=== PATIENT | female | born 1955 | race African-American/Black ===

== ENCOUNTER 2016-10-26 18:59 | Emergency (ER) | payer BC ==
[2016-10-26 19:09] VITALS: BP 121/88; PULSE 116; TEMP 98.6; BMI 42.5
[2016-10-26] MEDS ORDERED: ACETAMINOPHEN 325 MG TABLET (FP) PO ONE (19:54)
[2016-10-26] MEDS ORDERED: ACETAMINOPHEN 325 MG TABLET (FP) ONE (20:00)
--- NOTE | 2016-10-26 20:02 | PDOC ---
History of Present Illness - General Chief Complaint: Ear Problem Stated Complaint: LT EAR PAIN/NECK PAIN Time Seen by Provider: 10/26/16 19:31 History Source: Patient Exam Limitations: No Limitations - History of Present Illness Initial Comments: 10/26/16 20:02 61 yr female history of breast cancer on chemotherapy has left ear pain for one day and sore throat. no fever or chills. Past History - Past Medical History Allergies/Adverse Reactions: Allergies Allergy/AdvReac Type Severity Reaction Status Date / Time No Known Allergies Allergy Verified 10/26/16 19:04 Home Medications: Ambulatory Orders Aspirin [ASA -] 81 mg PO DAILY 05/25/12 Multivitamins [Tab-A-Vit -] 1 tab PO DAILY 07/16/16 Valsartan/Hydrochlorothiazide [Valsartan-Hctz 80-12.5 mg Tab] 1 each PO DAILY Tramadol HCl 50 mg PO QID PRN #30 tablet MDD 4 07/17/16 Amoxicillin - [Amoxicillin 500mg Capsule -] 500 mg PO BID #14 capsule 10/26/16 Anemia: No Asthma: No Cancer: Yes (stage 3 lt breast ca-on chemo) Cardiac Disorders: No CVA: No COPD: No CHF: No Dementia: No Diabetes: No GI Disorders: No Disorders: No HTN: Yes Hypercholesterolemia: No Liver Disease: No Seizures: No Thyroid Disease: No - Surgical History Cholecystectomy: Yes - Psycho/Social/Smoking Cessation Hx Anxiety: No Suicidal Ideation: No Smoking Status: No Smoking History: Never smoked Number of Cigarettes Smoked Daily: 0 Hx Alcohol Use: Yes (rarely) Drug/Substance Use Hx: No Substance Use Type: Alcohol Review of Systems - Review of Systems Able to Perform ROS?: Yes Is the patient limited Danish proficient: No Constitutional: No: Symptoms Reported HEENTM: Yes: Symptoms Reported Respiratory: No: Symptoms reported *Physical Exam - Vital Signs Last Vital Signs Temp Pulse Resp BP Pulse Ox 98.6 F 116 H 17 121/88 96 10/26/16 19:05 10/26/16 19:05 10/26/16 19:05 10/26/16 19:05 10/26/16 19:05 - Physical Exam General Appearance: Yes: Nourished, Appropriately Dressed HEENT: positive: EOMI, BONIFACIO, Pharyngeal Erythema, TM Dull, TM Erythema. negative: Tonsillar Exudate, Tonsillar Erythema Neck: positive: Supple. negative: Lymphadenopathy (R), Lymphadenopathy (L) Respiratory/Chest: positive: Lungs Clear, Normal Breath Sounds Cardiovascular: positive: Regular Rhythm, Regular Rate Gastrointestinal/Abdominal: positive: Normal Bowel Sounds, Soft Extremity: positive: Normal Capillary Refill, Normal Inspection, Normal Range of Motion Integumentary: positive: Normal Color, Dry, Warm Neurologic: positive: Fully Oriented, Alert, Normal Mood/Affect, Normal Response , Motor Strength 11/30 Medical Decision Making - Medical Decision Making 10/26/16 20:03 cc: sore throat left ear pain no fever or chills will place on amox for AOM pt agrees with plan will follow up saturday with pmd *DC/Admit/Observation/Transfer Diagnosis at time of Disposition: Otitis media Qualifiers: Otitis media type: suppurative Laterality: left Chronicity: acute Recurrence: not specified as recurrent Spontaneous tympanic membrane rupture: without spontaneous rupture Qualified Code(s): H66.002 - Acute suppurative otitis media without spontaneous rupture of ear drum, left ear - Discharge Dispostion Disposition: HOME Condition at time of disposition: Good - Prescriptions Prescriptions: Amoxicillin - [Amoxicillin 500mg Capsule -] 500 mg PO BID #14 capsule - Referrals Referrals: Jacky Rubi MD [Primary Care Provider] - - Patient Instructions Additional Instructions: take Amoxicillin as prescribed take tylenol for pain follow up with your doctor on Saturday for follow up if pain persists or worsens Return to ER for any fever, chills increase in pain or any other concerns
== END 2016-10-26 20:41 | disposition home or self-care (01) ==
LOC: JERFT 18:59
DX: H66.002 Acute suppurative otitis media without spontaneous rupture of ear drum, left ear (principal); I10 Essential (primary) hypertension; C50.912 Malignant neoplasm of unspecified site of left female breast
CPT/HCPCS: 99281-25

== ENCOUNTER 2017-03-06 06:24 | Day surgery (SDC) | payer BC ==
[2017-03-05 14:18] VITALS: BMI 42.5
[~2017-03-06 06:24] MED LIST: ceFAZolin SODIUM 1 GM VIAL IVPB ONE
[2017-03-06] MEDS ORDERED: ISOSULFAN BLUE 10 MG/ML VIAL SQ ONE (11:12)
[2017-03-06] MEDS ORDERED: LIDOCAINE HCL 1%, 10 MG/ML (20ML VIAL) ONE (11:12)
--- NOTE | 2017-03-06 11:41 | HP ---
Admitting History and Physical - Primary Care Physician PCP: Jacky Rubi - Admission Chief Complaint: LEFT BREAST CANCER History of Present Illness: 61 y.o. 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 Patient underwent neoadjuvant chemotherapy with good clinical response. History Source: Patient Limitations to Obtaining History: No Limitations - Past Medical History Cardiovascular: Yes: HTN Additional Past Medical History: left breast ca - Past Surgical History Past Surgical History: Yes: Breast Biopsy (image guided core needle biopsy) - Smoking History Smoking history: Never smoked Aproximately how many cigarettes per day: 0 - Alcohol/Substance Use Hx Alcohol Use: Yes (rarely) Home Medications - Allergies Allergies/Adverse Reactions: Allergies Allergy/AdvReac Type Severity Reaction Status Date / Time No Known Allergies Allergy Verified 03/05/17 14:12 - Home Medications Home Medications: Ambulatory Orders Aspirin [ASA -] 81 mg PO DAILY 05/25/12 Multivitamins [Tab-A-Vit -] 1 tab PO DAILY 07/16/16 Valsartan/Hydrochlorothiazide [Valsartan-Hctz 80-12.5 mg Tab] 1 each PO DAILY Review of Systems - Review of Systems Eyes: reports: No Symptoms HENT: reports: No Symptoms Neck: reports: No Symptoms Cardiovascular: reports: No Symptoms Respiratory: reports: No Symptoms Gastrointestinal: reports: No Symptoms Breasts: reports: Lumps (clinically non-palpable) Physical Examination Vital Signs: Vital Signs Temperature 97.9 F 03/06/17 06:43 Pulse Rate 110 H 03/06/17 06:43 Respiratory Rate 20 03/06/17 06:43 Blood Pressure 144/78 03/06/17 06:43 O2 Sat by Pulse Oximetry (%) 98 03/06/17 06:43 Constitutional: Yes: Well Nourished, No Distress Eyes: Yes: Conjunctiva Clear HENT: Yes: Normocephalic Neck: Yes: Supple Cardiovascular: Yes: Regular Rate and Rhythm Respiratory: Yes: CTA Bilaterally Gastrointestinal: Yes: Soft ...Rectal Exam: Yes: Deferred Breast(s): Yes: Left (breast mass and axillary mass no longer palpable), Right ( no palpable mass) Extremities: Yes: WNL Peripheral Pulses WNL: Yes Integumentary: Yes: WNL Problem List - Problems (1) Invasive ductal carcinoma of breast, female Assessment/Plan: left breast lumpectomy, sentinel lymph node biopsy with frozen section, possible axillary node dissection Code(s): C50.919 - MALIGNANT NEOPLASM OF UNSP SITE OF UNSPECIFIED FEMALE BREAST
[2017-03-06] MEDS ORDERED: PROPOFOL 20 ML ONE ×5 (12:08→13:35)
[2017-03-06] MEDS ORDERED: MIDAZOLAM HCL 2 MG/2 ML SINGLE DOSE VIAL ONE (12:08)
[2017-03-06] MEDS ORDERED: ceFAZolin SODIUM 1 GM VIAL ONE (12:42)
[2017-03-06] MEDS ORDERED: DEXAMETHASONE SOD PHOSPHATE 4 MG/1 ML VIAL ONE (12:42)
[2017-03-06] MEDS ORDERED: ceFAZolin SODIUM 1 GM VIAL IVPB ONE (12:45)
[2017-03-06] MEDS ORDERED: LIDOCAINE HCL 1%, 10 MG/ML (20ML VIAL) IJ ONE (13:04)
[2017-03-06] MEDS ORDERED: BUPIVACAINE HCL/PF 0.5% (5MG/ML) 10 ML VIAL ONE (13:07)
[2017-03-06] MEDS ORDERED: VASOPRESSIN 20 UNITS/ML VIAL IV ONE (13:18)
[2017-03-06] MEDS ORDERED: DESFLURANE GAS 240 ML BOTTLE IH ONE (13:36)
[2017-03-06] MEDS ORDERED: BUPIVACAINE HCL/PF 0.5% (5MG/ML) 10 ML VIAL IJ ONE (13:45)
[2017-03-06] MEDS ORDERED: BENZOIN/ALOE VERA/STORAX/TOLU 58 ML BOTTLE ONE (14:56)
[2017-03-06] MEDS ORDERED: KETOROLAC TROMETHAMINE 30 MG/1 ML VIAL ONE (14:57)
[2017-03-06] MEDS ORDERED: ONDANSETRON 4 MG/2 ML VIAL IVPUSH PRN (15:16)
[2017-03-06] MEDS ORDERED: oxyCODONE HCL 5 MG TABLET PO PRN (15:16)
--- NOTE | 2017-03-06 15:26 | OP ---
Operative Note - Note: Operative Date: 03/06/17 Pre-Operative Diagnosis: Node positive left breast invasive ductal carcinoma Operation: left breast lumpectomy, sentinel lymph node biopsy with needle localization Findings: negative SLN on touch prep, vaguely palpable breast mass with clips imaged on specimen X-ray Post-Operative Diagnosis: Same as Pre-op Surgeon: Reginaldo Mcgarry Mast Maker: Tori Pope Anesthesia: General Specimens Removed: left breast mass and axillary lymph node Estimated Blood Loss (mls): 20 Operative Report Dictated: Yes
[2017-03-06] MEDS ORDERED: LACTATED RINGERS SOLUTION 1,000 ML IV SCH (15:30)
[2017-03-06 16:46] VITALS: TEMP 97
[2017-03-06 18:00] VITALS: BP 141/75; PULSE 72
--- NOTE | 2017-03-07 08:29 | OP ---
DATE OF OPERATION: 03/06/2017 PROCEDURE: Left breast lumpectomy and sentinel lymph node biopsy with needle localization. PREOPERATIVE DIAGNOSIS: Node-positive left breast invasive ductal carcinoma, status post neoadjuvant chemotherapy. POSTOPERATIVE DIAGNOSIS: Node-positive left breast invasive ductal carcinoma, status post neoadjuvant chemotherapy. SURGEON: Reginaldo Mcgarry MD ELECTRONIC DATA INTERCHANGE SPECIALIST: TALIA Sandoval ANESTHESIA: General endotracheal. FINDINGS AND PROCEDURE: This is a 61-year-old female who was diagnosed in April 2016 with hormone receptor-positive and node-positive left breast invasive ductal carcinoma. Patient underwent neoadjuvant chemotherapy with good clinical response. On repeat examination, the left breast mass and axillary lymph node are barely palpable. Patient is now scheduled for breast conservation surgery. Preoperative wire localization by the breast radiologist was done with 2 wires in the left breast in the lower inner quadrant, 1 being for the LCIS lesion and 1 for the invasive lesion, and another wire was placed in the left axillary metastatic lymph node. Consent was then signed by the patient after discussing the risks, benefits, and alternatives to the procedure. Patient also underwent pre- op peritumoral and periareolar injection of technetium 99 for the radionuclide sentinel lymph node detection. Patient was brought to the operating room and placed in the supine position. General endotracheal anesthesia was administered. A roll was placed behind the patient' s left shoulder and the left arm was abducted 90 degrees. In the operating room, patient was also given 4 mL of isosulfan blue dye which was injected peritumorally and also in the periareolar region. After that, the left breast was prepped and draped in the usual sterile fashion. Using 0.5% Marcaine, local anesthesia was administered to the proposed incision sites. The sentinel lymph node biopsy was done first by making a 5-cm skin crease incision over the lowest hair-bearing part of the left axilla. This was done using scalpel blade No. 15. Further dissection using Bovie cautery was done until the clavipectoral fascia was encountered. This was also incised using the Bovie cautery to enter the axillary fat pad. The blue lymphatic channel was traced toward a lymph node which was also hypermetabolic or with high counts on the [place] counter or probe. This lymph node turned out also to have the wire that was previously inserted. This was sent for frozen section with the preliminary report on touch prep to be negative for metastatic cancer. Further removal of lymph node containing axillary fat pad was done. Afterwards, the hemostasis was achieved using Bovie cautery. Attention was then focused on the breast where a 6-cm curvilinear incision at the left lower inner quadrant was made with dissection carried down through subcutaneous tissue. Further dissection using Bovie cautery and 7-mm inferior and superior flaps were made. Most of the entire left lower inner quadrant was excised down to the pectoralis muscle. This was then sent for specimen x-ray and reported to contain the 2 microclips. These were placed at the time of the stereotactic biopsy. The superior part of the breast was then tacked to the pectoralis fascia to obliterate the space and minimize the deformity. This was done using Vicryl 2-0 sutures. The wound was then closed with interrupted Vicryl 3-0 suture for the dermis and continuous Biosyn 4-0 suture for the subcuticular layer. The axillary wound was also closed in the same manner with interrupted Vicryl 2- 0 suture for the clavipectoral fascia, interrupted Vicryl 3-0 suture for the dermis, and continuous Biosyn 4-0 suture for the subcuticular layer. The wound closure was reinforced with Steri-Strips and then covered with pressure dressing. A mastectomy bra was also applied for compression, comfort, and prevention of a seroma. Patient was successfully extubated and transferred to the postanesthesia care unit in satisfactory condition. Estimated blood loss was about 20 mL. Wound class 3 and the patient received 2 g of cefazolin prior to the start of the procedure. Yosef [id number] MTDD
--- NOTE | 2017-03-12 17:04 | PATH ---
Surgical Pathology Report Patient Name: LEE GUERRA [facility]. Rec. #: [id number] /Age/Gender: 1955 (Age: 61) / F Account: [id number] Location: [facility] SURGICAL Taken: 03/06/2017 Received: 03/06/2017 Reported: 03/12/2017 Physicians: Reginaldo Mcgarry M.D. Specimen(s) Received A: LEFT BREAST B: LEFT BREAST MASS C: LEFT AXILLARY TISSUE Clinical History Left breast cancer Intraoperative Consult Diagnosis Left sentinel node, touch prep: No carcinoma identified. Flakito Mckeon M.D., 03/06/17 Final Diagnosis A. SENTINEL LYMPH NODE, LEFT AXILLARY, BIOPSY: ONE LYMPH NODE, NEGATIVE FOR METASTATIC CARCINOMA BY H&E STAIN WITH EXTENSIVE POST THERAPEUTIC FIBROSIS (0/1). Comment: Immunohistochemical stain for Ae1/Ae3 keratin performed and interpreted at [facility] on blocks A1 and A2 shows nonspecific staining. B. BREAST, LEFT, LUMPECTOMY: INVASIVE DUCTAL CARCINOMA, POORLY DIFFERENTIATED (NONA HISTOLOGIC SCORE OF 8: TUBULE FORMATION 3 OF 3, NUCLEAR PLEOMORPHISM 3 OF 3, MITOTIC RATE 2 OF 3). INVASIVE CARCINOMA FOCALITY AND SIZE: SINGLE FOCUS, 2.3 CM. LOBULAR CARCINOMA IN SITU (LCIS), CLASSICAL TYPE WITH FOCAL MICROCALCIFICATIONS. THERAPEUTIC RESPONSE: MILD (FOCI OF POSTTHERAPEUTIC FIBROSIS PRESENT, ~15%). SURGICAL RESECTION MARGINS: INVASIVE CARCINOMA ABUTS CAUTERIZED ANTERIOR RESECTION MARGIN, INVASIVE CARCINOMA IS 1.5 MM FROM THE MEDIAL RESECTION MARGIN AND >2.0 MM AWAY FROM OTHER RESECTION MARGINS. LYMPHOVASCULAR INVASION: FOCALLY IDENTIFIED. PERINEURAL INVASION: NOT DEFINITIVELY IDENTIFIED. SURROUNDING BREAST TISSUE: SCLEROSED FIBROADENOMA AND COMPLEX SCLEROSING LESION WITH COARSE CALCIFICATIONS AND USUAL DUCTAL HYPERPLASIA, FIBROCYSTIC CHANGE WITH USUAL DUCTAL HYPERPLASIA, ADENOSIS, COLUMNAR CELL CHANGE, STROMAL FIBROSIS WITH ASSOCIATED MICROCALCIFICATIONS. PATHOLOGIC STAGING: ypT2 ypN0(sn) (ALSO REFER TO CHECKLIST BELOW). RECEPTOR STATUS: REFER TO THE CHECKLIST BELOW. Comment: Immunohistochemical stain for E-cadherin performed and interpreted at [facility] on block B5 shows attenuated staining in the foci of LCIS supporting and lobular differentiation. C. LEFT AXILLARY TISSUE: BENIGN FATTY TISSUE. Comments Breast Invasive Carcinoma: Surgical Pathology Cancer Case Summary Based on AJCC/UICC TNM, 7th edition Procedure _x_ Excision with image-guided localization Lymph Node Sampling (select all that apply) (required only if lymph nodes are present in the specimen) _x_ [place] lymph nodes Specimen Laterality _x_ Left Tumor Size: Size of Largest Invasive Carcinoma Greatest dimension of largest focus of invasion over 1 mm: 23 mm (2.3 cm) Tumor Focality _x_ Single focus of invasive carcinoma Macroscopic and Microscopic Extent of Tumor Skin _x_ No skin present Nipple _x_ Not applicable (excisions less than total mastectomy) Skeletal Muscle _x_ No skeletal muscle present Ductal Carcinoma In Situ (DCIS) _x_ No DCIS is present Lobular carcinoma in situ (LCIS): _x_ Present, classical type Histologic Type of Invasive Carcinoma: _x_ Invasive carcinoma of no special type (ductal, not otherwise specified) Histologic Grade: ([place] Histologic Score) Tubular Differentiation _x_ Score 3 Nuclear Pleomorphism _x_ Score 3 Mitotic Rate _x_ Score 2 Overall Grade _x_ Grade 3: score of 8 (poorly differentiated) Margins _x_ Margin(s) positive for invasive carcinoma: invasive carcinoma abuts anterior margin; medial margin s 1.5 mm from invasive carcinoma, other margins are >2mm away from invasive carcinoma Lymph-Vascular Invasion _x_ Focally present Lymph Nodes Total number of lymph nodes examined (sentinel and nonsentinel):1 Number of sentinel lymph nodes examined: 1 Number of lymph nodes with macrometastases (> 2 mm): 0 Number of lymph nodes with micrometastases (>0.2 mm to 2 mm and/or >200cells): 0 Number of lymph nodes with isolated tumor cells (=0.2 mm and =200 cells):0 Size of largest metastatic deposit (if present): n/a Extranodal Extension _x_ Not applicable Pathologic Staging (pTNM) Primary Tumor (Invasive Carcinoma): ypT2 Regional Lymph Nodes (pN): ypN0(sn) Distant Metastasis (pM): not applicable Biomarker Studies Results of ER and CT studies performed on this specimen (block B2) at [facility] are as follows: ER (clone [id number] mouse monoclonal antibody by [employer]): ~90% nuclear staining with strong to moderate intensity (Positive). CT (clone16 mouse monoclonal antibody by [employer]):~20-25% nuclear staining with moderate to strong intensity (Positive). Results of Her2 studies will be reported separately in an addendum. Positive and negative controls (internal if applicable) show appropriate results. Formalin fixation and cold ischemic times are within current ASCO/CAP recommendations for ER, CT and Her2 testing. Electronically Signed Paco Willis M.D. Addendum Reported: 03/13/2017 Addendum Diagnosis Result of Her2 IHC performed on block B2 at [place], [place] ([id number]) is as follows: Her2 IHC (EP3 from [employer], formerly known as [id number], using [employer] Polymer Refine detection kit): 0 (Negative) Positive and negative controls (internal if applicable) show appropriate results. Paco Willis M.D. Gross Description A. Received fresh labeled "sentinel lymph node" is a 2.2 x 2.0 x 0.6 cm lymph node with attached fat. The specimen is bisected and a touch prep is performed on the specimen. The specimen is entirely submitted in 2 cassettes. B. Received fresh on an [employer] labeled "left breast mass" is a 6.5 x 5.6 x 3.5 cm irregular portion of fibroadipose tissue with a needle localization wire present. There is a long suture marking the anterior margin, a medium suture marking the superior margin and a short suture marking the medial margin of the specimen, per the surgeon. There is no skin or nipple present. The specimen is inked as follows: Superior and lateral blue; inferior green; medial yellow; anterior red; deep black. The specimen is serially sectioned from superior to inferior. Sectioning reveals a 2.2 x 1.8 x 1.2 cm galvin, indurated mass focally abutting the anterior margin. The mass is at 0.2 cm from the medial margin and 0.9 cm from the deep margin. The remaining margins appear clear of the mass. [facility] Of Maternity Services sections are submitted in 9 cassettes as follows: 1-2-one full face section of mass each (each with anterior and medial margins); 3-additional mass with anterior and medial margins; 4-5-lateral margin; 6-deep margin; 2-7-idtzprnw margin; 9-superior margin. Time to fixation: <1h Total formalin fixation time: ~26h C. Received in formalin labeled "left axillary tissue" is a 5.4 x 3.5 x 1.0 cm portion of yellow, lobulated adipose tissue. No discrete lymph nodes are identified. The specimen is entirely submitted in 5 cassettes. 03/06/2017 [facility]03/06/2017
== END 2017-03-06 17:30 | disposition home or self-care (01) ==
LOC: JASU-SURG 06:24
PROVIDERS: ATTEND Surgery
PROC: 0HBU0ZZ Excision of Left Breast, Open Approach (ICD-10-PCS; principal; 2017-03-06 11:30)
PROC: 07B60ZX Excision of Left Axillary Lymphatic, Open Approach, Diagnostic (ICD-10-PCS; 2017-03-06 11:30)
PROC: C71LYZZ Planar Nuclear Medicine Imaging of Upper Chest Lymphatics using Other Radionuclide (ICD-10-PCS; 2017-03-06 11:30)
DX: C50.312 Malignant neoplasm of lower-inner quadrant of left female breast (principal); Z92.21 Personal history of antineoplastic chemotherapy
CPT/HCPCS: 19281; 78195-TC; 88307-TC; 88333; 88342-TC; 94760; A9541

== ENCOUNTER 2017-03-19 06:23 | Day surgery (SDC) | payer BC ==
[2017-03-15 11:46] VITALS: BMI 42.5
[2017-03-19] MEDS ORDERED: ePHEDrine SULFATE 50 MG/1 ML AMPULE ONE ×2 (07:30→09:43)
[2017-03-19] MEDS ORDERED: PROPOFOL 20 ML ONE ×3 (07:30→08:46)
[2017-03-19] MEDS ORDERED: SUCCINYLCHOLINE CHLORIDE 200 MG/10 ML VIAL ONE (07:30)
[2017-03-19] MEDS ORDERED: MIDAZOLAM HCL 2 MG/2 ML SINGLE DOSE VIAL ONE (07:31)
[2017-03-19] MEDS ORDERED: DESFLURANE GAS 240 ML BOTTLE IH ONE (07:35)
[2017-03-19] MEDS ORDERED: SEVOFLURANE 250 ML BTL ONE (07:35)
[2017-03-19] MEDS ORDERED: BUPIVACAINE HCL/PF 0.5% (5MG/ML) 10 ML VIAL ONE (07:40)
[2017-03-19] MEDS ORDERED: LIDOCAINE HCL 1%, 10 MG/ML (20ML VIAL) ONE (07:40)
--- NOTE | 2017-03-19 08:23 | HP ---
History & Physical Update - History History: Change (see notes) (s/p lumpectomy and SNLB with postive anterior margins of lumpectomy specimen) - Physical Physical: No Change (intact lumpectomy wound) - Assessment Assessment: No Change (s/p LSNLB LEFT BREAST with positive anterior margin) - Plan Plan: No Change (wide re-excisionof lumpectomy site, left breast)
[2017-03-19] MEDS ORDERED: LIDOCAINE HCL 1%, 10 MG/ML (20ML VIAL) IJ ONE (08:37)
[2017-03-19] MEDS ORDERED: BUPIVACAINE HCL/PF 0.5% (5MG/ML) 10 ML VIAL IJ ONE (08:40)
[2017-03-19] MEDS ORDERED: NEOSTIGMINE METHYLSULFATE 0.5 MG/ML - 10 ML MDV ONE (08:48)
[2017-03-19] MEDS ORDERED: ROCURONIUM BROMIDE 50 MG/5 ML VIAL ONE (08:48)
[2017-03-19] MEDS ORDERED: BENZOIN/ALOE VERA/STORAX/TOLU 58 ML BOTTLE ONE (09:20)
[2017-03-19] MEDS ORDERED: ONDANSETRON 4 MG/2 ML VIAL IVPUSH PRN (10:12)
--- NOTE | 2017-03-19 10:14 | OP ---
Operative Note - Note: Operative Date: 03/19/17 Pre-Operative Diagnosis: s/p LSLNB with positive anterior margin Operation: Wide re-excision of left breast lumpectomy site/breast mass Findings: unremarkable lumpectomy site Post-Operative Diagnosis: Same as Pre-op Surgeon: Reginaldo Mcgarry Anesthesia: General Specimens Removed: skin and breast tissue Estimated Blood Loss (mls): 5 Operative Report Dictated: Yes
[2017-03-19] MEDS ORDERED: LACTATED RINGERS SOLUTION 1,000 ML IV SCH (10:15)
[2017-03-19 11:07] VITALS: TEMP 98
[2017-03-19] MEDS ORDERED: oxyCODONE HCL 5 MG TABLET PO PRN ×2 (11:35)
[2017-03-19 13:22] VITALS: BP 124/61; PULSE 83
--- NOTE | 2017-03-19 17:14 | OP ---
DATE OF OPERATION: 03/19/2017 PROCEDURE: Wide re-excision of left breast mass/lumpectomy site. PREOPERATIVE DIAGNOSIS: Invasive ductal carcinoma of the left breast status post lumpectomy and sentinel lymph node biopsy with positive anterior margin. POSTOPERATIVE DIAGNOSIS: Invasive ductal carcinoma of the left breast status post lumpectomy and sentinel lymph node biopsy with positive anterior margin. SURGEON: Reginaldo Mcgarry MD ANESTHESIA: General by laryngeal mask airway. FINDINGS AND PROCEDURE: This is a 61-year-old female with history of a large left breast invasive ductal carcinoma and positive metastasis to the axillary lymph node. Patient underwent lumpectomy and sentinel lymph node biopsy 2 weeks prior after neoadjuvant chemotherapy. The pathology returned as negative axillary metastatic lymph node with a positive anterior margin of the lumpectomy site. So, patient was thus advised wide re-excision of the lumpectomy site, and consent was obtained after discussing the risks, benefits, and alternatives to the procedure. Patient was brought to the operating room and placed in supine position with the left arm abducted 90 degrees. The general anesthesia by laryngeal mask airway was administered. The operative site was prepped and draped in the usual sterile fashion. Using 0.5% Marcaine, local anesthesia was administered to the proposed incision site. Using scalpel blade number 15, an elliptical incision with about 1-cm margin from the original incision was made. Dissection was carried down to the subcutaneous tissue, and subcutaneous tissue was also removed widely about 2 cm from the original incision site. Dissection was carried down all the way to the deep structures, removing a sliver of breast tissue until the pectoralis fascia was encountered. The wide excision incorporated the excisional cavity. After this, the specimen was labeled for proper orientation. Further resection of 0.5 cm x 3 cm x 2 cm margins of the anterior-superior and the lateral and the inferior anterior margins were also taken and sent to the lab for proper histopathologic examination. The wound was irrigated with sterile normal saline until the return was clear and oncoplastic reconstruction was done by undermining the breast tissue at the pectoralis fascial level, and using Vicryl 2-0 sutures, the breast tissue was tacked close to the inframammary fold, taking bites of the pectoralis fascia to obliterate space and minimize deformity. The skin was then closed with interrupted Vicryl 3-0 suture for the dermis and continuous Biosyn 4 -0 suture for the subcuticular layer. The wound closure was reinforced with Steri-Strips, then covered with sterile dressing and post-mastectomy bra was applied. Patient was successfully extubated, transferred to the postanesthesia care unit in satisfactory condition. ESTIMATED BLOOD LOSS: About 5 mL. WOUND CLASS: Clean. The patient received 2 g of Ancef prior to the start of the procedure. Yosef [id number] MTDD
--- NOTE | 2017-03-21 15:59 | PATH ---
Surgical Pathology Report Patient Name: LEE GUERRA [facility]. Rec. #: [id number] /Age/Gender: 1955 (Age: 61) / F Account: [id number] Location: [facility] SURGICAL Taken: 03/19/2017 Received: 03/19/2017 Reported: 03/21/2017 Physicians: Reginaldo Mcgarry M.D. Specimen(s) Received A: LEFT BREAST RE-EXCISION LUMPECTOMY SITE B: LEFT BREAST TISSUE C: LEFT BREAST TISSUE D: LEFT BREAST TISSUE Clinical History Left breast cancer Final Diagnosis A. BREAST, LEFT, RE-EXCISION LUMPECTOMY SITE: NO RESIDUAL INVASIVE OR IN SITU CARCINOMA IDENTIFIED. FIBROCYSTIC CHANGE WITH USUAL DUCTAL HYPERPLASIA. BENIGN SKIN. EXTENSIVE PRIOR SURGICAL SITE CHANGES. SURGICAL RESECTION MARGINS: NEGATIVE FOR INVASIVE OR IN-SITU CARCINOMA. B. BREAST, LEFT, ANTERIOR SUPERIOR MARGIN, EXCISION: BENIGN BREAST TISSUE WITH EXTENSIVE PRIOR SURGICAL SITE CHANGES. SURGICAL RESECTION MARGIN: NEGATIVE FOR INVASIVE OR IN-SITU CARCINOMA. C. BREAST, LEFT, LATERAL MARGIN, EXCISION: BENIGN BREAST TISSUE WITH FIBROCYSTIC CHANGE WITH FOCAL USUAL DUCT HYPERPLASIA. NO INVASIVE OR IN SITU CARCINOMA IDENTIFIED. EXTENSIVE PRIOR SURGICAL SITE CHANGES. SURGICAL RESECTION MARGIN: NEGATIVE FOR INVASIVE OR IN-SITU CARCINOMA. D. BREAST, LEFT, INFERIOR MEDIAL MARGIN, EXCISION: BENIGN BREAST TISSUE WITH FIBROCYSTIC CHANGE WITH FOCAL USUAL DUCTAL HYPERPLASIA. NO RESIDUAL INVASIVE OR IN SITU CARCINOMA IDENTIFIED. EXTENSIVE PRIOR SURGICAL SITE CHANGES. SURGICAL RESECTION MARGIN: NEGATIVE FOR INVASIVE OR IN-SITU CARCINOMA. Comment: Immunohistochemical stains performed and interpreted as [facility] shoe preserved myoepithelial cells in block A9, e-cadherin stain is positive in blocks A9, C3 and D2 supporting usual ductal hyperplasia. Electronically Signed Paco Willis M.D. Gross Description A. Received in formalin labelled "left breast tissue-reexcision left breast" is an 8 x 5 x 2.5 cm portion of yellow fatty tissue with an attached 7.1 x 1.8 cm ellipse of skin. The specimen is oriented vertically, and a short suture dominique the superior margin and a long suture dominique the lateral margin. The surface of the specimen is focally disrupted, and shows a cystic interior. Instructions are noted along the lateral, deep, and inferior aspects of the specimen. The superior and lateral margins are inked blue. The inferior margin is inked green. The medial margin is inked yellow. The deep margin is inked black. The specimen is sectioned from superior to inferior. Cut surface reveals yellow adipose tissue and galvin-keith fibrous tissue. Areas consistent with prior excision site with associated fat necrosis are present. No distinct mass is identified. [employer] sections are submitted from superior to inferior in 10 cassettes, with the superior margin in cassette 1 and the inferior margin in cassette 10. Time to formalin fixation: not indicated Total formalin fixation time: ~7 hours. B. Received in formalin labelled "inferior/medial left breast tissue" but indicated on the requisition to be "anterior superior margin" is a 3.2 x 2.8 x 0.8 cm portion of yellow fatty tissue with sutures marking the new margin. Cut surface reveals yellow adipose tissue with no distinct lesion identified. Sectioned and totally submitted in 4 cassettes. C. Received in formalin labelled "left breast tissue lateral margin" is a 6 x 1.4 x 0.5 cm portion of yellow and keith tissue with one surface showing changes consistent with prior excision site. The opposite margin is inked. Sectioned and totally submitted in 4 cassettes. D. Received in formalin labelled "left breast tissue inferior/medial margin" is a 3.0 x 2.1 x 1.6 cm portion of yellow fatty tissue with a stitch and anterior superior border. One aspect shows apparent prior excision site changes. The opposite margin is inked. Sectioned and totally submitted in 4 cassettes. [facility]03/19/2017
== END 2017-03-19 13:24 | disposition home or self-care (01) ==
LOC: JASU-SURG 06:23
PROVIDERS: ATTEND Surgery
PROC: 0HBU0ZZ Excision of Left Breast, Open Approach (ICD-10-PCS; principal; 2017-03-19 08:00)
DX: C50.312 Malignant neoplasm of lower-inner quadrant of left female breast (principal)
CPT/HCPCS: 88307-TC; 88341-TC; 88342-TC; 94760

== ENCOUNTER 2017-08-15 12:59 | Emergency (ER) | payer BC ==
[2017-08-15 13:24] VITALS: BP 146/79; PULSE 80; TEMP 98.9; BMI 45.6
--- NOTE | 2017-08-15 14:50 | PDOC ---
History of Present Illness - General Chief Complaint: Injury Stated Complaint: FALL INJURY Time Seen by Provider: 08/15/17 14:26 History Source: Patient Exam Limitations: No Limitations - History of Present Illness Initial Comments: 08/15/17 14:45 62-year-old female with history of breast CA currently in RT treatment presents to the ED status post mechanical fall. Patient states was working up the steps at work when she missed the last step causing her to land on her left side striking her left arm now complaining of upper left arm pain and neck pain. Patient states did not hit her head and has no complaints of headache presently. Patient states was able toward the scene but due to the pain and her decreased sensation to the left arm secondary to radiation therapy to her left breast she decided to come to the ER. Patient denies previous injury to the affected area. Occurred: reports: just prior to arrival Severity: reports: mild Pain Location: reports: neck, upper extremity Method of Injury: Yes: fall Loss of Consciousness: no loss of consciousness Associated Symptoms (Fall): neck pain Past History - Travel Traveled outside of the country in the last 30 days: No - Past Medical History Allergies/Adverse Reactions: Allergies Allergy/AdvReac Type Severity Reaction Status Date / Time No Known Allergies Allergy Verified 08/15/17 13:24 Home Medications: Ambulatory Orders Aspirin [ASA -] 81 mg PO DAILY 05/25/12 Multivitamins [Tab-A-Vit -] 1 tab PO DAILY 07/16/16 Valsartan/Hydrochlorothiazide [Valsartan-Hctz 80-12.5 mg Tab] 1 each PO DAILY Oxycodone HCl/Acetaminophen [Percocet 5-325 mg Tablet] 1 - 2 tab PO Q6H PRN #30 tab MDD 8 03/19/17 Anemia: No Asthma: No Cancer: Yes (left breast) Cardiac Disorders: No CVA: No COPD: No CHF: No Dementia: No Diabetes: No GI Disorders: No Disorders: No HTN: Yes Hypercholesterolemia: No Liver Disease: No Seizures: No Thyroid Disease: No - Surgical History Cholecystectomy: Yes - Suicide/Smoking/Psychosocial Hx Smoking Status: No Smoking History: Former smoker Have you smoked in the past 12 months: No Number of Cigarettes Smoked Daily: 0 Information on smoking cessation initiated: No Hx Alcohol Use: No Drug/Substance Use Hx: No Substance Use Type: None Hx Substance Use Treatment: No Patient Lives Alone: No Lives with/in: spouse/SO Review of Systems - Review of Systems Able to Perform ROS?: Yes Constitutional: No: Symptoms Reported HEENTM: No: Symptoms Reported Respiratory: No: Symptoms reported Cardiac (ROS): No: Symptoms Reported ABD/GI: No: Symptoms Reported : No: Symptoms Reported Musculoskeletal: Yes: Muscle Pain (left bicep), Neck Pain. No: Joint Pain (no left shoulder or left elbow) Integumentary: No: Other Neurological: No: Symptoms reported Hematologic/Lymphatic: No: Symptoms Reported *Physical Exam - Vital Signs Last Vital Signs Temp Pulse Resp BP Pulse Ox 98.9 F 80 17 146/79 98 08/15/17 13:19 08/15/17 13:19 08/15/17 13:19 08/15/17 13:19 08/15/17 13:19 - Physical Exam General Appearance: Yes: Nourished, Appropriately Dressed. No: Apparent Distress HEENT: negative: Pale Conjunctivae Neck: positive: Supple, Tender midline (c5-6) Respiratory/Chest: positive: Lungs Clear, Normal Breath Sounds. negative: Respiratory Distress, Accessory Muscle Use Cardiovascular: positive: Regular Rhythm, Regular Rate. negative: Murmur Gastrointestinal/Abdominal: positive: Soft. negative: Tenderness Extremity: positive: Normal Capillary Refill, Normal Inspection. negative: Normal Range of Motion, Tender Integumentary: positive: Normal Color, Warm, Moist Neurologic: positive: Motor Strength 5/5 (ambulatory. FROM of LUE) ED Treatment Course - RADIOLOGY Radiology Studies Ordered: Category Date Time Status HUMERUS-LEFT [RAD] Stat Radiology 08/15/17 14:33 Ordered SPINE-CERVICAL [RAD] Stat Radiology 08/15/17 14:33 Ordered Medical Decision Making - Medical Decision Making 08/15/17 15:05 Patient status post mechanical fall landing on her left arm now with pain to her left bicep and mid shaft of left humerus. Patient also on exam had tenderness at C5 and C6. Patient ordered for cervical spine and humeral x-ray 08/15/17 15:18 Humeral x-ray and cervical x-ray negative for acute findings including subluxation and fracture. Patient to be discharged home with recommendations to apply ice, take NSAIDs and rest. *DC/Admit/Observation/Transfer Diagnosis at time of Disposition: Contusion Qualifiers: Encounter type: initial encounter Contusion area: upper arm - Discharge Dispostion Disposition: HOME Condition at time of disposition: Good - Referrals Referrals: Jacky Rubi MD [Primary Care Provider] - - Patient Instructions Printed Discharge Instructions: DI for Contusion Additional Instructions: Apply ice to the affected area and may take Motrin or Tylenol for discomfort. - Post Discharge Activity
== END 2017-08-15 15:30 | disposition home or self-care (01) ==
LOC: JERFT 12:59
DX: S40.022A Contusion of left upper arm, initial encounter (principal); W10.8XXA Fall (on) (from) other stairs and steps, initial encounter; Y93.89 Activity, other specified; Y92.218 Other school as the place of occurrence of the external cause; Y99.0 Civilian activity done for income or pay; Z85.3 Personal history of malignant neoplasm of breast
CPT/HCPCS: 72050-TC; 73060-TC-LT; 99281-25

== ENCOUNTER 2017-10-14 07:35 | Inpatient (IN) | payer BC ==
--- NOTE | 2017-10-14 07:52 | PDOC ---
History of Present Illness - General Chief Complaint: Nausea/Vomiting Stated Complaint: DIZZINESS,VOMITING Time Seen by Provider: 10/14/17 07:47 Past History - Past Medical History Allergies/Adverse Reactions: Allergies Allergy/AdvReac Type Severity Reaction Status Date / Time No Known Allergies Allergy Verified 10/14/17 07:48 Home Medications: Ambulatory Orders Aspirin [ASA -] 81 mg PO DAILY 05/25/12 Multivitamins [Tab-A-Vit -] 1 tab PO DAILY 07/16/16 Valsartan/Hydrochlorothiazide [Valsartan-Hctz 80-12.5 mg Tab] 1 each PO DAILY Oxycodone HCl/Acetaminophen [Percocet 5-325 mg Tablet] 1 - 2 tab PO Q6H PRN #30 tab MDD 8 03/19/17 Anemia: No Asthma: No Cancer: Yes (left breast) Cardiac Disorders: No CVA: No COPD: No CHF: No Dementia: No Diabetes: No GI Disorders: No Disorders: No HTN: Yes Hypercholesterolemia: No Liver Disease: No Seizures: No Thyroid Disease: No - Surgical History Cholecystectomy: Yes - Suicide/Smoking/Psychosocial Hx Smoking Status: No Smoking History: Former smoker Have you smoked in the past 12 months: No Number of Cigarettes Smoked Daily: 0 Hx Alcohol Use: No Drug/Substance Use Hx: No Substance Use Type: None Hx Substance Use Treatment: No *DC/Admit/Observation/Transfer - Referrals Referrals: Jacky Rubi MD [Primary Care Provider] - - Patient Instructions - Post Discharge Activity
[2017-10-14] MEDS ORDERED: SODIUM CHLORIDE 1,000 ML IV STA (07:54)
[2017-10-14] MEDS ORDERED: PROCHLORPERAZINE INJECTION 10 MG/2 ML VIAL IVPB ONE (07:54)
[2017-10-14] MEDS ORDERED: METOCLOPRAMIDE HCL INJECTION 10 MG/2 ML VIAL IVPUSH ONE (07:54)
--- NOTE | 2017-10-14 07:56 | PDOC ---
History of Present Illness - General Stated Complaint: DIZZINESS,VOMITING Time Seen by Provider: 10/14/17 07:47 - History of Present Illness Initial Comments: 10/14/17 07:50 62 yo F with h/o stage III L breast invasive ductal carcinoma s/p chemoradiation , and HTN who arrives EMS with MCDONOUGH. Patient acute onset of 5/10 frontal headache yesterday evening with improvement following Tylenol adminsitration prior to falling asleep. Reports waking up this AM with maximal intensity frontal headache, with asx. photphobia, phonophobia, and 4 episodes of non biliary, non bloody emesis. Reports worse MCDONOUGH she has experienced in life.Tylenol this AM with no improvement. MCDONOUGH worse with supine positioning. Also endorses fatigue and lightheadedness, but denies vertiginous symptoms. Denies vision changes, stiff neck, F/C, weakness, new sensory changes, or LOC. Denies CP, SOB, cough, abdominal pain, diarrhea, constipation, urinary complaints. Denies caffeine, tobacco, or alcohol intake. Denies h/o CVA/TIA. Oncologist Dr. Fernandez. Last round of radiation (08/15), and chemotherapy (06/14). PMD Dr. Buck Rubi. Past History - Past Medical History Allergies/Adverse Reactions: Allergies Allergy/AdvReac Type Severity Reaction Status Date / Time No Known Allergies Allergy Verified 10/14/17 07:57 Home Medications: Ambulatory Orders Aspirin [ASA -] 81 mg PO DAILY 05/25/12 Multivitamins [Tab-A-Vit -] 1 tab PO DAILY 07/16/16 Valsartan/Hydrochlorothiazide [Valsartan-Hctz 80-12.5 mg Tab] 1 each PO DAILY Oxycodone HCl/Acetaminophen [Percocet 5-325 mg Tablet] 1 - 2 tab PO Q6H PRN #30 tab MDD 8 03/19/17 Anemia: No Asthma: No Cancer: Yes (left breast) Cardiac Disorders: No CVA: No COPD: No CHF: No Dementia: No Diabetes: No GI Disorders: No Disorders: No HTN: Yes Hypercholesterolemia: No Liver Disease: No Seizures: No Thyroid Disease: No - Surgical History Cholecystectomy: Yes - Suicide/Smoking/Psychosocial Hx Smoking Status: No Smoking History: Former smoker Have you smoked in the past 12 months: No Number of Cigarettes Smoked Daily: 0 Hx Alcohol Use: No Drug/Substance Use Hx: No Substance Use Type: None Hx Substance Use Treatment: No Review of Systems - Review of Systems Comments:: 10/14/17 07:53 GENERAL/CONSTITUTIONAL: No fever or chills. No weakness. HEAD, EYES, EARS, NOSE AND THROAT: No change in vision. No ear pain or discharge. No sore throat. CARDIOVASCULAR: No chest pain or shortness of breath RESPIRATORY: No cough, wheezing, or hemoptysis. GASTROINTESTINAL: + nausea, vomiting. No diarrhea or constipation. GENITOURINARY: No dysuria, frequency, or change in urination. MUSCULOSKELETAL: No joint or muscle swelling or pain. No neck or back pain. SKIN: No rash NEUROLOGIC: + headache, lightheadedness. No vertigo, loss of consciousness, or change in strength/sensation. ENDOCRINE: No increased thirst. No abnormal weight change HEMATOLOGIC/LYMPHATIC: No anemia, easy bleeding, or history of blood clots. ALLERGIC/IMMUNOLOGIC: No hives or skin allergy. *Physical Exam - Physical Exam Comments: 10/14/17 07:53 GENERAL: Awake, alert, and fully oriented, in no acute distress HEAD: No signs of trauma, normocephalic, atraumatic EYES: PERRLA, EOMI, sclera anicteric, conjunctiva clear ENT: + Left sided mastoid ttp. with absent overlying skin change. Hearing grossly normal, nares patent, oropharynx clear without exudates. Moist mucosa NECK: Normal ROM, supple, no lymphadenopathy, JVD, or masses LUNGS: No distress, speaks full sentences, clear to auscultation bilaterally HEART: Regular rate and rhythm, normal S1 and S2, no murmurs, rubs or gallops, peripheral pulses normal and equal bilaterally. ABDOMEN: Soft, nontender, normoactive bowel sounds. No guarding, no rebound. No masses EXTREMITIES : Normal inspection, Normal range of motion, no edema. No clubbing or cyanosis. NEUROLOGICAL: Cranial nerves II through XII grossly intact. Normal speech, normal gait, no focal sensorimotor deficits. Normal YAEL. Absent dysmetria on FTN. SKIN: Warm, Dry, normal turgor, no rashes or lesions noted Procedures - Lumbar Puncture Indication: Meningitis CT Scan: Yes Betadine Prep: Yes Position: Right lateral decubitus Site: L3-L4 Local Anesthesia: 1% Lidocaine with epi Lumbar Puncture Kit: Adult Traumatic Tap: No Clear Fluid: No Complications: No Progress: 10/14/17 16:58 Cloudy CSF visualized in all 4 vials. ED Treatment Course - LABORATORY CBC & Chemistry Diagram: 10/14/17 08:20 10/14/17 10:49 Medical Decision Making - Medical Decision Making 10/14/17 08:15 62 yo F with h/o stage III L breast invasive ductal carcinoma s/p chemoradiation , and HTN who arrives EMS with maximal intensity, sharp pulsating, positional, frontal headache, with asx. photphobia, phonophobia, and 4 episodes of non biliary, non bloody emesis, upon waking up from sleep. Worse MCDONOUGH of life. Yesterday evening acute onset of 5/10 frontal headache. Tylenol this AM with no improvement. Endorses fatigue and lightheadedness, but denies vertiginous symptoms. Denies vision changes, stiff neck, F/C, weakness, new sensory changes , or LOC. Denies CP, SOB, cough, abdominal pain, diarrhea, constipation, urinary complaints. Denies caffeine, tobacco, or alcohol intake. Denies h/o CVA/ TIA. PMD Dr. Buck Rubi. Physical exam with no neruo deficits. BP mildly elevated 149/81. R/o SAH based on MCDONOUGH that is sudden onset, maximal intensity, and atypical from prior MCDONOUGH's. R/o CVA. Although pt. w/ absent nuchal rigidity, will consider meningitis with MCDONOUGH, photophobia, N/V, Fever. MCDONOUGH also consistent with migraine w/out aura. PMD Dr. Rubi ED Course: CBC, CMP, Cardiac EKG, CT HEAD UA Metoclopramide, Prochlorperazine, Diphendhydramine, NS 10/14/17 08:22 EKG: Evidence of RBBB with absent LUKASZ, STD, or TWI. Normal interval duration and axis. 10/14/17 08:56 WBC: 13.3 Patient with cont'd emesis and complaint of severe frontal MCDONOUGH. Ativan, Zofran 10/14/17 10:20 CT HEAD: Left mastoid effusion. 10/14/17 10:36 Pt. with cont'd emesis. Rectal temp: 100.6 10/14/17 11:54 CMP: Unremarkable 10/14/17 14:01 Repeat rectal temp 103. Pt. septic with tachycardia, elevated WBC, and fever. Vancomycin 1000 mg. 10/14/17 14:34 CTA HEAD: L sided Mastoidits, sphenoid sinusitis. 10/14/17 14:35 10/14/17 14:[address] Galeano. Will admit to her service for Dr. Rubi. INR :1.13 Will attempt LP in ED. 10/14/17 16:57 Lumbar puncture with cloudy CSF in all 4 vials. 10/14/17 18:[address] Chacon. Patient accepted in ICU. *DC/Admit/Observation/Transfer Diagnosis at time of Disposition: Migraine Qualifiers: Migraine type: without aura Status migrainosus presence: without status migrainosus Intractability: not intractable Qualified Code(s): G43.009 - Migraine without aura, not intractable, without status migrainosus Mastoiditis Qualifiers: Laterality: left Qualified Code(s): H70.92 - Unspecified mastoiditis, left ear - Discharge Dispostion Admit: Yes - Referrals - Patient Instructions - Post Discharge Activity - Attestations Physician Attestion: 10/14/17 09:33 I attest to the information provided in this note.
[2017-10-14] MEDS ORDERED: METOCLOPRAMIDE HCL INJECTION 10 MG/2 ML VIAL ONE (08:00)
[2017-10-14] MEDS ORDERED: PROCHLORPERAZINE INJECTION 10 MG/2 ML VIAL ONE (08:00)
[2017-10-14 08:05] VITALS: BMI 43.2
[2017-10-14 08:36] LABS: BASO % 0.6 % (0-2.0); EOS % 0.2 % (0-4.5); HEMATOCRIT 46.4 % (32.4-45.2); HEMOGLOBIN 15.4 GM/dL (10.7-15.3); MCH 31.3 pg (25.7-33.7); MCHC 33.2 g/dl (32.0-36.0); MEAN CELL VOLUME 94.5 fl (80-96); MONO % 5.8 % (3.8-10.2); NEUT % 90.4 % (42.8-82.8); PLATELET COUNT 251 K/MM3 (134-434); RBC 4.91 M/mm3 (3.60-5.2); RDW 15.5 % (11.6-15.6); WHITE BLOOD COUNT 13.3 K/mm3 (4.0-10.0)
[2017-10-14] MEDS ORDERED: ONDANSETRON 4 MG/2 ML VIAL IVPUSH ONE (10:19)
[2017-10-14] MEDS ORDERED: ONDANSETRON 4 MG/2 ML VIAL ONE (10:23)
[2017-10-14] MEDS ORDERED: CEFTRIAXONE 2 GM/100 ML BAG IVPB ONE (11:11)
[2017-10-14 11:32] LABS: ANION GAP 12 (8-16); BILIRUBIN,TOTAL 0.5 mg/dL (0.2-1.0); BLOOD UREA NITROGEN 15 mg/dL (7-18); CALCIUM 8.8 mg/dL (8.5-10.1); CHLORIDE 101 mmol/L (98-107); CO2 24 mmol/L (21-32); GLUCOSE,RANDOM 135 mg/dL (74-106); POTASSIUM 3.9 mmol/L (3.5-5.1); SGOT/AST 16 U/L (15-37); SGPT/ALT 25 U/L (12-78); SODIUM 137 mmol/L (136-145)
[2017-10-14 11:33] LABS: ALK PHOS 54 U/L (45-117)
--- NOTE | 2017-10-14 12:11 | EKG ---
Test Reason : Blood Pressure : / mmHG Vent. Rate : 100 BPM Atrial Rate : 100 BPM P-R Int : 180 ms QRS Dur : 122 ms QT Int : 356 ms P-R-T Axes : 040 -05 014 degrees QTc Int : 459 ms NORMAL SINUS RHYTHM RIGHT BUNDLE BRANCH BLOCK ABNORMAL ECG WHEN COMPARED WITH ECG OF 10-AUG-2005 08:26, NO SIGNIFICANT CHANGE WAS FOUND Confirmed by JUAN J MORAN MD ([id number]) on 10/14/2017 12:11:41 PM Referred By: Confirmed By:JUAN J MORAN MD
[2017-10-14] MEDS ORDERED: VANCOMYCIN 1,000 MG in DEXTROSE 5%-WATER - 250 ML IVPB ONE (13:59)
[2017-10-14] MEDS ORDERED: VANCOMYCIN 1 GRAM (PRE-DOCKED) 1,000 MG/250 ML BAG IVPB ONE (14:11)
[2017-10-14] MEDS ORDERED: LIDOCAINE HCL 1%, 10 MG/ML (20ML VIAL) ONE (14:17)
[2017-10-14] MEDS ORDERED: ACETAMINOPHEN 1000 MG/100 ML VIAL (NON FORMULARY) IVPB ONE ×2 (14:45→19:06)
[2017-10-14] MEDS ORDERED: ACETAMINOPHEN INJECTION 100 ML IVPB ONE ×3 (14:46→18:53)
--- NOTE | 2017-10-14 15:22 | PDOC ---
Attending Attestation - Resident Resident Name: BasimGuyKennedy - ED Attending Attestation I have performed the following: I have examined & evaluated the patient, The case was reviewed & discussed with the resident, I agree w/resident's findings & plan, Exceptions are as noted - HPI HPI: 10/14/17 15:28 Chief complaint: Headache History of present illness: 62 years old past medical history significant for stage III left breast invasive ductal cancer carcinoma status post chemotherapy radiation now on remission, hypertension who presents to the ED with 1 day history of headache. History obtained in majority from and resident. Headache started yesterday was mild relieved by Tylenol then returned last night patient again talk Tylenol but headache worsens gradually. Did not complain of neck pain to . - Physicial Exam PE: 10/14/17 15:28 Vitals: Triage Vital signs reviewed General Appearance: Sleeping after being medicated Head: Atraumatic, Eyes: Pupils equal reactive round, extraocular movement intact Neck: Supple;No Nucal rigidity, Chest Wall: Nontender Cardiac: Regular rate and rhythym, no murmurs, no rubs, no gallops, Lungs: Clear to auscultation bilateral, good air movement bilaterally, Abdomen: Soft, non distended, normal bowel sounds, non tender to palpation Extremities: Full range of motion to all extremities, no cyanosis, clubbing, or edema Skin: Warm and dry, no rashes or lesions, no rash, no petechiae Neuro: Strength intact to all extremities, Sensation intact to all extremities, - Critical Care Time Total Critical Care Time: 65 Critical Care Statement: The care of this patient involved high complexity decision making to prevent further life threatening deterioration of the patient 's condition and/or to evaluate & treat vital organ system(s) failure or risk of failure. - Medical Decision Making 10/14/17 15:29 History of present illness: 62 years old past medical history significant for stage III left breast invasive ductal cancer carcinoma status post chemotherapy radiation now on remission, hypertension who presents to the ED with 1 day history of headache. History obtained in majority from and resident. Headache started yesterday was mild relieved by Tylenol then returned last night patient again talk Tylenol but headache worsens gradually. Did not complain of neck pain to . Upon my evaluation of patient, patient had been treated by resident for possible migraine with Reglan and Compazine Benadryl and then later Ativan. At the time of my examination patient was sleepy arousable to verbal stimuli but unable to comply with a full history I asked our tech for a rectal temp and a CAT scan was ordered CT demonstrated possible mastoiditis but no opacification or indication for surgery as well as a sphenoid sinusitis. Rectal temp demonstrated a low-grade fever At this time differential diagnosis with low-grade temp includes mastoiditis, sinusitis, remote possibility of subarachnoid hemorrhage and possibility of meningitis 1050am. Given the possibility of meningitis 2 g of ceftriaxone has been ordered A CTA was ordered to better delineate the presence of aneurysms. No large aneurysms noted At this time given the persistence of patient's sleepiness unclear whether this is secondary to underlying infection versus medication side effects who is healthcare proxy at bedside we have discussed risks and benefits of further evaluation to rule out meningitis Decision made to proceed with LP to further evaluate for the possibility of meningitis. Secondary to patient's body habitus successful LP may prove to be difficult if unsuccessful in the ED patient will require IR guided Timeout and consent performed prior to procedure. Using universal sterile precautions a LP was successfully performed with retrieval of 4 tubes of slightly turbid CSF Infectious disease has been consulted. Ampicillin and acyclovir has been added, in addition to the ceftriaxone and vancomycin previously given. Patient to be admitted to ICU with infectious disease consulting for rule out meningitis.
[2017-10-14 15:30] LABS: INR 1.13 (0.82-1.09); PROTHROMBIN TIME (PATIENT) 12.8 SEC (9.98-11.88)
[2017-10-14 15:32] LABS: ACTIVATED PTT 30.9 SECONDS (26.9-34.4)
[2017-10-14] MEDS ORDERED: AMPICILLIN - 2 GM in SODIUM CHLORIDE 100 ML IVPB ONE (16:25)
[2017-10-14] MEDS ORDERED: ACYCLOVIR 500 MG (50MG/ML) VIAL IVPUSH ONE (16:26)
[2017-10-14] MEDS ORDERED: AMPICILLIN SODIUM 2 GM VIAL ONE (16:33)
[2017-10-14] MEDS ORDERED: ACYCLOVIR IVPB ONE ×2 (17:00→17:30)
[2017-10-14] MEDS ORDERED: WATER IVPB ONE ×2 (17:00→17:30)
[2017-10-14] MEDS ORDERED: DEXTROSE 5% IVPB ONE ×2 (17:00→17:30)
[2017-10-14] MEDS ORDERED: SODIUM CHLORIDE 1,000 ML IV SCH ×2 (17:15→18:37)
[2017-10-14 17:36] LABS: CSF APPEARANCE TURBID
[2017-10-14 17:37] LABS: CSF APPEARANCE TURBID; CSF COLOR YELLOW; CSF WBC 6000
[2017-10-14 17:37] LABS: CSF COLOR YELLOW
--- NOTE | 2017-10-14 17:37 | PN ---
Progress Note (short form) - Note Progress Note: ID consult dictated patient seen in Ed 62 year old female in usual state of health until yesterday after noon when she had a transient headache at 3 pm and took some tylenol she ate dinner as usual with a good appetite she awoke at 3 am feeling dizzy and nauseous with some vomiting she told her at 5 am that she was feeling very weak and came to ED in the ED she originallyhad no fever but had headache- she had a ct scan showing sphenoid sinusitis and otomastoiditis and was given rocephin- later she had fever to 103 rectally was given vancomycin and underwent LP fluid was cloudy and I was asked to see her she is alert and complaining of headache no rash no travel no sick contacts no allergies a/p meningitis- suspected bacterial -most likely pneumococcal with sinusitis and otitis on ct scan no rash/DIC to suggest meningococcal disease plan vanco/rocephin add ampicillin as she recently completed breast cancer treatment to cover for listeria admit to ICU for close neuro checks should get HIV testing as well in am case d/w icu attending and ED attending, medical attending will maintain droplet isolation for now csf studes- cell count and gram stain are pending over 45 minutes spent in the care of this critically ill ICU patient
[2017-10-14 17:42] LABS: GLUCOSE,CSF 5 mg/dL (50-80)
[2017-10-14] MEDS: AMPICILLIN - 2 GM in SODIUM CHLORIDE 100 ML IVPB SCH ×2 (17:45→22:49)
[2017-10-14 18:20] LABS: CSF MONOCYTES 31 %
[2017-10-14 19:27] LABS: URINE APPEARANCE CLEAR; URINE BILIRUBIN NEGATIVE (NEGATIVE); URINE BLOOD 2+ (NEGATIVE); URINE COLOR LTYELLOW; URINE GLUCOSE (UA) 1+ (NEGATIVE); URINE KETONE TRACE (NEGATIVE); URINE LEUK ESTERASE NEGATIVE (NEGATIVE); URINE NITRITE NEGATIVE (NEGATIVE); URINE PROTEIN NEGATIVE (NEGATIVE); URINE UROBILINOGEN NEGATIVE mg/dL (0.2-1.0)
[2017-10-14] MEDS: DEXAMETHASONE SOD PHOSPHATE 10 MG/1 ML VIAL IVPUSH SCH ×2 (19:30→21:49)
[2017-10-14] MEDS ORDERED: DEXAMETHASONE SOD PHOSPHATE 10 MG/1 ML VIAL ONE ×2 (19:31→22:41)
--- NOTE | 2017-10-14 19:43 | CONS ---
INFECTIOUS DISEASE CONSULTATION DATE OF CONSULTATION: 10/14/2017 REQUESTING PHYSICIAN: Emergency room doctor, . HISTORY OF PRESENT ILLNESS: This is a 62-year-old woman with stage III invasive ductal carcinoma status post chemoradiation. She completed her chemotherapy in May 2017 and her radiation in July, was declared disease free. She has been doing quite well. Yesterday afternoon, she developed a headache, 5/10. She took some Tylenol. It went away. She had a regular evening. She had dinner. She had a good appetite. She went to sleep. She woke up apparently at 3 a.m. with frontal headache that was severe with photophobia. She had nausea, several episodes of emesis. She took some Tylenol with no improvement. She spoke to her several hours later and told him that she was extremely weak and feeling lousy and needed help. He called 9--1 and brought her to the emergency room. In the ER, she was awake and alert. She had no vision changes. She just complained of severe headache. They did a workup, looking for possible causes of severe headache as at the time of original evaluation she had no fever. She had a CAT scan of her head that showed sinusitis and otitis. She was given ceftriaxone. She had a CTA of her head done as well. That showed no bleeding but did show partially opacified left sphenoid sinus with air-fluid level as well as a left middle ear cavity partial opacification and left mastoid opacification. She received a dose of vancomycin, and an LP was attempted. I was asked to see her after cloudy fluid was obtained. She is currently resting comfortably. She is awake and alert. She knows her name. She knows she is in the hospital. She complains of severe headache. Her nausea and vomiting have stopped. She is resting comfortably. ALLERGIES: She has no known drug allergies. MEDICATIONS AT HOME: Include aspirin, multivitamins, valsartan, hydrochlorothiazide. PAST MEDICAL HISTORY: Notable for left breast cancer status post chemotherapy and RT, chemotherapy completed in May, RT in July. There is a history of hypertension. SURGICAL HISTORY: Notable for cholecystectomy. SOCIAL HISTORY: She is a former smoker. She lives at home with her . REVIEW OF SYSTEMS: As per HPI. PHYSICAL EXAMINATION: General: She is resting comfortably. She has no rash. Vital Signs: T-max is 103.7, current temperature is 102.2; pulse of 111; blood pressure 119/54; respiratory rate is 18. She is saturating 95% on room air. HEENT: She is normocephalic. Her eyes are anicteric. She has no thrush. She complains of frontal headache. Neck: Uncomfortable on flexion. Lungs: Clear to auscultation. Heart: Regular rate and rhythm. Abdomen: Soft, nontender. Extremities: Without edema. She has no joint effusion. She has no skin rash. She is moving all her extremities. LABORATORY DATA: Her white count is 13.3, hemoglobin 15.4, platelets are 251. INR is 1.13. BUN is 15 and creatinine 1, with normal LFTs, and CSF studies at the time of evaluation are all pending. Cultures are pending as well as CSF results. In summary, this is a 62-year-old woman with suspected bacterial meningitis, most likely pneumococcal with sinusitis and otitis on CAT scan. No rash or DIC to suggest meningococcal disease. Would plan vancomycin and ceftriaxone. Will add ampicillin as she recently completed breast cancer treatment to cover for listeria. Would admit to ICU for close neurologic checks. Case was discussed with the ICU attending and ER attending. Will maintain droplet isolation for now. CSF studies, cell count, and Gram stain are all pending at this time. JOANNE VELA M.D. [id number]
[2017-10-14 20:15] LABS: URINE MUCUS RARE
--- NOTE | 2017-10-14 20:46 | CONSULT ---
Consultation: REQUESTING PROVIDER: CONSULT REQUEST: We have been asked to medically evaluate this patient for (pulm / critical care ). HISTORY OF PRESENT ILLNESS: 62 yo F with h/o stage III L breast invasive ductal carcinoma s/p chemoradiation( last raidation 08/15, last chemo 06/14), and HTN who was brought by ems for headache. Patient states she has frontal headache started yesterday evening with improvement following Tylenol adminsitration. Reports waking up this AM with maximal intensity frontal headache, photphobia, and non biliary, non bloody emesis. Reports worse MCDONOUGH she has experienced in life. MCDONOUGH worse with supine positioning. Also endorses fatigue and lightheadedness, but denies vertiginous symptoms. Denies vision changes, stiff neck, weakness, new sensory changes, or LOC. Denies CP, SOB, cough, abdominal pain, diarrhea, constipation, urinary complaints. Denies caffeine, tobacco, or alcohol intake. Denies h/o CVA/TIA. in the ED she had a ct scan showing sphenoid sinusitis and otomastoiditis In ED she has also received rocephin, vanco and ampicilln LP was also done in ED stopped smoking 30 years ago alcohol occasional Oncologist Dr. Fernandez. Last round of radiation (08/15), and chemotherapy (). PMD Dr. Buck Rubi. PHYSICAL EXAMINATION Vital Signs - 24 hr 10/14/17 10/14/17 10/14/17 07:48 11:00 12:51 Temperature 97.5 F L 100.6 F H Pulse Rate 97 H Pulse Rate [ 118 H Apical] Respiratory 18 16 Rate Blood Pressure 149/81 Blood Pressure 145/75 [Right Arm] O2 Sat by Pulse 99 95 Oximetry (%) 10/14/17 10/14/17 14:41 17:22 Temperature 103.7 F H 102.2 F H Pulse Rate Pulse Rate [ 93 H 111 H Apical] Respiratory 18 Rate Blood Pressure Blood Pressure 119/54 [Right Arm] O2 Sat by Pulse 95 Oximetry (%) GENERAL: Awake, alert, and fully oriented to time, place, person. HEAD: Normal with no signs of trauma. EYES: Pupils equal, round and reactive to light, extraocular movements intact, EARS, NOSE, THROAT: Ears normal, nares patent, oropharynx clear without exudates. NECK: Normal range of motion, supple without lymphadenopathy, no stiffness LUNGS: Breath sounds equal, clear to auscultation bilaterally. No wheezes, and no crackles. HEART: s1s2 normal ABDOMEN: Soft, nontender, not distended, normoactive bowel sounds, no guarding, no rebound, no masses. UPPER EXTREMITIES: 2+ pulses, warm, well-perfused. LOWER EXTREMITIES: 2+ pulses, warm, well-perfused. NEUROLOGICAL: Cranial nerves II-XII intact. Normal speech. SKIN: Warm, dry, no petechiae Laboratory Results - last 24 hr 10/14/17 10/14/17 10/14/17 08:20 08:20 08:20 WBC 13.3 H RBC 4.91 Hgb 15.4 H Hct 46.4 H MCV 94.5 MCH 31.3 MCHC 33.2 RDW 15.5 Plt Count 251 MPV 8.0 Neutrophils % 90.4 H Lymphocytes % 3.0 L Monocytes % 5.8 Eosinophils % 0.2 Basophils % 0.6 PT with INR INR PTT (Actin FS) Sodium Cancelled Potassium Cancelled Chloride Cancelled Carbon Dioxide Cancelled Anion Gap Cancelled BUN Cancelled Creatinine Cancelled Creat Clearance w eGFR Cancelled Random Glucose Cancelled Calcium Cancelled Total Bilirubin Cancelled AST Cancelled ALT Cancelled Alkaline Phosphatase Cancelled Creatine Kinase Cancelled Cancelled Troponin I Cancelled Cancelled Total Protein Cancelled Albumin Cancelled Urine Color Urine Appearance Urine pH Ur Specific [place] Urine Protein Urine Glucose (UA) Urine Ketones Urine Blood Urine Nitrite Urine Bilirubin Urine Urobilinogen Ur Leukocyte Esterase Urine WBC (Auto) Urine RBC (Auto) Urine Mucus CSF Appearance CSF Color CSF WBC CSF RBC CSF Neutrophils CSF Lymphocytes CSF Monocytes CSF Eosinophils CSF Basophils CSF Macrophages CSF Plasma Cells CSF Diff Comment CSF Comment CSF Glucose CSF Total Protein 10/14/17 10/14/17 10/14/17 10:49 10:49 10:49 WBC RBC Hgb Hct MCV MCH MCHC RDW Plt Count MPV Neutrophils % Lymphocytes % Monocytes % Eosinophils % Basophils % PT with INR Cancelled INR Cancelled PTT (Actin FS) Sodium 137 Potassium 3.9 Chloride 101 Carbon Dioxide 24 Anion Gap 12 BUN 15 Creatinine 1.0 Creat Clearance w eGFR 56.37 Random Glucose 135 H Calcium 8.8 Total Bilirubin 0.5 AST 16 ALT 25 Alkaline Phosphatase 54 Creatine Kinase 76 Troponin I < 0.02 Total Protein 8.0 Albumin 4.0 Urine Color Urine Appearance Urine pH Ur Specific [place] Urine Protein Urine Glucose (UA) Urine Ketones Urine Blood Urine Nitrite Urine Bilirubin Urine Urobilinogen Ur Leukocyte Esterase Urine WBC (Auto) Urine RBC (Auto) Urine Mucus CSF Appearance CSF Color CSF WBC CSF RBC CSF Neutrophils CSF Lymphocytes CSF Monocytes CSF Eosinophils CSF Basophils CSF Macrophages CSF Plasma Cells CSF Diff Comment CSF Comment CSF Glucose CSF Total Protein 10/14/17 10/14/17 10/14/17 14:42 16:10 16:35 WBC RBC Hgb Hct MCV MCH MCHC RDW Plt Count MPV Neutrophils % Lymphocytes % Monocytes % Eosinophils % Basophils % PT with INR 12.80 H INR 1.13 PTT (Actin FS) 30.9 Sodium Potassium Chloride Carbon Dioxide Anion Gap BUN Creatinine Creat Clearance w eGFR Random Glucose Calcium Total Bilirubin AST ALT Alkaline Phosphatase Creatine Kinase Troponin I Total Protein Albumin Urine Color Urine Appearance Urine pH Ur Specific [place] Urine Protein Urine Glucose (UA) Urine Ketones Urine Blood Urine Nitrite Urine Bilirubin Urine Urobilinogen Ur Leukocyte Esterase Urine WBC (Auto) Urine RBC (Auto) Urine Mucus CSF Appearance Turbid Turbid CSF Color Yellow Yellow CSF WBC 6000 80381 CSF RBC 230 550.00 CSF Neutrophils 78 69 CSF Lymphocytes No Result Required. CSF Monocytes 22 31 CSF Eosinophils No Result Required. CSF Basophils No Result Required. CSF Macrophages No Result Required. CSF Plasma Cells No Result Required. CSF Diff Comment No Result Required. CSF Comment No Result Required. CSF Glucose 5 L CSF Total Protein 775 H 10/14/17 18:49 WBC RBC Hgb Hct MCV MCH MCHC RDW Plt Count MPV Neutrophils % Lymphocytes % Monocytes % Eosinophils % Basophils % PT with INR INR PTT (Actin FS) Sodium Potassium Chloride Carbon Dioxide Anion Gap BUN Creatinine Creat Clearance w eGFR Random Glucose Calcium Total Bilirubin AST ALT Alkaline Phosphatase Creatine Kinase Troponin I Total Protein Albumin Urine Color Ltyellow Urine Appearance Clear Urine pH 5.0 Ur Specific [place] 1.045 H Urine Protein Negative Urine Glucose (UA) 1+ H Urine Ketones Trace H Urine Blood 2+ H Urine Nitrite Negative Urine Bilirubin Negative Urine Urobilinogen Negative Ur Leukocyte Esterase Negative Urine WBC (Auto) <1 Urine RBC (Auto) 23 Urine Mucus Rare CSF Appearance CSF Color CSF WBC CSF RBC CSF Neutrophils CSF Lymphocytes CSF Monocytes CSF Eosinophils CSF Basophils CSF Macrophages CSF Plasma Cells CSF Diff Comment CSF Comment CSF Glucose CSF Total Protein Active Medications Generic Name Dose Route Start Last Admin Trade Name Freq PRN Reason Stop Dose Admin Dexamethasone Sodium Phosphate 10 mg 10/14/17 18:45 10/14/17 19:30 Decadron Injection - IVPUSH 10 mg Q6H-IV NEGRITO Administration Ampicillin Sodium 2 gm/ Sodium 100 mls @ 200 mls/hr 10/14/17 17:15 10/14/17 17:45 Chloride IVPB Not Given Q4H NEGRITO Vancomycin HCl 1,750 mg/ 500 mls @ 250 mls/hr 10/14/17 23:00 Dextrose IVPB Q12H NEGRITO CEFTRIAXONE IN IS-OSM DEXTROSE 2 gm in 50 mls @ 100 mls/hr 10/14/17 22:00 Ceftriaxone 2 Gm-D5w Bag IVPB Q12H NEGRITO Sodium Chloride 1,000 mls @ 150 mls/hr 10/14/17 18:37 10/14/17 19:05 Normal Saline - IV 150 mls/hr ASDIR NEGRITO Administration CT HEAD: Left mastoid effusion. CTA HEAD: L sided Mastoidits, sphenoid sinusitis. ASSESSMENT/PLAN: Suspected meningitis HTN ca breast. Plan antibiotics as per ID droplet isolation. IV fluid. Monitor vitals. CSF culture reports pending. Frequent neuro exam. admit icu Dispo: We will continue to follow the patient. Thank you for this consultative opportunity. Visit type - Emergency Visit Emergency Visit: Yes ED Registration Date: 10/14/17 Care time: The patient presented to the Emergency Department on the above date and was hospitalized for further evaluation of their emergent condition. - New Patient This patient is new to me today: Yes Date on this admission: 10/14/17 - Critical Care Critical Care patient: Yes Total Critical Care Time (in minutes): 45 Critical Care Statement: The care of this patient involved high complexity decision making to prevent further life threatening deterioration of the patient 's condition and/or to evaluate & treat vital organ system(s) failure or risk of failure.
[2017-10-14] MEDS ORDERED: cefTRIAXone 2 GM/100 ML BAG (PRE-DOCKED) IVPB SCH (23:00)
[2017-10-14] MEDS: CEFTRIAXONE 2 GM-D5W BAG 2 GM/50 ML BAG IVPB SCH (23:00)
[2017-10-14] MEDS ORDERED: ACETAMINOPHEN 325 MG TABLET (FP) PO PRN (23:44)
[2017-10-14] MEDS ORDERED: DEXTROSE 5%-0.45% SALINE 1,000 ML IV SCH (23:45)
[2017-10-14] MEDS: VANCOMYCIN 1,750 MG in DEXTROSE 5%-WATER - 500 ML IVPB SCH (23:49)
[2017-10-15] MEDS ORDERED: VANCOMYCIN 1,750 MG in DEXTROSE 5%-WATER - 500 ML IVPB SCH (01:00)
[2017-10-15] MEDS ORDERED: VANCOMYCIN 1,000 MG VIAL (RESTRICTED TO ID ONLY) IVPB SCH (01:00)
[2017-10-15] MEDS: AMPICILLIN - 2 GM in SODIUM CHLORIDE 100 ML IVPB SCH ×3 (01:08→10:15)
[2017-10-15] MEDS ORDERED: WATER IVPB SCH (02:00)
[2017-10-15] MEDS ORDERED: DEXTROSE 5% IVPB SCH (02:00)
[2017-10-15] MEDS ORDERED: ACYCLOVIR IVPB SCH (02:00)
[2017-10-15] MEDS ORDERED: ONDANSETRON 4 MG/2 ML VIAL IVPUSH ONE (02:19)
[2017-10-15] MEDS ORDERED: ONDANSETRON 4 MG/2 ML VIAL ONE (02:33)
[2017-10-15] MEDS ORDERED: DEXAMETHASONE SOD PHOSPHATE 10 MG/1 ML VIAL ONE ×2 (02:33→10:14)
[2017-10-15] MEDS: DEXAMETHASONE SOD PHOSPHATE 10 MG/1 ML VIAL IVPUSH SCH ×4 (03:08→21:37)
[2017-10-15] MEDS ORDERED: ACETAMINOPHEN 325 MG TABLET (FP) ONE ×2 (03:09→08:43)
--- NOTE | 2017-10-15 08:37 | PN ---
Progress Note (short form) - Note Progress Note: seen in ED this am no meds alert still with headache and some nausea conversant ambulating to bathroom no recent vaccines no recent antibiotics reports chronic intermittent fullness in her left ear no ear pain Vital Signs Period Temp Pulse Resp BP Sys/Alonso Pulse Ox Last 24 Hr 98.6 F-103.7 F 80-118 16-18 90-145/54-75 95-97 neck discomfort on flexion no rash cor-rrr lungs clear abd soft,nt ext no edema CBC, BMP 10/14/17 08:20 10/14/17 10:49 cultures pending a/p meningitis- suspected bacterial -most likely pneumococcal with sinusitis and otitis on ct scan continue antibiotics agreeable to HIV testing, has been tested before 40 years, monogamous will maintain droplet isolation for now csf studes-gram stain/culture pending bacterial antigens sent she was pretreated with rocephin prior to LP will ask ENT to evaluate given sinusitis and otomastoiditis noted on CT scan will ask neurology to see as well History of breast cancer- s/p chemo and RT
[2017-10-15] MEDS ORDERED: HEPARIN NA (PORCINE) 5,000 UNITS/ML 1ML VIAL SQ SCH (10:00)
[2017-10-15 10:27] LABS: HEMATOCRIT 41.9 % (32.4-45.2); MCH 31.4 pg (25.7-33.7); MCHC 33.4 g/dl (32.0-36.0); MEAN PLT VOLUME 8.3 fl (7.5-11.1); PLATELET COUNT 241 K/MM3 (134-434); RBC 4.46 M/mm3 (3.60-5.2); RDW 15.2 % (11.6-15.6); WHITE BLOOD COUNT 21.8 K/mm3 (4.0-10.0)
[2017-10-15 10:42] LABS: ALBUMIN 3.5 g/dl (3.4-5.0); ANION GAP 14 (8-16); BILIRUBIN,TOTAL 0.5 mg/dL (0.2-1.0); BLOOD UREA NITROGEN 15 mg/dL (7-18); CALCIUM 8.9 mg/dL (8.5-10.1); CHLORIDE 101 mmol/L (98-107); CO2 27 mmol/L (21-32); CREATININE 0.8 mg/dL (0.55-1.02); GLUCOSE,RANDOM 109 mg/dL (74-106); POTASSIUM 3.1 mmol/L (3.5-5.1); SGOT/AST 21 U/L (15-37); SGPT/ALT 21 U/L (12-78); SODIUM 142 mmol/L (136-145); TOT PROT 7.3 g/dl (6.4-8.2)
[2017-10-15 10:43] LABS: ALK PHOS 50 U/L (45-117)
[2017-10-15] MEDS: CEFTRIAXONE 2 GM-D5W BAG 2 GM/50 ML BAG IVPB SCH ×2 (10:54→23:02)
--- NOTE | 2017-10-15 11:53 | CON.NEURO ---
Consult Consult Specialty:: Neurology Referred by:: Dr Rolon Reason for Consultation:: Meningitis - History of Present Illness Chief Complaint: Headache History of Present Illness: 62 year old woman who developed headache on Saturday, got much worse and came to ER yesterday with severe headache and nausea and neck stiffness. Ultimately had CT which showed sinusitis and T = 103. LP showed large number WBC's and although gram stain negative, antigen positive in CSF and urine for pneumoccocus. Patient given dose of ceftriaxone and steroids and is now feeling much better. Headache at worst 10/10 with severe nuchal rigidity, but now she is awake, alert and has 7/10 headache and mild discomfort on neck flexion. 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 Home Medications - Allergies Allergies/Adverse Reactions: Allergies Allergy/AdvReac Type Severity Reaction Status Date / Time No Known Allergies Allergy Verified 10/14/17 07:57 - Home Medications Home Medications: Ambulatory Orders Aspirin [ASA -] 81 mg PO DAILY 05/25/12 Multivitamins [Tab-A-Vit -] 1 tab PO DAILY 07/16/16 Valsartan/Hydrochlorothiazide [Valsartan-Hctz 80-12.5 mg Tab] 1 each PO DAILY Physical Exam-Neuro Vital Signs: Vital Signs Temperature 98.9 F 10/15/17 09:21 Pulse Rate 68 10/15/17 09:21 Respiratory Rate 18 10/15/17 09:21 Blood Pressure 114/78 10/15/17 09:21 O2 Sat by Pulse Oximetry (%) 99 10/15/17 09:21 Constitutional: Yes: Obese Neck: Yes: Other (Mild tenderness on neck flexion) Labs: CBC, BMP 10/15/17 09:30 10/15/17 09:30 INR, PTT INR 1.13 (0.82-1.09) 10/14/17 14:42 - Neuro Exam Level Of Consciousness: Yes: Alert, Oriented to Person, Oriented to Place, Oriented to Time Eyes: Yes: BONIFACIO Speech: WNL Cranial Nerves II-XII Intact: Yes DTR's: 2+ Left Bicep, 2+ Right Bicep, 2+ Left Tricep, 2+ Right Tricep, 2+ Left Brachioradialis, 2+ Right Brachioradialis, 2+ Left Achilles, 2+ Right Achilles Babinski: Absent (withdraws to testing) Response to light touch: Normal Motor Strength: 5/5: Left Arm, Right Arm, Left Leg, Right Leg Gait: Normal Imaging - Results Cat Scan: Report Reviewed, Image Reviewed (parenchyma fine, sinus infection) Problem List - Problems (1) Bacterial meningitis Code(s): G00.9 - BACTERIAL MENINGITIS, UNSPECIFIED (2) Acute bacterial meningitis Code(s): G00.9 - BACTERIAL MENINGITIS, UNSPECIFIED Assessment/Plan She is doing much better having received ceftriaxone and dexamethasone, and I'd continue this and f/u cultures, though given the pneumococcal antigen, that seems the most likely etiology F/U ENT consult for sinusitis.
[2017-10-15] MEDS: VANCOMYCIN 1,750 MG in DEXTROSE 5%-WATER - 500 ML IVPB SCH ×2 (12:50→23:02)
[2017-10-15 13:28] LABS: ACANTHOCYTES 0; ANISOCYTOSIS 0; HELMET CELLS 0; HOWELL-JOLLY BODIES 0; MACROCYTOSIS 0; OVALOCYTE 0; PLATELET ESTIMATE NORMAL; ROULEAU 0; SICKELED CELLS 0; TARGET CELLS 0; TEAR DROP CELLS 0; TOXIC GRANULATION 0
--- NOTE | 2017-10-15 14:20 | PN ---
Physical Exam: SUBJECTIVE: Patient seen and examined by me at bedside. Patient states she still has a headache but has improved significantly since yesterday. She reports she is now able to move her neck slightly better without much pain as yesterday. Nausea has improved and reports she would like to eat. Otherwise, patient denies chest pain, palpitations, shortness of breath, vomiting, diarrhea. OBJECTIVE: Vital Signs Period Temp Pulse Resp BP Sys/Alonso Pulse Ox Last 24 Hr 98.0 F-103.7 F 68-111 16-18 90-119/54-85 95-99 GENERAL: The patient is awake, alert, and fully oriented, in no acute distress. NECK: nuchal rigidity on neck flexion LUNGS: Breath sounds equal, clear to auscultation bilaterally, no wheezes, no crackles, no accessory muscle use HEART: RRR normal S1 and S2 ABDOMEN: Soft, nontender, nondistended, normoactive bowel sounds, no guarding EXTREMITIES: No peripheral edema NEUROLOGICAL: Normal speech. Motor strength 5/5 bilaterally and sensory intact. SKIN: Warm, dry, normal turgor, no rashes or lesions noted Laboratory Results - last 24 hr CBC, BMP 10/15/17 09:30 10/15/17 09:30 Laboratory Tests 10/14/17 16:10 CSF WBC 6000 CSF Neutrophils 78 CSF Glucose 5 L CSF Total Protein 775 H Active Medications Generic Name Dose Route Start Last Admin Trade Name Freq PRN Reason Stop Dose Admin Acetaminophen 650 mg 10/14/17 23:44 Tylenol - PO Q4H PRN fever/pain Dexamethasone Sodium Phosphate 10 mg 10/14/17 18:45 10/15/17 10:15 Decadron Injection - IVPUSH 10 mg Q6H-IV NEGRITO Administration Heparin Sodium (Porcine) 5,000 unit 10/15/17 10:00 10/15/17 10:54 Heparin - SQ 5,000 unit BID NEGRITO Administration Vancomycin HCl 1,750 mg/ 500 mls @ 250 mls/hr 10/14/17 23:00 10/15/17 12:50 Dextrose IVPB 250 mls/hr Q12H NEGRITO Administration CEFTRIAXONE IN IS-OSM DEXTROSE 2 gm in 50 mls @ 100 mls/hr 10/14/17 22:00 10:54 Ceftriaxone 2 Gm-D5w Bag IVPB 100 mls/hr Q12H NEGRITO Administration Sodium Chloride 1,000 mls @ 150 mls/hr 10/14/17 18:37 10/14/17 19:05 Normal Saline - IV 150 mls/hr ASDIR NEGRITO Administration Dextrose/Sodium Chloride 1,000 mls @ 75 mls/hr 10/14/17 23:45 10/14/17 23:50 D5-1/2ns - IV 75 mls/hr ASDIR NEGRITO Administration ASSESSMENT/PLAN: Patient is a 62 year old female who presented for a severe headache and an LP was done, which revealed Bacterial Meningitis Infectious Disease #Bacterial Meningitis with sinusitis and otitis -CSF cultures (+) for strep pneumo antigen -LP results consistent with bacterial meningitis -Continue Ceftriaxone 2gm Q12H and Vancomycin 1750mg BID -Continue IV NS @100mls/hr due to patient taking Vancomycin. However, patient' s Kidney function is wnl. Patient will be given dinner tonight and if patient can tolerate PO, may d/c fluids. -Continue Decadron 10mg IVP Q6H. Will need Anti-Acid/PPI -Droplet Isolation -Tylenol PRN for pain Cardiovascular #HTN -Patient normotensive -Will continue to monitor BP -Resume home medications if BP elevated F/E/N -IV NS @100mls/hr -Electrolytes wnl -Sodium controlled diet Prophylaxis -Medium risk. Heparin 5000 units sq TID for DVT -Zantac 150mg BID po for GI Disposition -Full code -Continue IV Abx and Steroids. Visit type - Emergency Visit Emergency Visit: Yes ED Registration Date: 10/14/17 Care time: The patient presented to the Emergency Department on the above date and was hospitalized for further evaluation of their emergent condition. - New Patient This patient is new to me today: Yes Date on this admission: 10/15/17 - Critical Care Critical Care patient: Yes Total Critical Care Time (in minutes): 45 Critical Care Statement: The care of this patient involved high complexity decision making to prevent further life threatening deterioration of the patient 's condition and/or to evaluate & treat vital organ system(s) failure or risk of failure.
--- NOTE | 2017-10-15 14:25 | HP ---
Admitting History and Physical - Admission History of Present Illness: Pt is a 62 y/o female with PMH significant for stage III breast invasive ductal carcinoma(S/P radiation therapy) and HTN. Pt presented to the ER with MCDONOUGH. Patient had acute onset of 5/10 frontal headache the evening improvement following Tylenol adminsitration. Pt then became lethargic and fell asleep. Pt woke up in the am increased frontal MCDONOUGH associated with photphobia, phonophobia, and 4 episodes of non biliary, non bloody emesis. Reports worse MCDONOUGH she has experienced in life. MCDONOUGH worse with supine positioning. Also complains of fatigue and lightheadedness. 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 - Allergies Allergies/Adverse Reactions: Allergies Allergy/AdvReac Type Severity Reaction Status Date / Time No Known Allergies Allergy Verified 10/14/17 07:57 - Home Medications Home Medications: Ambulatory Orders Aspirin [ASA -] 81 mg PO DAILY 05/25/12 Multivitamins [Tab-A-Vit -] 1 tab PO DAILY 07/16/16 Valsartan/Hydrochlorothiazide [Valsartan-Hctz 80-12.5 mg Tab] 1 each PO DAILY Family Disease History - Family Disease History Family History: Unremarkable Review of Systems - Review of Systems Constitutional: reports: Malaise, Weakness Eyes: reports: No Symptoms Neck: reports: No Symptoms Cardiovascular: reports: No Symptoms Respiratory: reports: No Symptoms Gastrointestinal: reports: No Symptoms Physical Examination Vital Signs: Vital Signs Temperature 98.0 F 10/15/17 12:02 Pulse Rate 84 10/15/17 12:02 Respiratory Rate 16 10/15/17 12:02 Blood Pressure 107/85 10/15/17 12:02 O2 Sat by Pulse Oximetry (%) 97 10/15/17 12:02 Constitutional: Yes: Well Nourished Eyes: Yes: WNL HENT: Yes: WNL Neck: Yes: WNL Cardiovascular: Yes: WNL, Regular Rate and Rhythm Respiratory: Yes: WNL, Regular, CTA Bilaterally Gastrointestinal: Yes: WNL, Normal Bowel Sounds, Soft Musculoskeletal: Yes: WNL Extremities: Yes: WNL Neurological: Yes: WNL, Alert, Oriented ...Motor Strength: WNL Labs: CBC, BMP 10/15/17 09:30 10/15/17 09:30 Problem List - Problems (1) Acute bacterial meningitis Assessment/Plan: S/P lumbar tap Cont IV antibxs as per ID Neurochecks q2 Monitor cultures Code(s): G00.9 - BACTERIAL MENINGITIS, UNSPECIFIED (2) Invasive ductal carcinoma of breast, female Code(s): C50.919 - MALIGNANT NEOPLASM OF UNSP SITE OF UNSPECIFIED FEMALE BREAST
--- NOTE | 2017-10-15 14:44 | PN ---
Teaching Attending Note Name of Resident: Jeannine Vickers ATTENDING PHYSICIAN STATEMENT I saw and evaluated the patient. I reviewed the resident's note and discussed the case with the resident. I agree with the resident's findings and plan as documented. SUBJECTIVE: Patient seen and examined in the ICU. Awake and alert. Still with MCDONOUGH and nuchal rigidity, but improved from yesterday. No CP or SOB. No nausea or vomiting. Intake & Output 10/12/17 10/13/17 10/14/17 10/15/17 23:59 23:59 23:59 23:59 Weight 260 lb Last Vital Signs Temp Pulse Resp BP Pulse Ox 98.0 F 84 16 107/85 97 10/15/17 12:02 10/15/17 12:02 10/15/17 12:02 10/15/17 12:02 10/15/17 12:02 Active Medications Acetaminophen (Tylenol -) 650 mg PO Q4H PRN PRN Reason: fever/pain Dexamethasone Sodium Phosphate (Decadron Injection -) 10 mg IVPUSH Q6H-IV NEGRITO Last Admin: 10/15/17 10:15 Dose: 10 mg Heparin Sodium (Porcine) (Heparin -) 5,000 unit SQ BID NEGRITO Last Admin: 10/15/17 10:54 Dose: 5,000 unit Vancomycin HCl 1,750 mg/ (Dextrose) 500 mls @ 250 mls/hr IVPB Q12H NEGRITO Last Admin: 10/15/17 12:50 Dose: 250 mls/hr CEFTRIAXONE IN IS-OSM DEXTROSE (Ceftriaxone 2 Gm-D5w Bag) 2 gm in 50 mls @ 100 mls/hr IVPB Q12H [facility] Last Admin: 10/15/17 10:54 Dose: 100 mls/hr Sodium Chloride (Normal Saline -) 1,000 mls @ 150 mls/hr IV ASDIR NEGRITO Last Admin: 10/14/17 19:05 Dose: 150 mls/hr Dextrose/Sodium Chloride (D5-1/2ns -) 1,000 mls @ 75 mls/hr IV ASDIR NEGRITO Last Admin: 10/14/17 23:50 Dose: 75 mls/hr GENERAL: Awake, alert, and oriented HEAD: Normal with no signs of trauma. EYES: Pupils equal, round and reactive to light, extraocular movements intact, EARS, NOSE, THROAT: Ears normal, nares patent, oropharynx clear without exudates. NECK: Normal range of motion, supple without lymphadenopathy, no stiffness LUNGS: Breath sounds equal, clear to auscultation bilaterally. No wheezes, and no crackles. HEART: s1s2 normal ABDOMEN: Soft, nontender, not distended, normoactive bowel sounds, no guarding, no rebound, no masses. UPPER EXTREMITIES: 2+ pulses, warm, well-perfused. LOWER EXTREMITIES: 2+ pulses, warm, well-perfused. NEUROLOGICAL: Non-focal SKIN: Warm, dry, no petechiae Laboratory Results - last 24 hr 10/14/17 10/14/17 10/14/17 14:42 16:10 16:35 WBC RBC Hgb Hct MCV MCH MCHC RDW Plt Count MPV Neutrophils % Neutrophils % (Manual) Band Neutrophils % Lymphocytes % Lymphocytes % (Manual) Monocytes % (Manual) Eosinophils % (Manual) Basophils % (Manual) Myelocytes % (Man) Promyelocytes % (Man) Blast Cells % (Manual) Nucleated RBC % Metamyelocytes Hypochromia Toxic Granulation Dohle Bodies Platelet Estimate Polychromasia Poikilocytosis Basophilic Stippling Anisocytosis Microcytosis Macrocytosis Spherocytes Sickle Cells Target Cells Tear Drop Cells Ovalocytes Stomatocytes Helmet Cells [place] Bodies [place] Rings Laura Cells Acanthocytes (Spur) Rouleaux Fragmented RBCs Schistocytes PT with INR 12.80 H INR 1.13 PTT (Actin FS) 30.9 Sodium Potassium Chloride Carbon Dioxide Anion Gap BUN Creatinine Creat Clearance w eGFR Random Glucose Calcium Total Bilirubin AST ALT Alkaline Phosphatase Total Protein Albumin Urine Color Urine Appearance Urine pH Ur Specific [place] Urine Protein Urine Glucose (UA) Urine Ketones Urine Blood Urine Nitrite Urine Bilirubin Urine Urobilinogen Ur Leukocyte Esterase Urine WBC (Auto) Urine RBC (Auto) Urine Mucus CSF Appearance Turbid Turbid CSF Color Yellow Yellow CSF WBC 6000 [id number] CSF RBC 230 550.00 CSF Neutrophils 78 69 CSF Lymphocytes No Result Required. CSF Monocytes 22 31 CSF Eosinophils No Result Required. CSF Basophils No Result Required. CSF Macrophages No Result Required. CSF Plasma Cells No Result Required. CSF Diff Comment No Result Required. CSF Comment No Result Required. CSF Glucose 5 L CSF Total Protein 775 H Vancomycin Pre-Dose HIV 1&2 Antibody Screen HIV P24 Antigen 10/14/17 10/15/17 10/15/17 18:49 09:30 09:30 WBC 21.8 H D RBC 4.46 Hgb 14.0 Hct 41.9 MCV 94.0 MCH 31.4 MCHC 33.4 RDW 15.2 Plt Count 241 MPV 8.3 Neutrophils % No Result Required. Neutrophils % (Manual) 92.8 H* Band Neutrophils % 1.0 Lymphocytes % No Result Required. Lymphocytes % (Manual) 2.1 L Monocytes % (Manual) 4 Eosinophils % (Manual) 0.0 Basophils % (Manual) 0.0 Myelocytes % (Man) 0 Promyelocytes % (Man) 0 Blast Cells % (Manual) 0 Nucleated RBC % 0 Metamyelocytes 0 Hypochromia 0 Toxic Granulation 0 Dohle Bodies 0 Platelet Estimate Normal Polychromasia 0 Poikilocytosis 0 Basophilic Stippling 0 Anisocytosis 0 Microcytosis 0 Macrocytosis 0 Spherocytes 0 Sickle Cells 0 Target Cells 0 Tear Drop Cells 0 Ovalocytes 0 Stomatocytes 0 Helmet Cells 0 [place] Bodies 0 [place] Rings 0 [place] Cells 0 Acanthocytes (Spur) 0 Rouleaux 0 Fragmented RBCs 0 Schistocytes 0 PT with INR INR PTT (Actin FS) Sodium 142 Potassium 3.1 L Chloride 101 Carbon Dioxide 27 Anion Gap 14 BUN 15 Creatinine 0.8 Creat Clearance w eGFR > 60 Random Glucose 109 H Calcium 8.9 Total Bilirubin 0.5 AST 21 ALT 21 Alkaline Phosphatase 50 Total Protein 7.3 Albumin 3.5 Urine Color Ltyellow Urine Appearance Clear Urine pH 5.0 Ur Specific [place] 1.045 H Urine Protein Negative Urine Glucose (UA) 1+ H Urine Ketones Trace H Urine Blood 2+ H Urine Nitrite Negative Urine Bilirubin Negative Urine Urobilinogen Negative Ur Leukocyte Esterase Negative Urine WBC (Auto) <1 Urine RBC (Auto) 23 Urine Mucus Rare CSF Appearance CSF Color CSF WBC CSF RBC CSF Neutrophils CSF Lymphocytes CSF Monocytes CSF Eosinophils CSF Basophils CSF Macrophages CSF Plasma Cells CSF Diff Comment CSF Comment CSF Glucose CSF Total Protein Vancomycin Pre-Dose HIV 1&2 Antibody Screen HIV P24 Antigen 10/15/17 10/15/17 09:30 09:30 WBC RBC Hgb Hct MCV MCH MCHC RDW Plt Count MPV Neutrophils % Neutrophils % (Manual) Band Neutrophils % Lymphocytes % Lymphocytes % (Manual) Monocytes % (Manual) Eosinophils % (Manual) Basophils % (Manual) Myelocytes % (Man) Promyelocytes % (Man) Blast Cells % (Manual) Nucleated RBC % Metamyelocytes Hypochromia Toxic Granulation Dohle Bodies Platelet Estimate Polychromasia Poikilocytosis Basophilic Stippling Anisocytosis Microcytosis Macrocytosis Spherocytes Sickle Cells Target Cells Tear Drop Cells Ovalocytes Stomatocytes Helmet Cells [place] Bodies [place] Rings Laura Cells Acanthocytes (Spur) Rouleaux Fragmented RBCs Schistocytes PT with INR INR PTT (Actin FS) Sodium Potassium Chloride Carbon Dioxide Anion Gap BUN Creatinine Creat Clearance w eGFR Random Glucose Calcium Total Bilirubin AST ALT Alkaline Phosphatase Total Protein Albumin Urine Color Urine Appearance Urine pH Ur Specific [place] Urine Protein Urine Glucose (UA) Urine Ketones Urine Blood Urine Nitrite Urine Bilirubin Urine Urobilinogen Ur Leukocyte Esterase Urine WBC (Auto) Urine RBC (Auto) Urine Mucus CSF Appearance CSF Color CSF WBC CSF RBC CSF Neutrophils CSF Lymphocytes CSF Monocytes CSF Eosinophils CSF Basophils CSF Macrophages CSF Plasma Cells CSF Diff Comment CSF Comment CSF Glucose CSF Total Protein Vancomycin Pre-Dose 1.716 L* HIV 1&2 Antibody Screen Negative HIV P24 Antigen Negative ASSESSMENT/PLAN: Pneumococcal meningitis HTN Breast CA Mastoiditis / Sinusitis Plan ABX per ID Decadron VTE prophylaxis Droplet isolation. IV fluid. Follow sensitivities Follow Neuro exam. ICU monitoring Dr Osorio Critical care time spent in reviewing chart, evaluating patient and formulating plan - 36 minutes.
[2017-10-15] MEDS ORDERED: PT OWN MED DRAWER 7, Y5N ONE (15:08)
[2017-10-15] MEDS ORDERED: SODIUM CHLORIDE 1,000 ML IV SCH (15:21)
[2017-10-15] MEDS ORDERED: POTASSIUM CHLORIDE TABS 20 MEQ TABLET.ER (FP) PO ONE ×3 (15:27→20:00)
[2017-10-15] MEDS: ACETAMINOPHEN 325 MG TABLET (FP) PO PRN (21:36)
[2017-10-15] MEDS: RANITIDINE HCL 150 MG TABLET (FP) PO SCH (21:36)
[2017-10-15] MEDS: HEPARIN NA (PORCINE) 5,000 UNITS/ML 1ML VIAL SQ SCH (21:37)
[2017-10-15] MEDS: SODIUM CHLORIDE 1,000 ML IV SCH (21:53)
[2017-10-15] MEDS ORDERED: RANITIDINE HCL 150 MG TABLET (FP) PO SCH (22:00)
[2017-10-16] MEDS: ACETAMINOPHEN 325 MG TABLET (FP) PO PRN ×3 (04:24→19:52)
[2017-10-16] MEDS: DEXAMETHASONE SOD PHOSPHATE 10 MG/1 ML VIAL IVPUSH SCH ×4 (04:25→21:11)
[2017-10-16] MEDS ORDERED: ACETAMINOPHEN 325 MG TABLET (FP) PO PRN ×2 (06:15→22:59)
--- NOTE | 2017-10-16 06:15 | PN ---
Progress Note, Physician Chief Complaint: ID ICU follow up for this 62 year old female admitted with severe headache and fever to [facility]. Found to have suspected bacterial meningitis and treated with Vancomycin and Ceftriaxone with Decadron. CT findings reveal sinusitis with air fluid level in the sphenoid and left otomastoiditis. Cultures pending but pneumococcal serum Ag positive. Clinical improvement though still complains of severe headache. Fevers down otherwise stable, alert oriented - Current Medication List Current Medications: Active Medications Acetaminophen (Tylenol -) 650 mg PO Q4H PRN PRN Reason: fever/pain Last Admin: 10/16/17 04:24 Dose: 650 mg Dexamethasone Sodium Phosphate (Decadron Injection -) 10 mg IVPUSH Q6H-IV NEGRITO Last Admin: 10/16/17 04:25 Dose: 10 mg Heparin Sodium (Porcine) (Heparin -) 5,000 unit SQ BID [facility] Last Admin: 10/15/17 21:37 Dose: 5,000 unit CEFTRIAXONE IN IS-OSM DEXTROSE (Ceftriaxone 2 Gm-D5w Bag) 2 gm in 50 mls @ 100 mls/hr IVPB Q12H [facility] Last Admin: 10/15/17 23:02 Dose: 100 mls/hr Sodium Chloride (Normal Saline -) 1,000 mls @ 100 mls/hr IV ASDIR [facility] Last Admin: 10/15/17 21:53 Dose: Not Given Vancomycin HCl 1,750 mg/ (Dextrose) 500 mls @ 250 mls/hr IVPB BID@1100,2300 [facility] Last Admin: 10/15/17 23:02 Dose: 250 mls/hr Oxycodone/Acetaminophen (Percocet 5/325 -) 2 combo PO Q6H [facility] Ranitidine HCl (Zantac -) 150 mg PO BID [facility] Last Admin: 10/15/17 21:36 Dose: 150 mg - Objective Vital Signs: Vital Signs Temperature 98.9 F 10/16/17 02:00 Pulse Rate 69 10/16/17 04:00 Respiratory Rate 19 10/16/17 04:00 Blood Pressure 124/69 10/16/17 04:00 O2 Sat by Pulse Oximetry (%) 98 10/15/17 19:00 Constitutional: Yes: No Distress, Obese Neck: Yes: Other (NUchal rigidity) Cardiovascular: Yes: S1, S2 Respiratory: Yes: WNL, Regular, CTA Bilaterally Gastrointestinal: Yes: WNL, Normal Bowel Sounds, Soft. No: Tenderness, Tenderness, Rebound Edema: No Neurological: Yes: WNL, Alert, Oriented, Cran Nerves II-XII Intact. No: Seizure , Unresponsive Labs: CBC, BMP 10/15/17 09:30 10/15/17 09:30 INR, PTT INR 1.13 (0.82-1.09) 10/14/17 14:42 Problem List - Problems (1) Acute sinusitis Code(s): J01.90 - ACUTE SINUSITIS, UNSPECIFIED (2) Acute bacterial meningitis Code(s): G00.9 - BACTERIAL MENINGITIS, UNSPECIFIED (3) Invasive ductal carcinoma of breast, female Code(s): C50.919 - MALIGNANT NEOPLASM OF UNSP SITE OF UNSPECIFIED FEMALE BREAST Assessment/Plan Microbiology 10/14/17 18:49 Urine For Antigen Detection Legionella Antigen - Final 10/14/17 18:49 Urine For Antigen Detection Streptococcus pneumoniae Antigen (M - Final 10/14/17 16:10 Cerebral Spinal Fluid - Lumbar Puncture Streptococcus pneumoniae Antigen (M - Final 10/14/17 16:10 Cerebral Spinal Fluid - Lumbar Puncture Gram Stain - Final 10/14/17 15:40 Nasopharyngeal Swab Influenza Types A,B Antigen (JAMIA) - Final 10/14/17 15:40 Nasopharyngeal Swab - Final 10/14/17 16:10 Cerebral Spinal Fluid - Lumbar Puncture CSF Culture - Preliminary 10/14/17 15:40 Blood - Peripheral Venous Blood Culture - Preliminary NO GROWTH OBTAINED AFTER 24 HOURS, INCUBATION TO CONTINUE FOR 4 DAYS. 10/14/17 15:40 Blood - Peripheral Venous Blood Culture - Preliminary NO GROWTH OBTAINED AFTER 24 HOURS, INCUBATION TO CONTINUE FOR 4 DAYS. Laboratory Tests 10/14/17 10/15/17 10/15/17 16:10 09:30 09:30 WBC 21.8 H D Hgb 14.0 Hct 41.9 Plt Count 241 BUN 15 Creatinine 0.8 CSF Appearance Turbid CSF WBC 6000 CSF RBC 230 CSF Neutrophils 78 CSF Monocytes 22 CSF Glucose 5 L CSF Total Protein 775 H Vancomycin Pre-Dose 10/15/17 09:30 WBC Hgb Hct Plt Count BUN Creatinine CSF Appearance CSF WBC CSF RBC CSF Neutrophils CSF Monocytes CSF Glucose CSF Total Protein Vancomycin Pre-Dose 1.716 L* Assessment Bacterial meningitis suspected Pneumococcus suspected Culture pending Acute sinusitis & mastoiditis likely source of meningitis Prior history of breast Cancer ( details regarding type/ dates of chemotherapy -finished chemotherapy December 2016 and XRT May 2107) Improving overall Will continue current antibiotics and steroids and look to final CSF culture for further guidance Check Quant gold Medicate with with 2 Percoset for severe headache PRimary care to review after that Critical care time spent 38 minutes Dodie RICE
[2017-10-16 07:01] LABS: CHLORIDE 107 mmol/L (98-107); SODIUM 142 mmol/L (136-145)
[2017-10-16] MEDS: oxyCODONE HCL 5 MG TABLET PO PRN ×3 (07:03→19:51)
[2017-10-16 07:05] LABS: BASO % 0.2 % (0-2.0); HEMATOCRIT 38.4 % (32.4-45.2); HEMOGLOBIN 13.1 GM/dL (10.7-15.3); LYMPH % 0.9 % (8-40); MCH 31.9 pg (25.7-33.7); MCHC 34.1 g/dl (32.0-36.0); MEAN CELL VOLUME 93.5 fl (80-96); MEAN PLT VOLUME 8.6 fl (7.5-11.1); MONO % 4.3 % (3.8-10.2); NEUT % 94.6 % (42.8-82.8); PLATELET COUNT 244 K/MM3 (134-434); RDW 15.4 % (11.6-15.6); WHITE BLOOD COUNT 18.2 K/mm3 (4.0-10.0)
[2017-10-16 07:06] LABS: ANION GAP 12 (8-16); BLOOD UREA NITROGEN 18 mg/dL (7-18); CALCIUM 8.7 mg/dL (8.5-10.1); CO2 23 mmol/L (21-32); CREATININE 0.7 mg/dL (0.55-1.02); GLUCOSE,RANDOM 115 mg/dL (74-106); PHOSPHOROUS 2.2 mg/dL (2.5-4.9)
[2017-10-16] MEDS ORDERED: PT OWN MED DRAWER 7, Y5N ONE ×2 (07:56→09:37)
--- NOTE | 2017-10-16 08:12 | CON.ENT ---
Consult Consult Specialty:: ENT Referred by:: Dr Bassett Reason for Consultation:: Sinusitis/Otitis Media - History of Present Illness Chief Complaint: Severe headache History of Present Illness: 62 yo female who developed a severe headache over the weekend, diagnosed with meningitis after LP(pneumococcal). Head CT scan revealed left ME/mastoid effusion and left sided A/F level in the sphenoid. Pt notes clogged left ear for a few months after a URI, no pain. 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 Home Medications - Allergies Allergies/Adverse Reactions: Allergies Allergy/AdvReac Type Severity Reaction Status Date / Time No Known Allergies Allergy Verified 10/14/17 07:57 - Home Medications Home Medications: Ambulatory Orders Aspirin [ASA -] 81 mg PO DAILY 05/25/12 Multivitamins [Tab-A-Vit -] 1 tab PO DAILY 07/16/16 Valsartan/Hydrochlorothiazide [Valsartan-Hctz 80-12.5 mg Tab] 1 each PO DAILY Review of Systems - Review of Systems Constitutional: reports: Weakness HENT: reports: Other (ear fullness) Neck: reports: No Symptoms Neurological: reports: Headache Physical Exam-ENT Vital Signs: Vital Signs Temperature 98.3 F 10/16/17 06:00 Pulse Rate 66 10/16/17 07:49 Respiratory Rate 20 10/16/17 07:49 Blood Pressure 126/62 10/16/17 07:49 O2 Sat by Pulse Oximetry (%) 98 10/16/17 07:46 Constitutional: Yes: Well Nourished, No Distress Head: Yes: WNL Eyes: Yes: EOM Intact Nose: Yes: Septum Deviated Nasal Passage: Yes: Pale Oral/Pharynx: Yes: WNL Outer Ear: Yes: WNL Ear Canal: Yes: Cerumen Tympanic Membrane: Yes: Decreased Mobility, Other (dull TM on left, no lateralization of ear or mastoid tenderness) Neck: Yes: WNL Neurological: Yes: Alert, Cran Nerves II-XII Intact Imaging - Results Cat Scan: Report Reviewed, Image Reviewed Problem List - Problems (1) Bacterial meningitis Assessment/Plan: Continue meds as per Medicine/ID Code(s): G00.9 - BACTERIAL MENINGITIS, UNSPECIFIED (2) Acute sinusitis Assessment/Plan: Left sphenoid sinusitis noted on CT of head- no lesions or polyps noted on sinus endoscopy. Continue IV Abx as per ID. Would add nasal saline rinses 3x/ day and Fluticasone spray daily. Code(s): J01.90 - ACUTE SINUSITIS, UNSPECIFIED Qualifiers: Sinusitis location: sphenoidal Recurrence: non-recurrent Qualified Code(s ): J01.30 - Acute sphenoidal sinusitis, unspecified (3) Otitis media Assessment/Plan: PT with left sided ear fullness for a few weeks- continue current meds for meningitis. Follow-up as outpatient for an audiogram. Code(s): H66.90 - OTITIS MEDIA, UNSPECIFIED, UNSPECIFIED EAR Qualifiers: Otitis media type: suppurative Laterality: left Recurrence: not specified as recurrent Spontaneous tympanic membrane rupture: without spontaneous rupture Procedure Note Procedure: Nasal/sinus endoscopy- After obtaining verbal consent, nasal passages spray with topical anesthetic/decongestant. Flexible scope passed. Septal deviation with small spur noted. Mild mucosa edema. Narrowed OMC without gross purulence. Bloody crust on the tip of left middle turbinate. No lesions or polyps noted. Normal Nasopharynx without gross obstruction of ETs.
[2017-10-16] MEDS ORDERED: SODIUM CHLORIDE NASAL SPRAY 44 ML BOTTLE NS PRN ×2 (08:22→22:59)
[2017-10-16] MEDS: CEFTRIAXONE 2 GM-D5W BAG 2 GM/50 ML BAG IVPB SCH (09:38)
[2017-10-16] MEDS: RANITIDINE HCL 150 MG TABLET (FP) PO SCH ×2 (09:38→21:12)
[2017-10-16] MEDS: HEPARIN NA (PORCINE) 5,000 UNITS/ML 1ML VIAL SQ SCH ×2 (09:39→21:11)
[2017-10-16] MEDS: FLUTICASONE PROP 0.05% 16 GM NASAL SPRAY NS SCH ×2 (09:44→13:38)
[2017-10-16] MEDS: NAPH,MB-DB/K PH,MBDB POWDER PACKET PO SCH ×3 (09:45→21:12)
[2017-10-16] MEDS: VANCOMYCIN 1,750 MG in DEXTROSE 5%-WATER - 500 ML IVPB SCH ×3 (10:45→23:38)
--- NOTE | 2017-10-16 11:10 | CON.NEURO ---
Consult - History of Present Illness History of Present Illness: 62 years old past medical history significant for stage III left breast invasive ductal cancer carcinoma status post chemotherapy radiation now on remission, hypertension who presents to the ED with history of headache. Diagnosed with meningitis after LP(pneumococcal). CSF WBC > 10, 000, P >700. Head CT scan revealed left ME/mastoid effusion and left sided A/F level in the sphenoid. she is awake and alert; she is feeling better and MCDONOUGH improved. CT HD IMPRESSION: 1. Examination significantly limited by image degradation from motion throughout. No obvious AVM, large cerebral aneurysm or major branch cutoff within the central arteries of the [place]. 2. Partially opacified left sphenoid sinus with moderate-sized fluid level. Please correlate clinically for acute sinusitis. 3. Partially opacified left middle ear cavity and opacified left mastoid air cells without coalescence may be attributed to otomastoiditis. Please correlate clinically with direct visualization of the left middle ear cavity and left posterior nasopharynx. 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 - Allergies Allergies/Adverse Reactions: Allergies Allergy/AdvReac Type Severity Reaction Status Date / Time No Known Allergies Allergy Verified 10/14/17 07:57 - Home Medications Home Medications: Ambulatory Orders Aspirin [ASA -] 81 mg PO DAILY 05/25/12 Multivitamins [Tab-A-Vit -] 1 tab PO DAILY 07/16/16 Valsartan/Hydrochlorothiazide [Valsartan-Hctz 80-12.5 mg Tab] 1 each PO DAILY Physical Exam-Neuro Vital Signs: Vital Signs Temperature 98.5 F 10/16/17 10:00 Pulse Rate 59 L 10/16/17 10:00 Respiratory Rate 18 10/16/17 10:00 Blood Pressure 126/73 10/16/17 10:00 O2 Sat by Pulse Oximetry (%) 98 10/16/17 07:46 Constitutional: Yes: Well Nourished Neck: Yes: Supple Labs: CBC, BMP 10/16/17 06:10 10/16/17 06:10 INR, PTT INR 1.13 (0.82-1.09) 10/14/17 14:42 - Neuro Exam Level Of Consciousness: Yes: Alert, Oriented to Person (EOMI, no facial, motor UE /LE, reflexes symmtric ) Imaging - Results Cat Scan: Report Reviewed, Image Reviewed Problem List - Problems (1) Acute bacterial meningitis Code(s): G00.9 - BACTERIAL MENINGITIS, UNSPECIFIED (2) Acute sinusitis Code(s): J01.90 - ACUTE SINUSITIS, UNSPECIFIED Qualifiers: Sinusitis location: sphenoidal Recurrence: non-recurrent Qualified Code(s ): J01.30 - Acute sphenoidal sinusitis, unspecified (3) Mastoiditis Code(s): H70.90 - UNSPECIFIED MASTOIDITIS, UNSPECIFIED EAR Qualifiers: Laterality: left Qualified Code(s): H70.92 - Unspecified mastoiditis, left ear Assessment/Plan 62 years old past medical history significant for stage III left breast invasive ductal cancer carcinoma status post chemotherapy radiation now on remission, hypertension who presents to the ED with history of headache. Diagnosed with meningitis after LP(pneumococcal). CSF WBC > 10, 000, P >700. Head CT scan revealed left ME/mastoid effusion and left sided A/F level in the sphenoid. she is awake and alert; she is feeling better and MCDONOUGH improved. MCDONOUGH are better --but will get MRI BRAIN to ensure no abscess formation. cont ABX Dr Montoya
--- NOTE | 2017-10-16 11:36 | PN ---
Teaching Attending Note Name of Resident: Stella Tapia ATTENDING PHYSICIAN STATEMENT I saw and evaluated the patient. I reviewed the resident's note and discussed the case with the resident. I agree with the resident's findings and plan as documented. SUBJECTIVE: Patient seen and examined in the ICU. Awake and alert. Still with MCDONOUGH and nuchal rigidity, but improved from yesterday. No CP or SOB. No nausea or vomiting. Intake & Output 10/13/17 10/14/17 10/15/17 10/16/17 23:59 23:59 23:59 23:59 Intake Total 700 1750 Balance 700 1750 Weight 260 lb 2.327 oz Last Vital Signs Temp Pulse Resp BP Pulse Ox 98.5 F 59 L 18 126/73 98 10/16/17 10:00 10/16/17 10:00 10/16/17 10:00 10/16/17 10:00 10/16/17 07:46 Active Medications Acetaminophen (Tylenol -) 650 mg PO Q4H PRN PRN Reason: fever/pain Last Admin: 10/16/17 04:24 Dose: 650 mg Acetaminophen (Tylenol -) 650 mg PO Q6H PRN PRN Reason: PAIN LEVEL 6-10 Dexamethasone Sodium Phosphate (Decadron Injection -) 10 mg IVPUSH Q6H-IV [facility] Last Admin: 10/16/17 08:10 Dose: 10 mg Fluticasone Propionate (Flonase -) 2 spray NS DAILY [facility] Last Admin: 10/16/17 09:44 Dose: Not Given Heparin Sodium (Porcine) (Heparin -) 5,000 unit SQ BID [facility] Last Admin: 10/16/17 09:39 Dose: 5,000 unit CEFTRIAXONE IN IS-OSM DEXTROSE (Ceftriaxone 2 Gm-D5w Bag) 2 gm in 50 mls @ 100 mls/hr IVPB Q12H [facility] Last Admin: 10/16/17 09:38 Dose: 100 mls/hr Sodium Chloride (Normal Saline -) 1,000 mls @ 100 mls/hr IV ASDIR [facility] Last Admin: 10/15/17 21:53 Dose: Not Given Vancomycin HCl 1,750 mg/ (Dextrose) 500 mls @ 250 mls/hr IVPB BID@1100,2300 [facility] Last Admin: 10/16/17 10:45 Dose: 250 mls/hr Oxycodone HCl (Roxicodone -) 10 mg PO Q6H PRN PRN Reason: PAIN LEVEL 6-10 Last Admin: 10/16/17 07:03 Dose: 10 mg Potassium Phos/Sodium Phos (Phos-Nak Packet -) 1 packet PO BID [facility] Stop: 10/16/17 22:01 Last Admin: 10/16/17 09:45 Dose: Not Given Ranitidine HCl (Zantac -) 150 mg PO BID [facility] Last Admin: 10/16/17 09:38 Dose: 150 mg Sodium Chloride ([place] Nasal [place] -) 2 spray NS TID PRN PRN Reason: NASAL CONGESTION GENERAL: Awake, alert, and oriented HEAD: Normal with no signs of trauma. EYES: Pupils equal, round and reactive to light, extraocular movements intact, EARS, NOSE, THROAT: Ears normal, nares patent, oropharynx clear without exudates. NECK: Normal range of motion, supple without lymphadenopathy, no stiffness LUNGS: Breath sounds equal, clear to auscultation bilaterally. No wheezes, and no crackles. HEART: s1s2 normal ABDOMEN: Soft, nontender, not distended, normoactive bowel sounds, no guarding, no rebound, no masses. UPPER EXTREMITIES: 2+ pulses, warm, well-perfused. LOWER EXTREMITIES: 2+ pulses, warm, well-perfused. NEUROLOGICAL: Non-focal SKIN: Warm, dry, no petechiae Laboratory Results - last 24 hr 10/15/17 10/15/17 10/15/17 09:30 14:17 15:45 WBC RBC Hgb Hct MCV MCH MCHC RDW Plt Count MPV Neutrophils % Neutrophils % (Manual) 92.8 H* Band Neutrophils % 1.0 Lymphocytes % Lymphocytes % (Manual) 2.1 L Monocytes % Monocytes % (Manual) 4 Eosinophils % Eosinophils % (Manual) 0.0 Basophils % Basophils % (Manual) 0.0 Myelocytes % (Man) 0 Promyelocytes % (Man) 0 Blast Cells % (Manual) 0 Nucleated RBC % 0 Metamyelocytes 0 Hypochromia 0 Toxic Granulation 0 Dohle Bodies 0 Platelet Estimate Normal Polychromasia 0 Poikilocytosis 0 Basophilic Stippling 0 Anisocytosis 0 Microcytosis 0 Macrocytosis 0 Spherocytes 0 Sickle Cells 0 Target Cells 0 Tear Drop Cells 0 Ovalocytes 0 Stomatocytes 0 Helmet Cells 0 [place] Bodies 0 Banks Rings 0 Laura Cells 0 Acanthocytes (Spur) 0 Rouleaux 0 Fragmented RBCs 0 Schistocytes 0 Sodium Potassium Chloride Carbon Dioxide Anion Gap BUN Creatinine POC Glucometer 98.28912 Random Glucose Calcium Phosphorus Magnesium 2.1 10/16/17 10/16/17 06:10 06:10 WBC 18.2 H RBC 4.10 Hgb 13.1 Hct 38.4 MCV 93.5 MCH 31.9 MCHC 34.1 RDW 15.4 Plt Count 244 MPV 8.6 Neutrophils % 94.6 H Neutrophils % (Manual) Band Neutrophils % Lymphocytes % 0.9 L Lymphocytes % (Manual) Monocytes % 4.3 Monocytes % (Manual) Eosinophils % 0.0 D Eosinophils % (Manual) Basophils % 0.2 Basophils % (Manual) Myelocytes % (Man) Promyelocytes % (Man) Blast Cells % (Manual) Nucleated RBC % Metamyelocytes Hypochromia Toxic Granulation Dohle Bodies Platelet Estimate Polychromasia Poikilocytosis Basophilic Stippling Anisocytosis Microcytosis Macrocytosis Spherocytes Sickle Cells Target Cells Tear Drop Cells Ovalocytes Stomatocytes Helmet Cells [place] Bodies Banks Rings [place] Cells Acanthocytes (Spur) Rouleaux Fragmented RBCs Schistocytes Sodium 142 Potassium 4.0 Chloride 107 Carbon Dioxide 23 Anion Gap 12 BUN 18 Creatinine 0.7 POC Glucometer Random Glucose 115 H Calcium 8.7 Phosphorus 2.2 L Magnesium 2.0 ASSESSMENT/PLAN: Pneumococcal meningitis HTN Breast CA Mastoiditis / Sinusitis Plan ABX per ID Decadron VTE prophylaxis Droplet isolation. IV fluid. Follow sensitivities Follow Neuro exam. Floor Dr Osorio Critical care time spent in reviewing chart, evaluating patient and formulating plan - 36 minutes.
--- NOTE | 2017-10-16 14:18 | PN ---
Physical Exam: SUBJECTIVE: Patient seen and examined in the ICU. AAOx3. Pt reports headache improved from yesterday and neck ROM greatly improved. Pt denies chest pain, sob, abdominal pain, nausea, vomiting, fever, chills. OBJECTIVE: Vital Signs Period Temp Pulse Resp BP Sys/Alonso Pulse Ox Last 24 Hr 98.3 F-99.2 F 59-107 13-23 99-142/51-83 97-98 GENERAL: The patient is awake, alert, and fully oriented, in no acute distress. NECK: Trachea midline, full range of motion, supple. Full ROM. LUNGS: Faint crackles appreciated to Left lung base. HEART: Regular rate and rhythm, S1, S2 without murmur, rub or gallop. ABDOMEN: Soft, nontender, nondistended, normoactive bowel sounds, no guarding. EXTREMITIES: Warm, well-perfused, no edema. PSYCH: Normal mood, normal affect. SKIN: Warm, dry, normal turgor, no rashes or lesions noted Laboratory Results - last 24 hr 10/15/17 10/15/17 10/16/17 14:17 15:45 06:10 WBC 18.2 H RBC 4.10 Hgb 13.1 Hct 38.4 MCV 93.5 MCH 31.9 MCHC 34.1 RDW 15.4 Plt Count 244 MPV 8.6 Neutrophils % 94.6 H Lymphocytes % 0.9 L Monocytes % 4.3 Eosinophils % 0.0 D Basophils % 0.2 Sodium Potassium Chloride Carbon Dioxide Anion Gap BUN Creatinine POC Glucometer 98.15454 Random Glucose Calcium Phosphorus Magnesium 2.1 10/16/17 06:10 WBC RBC Hgb Hct MCV MCH MCHC RDW Plt Count MPV Neutrophils % Lymphocytes % Monocytes % Eosinophils % Basophils % Sodium 142 Potassium 4.0 Chloride 107 Carbon Dioxide 23 Anion Gap 12 BUN 18 Creatinine 0.7 POC Glucometer Random Glucose 115 H Calcium 8.7 Phosphorus 2.2 L Magnesium 2.0 Active Medications Generic Name Dose Route Start Last Admin Trade Name Freq PRN Reason Stop Dose Admin Acetaminophen 650 mg 10/15/17 19:54 10/16/17 13:49 Tylenol - PO 650 mg Q4H PRN Administration fever/pain Acetaminophen 650 mg 10/16/17 06:15 Tylenol - PO Q6H PRN PAIN LEVEL 6-10 Dexamethasone Sodium Phosphate 10 mg 10/15/17 21:00 10/16/17 08:10 Decadron Injection - IVPUSH 10 mg Q6H-IV [facility]GR[facility] Administration Fluticasone Propionate 2 spray 10/16/17 10:00 10/16/17 13:38 Flonase - NS 2 sprays DAILY [facility] Administration Heparin Sodium (Porcine) 5,000 unit 10/15/17 22:00 10/16/17 09:39 Heparin - SQ 5,000 unit BID [facility] Administration CEFTRIAXONE IN IS-OSM DEXTROSE 2 gm in 50 mls @ 100 mls/hr 10/15/17 22:00 09:38 Ceftriaxone 2 Gm-D5w Bag IVPB 100 mls/hr Q12H NEGRITO Administration Sodium Chloride 1,000 mls @ 100 mls/hr 10/15/17 19:54 10/15/17 21:53 Normal Saline - IV Not Given ASDIR NEGRITO Vancomycin HCl 1,750 mg/ 500 mls @ 250 mls/hr 10/15/17 23:00 10/16/17 10:45 Dextrose IVPB 250 mls/hr BID@1100,2300 [facility] Administration Oxycodone HCl 10 mg 10/16/17 06:15 10/16/17 13:48 Roxicodone - PO 10 mg Q6H PRN Administration PAIN LEVEL 6-10 Potassium Phos/Sodium Phos 1 packet 10/16/17 10:00 10/16/17 13:39 Phos-Nak Packet - PO 10/16/17 22:01 1 packet BID [facility] Administration Ranitidine HCl 150 mg 10/15/17 22:00 10/16/17 09:38 Zantac - PO 150 mg BID [facility] Administration Sodium Chloride 2 spray 10/16/17 08:22 [place] Nasal [place] - NS TID PRN NASAL CONGESTION IMAGIN10/14/[address] -> moderate fluid accumulation in Left sphenoid sinus (r/o acute sinusitis). Left mastoid effusion noted (r/o mastoiditis). No acute intracranial pathology. 10/14/17 Head CTA -> no obvious AVMs. 10/15/17 CXR -> no acute cardiopulmonary pathology. ASSESSMENT/PLAN: 62F with PMH of htn, breast ca, presents with severe headache, admitted for bacterial meningitis. # Pneumococcal meningitis - CSF (+) for Strep pneumo - urine (+) for Strep pneumo - blood culture (-) x 24 hrs - Influenza A&B (-) - Day 2 of IV Ceftriaxone and IV Vancomycin - ID (Dr. Stoll) recs appreciated - IVFs - Decadron IVpush q6hr - pain control with Oxycodone prn and Tylenol prn # Acute sinusitis - ENT (Dr. Farrell) recs appreciated: add nasal saline spray and Flonase # htn - hold home meds for now as pt is normotensive # FEN - Fluids: NS @ 100 ml/hr - Electrolytes: hypophosphatemia repleted with Phos-NaK packets x 2, continue to monitor - Nutrition: low sodium diet # Prophylaxis - DVT ppx with Heparin BID - GI ppx with Zantac BID # dispo - pt stable for transfer to floors - Full Code Visit type - Emergency Visit Emergency Visit: Yes ED Registration Date: 10/14/17 Care time: The patient presented to the Emergency Department on the above date and was hospitalized for further evaluation of their emergent condition. - New Patient This patient is new to me today: Yes Date on this admission: 10/16/17 - Critical Care Critical Care patient: Yes Total Critical Care Time (in minutes): 40 Critical Care Statement: The care of this patient involved high complexity decision making to prevent further life threatening deterioration of the patient 's condition and/or to evaluate & treat vital organ system(s) failure or risk of failure.
[2017-10-16] MEDS: SODIUM CHLORIDE 1,000 ML IV SCH ×2 (18:18→19:57)
--- NOTE | 2017-10-16 18:59 | PN ---
Teaching Attending Note Name of Resident: Dandy Rojas ATTENDING PHYSICIAN STATEMENT I saw and evaluated the patient. I reviewed the resident's note and discussed the case with the resident. I agree with the resident's findings and plan as documented. SUBJECTIVE: 62 F with OBJECTIVE: Physical; VS: Vital Signs Period Temp Pulse Resp BP Sys/Alonso Pulse Ox Last 24 Hr 98.3 F-99.2 F 59-86 13-21 99-142/51-76 98 GEN: HEENT: CARD: RESP: ABD: EXT: CBCD WBC 18.2 K/mm3 (4.0-10.0) H 10/16/17 06:10 RBC 4.10 M/mm3 (3.60-5.2) 10/16/17 06:10 Hgb 13.1 GM/dL (10.7-15.3) 10/16/17 06:10 Hct 38.4 % (32.4-45.2) 10/16/17 06:10 MCV 93.5 fl (80-96) 10/16/17 06:10 MCHC 34.1 g/dl (32.0-36.0) 10/16/17 06:10 RDW 15.4 % (11.6-15.6) 10/16/17 06:10 Plt Count 244 K/MM3 (134-434) 10/16/17 06:10 MPV 8.6 fl (7.5-11.1) 10/16/17 06:10 CMP Sodium 142 mmol/L (136-145) 10/16/17 06:10 Potassium 4.0 mmol/L (3.5-5.1) 10/16/17 06:10 Chloride 107 mmol/L (98-107) 10/16/17 06:10 Carbon Dioxide 23 mmol/L (21-32) 10/16/17 06:10 Anion Gap 12 (8-16) 10/16/17 06:10 BUN 18 mg/dL (7-18) 10/16/17 06:10 Creatinine 0.7 mg/dL (0.55-1.02) 10/16/17 06:10 Creat Clearance w eGFR > 60 (>60) 10/15/17 09:30 Random Glucose 115 mg/dL (74-106) H 10/16/17 06:10 Calcium 8.7 mg/dL (8.5-10.1) 10/16/17 06:10 Total Bilirubin 0.5 mg/dL (0.2-1.0) 10/15/17 09:30 AST 21 U/L (15-37) 10/15/17 09:30 ALT 21 U/L (12-78) 10/15/17 09:30 Alkaline Phosphatase 50 U/L (45-117) 10/15/17 09:30 Total Protein 7.3 g/dl (6.4-8.2) 10/15/17 09:30 Albumin 3.5 g/dl (3.4-5.0) 10/15/17 09:30 CARDIAC ENZYMES Creatine Kinase 76 IU/L (26-192) 10/14/17 10:49 Troponin I < 0.02 ng/ml (0.00-0.05) 10/14/17 10:49 ASSESSMENT AND PLAN:
--- NOTE | 2017-10-16 19:41 | PN ---
Progress Note (short form) - Note Progress Note: UPDATE 2: Stat read showing pneumocephalus vs. old blood (chronic/clotted blood) --Updated Dr. Montoya: Possibly related to lumbar puncture; repeat scan in 3 days, nothing to do at this time; continue care as before UPDATE 1: Saw pt's imaging of MRI with gross abnormalities --Contacted Dr. Montoya about scan --Unsure exactly of scan; ddx pneumocephalus vs. seeding vs. mycotic aneurysms? vs. other etiology --Contacted radiology for stat read Pt came back from MRI as ordered by neurologist for r/o abscess formation given persistent severe headaches. Pt reportedly had an episode of nonbloody emesis down in radiology. Pt currently bradycardic to the 40's-50's with rebound up to 60's intermittently. On monitor pt does not seem to be in any block patterning, but will order stat EKG. Vasovagal episodes from nausea also on differential at this time.
--- NOTE | 2017-10-16 20:22 | PN ---
Progress Note, Physician Chief Complaint: Patient seen and examined, reports generalized headache. History of Present Illness: This is a 62 y/o woman with a past medical history of Stage III breast invasive ductal carcinoma (s/p radiation therapy) now in remission, HTN. Patient was admitted from the emergency department for Meningitis after LP (Pneumoccal) - Current Medication List Current Medications: Active Medications Acetaminophen (Tylenol -) 650 mg PO Q4H PRN PRN Reason: fever/pain Last Admin: 10/16/17 19:52 Dose: 650 mg Acetaminophen (Tylenol -) 650 mg PO Q6H PRN PRN Reason: PAIN LEVEL 6-10 Dexamethasone Sodium Phosphate (Decadron Injection -) 10 mg IVPUSH Q6H-IV [facility] Last Admin: 10/16/17 14:29 Dose: 10 mg Fluticasone Propionate (Flonase -) 2 spray NS DAILY [facility] Last Admin: 10/16/17 13:38 Dose: 2 sprays Heparin Sodium (Porcine) (Heparin -) 5,000 unit SQ BID [facility] Last Admin: 10/16/17 09:39 Dose: 5,000 unit Sodium Chloride (Normal Saline -) 1,000 mls @ 100 mls/hr IV ASDIR [facility] Last Admin: 10/16/17 19:57 Dose: Not Given Vancomycin HCl 1,750 mg/ (Dextrose) 500 mls @ 250 mls/hr IVPB BID@1100,2300 [facility] Last Admin: 10/16/17 10:45 Dose: 250 mls/hr Ceftriaxone Sodium (Rocephin 2gm Ivpb (Pre-Docked)) 2 gm in 100 mls @ 200 mls/ hr IVPB BID [facility] Oxycodone HCl (Roxicodone -) 10 mg PO Q6H PRN PRN Reason: PAIN LEVEL 6-10 Last Admin: 10/16/17 19:51 Dose: 10 mg Potassium Phos/Sodium Phos (Phos-Nak Packet -) 1 packet PO BID [facility] Stop: 10/16/17 22:01 Last Admin: 10/16/17 13:39 Dose: 1 packet Ranitidine HCl (Zantac -) 150 mg PO BID [facility] Last Admin: 10/16/17 09:38 Dose: 150 mg Sodium Chloride ([place] Nasal [place] -) 2 spray NS TID PRN PRN Reason: NASAL CONGESTION - Objective Vital Signs: Vital Signs Temperature 98.5 F 10/16/17 10:00 Pulse Rate 72 10/16/17 18:00 Respiratory Rate 18 10/16/17 18:00 Blood Pressure 138/76 10/16/17 18:00 O2 Sat by Pulse Oximetry (%) 98 10/16/17 07:46 Constitutional: Yes: Well Nourished, No Distress, Calm, Obese Eyes: Yes: WNL, Conjunctiva Clear, EOM Intact HENT: Yes: WNL, Atraumatic, Normocephalic Neck: Yes: Supple, Trachea Midline, Decreased ROM, Tenderness Cardiovascular: Yes: Regular Rate and Rhythm, S1, S2 Respiratory: Yes: WNL, Regular, CTA Bilaterally Gastrointestinal: Yes: WNL, Normal Bowel Sounds, Soft, Abdomen, Obese Genitourinary: Yes: WNL Extremities: Yes: WNL Peripheral Pulses WNL: Yes Integumentary: Yes: WNL Neurological: Yes: WNL, Alert, Oriented, Cran Nerves II-XII Intact ...Motor Strength: WNL Psychiatric: Yes: WNL, Alert, Oriented Labs: CBC, BMP 10/16/17 06:10 10/16/17 06:10 INR, PTT INR 1.13 (0.82-1.09) 10/14/17 14:42 - ....Imaging MRI: Report Reviewed, Image Reviewed
[2017-10-16] MEDS: CEFTRIAXONE 2 GM/100 ML BAG IVPB SCH (21:12)
[2017-10-16] MEDS ORDERED: SODIUM CHLORIDE 1,000 ML IV SCH (22:59)
[2017-10-17] MEDS: DEXAMETHASONE SOD PHOSPHATE 10 MG/1 ML VIAL IVPUSH SCH ×4 (02:14→21:06)
[2017-10-17 06:37] LABS: HEMATOCRIT 40.1 % (32.4-45.2); HEMOGLOBIN 13.4 GM/dL (10.7-15.3); LYMPH % 1.6 % (8-40); MCH 31.4 pg (25.7-33.7); MCHC 33.4 g/dl (32.0-36.0); MEAN PLT VOLUME 8.6 fl (7.5-11.1); NEUT % 96.4 % (42.8-82.8); PLATELET COUNT 242 K/MM3 (134-434); RBC 4.27 M/mm3 (3.60-5.2); RDW 15.2 % (11.6-15.6); WHITE BLOOD COUNT 13.1 K/mm3 (4.0-10.0)
[2017-10-17 07:04] LABS: CHLORIDE 105 mmol/L (98-107); POTASSIUM 4.2 mmol/L (3.5-5.1); SODIUM 141 mmol/L (136-145)
[2017-10-17 07:16] LABS: ANION GAP 10 (8-16); BLOOD UREA NITROGEN 20 mg/dL (7-18); CALCIUM 8.6 mg/dL (8.5-10.1); CO2 26 mmol/L (21-32); CREATININE 0.7 mg/dL (0.55-1.02); GLUCOSE,RANDOM 120 mg/dL (74-106); MAGNESIUM 2.3 mg/dL (1.8-2.4); PHOSPHOROUS 2.9 mg/dL (2.5-4.9)
[2017-10-17] MEDS: ACETAMINOPHEN 325 MG TABLET (FP) PO PRN ×2 (07:16→17:33)
[2017-10-17] MEDS: oxyCODONE HCL 5 MG TABLET PO PRN ×2 (07:16→17:32)
--- NOTE | 2017-10-17 07:33 | PN ---
Progress Note, Physician Chief Complaint: ID Still complains of severe headaches and dizziness pain meds help Vancomycin and Ceftriaxone Only day 3 and significant improvement noted already - Current Medication List Current Medications: Active Medications Acetaminophen (Tylenol -) 650 mg PO Q6H PRN PRN Reason: PAIN LEVEL 1-5 Last Admin: 10/17/17 07:16 Dose: 650 mg Dexamethasone Sodium Phosphate (Decadron Injection -) 10 mg IVPUSH Q6H-IV [facility] Last Admin: 10/17/17 02:14 Dose: 10 mg Fluticasone Propionate (Flonase -) 2 spray NS DAILY [facility] Heparin Sodium (Porcine) (Heparin -) 5,000 unit SQ BID [facility] Ceftriaxone Sodium (Rocephin 2gm Ivpb (Pre-Docked)) 2 gm in 100 mls @ 200 mls/ hr IVPB BID [facility] Last Admin: 10/16/17 21:12 Dose: 200 mls/hr Sodium Chloride (Normal Saline -) 1,000 mls @ 100 mls/hr IV ASDIR [facility] Last Admin: 10/16/17 23:38 Dose: Not Given Vancomycin HCl 1,750 mg/ (Dextrose) 500 mls @ 250 mls/hr IVPB BID@1100,2300 [facility] Last Admin: 10/16/17 23:38 Dose: Not Given Oxycodone HCl (Roxicodone -) 10 mg PO Q6H PRN PRN Reason: PAIN LEVEL 6-10 Last Admin: 10/17/17 07:16 Dose: 10 mg Ranitidine HCl (Zantac -) 150 mg PO BID [facility] Sodium Chloride ([place] Nasal [place] -) 2 spray NS TID PRN PRN Reason: NASAL CONGESTION - Objective Vital Signs: Vital Signs Temperature 98.5 F 10/17/17 06:00 Pulse Rate 57 L 10/17/17 06:00 Respiratory Rate 18 10/17/17 06:00 Blood Pressure 130/69 10/17/17 06:00 O2 Sat by Pulse Oximetry (%) 98 10/16/17 22:00 Constitutional: Yes: Well Nourished, No Distress Neck: Yes: WNL, Supple Cardiovascular: Yes: S1, S2 Respiratory: Yes: WNL, Regular, CTA Bilaterally Gastrointestinal: Yes: WNL, Normal Bowel Sounds, Soft. No: Tenderness Edema: No Labs: CBC, BMP 10/17/17 05:45 10/17/17 05:45 INR, PTT INR 1.13 (0.82-1.09) 10/14/17 14:42 Problem List - Problems (1) Acute sinusitis Code(s): J01.90 - ACUTE SINUSITIS, UNSPECIFIED Qualifiers: Sinusitis location: sphenoidal Recurrence: non-recurrent Qualified Code(s ): J01.30 - Acute sphenoidal sinusitis, unspecified (2) Acute bacterial meningitis Code(s): G00.9 - BACTERIAL MENINGITIS, UNSPECIFIED (3) Invasive ductal carcinoma of breast, female Code(s): C50.919 - MALIGNANT NEOPLASM OF UNSP SITE OF UNSPECIFIED FEMALE BREAST Assessment/Plan Microbiology 10/14/17 18:49 Urine For Antigen Detection Legionella Antigen - Final 10/14/17 18:49 Urine For Antigen Detection Streptococcus pneumoniae Antigen (M - Final 10/14/17 16:10 Cerebral Spinal Fluid - Lumbar Puncture Streptococcus pneumoniae Antigen (M - Final 10/14/17 16:10 Cerebral Spinal Fluid - Lumbar Puncture Gram Stain - Final 10/14/17 15:40 Nasopharyngeal Swab Influenza Types A,B Antigen (JMAIA) - Final 10/14/17 15:40 Nasopharyngeal Swab - Final 10/14/17 16:10 Cerebral Spinal Fluid - Lumbar Puncture CSF Culture - Preliminary 10/14/17 15:40 Blood - Peripheral Venous Blood Culture - Preliminary NO GROWTH OBTAINED AFTER 48 HOURS, INCUBATION TO CONTINUE FOR 3 DAYS. 10/14/17 15:40 Blood - Peripheral Venous Blood Culture - Preliminary NO GROWTH OBTAINED AFTER 48 HOURS, INCUBATION TO CONTINUE FOR 3 DAYS. Laboratory Tests 10/14/17 10/15/17 10/17/17 16:10 09:30 05:45 WBC 13.1 H RBC 4.27 Hct 40.1 Plt Count 242 HIV 1&2 Antibody Screen Negative HIV P24 Antigen Negative H.influenzae Type B Ag Pending N. meningitidis Antigen Pending Group B Strep Antigen Pending S. pneumoniae Antigen Pending Organism ID Pending Assessment Pneumococcal meningitis by Antigen at this point. Clinical improvement Headaches secondary sinusisit mastoiditis and role of LP itself. MRI report seen Does not change manager in any way. Discussed with Neurology repeat imaging in a few days. Plan For now continue antibiotics and obtain quantitiative immunoglobulins ICU critical care follow today 38 minutes Tani RICE
[2017-10-17] MEDS: CEFTRIAXONE 2 GM/100 ML BAG IVPB SCH (09:40)
[2017-10-17] MEDS ORDERED: PT OWN MED DRAWER 7, Y5N ONE (09:45)
[2017-10-17] MEDS: RANITIDINE HCL 150 MG TABLET (FP) PO SCH ×2 (09:46→21:06)
[2017-10-17] MEDS: HEPARIN NA (PORCINE) 5,000 UNITS/ML 1ML VIAL SQ SCH ×2 (09:46→21:06)
[2017-10-17] MEDS: FLUTICASONE PROP 0.05% 16 GM NASAL SPRAY NS SCH (09:47)
[2017-10-17] MEDS: VANCOMYCIN 1,750 MG in DEXTROSE 5%-WATER - 500 ML IVPB SCH ×2 (10:04→23:07)
--- NOTE | 2017-10-17 11:11 | EKG ---
Test Reason : Blood Pressure : / mmHG Vent. Rate : 062 BPM Atrial Rate : 062 BPM P-R Int : 166 ms QRS Dur : 124 ms QT Int : 424 ms P-R-T Axes : 050 025 033 degrees QTc Int : 430 ms NORMAL SINUS RHYTHM RIGHT BUNDLE BRANCH BLOCK ABNORMAL ECG WHEN COMPARED WITH ECG OF 14-OCT-2017 07:58, VENT. RATE HAS DECREASED BY 38 BPM NONSPECIFIC T WAVE ABNORMALITY, IMPROVED IN ANTERIOR LEADS Confirmed by JOSESITO RICE, MARLEE ([id number]) on 10/17/2017 11:10:56 AM Referred By: Confirmed By:MARLEE BELLAMY MD
--- NOTE | 2017-10-17 12:45 | PN ---
Teaching Attending Note Name of Resident: Stella Tapia ATTENDING PHYSICIAN STATEMENT I saw and evaluated the patient. I reviewed the resident's note and discussed the case with the resident. I agree with the resident's findings and plan as documented. SUBJECTIVE: Patient seen and examined in the ICU. Awake and alert. MCDONOUGH and nuchal rigidity present, but less than yesterday. No CP or SOB. No nausea or vomiting. Intake & Output 10/14/17 10/15/17 10/16/17 10/17/17 23:59 23:59 23:59 23:59 Intake Total 700 4350 1790 Balance 700 4350 1790 Weight 260 lb 2.327 oz Last Vital Signs Temp Pulse Resp BP Pulse Ox 98.1 F 66 19 135/73 98 10/17/17 08:00 10/17/17 08:00 10/17/17 09:00 10/17/17 08:00 10/17/17 09:00 Active Medications Acetaminophen (Tylenol -) 650 mg PO Q6H PRN PRN Reason: PAIN LEVEL 1-5 Last Admin: 10/17/17 07:16 Dose: 650 mg Dexamethasone Sodium Phosphate (Decadron Injection -) 10 mg IVPUSH Q6H-IV [facility] Last Admin: 10/17/17 08:51 Dose: 10 mg Fluticasone Propionate (Flonase -) 2 spray NS DAILY [facility] Last Admin: 10/17/17 09:47 Dose: 2 sprays Heparin Sodium (Porcine) (Heparin -) 5,000 unit SQ BID [facility] Last Admin: 10/17/17 09:46 Dose: 5,000 unit Ceftriaxone Sodium (Rocephin 2gm Ivpb (Pre-Docked)) 2 gm in 100 mls @ 200 mls/ hr IVPB BID [facility] Last Admin: 10/17/17 09:40 Dose: 200 mls/hr Vancomycin HCl 1,750 mg/ (Dextrose) 500 mls @ 250 mls/hr IVPB BID@1100,2300 [facility] Last Admin: 10/17/17 10:04 Dose: 250 mls/hr Oxycodone HCl (Roxicodone -) 10 mg PO Q6H PRN PRN Reason: PAIN LEVEL 6-10 Last Admin: 10/17/17 07:16 Dose: 10 mg Ranitidine HCl (Zantac -) 150 mg PO BID [facility] Last Admin: 10/17/17 09:46 Dose: 150 mg Sodium Chloride ([place] Nasal [place] -) 2 spray NS TID PRN PRN Reason: NASAL CONGESTION GENERAL: Awake, alert, and oriented HEAD: Normal with no signs of trauma. EYES: Pupils equal, round and reactive to light, extraocular movements intact, EARS, NOSE, THROAT: Ears normal, nares patent, oropharynx clear without exudates. NECK: Normal range of motion, supple without lymphadenopathy, no stiffness LUNGS: Breath sounds equal, clear to auscultation bilaterally. No wheezes, and no crackles. HEART: s1s2 normal ABDOMEN: Soft, nontender, not distended, normoactive bowel sounds, no guarding, no rebound, no masses. UPPER EXTREMITIES: 2+ pulses, warm, well-perfused. LOWER EXTREMITIES: 2+ pulses, warm, well-perfused. NEUROLOGICAL: Non-focal SKIN: Warm, dry, no petechiae Laboratory Results - last 24 hr 10/17/17 10/17/17 10/17/17 05:45 05:45 05:45 WBC 13.1 H RBC 4.27 Hgb 13.4 Hct 40.1 MCV 94.0 MCH 31.4 MCHC 33.4 RDW 15.2 Plt Count 242 MPV 8.6 Neutrophils % 96.4 H Lymphocytes % 1.6 L D Monocytes % 2.0 L Eosinophils % 0.0 Basophils % 0.0 Sodium 141 Potassium 4.2 Chloride 105 Carbon Dioxide 26 Anion Gap 10 BUN 20 H Creatinine 0.7 Random Glucose 120 H Calcium 8.6 Phosphorus 2.9 Magnesium 2.3 C-Reactive Protein 2.9 H Cancelled Vancomycin Pre-Dose 10/17/17 10:30 WBC RBC Hgb Hct MCV MCH MCHC RDW Plt Count MPV Neutrophils % Lymphocytes % Monocytes % Eosinophils % Basophils % Sodium Potassium Chloride Carbon Dioxide Anion Gap BUN Creatinine Random Glucose Calcium Phosphorus Magnesium C-Reactive Protein Vancomycin Pre-Dose 19.801 H* ASSESSMENT/PLAN: Pneumococcal meningitis HTN Breast CA Mastoiditis / Sinusitis Plan ABX per ID Decadron VTE prophylaxis Droplet isolation. IV fluid. Follow sensitivities Follow Neuro exam. Floor Dr Osorio
--- NOTE | 2017-10-17 13:33 | PN ---
Physical Exam: SUBJECTIVE: Patient seen and examined in the ICU. AAOx3. Pt reports headache and dizziness when sitting (not upon rising), improved from yesterday. Neck ROM greatly improved. Pt denies chest pain, sob, abdominal pain, nausea, vomiting, fever, chills. OBJECTIVE: Vital Signs Period Temp Pulse Resp BP Sys/Alonso Pulse Ox Last 24 Hr 97.8 F-98.5 F 56-72 16-19 123-142/66-77 98-98 GENERAL: The patient is awake, alert, and fully oriented, in no acute distress. HEAD: Normal with no signs of trauma. EYES: Extraocular movements intact, sclera anicteric, conjunctiva clear. No ptosis. NECK: Trachea midline, full range of motion, supple. Full ROM. LUNGS: CTAB. HEART: Regular rate and rhythm, S1, S2 without murmur, rub or gallop. ABDOMEN: Soft, nontender, nondistended, normoactive bowel sounds, no guarding. EXTREMITIES: Warm, well-perfused, no edema. PSYCH: Normal mood, normal affect. SKIN: Warm, dry, normal turgor, no rashes or lesions noted Laboratory Results - last 24 hr 10/17/17 10/17/17 10/17/17 05:45 05:45 05:45 WBC 13.1 H RBC 4.27 Hgb 13.4 Hct 40.1 MCV 94.0 MCH 31.4 MCHC 33.4 RDW 15.2 Plt Count 242 MPV 8.6 Neutrophils % 96.4 H Lymphocytes % 1.6 L D Monocytes % 2.0 L Eosinophils % 0.0 Basophils % 0.0 Sodium 141 Potassium 4.2 Chloride 105 Carbon Dioxide 26 Anion Gap 10 BUN 20 H Creatinine 0.7 Random Glucose 120 H Calcium 8.6 Phosphorus 2.9 Magnesium 2.3 C-Reactive Protein 2.9 H Cancelled Vancomycin Pre-Dose 10/17/17 10:30 WBC RBC Hgb Hct MCV MCH MCHC RDW Plt Count MPV Neutrophils % Lymphocytes % Monocytes % Eosinophils % Basophils % Sodium Potassium Chloride Carbon Dioxide Anion Gap BUN Creatinine Random Glucose Calcium Phosphorus Magnesium C-Reactive Protein Vancomycin Pre-Dose 19.801 H* Active Medications Generic Name Dose Route Start Last Admin Trade Name Freq PRN Reason Stop Dose Admin Acetaminophen 650 mg 10/16/17 22:59 03/22/18 07:16 Tylenol - PO 650 mg Q6H PRN Administration PAIN LEVEL 1-5 Dexamethasone Sodium Phosphate 10 mg 10/17/17 03:00 10/17/17 08:51 Decadron Injection - IVPUSH 10 mg Q6H-IV NEGRITO Administration Fluticasone Propionate 2 spray 10/17/17 10:00 10/17/17 09:47 Flonase - NS 2 sprays DAILY NEGRITO Administration Heparin Sodium (Porcine) 5,000 unit 10/17/17 10:00 10/17/17 09:46 Heparin - SQ 5,000 unit BID NEGRITO Administration Ceftriaxone Sodium 2 gm in 100 mls @ 200 mls/hr 10/16/17 22:00 10/17/17 09:40 Rocephin 2gm Ivpb (Pre-Docked) IVPB 200 mls/hr BID NEGRITO Administration Vancomycin HCl 1,750 mg/ 500 mls @ 250 mls/hr 10/16/17 23:00 10/17/17 10:04 Dextrose IVPB 250 mls/hr BID@1100,2300 NEGRITO Administration Oxycodone HCl 10 mg 10/16/17 22:59 10/17/17 07:16 Roxicodone - PO 10 mg Q6H PRN Administration PAIN LEVEL 6-10 Ranitidine HCl 150 mg 10/17/17 10:00 10/17/17 09:46 Zantac - PO 150 mg BID NEGRITO Administration Sodium Chloride 2 spray 10/16/17 22:59 [place]al [place] - NS TID PRN NASAL CONGESTION IMAGIN10/16/17 Brain MRI -> extensive scattered areas of hyperintensity throughout cerebral and cerebellar sulci, suggestive of pneumocephalus vs old blood product (chronic/clotted blood) (vs formation of abscesses from bacterial load) . Rec f/u imaging in 3 days. ASSESSMENT/PLAN: 62F with PMH of htn, breast ca, presents with severe headache, admitted for bacterial meningitis. # Pneumococcal meningitis - blood culture (-) x 48 hrs - Day 3 of IV Ceftriaxone and IV Vancomycin - ID (Dr. Stoll) recs appreciated: headaches likely 2/2 sinusitis/ mastoiditis, and/or the role of the LP itself. - Decadron IVpush q6hr - pain control with Oxycodone prn and Tylenol prn # Acute sinusitis / mastoiditis - ENT (Dr. Farrell) recs appreciated: add nasal saline spray and Flonase - headaches likely 2/2 sinusitis/mastoiditis, and/or the role of the LP itself # htn - hold home meds for now as pt is normotensive # FEN - Fluids: po, IVFs D/Trever - Electrolytes: wnl, continue to monitor - Nutrition: low sodium diet # Prophylaxis - DVT ppx with Heparin BID - GI ppx with Zantac BID # dispo - pt stable for transfer to floors - Full Code Visit type - Emergency Visit Emergency Visit: Yes ED Registration Date: 10/14/17 Care time: The patient presented to the Emergency Department on the above date and was hospitalized for further evaluation of their emergent condition. - New Patient This patient is new to me today: No - Critical Care Critical Care patient: Yes Total Critical Care Time (in minutes): 36 Critical Care Statement: The care of this patient involved high complexity decision making to prevent further life threatening deterioration of the patient 's condition and/or to evaluate & treat vital organ system(s) failure or risk of failure.
--- NOTE | 2017-10-17 17:55 | PN ---
Progress Note (short form) - Note Progress Note: 62 years old past medical history significant for stage III left breast invasive ductal cancer carcinoma status post chemotherapy radiation now on remission, hypertension who presents to the ED with history of headache. Diagnosed with meningitis after LP(pneumococcal). CSF WBC > 10, 000, P >700. Head CT scan revealed left ME/mastoid effusion and left sided A/F level in the sphenoid. she is awake and alert; she is feeling better and MCDONOUGH improved. CT HD IMPRESSION: 1. Examination significantly limited by image degradation from motion throughout. No obvious AVM, large cerebral aneurysm or major branch cutoff within the central arteries of the [place]. 2. Partially opacified left sphenoid sinus with moderate-sized fluid level. Please correlate clinically for acute sinusitis. 3. Partially opacified left middle ear cavity and opacified left mastoid air cells without coalescence may be attributed to otomastoiditis. Please correlate clinically with direct visualization of the left middle ear cavity and left posterior nasopharynx. MRI of the brain was performed utilizing sagittal T1, axial diffusion weighted imaging, axial T2, axial FLAIR, axial gradient echo, and coronal T1-weighted images. Comparison: None available Findings: The ventricles and sulci are normal in size and configuration. There is no acute infarction. There are extensive scattered areas of T2 hyperintensity seen throughout both cerebral and cerebellar sulci as well as in the right lateral ventricle. These correspond with regions of susceptibility artifact on the gradient echo imaging. No midline shift shift or downward herniation is seen. Normal intracranial flow-voids are maintained. The orbits and nasopharyngeal soft tissues appear normal. There is mild scattered sinus mucosal thickening and severe left-sided mastoid air cell opacification. There is no suspicious focal marrow lesion. Impression: Extensive scattered areas of T2 hyperintensity seen throughout both cerebral and cerebellar sulci as well as in the right lateral, corresponding with regions of susceptibility artifact on the gradient echo imaging. Findings may be related to pneumocephalus or blood products, possibly chronic /clotted blood. Correlation with CT scan of the head recommended. FU : MRI reviewed-- ? 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 - Allergies Allergies/Adverse Reactions: Allergies Allergy/AdvReac Type Severity Reaction Status Date / Time No Known Allergies Allergy Verified 10/14/17 07:57 - Home Medications Home Medications: Ambulatory Orders Aspirin [ASA -] 81 mg PO DAILY 05/25/12 Multivitamins [Tab-A-Vit -] 1 tab PO DAILY 07/16/16 Valsartan/Hydrochlorothiazide [Valsartan-Hctz 80-12.5 mg Tab] 1 each PO DAILY Physical Exam-Neuro Vital Signs: V Vital Signs Temperature 97.8 F 10/17/17 14:00 Pulse Rate 69 10/17/17 14:00 Respiratory Rate 20 10/17/17 14:00 Blood Pressure 110/49 10/17/17 14:00 O2 Sat by Pulse Oximetry (%) 98 10/17/17 09:00 Constitutional: Yes: Well Nourished Neck: Yes: Supple Labs: CBCD WBC 13.1 K/mm3 (4.0-10.0) H 10/17/17 05:45 RBC 4.27 M/mm3 (3.60-5.2) 10/17/17 05:45 Hgb 13.4 GM/dL (10.7-15.3) 10/17/17 05:45 Hct 40.1 % (32.4-45.2) 10/17/17 05:45 MCV 94.0 fl (80-96) 10/17/17 05:45 MCHC 33.4 g/dl (32.0-36.0) 10/17/17 05:45 RDW 15.2 % (11.6-15.6) 10/17/17 05:45 Plt Count 242 K/MM3 (134-434) 10/17/17 05:45 MPV 8.6 fl (7.5-11.1) 10/17/17 05:45 CMP Sodium 141 mmol/L (136-145) 10/17/17 05:45 Potassium 4.2 mmol/L (3.5-5.1) 10/17/17 05:45 Chloride 105 mmol/L (98-107) 10/17/17 05:45 Carbon Dioxide 26 mmol/L (21-32) 10/17/17 05:45 Anion Gap 10 (8-16) 10/17/17 05:45 BUN 20 mg/dL (7-18) H 10/17/17 05:45 Creatinine 0.7 mg/dL (0.55-1.02) 10/17/17 05:45 Creat Clearance w eGFR > 60 (>60) 10/15/17 09:30 Calcium 8.6 mg/dL (8.5-10.1) 10/17/17 05:45 Total Bilirubin 0.5 mg/dL (0.2-1.0) 10/15/17 09:30 AST 21 U/L (15-37) 10/15/17 09:30 ALT 21 U/L (12-78) 10/15/17 09:30 Alkaline Phosphatase 50 U/L (45-117) 10/15/17 09:30 Total Protein 7.3 g/dl (6.4-8.2) 10/15/17 09:30 Albumin 3.5 g/dl (3.4-5.0) 10/15/17 09:30 - Neuro Exam Level Of Consciousness: Yes: Alert, Oriented to Person (EOMI, no facial, motor UE /LE, reflexes symmtric ) Imaging - Results Cat Scan: Report Reviewed, Image Reviewed Problem List - Problems (1) Acute bacterial meningitis Code(s): G00.9 - BACTERIAL MENINGITIS, UNSPECIFIED (2) Acute sinusitis Code(s): J01.90 - ACUTE SINUSITIS, UNSPECIFIED Qualifiers: Sinusitis location: sphenoidal Recurrence: non-recurrent Qualified Code(s ): J01.30 - Acute sphenoidal sinusitis, unspecified (3) Mastoiditis Code(s): H70.90 - UNSPECIFIED MASTOIDITIS, UNSPECIFIED EAR Qualifiers: Laterality: left Qualified Code(s): H70.92 - Unspecified mastoiditis, left ear Assessment/Plan 62 years old past medical history significant for stage III left breast invasive ductal cancer carcinoma status post chemotherapy radiation now on remission, hypertension who presents to the ED with history of headache. Diagnosed with meningitis after LP(pneumococcal). CSF WBC > 10, 000, P >700. Head CT scan revealed left ME/mastoid effusion and left sided A/F level in the sphenoid. resolving bacterial meninigitis with pneumocephalus secondary to mastoiditis would repeat MRI BRAIN 1-2 week to ensure radiographic improvement 9 (as outpt) FU ID rec re ABX Dr Montoya Problem List - Problems (1) Acute bacterial meningitis Code(s): G00.9 - BACTERIAL MENINGITIS, UNSPECIFIED (2) Acute sinusitis Code(s): J01.90 - ACUTE SINUSITIS, UNSPECIFIED Qualifiers: Sinusitis location: sphenoidal Recurrence: non-recurrent Qualified Code(s ): J01.30 - Acute sphenoidal sinusitis, unspecified (3) Mastoiditis Code(s): H70.90 - UNSPECIFIED MASTOIDITIS, UNSPECIFIED EAR Qualifiers: Laterality: left Qualified Code(s): H70.92 - Unspecified mastoiditis, left ear
[2017-10-17] MEDS: CEFTRIAXONE 2 GM-D5W BAG 2 GM/50 ML BAG IVPB SCH (21:49)
--- NOTE | 2017-10-17 23:09 | PN ---
Progress Note, Physician - Current Medication List Current Medications: Active Medications Acetaminophen (Tylenol -) 650 mg PO Q6H PRN PRN Reason: PAIN LEVEL 1-5 Last Admin: 10/17/17 17:33 Dose: 650 mg Dexamethasone Sodium Phosphate (Decadron Injection -) 10 mg IVPUSH Q6H-IV [facility] Last Admin: 10/17/17 21:06 Dose: 10 mg Fluticasone Propionate (Flonase -) 2 spray NS DAILY [facility] Last Admin: 10/17/17 09:47 Dose: 2 sprays Heparin Sodium (Porcine) (Heparin -) 5,000 unit SQ BID [facility] Last Admin: 10/17/17 21:06 Dose: 5,000 unit Vancomycin HCl 1,750 mg/ (Dextrose) 500 mls @ 250 mls/hr IVPB BID@1100,2300 [facility] Last Admin: 10/17/17 23:07 Dose: 250 mls/hr CEFTRIAXONE IN IS-OSM DEXTROSE (Ceftriaxone 2 Gm-D5w Bag) 2 gm in 50 mls @ 200 mls/hr IVPB BID [facility] Last Admin: 10/17/17 21:49 Dose: 200 mls/hr Oxycodone HCl (Roxicodone -) 10 mg PO Q6H PRN PRN Reason: PAIN LEVEL 6-10 Last Admin: 10/17/17 17:32 Dose: 10 mg Ranitidine HCl (Zantac -) 150 mg PO BID [facility] Last Admin: 10/17/17 21:06 Dose: 150 mg Sodium Chloride ([place] Nasal [place] -) 2 spray NS TID PRN PRN Reason: NASAL CONGESTION - Objective Vital Signs: Vital Signs Temperature 98.2 F 10/17/17 22:00 Pulse Rate 66 10/17/17 22:00 Respiratory Rate 18 10/17/17 22:00 Blood Pressure 146/75 10/17/17 22:00 O2 Sat by Pulse Oximetry (%) 95 10/17/17 21:00 Labs: CBC, BMP 10/17/17 05:45 10/17/17 05:45 INR, PTT INR 1.13 (0.82-1.09) 10/14/17 14:42 Problem List - Problems (1) Acute bacterial meningitis Code(s): G00.9 - BACTERIAL MENINGITIS, UNSPECIFIED (2) Invasive ductal carcinoma of breast, female Code(s): C50.919 - MALIGNANT NEOPLASM OF UNSP SITE OF UNSPECIFIED FEMALE BREAST
[2017-10-18] MEDS: DEXAMETHASONE SOD PHOSPHATE 10 MG/1 ML VIAL IVPUSH SCH ×4 (02:50→20:33)
[2017-10-18] MEDS: oxyCODONE HCL 5 MG TABLET PO PRN ×2 (07:06→20:31)
[2017-10-18] MEDS: ACETAMINOPHEN 325 MG TABLET (FP) PO PRN ×2 (07:07→20:33)
[2017-10-18 08:31] LABS: HEMATOCRIT 44.2 % (32.4-45.2); HEMOGLOBIN 14.7 GM/dL (10.7-15.3); MCH 31.2 pg (25.7-33.7); MCHC 33.2 g/dl (32.0-36.0); MEAN CELL VOLUME 93.9 fl (80-96); MEAN PLT VOLUME 8.2 fl (7.5-11.1); PLATELET COUNT 257 K/MM3 (134-434); RBC 4.71 M/mm3 (3.60-5.2); RDW 15.1 % (11.6-15.6); WHITE BLOOD COUNT 8.6 K/mm3 (4.0-10.0)
[2017-10-18] MEDS ORDERED: PT OWN MED DRAWER 7, Y5N ONE ×2 (09:04→10:33)
[2017-10-18 09:05] LABS: CALCIUM 8.9 mg/dL (8.5-10.1); CHLORIDE 107 mmol/L (98-107); SODIUM 141 mmol/L (136-145)
[2017-10-18 09:08] LABS: ANION GAP 8 (8-16); BLOOD UREA NITROGEN 20 mg/dL (7-18); CO2 26 mmol/L (21-32); CREATININE 0.8 mg/dL (0.55-1.02); GLUCOSE,RANDOM 114 mg/dL (74-106)
[2017-10-18] MEDS: RANITIDINE HCL 150 MG TABLET (FP) PO SCH ×2 (09:12→21:16)
[2017-10-18] MEDS: CEFTRIAXONE 2 GM-D5W BAG 2 GM/50 ML BAG IVPB SCH ×2 (09:13→21:15)
[2017-10-18] MEDS: HEPARIN NA (PORCINE) 5,000 UNITS/ML 1ML VIAL SQ SCH ×2 (09:13→21:16)
[2017-10-18 10:17] LABS: PLATELET ESTIMATE ADEQUATE
[2017-10-18] MEDS: FLUTICASONE PROP 0.05% 16 GM NASAL SPRAY NS SCH (10:17)
[2017-10-18] MEDS: VANCOMYCIN 1,750 MG in DEXTROSE 5%-WATER - 500 ML IVPB SCH (10:53)
--- NOTE | 2017-10-18 11:19 | PN ---
Progress Note (short form) - Note Progress Note: day #4 antibiotics doing well, alert less headache no nausea or vomiting eating well Vital Signs Period Temp Pulse Resp BP Sys/Alonso Pulse Ox Last 24 Hr 97.8 F-98.7 F 62-69 18-20 110-146/49-75 95 cor-rrr lungs clear abd soft,nt ext no edema CBC, BMP 10/18/17 08:10 10/18/17 06:00 Microbiology 10/14/17 15:40 Blood - Peripheral Venous Blood Culture - Preliminary NO GROWTH OBTAINED AFTER 72 HOURS, INCUBATION TO CONTINUE FOR 2 DAYS. 10/14/17 15:40 Blood - Peripheral Venous Blood Culture - Preliminary NO GROWTH OBTAINED AFTER 72 HOURS, INCUBATION TO CONTINUE FOR 2 DAYS. 10/14/17 16:10 Cerebral Spinal Fluid - Lumbar Puncture Gram Stain - Final 10/14/17 16:10 Cerebral Spinal Fluid - Lumbar Puncture CSF Culture - Final NO GROWTH AFTER 48 HOURS INCUBATION 10/14/17 18:49 Urine For Antigen Detection Legionella Antigen - Final 10/14/17 18:49 Urine For Antigen Detection Streptococcus pneumoniae Antigen (M - Final 10/14/17 16:10 Cerebral Spinal Fluid - Lumbar Puncture Streptococcus pneumoniae Antigen (M - Final 10/14/17 15:40 Nasopharyngeal Swab Influenza Types A,B Antigen (JAMIA) - Final 10/14/17 15:40 Nasopharyngeal Swab - Final a/p meningitis- pneumococcal with otitis/sinusitis continue antibiotics -vanco/rocephin-day #4 repeat vanco trough in am clinically improving d/c steroids in am d/w neurology discussed MRI findings with ENT Dr Barba, to continue medical management
[2017-10-18] MEDS: VANCOMYCIN 1,500 MG in DEXTROSE 5%-WATER - 500 ML IVPB SCH (22:17)
--- NOTE | 2017-10-18 22:32 | PN ---
Progress Note, Physician - Current Medication List Current Medications: Active Medications Acetaminophen (Tylenol -) 650 mg PO Q6H PRN PRN Reason: PAIN LEVEL 1-5 Last Admin: 10/18/17 20:33 Dose: 650 mg Dexamethasone Sodium Phosphate (Decadron Injection -) 10 mg IVPUSH Q6H-IV NEGRITO Last Admin: 10/18/17 20:33 Dose: 10 mg Fluticasone Propionate (Flonase -) 2 spray NS DAILY [facility] Last Admin: 10/18/17 10:17 Dose: 2 sprays Heparin Sodium (Porcine) (Heparin -) 5,000 unit SQ BID [facility] Last Admin: 10/18/17 21:16 Dose: 5,000 unit CEFTRIAXONE IN IS-OSM DEXTROSE (Ceftriaxone 2 Gm-D5w Bag) 2 gm in 50 mls @ 200 mls/hr IVPB BID [facility] Last Admin: 10/18/17 21:15 Dose: 200 mls/hr Vancomycin HCl 1,500 mg/ (Dextrose) 500 mls @ 250 mls/hr IVPB Q12H [facility] Last Admin: 10/18/17 22:17 Dose: 250 mls/hr Oxycodone HCl (Roxicodone -) 10 mg PO Q6H PRN PRN Reason: PAIN LEVEL 6-10 Last Admin: 10/18/17 20:31 Dose: 10 mg Ranitidine HCl (Zantac -) 150 mg PO BID [facility] Last Admin: 10/18/17 21:16 Dose: 150 mg Sodium Chloride ([place] Nasal [place] -) 2 spray NS TID PRN PRN Reason: NASAL CONGESTION - Objective Vital Signs: Vital Signs Temperature 98.4 F 10/18/17 16:24 Pulse Rate 82 10/18/17 16:24 Respiratory Rate 20 10/18/17 16:24 Blood Pressure 122/67 10/18/17 16:24 O2 Sat by Pulse Oximetry (%) 95 10/18/17 09:00 Labs: CBC, BMP 10/18/17 08:10 10/18/17 06:00 INR, PTT INR 1.13 (0.82-1.09) 10/14/17 14:42 Problem List - Problems (1) Acute bacterial meningitis Code(s): G00.9 - BACTERIAL MENINGITIS, UNSPECIFIED (2) Invasive ductal carcinoma of breast, female Code(s): C50.919 - MALIGNANT NEOPLASM OF UNSP SITE OF UNSPECIFIED FEMALE BREAST
[2017-10-19] MEDS: DEXAMETHASONE SOD PHOSPHATE 10 MG/1 ML VIAL IVPUSH SCH ×2 (03:04→10:11)
[2017-10-19 06:07] LABS: IGA IMMUNOGLOBULIN 384 mg/dL (87-352); IGM IMMUNOGLOBULIN 51 mg/dL (26-217)
[2017-10-19] MEDS ORDERED: PT OWN MED DRAWER 7, Y5N ONE ×2 (10:05→21:40)
[2017-10-19] MEDS: CEFTRIAXONE 2 GM-D5W BAG 2 GM/50 ML BAG IVPB SCH ×2 (10:11→21:52)
[2017-10-19] MEDS: FLUTICASONE PROP 0.05% 16 GM NASAL SPRAY NS SCH (10:12)
[2017-10-19] MEDS: HEPARIN NA (PORCINE) 5,000 UNITS/ML 1ML VIAL SQ SCH ×2 (10:12→21:53)
[2017-10-19] MEDS: RANITIDINE HCL 150 MG TABLET (FP) PO SCH ×2 (10:13→21:53)
[2017-10-19] MEDS: VANCOMYCIN 1,500 MG in DEXTROSE 5%-WATER - 500 ML IVPB SCH ×2 (11:23→23:50)
--- NOTE | 2017-10-19 14:30 | PN ---
Progress Note (short form) - Note Progress Note: day #5 antibiotics doing well, alert less headache no nausea or vomiting eating well has tissue in her nose now due to constant drainage left nostril ! Vital Signs Period Temp Pulse Resp BP Sys/Alonso Pulse Ox Last 24 Hr 97.6 F-98.4 F 62-82 18-20 119-138/55-72 96 looks well cor-rrr lungs clear abd soft,nt ext no edema CBC, BMP 10/18/17 08:10 18 06:00 Microbiology 10/14/17 15:40 Blood - Peripheral Venous Blood Culture - Preliminary NO GROWTH OBTAINED AFTER 96 HOURS, INCUBATION TO CONTINUE FOR 1 DAYS. 10/14/17 15:40 Blood - Peripheral Venous Blood Culture - Preliminary NO GROWTH OBTAINED AFTER 96 HOURS, INCUBATION TO CONTINUE FOR 1 DAYS. 10/14/17 16:10 Cerebral Spinal Fluid - Lumbar Puncture Gram Stain - Final 10/14/17 16:10 Cerebral Spinal Fluid - Lumbar Puncture CSF Culture - Final NO GROWTH AFTER 48 HOURS INCUBATION 10/14/17 18:49 Urine For Antigen Detection Legionella Antigen - Final 10/14/17 18:49 Urine For Antigen Detection Streptococcus pneumoniae Antigen (M - Final 10/14/17 16:10 Cerebral Spinal Fluid - Lumbar Puncture Streptococcus pneumoniae Antigen (M - Final 10/14/17 15:40 Nasopharyngeal Swab Influenza Types A,B Antigen (JAMIA) - Final 10/14/17 15:40 Nasopharyngeal Swab - Final a/p meningitis- pneumococcal with otitis/sinusitis continue antibiotics -vanco/rocephin-day #5 r clinically improving d/w neurology Dr Koo drainage from nose- is this a CSF leak? he will come to evaluate
[2017-10-19] MEDS: ACETAMINOPHEN 325 MG TABLET (FP) PO PRN (18:29)
[2017-10-19] MEDS: oxyCODONE HCL 5 MG TABLET PO PRN (18:29)
--- NOTE | 2017-10-19 19:15 | PN ---
Progress Note (short form) - Note Progress Note: 62 years old past medical history significant for stage III left breast invasive ductal cancer carcinoma status post chemotherapy radiation now on remission, hypertension who presents to the ED with history of headache. Diagnosed with meningitis after LP(pneumococcal). CSF WBC > 10, 000, P >700. Head CT scan revealed left ME/mastoid effusion and left sided A/F level in the sphenoid. she is awake and alert; she is feeling better and MCDONOUGH improved. CT HD IMPRESSION: 1. Examination significantly limited by image degradation from motion throughout. No obvious AVM, large cerebral aneurysm or major branch cutoff within the central arteries of the [place]. 2. Partially opacified left sphenoid sinus with moderate-sized fluid level. Please correlate clinically for acute sinusitis. 3. Partially opacified left middle ear cavity and opacified left mastoid air cells without coalescence may be attributed to otomastoiditis. Please correlate clinically with direct visualization of the left middle ear cavity and left posterior nasopharynx. -Pt. reports x 2 days she has had drainage of clear fluid from left nostril which she tries to plug with tissue paper, it tends to dissipate when she lies down.She also has a 4/10 intensity pressure type headache which is worse when she sits up. -MRI brain with T2 hyperintensities throughout cerebral/cerebellar hemispheres, likely old hges. O/E-well oriented, HIF-intact. CN-+wet left nostril with clear fluid. Motor/Sensory/Coord/Gait-nl A&P: Pt. likely has a CSF leak, these are seen in pts. with pneumocephaly which has been suspected in this lady due to increased intracranial pressure which can cause a dural defect over the cribriform plate. It is usually self limited and surgical intervention is not required. Suggest: 1) CSF sent for B2-microglobulin test-it should be sent for B2 TRANSFERRIN-this is diagnostic of csf being the leaking fluid but it wi9ll take some time to come back. . 2) MRI brain with contrast-the gold standard test is CT cisternography but it is difficult to perform-will obtain MRI, some times leaking contrast can be seen at site of dural defect. 3) Can empirically treat with I/V caffeine-500mg iv over 1 hour in 250 cc N/S every 8 hours-this works sometimes 4) Keep HOB at 15 degrees 5) If csf leak persists after 48hours can consider csf drainage via lumbar drain -this works at times too. Kalina Koo MD
[2017-10-19] MEDS ORDERED: CAFFEINE CITRATE 60 MG/3 ML VIAL IVPB STA (19:33)
[2017-10-19] MEDS ORDERED: SODIUM CHLORIDE IVPB ONE (20:30)
[2017-10-19] MEDS ORDERED: CAFFEINE CITRATE IVPB ONE (20:30)
--- NOTE | 2017-10-19 22:26 | PN ---
Progress Note, Physician - Current Medication List Current Medications: Active Medications Acetaminophen (Tylenol -) 650 mg PO Q6H PRN PRN Reason: PAIN LEVEL 1-5 Last Admin: 10/19/17 18:29 Dose: 650 mg Fluticasone Propionate (Flonase -) 2 spray NS DAILY [facility] Last Admin: 10/19/17 10:12 Dose: 2 sprays Heparin Sodium (Porcine) (Heparin -) 5,000 unit SQ BID [facility] Last Admin: 10/19/17 21:53 Dose: 5,000 unit CEFTRIAXONE IN IS-OSM DEXTROSE (Ceftriaxone 2 Gm-D5w Bag) 2 gm in 50 mls @ 200 mls/hr IVPB BID [facility] Last Admin: 10/19/17 21:52 Dose: 200 mls/hr Vancomycin HCl 1,500 mg/ (Dextrose) 500 mls @ 250 mls/hr IVPB Q12H [facility] Last Admin: 10/19/17 11:23 Dose: 250 mls/hr Oxycodone HCl (Roxicodone -) 10 mg PO Q6H PRN PRN Reason: PAIN LEVEL 6-10 Last Admin: 10/19/17 18:29 Dose: 10 mg Ranitidine HCl (Zantac -) 150 mg PO BID [facility] Last Admin: 10/19/17 21:53 Dose: 150 mg Sodium Chloride ([place] Nasal [place] -) 2 spray NS TID PRN PRN Reason: NASAL CONGESTION - Objective Vital Signs: Vital Signs Temperature 98.4 F 10/19/17 20:43 Pulse Rate 70 10/19/17 20:43 Respiratory Rate 22 10/19/17 20:43 Blood Pressure 126/71 10/19/17 20:43 O2 Sat by Pulse Oximetry (%) 99 10/19/17 09:00 Labs: CBC, BMP 10/18/17 08:10 10/18/17 06:00 INR, PTT INR 1.13 (0.82-1.09) 10/14/17 14:42 Problem List - Problems (1) Acute bacterial meningitis Code(s): G00.9 - BACTERIAL MENINGITIS, UNSPECIFIED (2) Invasive ductal carcinoma of breast, female Code(s): C50.919 - MALIGNANT NEOPLASM OF UNSP SITE OF UNSPECIFIED FEMALE BREAST
[2017-10-20 08:32] LABS: HEMATOCRIT 44.7 % (32.4-45.2); HEMOGLOBIN 14.8 GM/dL (10.7-15.3); MCH 31.2 pg (25.7-33.7); MCHC 33.2 g/dl (32.0-36.0); MEAN PLT VOLUME 7.9 fl (7.5-11.1); PLATELET COUNT 267 K/MM3 (134-434); RBC 4.75 M/mm3 (3.60-5.2); RDW 14.8 % (11.6-15.6)
[2017-10-20] MEDS: CEFTRIAXONE 2 GM-D5W BAG 2 GM/50 ML BAG IVPB SCH ×2 (10:19→21:36)
[2017-10-20] MEDS: FLUTICASONE PROP 0.05% 16 GM NASAL SPRAY NS SCH (10:20)
[2017-10-20] MEDS: HEPARIN NA (PORCINE) 5,000 UNITS/ML 1ML VIAL SQ SCH ×2 (10:20→21:36)
[2017-10-20] MEDS: RANITIDINE HCL 150 MG TABLET (FP) PO SCH ×2 (10:20→21:36)
[2017-10-20 11:10] LABS: CHLORIDE 105 mmol/L (98-107); POTASSIUM 3.4 mmol/L (3.5-5.1); SODIUM 141 mmol/L (136-145)
[2017-10-20 11:30] LABS: ANION GAP 10 (8-16); BLOOD UREA NITROGEN 20 mg/dL (7-18); CALCIUM 8.6 mg/dL (8.5-10.1); CO2 26 mmol/L (21-32); CREATININE 0.9 mg/dL (0.55-1.02); GLUCOSE,RANDOM 81 mg/dL (74-106)
[2017-10-20] MEDS: VANCOMYCIN 1,500 MG in DEXTROSE 5%-WATER - 500 ML IVPB SCH ×2 (11:32→22:27)
--- NOTE | 2017-10-20 11:35 | PN ---
Progress Note (short form) - Note Progress Note: 62 years old past medical history significant for stage III left breast invasive ductal cancer carcinoma status post chemotherapy radiation now on remission, hypertension who presents to the ED with history of headache. Diagnosed with meningitis after LP(pneumococcal). CSF WBC > 10, 000, P >700. Head CT scan revealed left ME/mastoid effusion and left sided A/F level in the sphenoid. she is awake and alert; she is feeling better and MCDONOUGH improved. CT HD IMPRESSION: 1. Examination significantly limited by image degradation from motion throughout. No obvious AVM, large cerebral aneurysm or major branch cutoff within the central arteries of the [place]. 2. Partially opacified left sphenoid sinus with moderate-sized fluid level. Please correlate clinically for acute sinusitis. 3. Partially opacified left middle ear cavity and opacified left mastoid air cells without coalescence may be attributed to otomastoiditis. Please correlate clinically with direct visualization of the left middle ear cavity and left posterior nasopharynx. MRI of the brain was performed utilizing sagittal T1, axial diffusion weighted imaging, axial T2, axial FLAIR, axial gradient echo, and coronal T1-weighted images. Comparison: None available Findings: The ventricles and sulci are normal in size and configuration. There is no acute infarction. There are extensive scattered areas of T2 hyperintensity seen throughout both cerebral and cerebellar sulci as well as in the right lateral ventricle. These correspond with regions of susceptibility artifact on the gradient echo imaging. No midline shift shift or downward herniation is seen. Normal intracranial flow-voids are maintained. The orbits and nasopharyngeal soft tissues appear normal. There is mild scattered sinus mucosal thickening and severe left-sided mastoid air cell opacification. There is no suspicious focal marrow lesion. Impression: Extensive scattered areas of T2 hyperintensity seen throughout both cerebral and cerebellar sulci as well as in the right lateral, corresponding with regions of susceptibility artifact on the gradient echo imaging. Findings may be related to pneumocephalus or blood products, possibly chronic /clotted blood. Correlation with CT scan of the head recommended. FU : MCDONOUGH , worse with position change , better with caffeine developed CSF rhinorhea L (states started last week) MRI BRAIN with Daron reviewed-- await official MRI reviewed-- 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 - Allergies Allergies/Adverse Reactions: Allergies Allergy/AdvReac Type Severity Reaction Status Date / Time No Known Allergies Allergy Verified 10/14/17 07:57 - Home Medications Home Medications: Ambulatory Orders Aspirin [ASA -] 81 mg PO DAILY 05/25/12 Multivitamins [Tab-A-Vit -] 1 tab PO DAILY 07/16/16 Valsartan/Hydrochlorothiazide [Valsartan-Hctz 80-12.5 mg Tab] 1 each PO DAILY Physical Exam-Neuro Vital Signs: Vital Signs Temperature 98.3 F 10/20/17 06:00 Pulse Rate 50 L 10/20/17 10:00 Respiratory Rate 20 10/20/17 10:00 Blood Pressure 127/74 10/20/17 10:00 O2 Sat by Pulse Oximetry (%) 99 10/19/17 21:00 Constitutional: Yes: Well Nourished Neck: Yes: Supple Labs: CBCD WBC 13.1 K/mm3 (4.0-10.0) H 10/17/17 05:45 RBC 4.27 M/mm3 (3.60-5.2) 10/17/17 05:45 Hgb 13.4 GM/dL (10.7-15.3) 10/17/17 05:45 Hct 40.1 % (32.4-45.2) 10/17/17 05:45 MCV 94.0 fl (80-96) 10/17/17 05:45 MCHC 33.4 g/dl (32.0-36.0) 10/17/17 05:45 RDW 15.2 % (11.6-15.6) 10/17/17 05:45 Plt Count 242 K/MM3 (134-434) 10/17/17 05:45 MPV 8.6 fl (7.5-11.1) 10/17/17 05:45 CMP Sodium 141 mmol/L (136-145) 10/17/17 05:45 Potassium 4.2 mmol/L (3.5-5.1) 10/17/17 05:45 Chloride 105 mmol/L (98-107) 10/17/17 05:45 Carbon Dioxide 26 mmol/L (21-32) 10/17/17 05:45 Anion Gap 10 (8-16) 10/17/17 05:45 BUN 20 mg/dL (7-18) H 10/17/17 05:45 Creatinine 0.7 mg/dL (0.55-1.02) 10/17/17 05:45 Creat Clearance w eGFR > 60 (>60) 10/15/17 09:30 Calcium 8.6 mg/dL (8.5-10.1) 10/17/17 05:45 Total Bilirubin 0.5 mg/dL (0.2-1.0) 10/15/17 09:30 AST 21 U/L (15-37) 10/15/17 09:30 ALT 21 U/L (12-78) 10/15/17 09:30 Alkaline Phosphatase 50 U/L (45-117) 10/15/17 09:30 Total Protein 7.3 g/dl (6.4-8.2) 10/15/17 09:30 Albumin 3.5 g/dl (3.4-5.0) 10/15/17 09:30 - Neuro Exam Level Of Consciousness: Yes: Alert, Oriented to Person (EOMI, no facial, motor UE /LE, reflexes symmtric ) Imaging - Results Cat Scan: Report Reviewed, Image Reviewed Problem List - Problems (1) Acute bacterial meningitis Code(s): G00.9 - BACTERIAL MENINGITIS, UNSPECIFIED (2) Acute sinusitis Code(s): J01.90 - ACUTE SINUSITIS, UNSPECIFIED Qualifiers: Sinusitis location: sphenoidal Recurrence: non-recurrent Qualified Code(s ): J01.30 - Acute sphenoidal sinusitis, unspecified (3) Mastoiditis Code(s): H70.90 - UNSPECIFIED MASTOIDITIS, UNSPECIFIED EAR Qualifiers: Laterality: left Qualified Code(s): H70.92 - Unspecified mastoiditis, left ear Assessment/Plan 62 years old past medical history significant for stage III left breast invasive ductal cancer carcinoma status post chemotherapy radiation now on remission, hypertension who presents to the ED with history of headache. Diagnosed with meningitis after LP(pneumococcal). CSF WBC > 10, 000, P >700. Head CT scan revealed left ME/mastoid effusion and left sided A/F level in the sphenoid. resolving bacterial meninigitis with pneumocephalus secondary to mastoiditis ; additionally CSF leak/ rhinorhea from mastoiditis (fluid may traverse down eustachian tube) ; keep head bed up to help with drainage ; if MCDONOUGH remains persistent sometimes repeat LP can help relieve pressure around mastoid area-- defer this for now; ABX --- if continues 6 weeks, then may require surgical mastoidectomy --will get Neurosurgical opinion FU MRI BRAIN with DARON FU ID rec re ABX can encourage oral caffeine and DC IV caffeine Dr Montoya Problem List - Problems (1) Acute bacterial meningitis Code(s): G00.9 - BACTERIAL MENINGITIS, UNSPECIFIED (2) Acute sinusitis Code(s): J01.90 - ACUTE SINUSITIS, UNSPECIFIED Qualifiers: Sinusitis location: sphenoidal Recurrence: non-recurrent Qualified Code(s ): J01.30 - Acute sphenoidal sinusitis, unspecified (3) Mastoiditis Code(s): H70.90 - UNSPECIFIED MASTOIDITIS, UNSPECIFIED EAR Qualifiers: Laterality: left Qualified Code(s): H70.92 - Unspecified mastoiditis, left ear
[2017-10-20 12:41] LABS: ACANTHOCYTES 0; ANISOCYTOSIS 0; HELMET CELLS 0; HOWELL-JOLLY BODIES 0; MACROCYTOSIS 0; OVALOCYTE 0; PLATELET ESTIMATE NORMAL; ROULEAU 0; SICKELED CELLS 0; TARGET CELLS 0; TEAR DROP CELLS 0; TOXIC GRANULATION 0
--- NOTE | 2017-10-20 15:50 | PN ---
Progress Note (short form) - Note Progress Note: day #6 antibiotics feels well less headache minimal drainage from her nose- reports it has lessened significantly Vital Signs Period Temp Pulse Resp BP Sys/Alonso Pulse Ox Last 24 Hr 98 F-98.6 F 50-72 20-22 117-128/53-76 96-99 cor-rrr lungs clear abd soft,nt ext no edema CBC, BMP 10/20/18 06:30 10/20/18 06:30 a/p meningitis- pneumococcal with otitis/sinusitis continue antibiotics -vanco/rocephin-day #6 cclinically improved management of probable csf leak per neurology and ENT d/w dr benson and dr jay
[2017-10-20] MEDS: ACETAMINOPHEN 325 MG TABLET (FP) PO PRN (18:57)
--- NOTE | 2017-10-20 21:58 | PN ---
Progress Note, Physician History of Present Illness: Pt having a MCDONOUGH and still w/ drip from lt nostril - Current Medication List Current Medications: Active Medications Acetaminophen (Tylenol -) 650 mg PO Q6H PRN PRN Reason: PAIN LEVEL 1-5 Last Admin: 10/20/17 18:57 Dose: 650 mg Heparin Sodium (Porcine) (Heparin -) 5,000 unit SQ BID [facility] Last Admin: 10/20/17 21:36 Dose: 5,000 unit CEFTRIAXONE IN IS-OSM DEXTROSE (Ceftriaxone 2 Gm-D5w Bag) 2 gm in 50 mls @ 200 mls/hr IVPB BID [facility] Last Admin: 10/20/17 21:36 Dose: 200 mls/hr Vancomycin HCl 1,500 mg/ (Dextrose) 500 mls @ 250 mls/hr IVPB Q12H [facility] Last Admin: 10/20/17 11:32 Dose: 250 mls/hr Ranitidine HCl (Zantac -) 150 mg PO BID [facility] Last Admin: 10/20/17 21:36 Dose: 150 mg Sodium Chloride ([place] Nasal [place] -) 2 spray NS TID PRN PRN Reason: NASAL CONGESTION - Objective Vital Signs: Vital Signs Temperature 99.2 F 10/20/17 17:22 Pulse Rate 74 10/20/17 17:22 Respiratory Rate 20 10/20/17 17:22 Blood Pressure 108/56 10/20/17 17:22 O2 Sat by Pulse Oximetry (%) 96 10/20/17 09:00 Constitutional: Yes: Well Nourished Neck: Yes: WNL, Supple Cardiovascular: Yes: WNL, Regular Rate and Rhythm Respiratory: Yes: WNL, Regular, CTA Bilaterally Gastrointestinal: Yes: WNL, Normal Bowel Sounds, Soft Neurological: Yes: WNL, Alert, Oriented ...Motor Strength: WNL Labs: CBC, BMP 10/20/17 06:30 10/20/17 06:30 INR, PTT INR 1.13 (0.82-1.09) 10/14/17 14:42 Problem List - Problems (1) Acute bacterial meningitis Assessment/Plan: S/P lumbar tap Cont IV vanco/ceftriaxone Spoke w/ ENT(Dr Barba) who feels in regards to nasal drip that no intervention is needed at this time however if continues in next 6 weeks kike need sinusis sugery Repeat MRI brain pending Code(s): G00.9 - BACTERIAL MENINGITIS, UNSPECIFIED (2) Invasive ductal carcinoma of breast, female Code(s): C50.919 - MALIGNANT NEOPLASM OF UNSP SITE OF UNSPECIFIED FEMALE BREAST
[2017-10-21] MEDS: ACETAMINOPHEN 325 MG TABLET (FP) PO PRN ×2 (02:16→09:27)
[2017-10-21] MEDS: HEPARIN NA (PORCINE) 5,000 UNITS/ML 1ML VIAL SQ SCH ×2 (09:26→21:30)
[2017-10-21] MEDS: RANITIDINE HCL 150 MG TABLET (FP) PO SCH ×2 (09:27→21:29)
[2017-10-21] MEDS: CEFTRIAXONE 2 GM-D5W BAG 2 GM/50 ML BAG IVPB SCH ×2 (09:27→22:10)
[2017-10-21] MEDS ORDERED: oxyCODONE HCL 5 MG TABLET PO PRN (10:07)
--- NOTE | 2017-10-21 10:15 | PN ---
Progress Note, Physician Chief Complaint: ID Discussed with Dr Dueñas regarding CSF leak related to sphenoid sinus infection Official MRI report pending Excruciating headaches noted I gave her oxycodone for pain - Current Medication List Current Medications: Active Medications Acetaminophen (Tylenol -) 650 mg PO Q6H PRN PRN Reason: PAIN LEVEL 1-5 Last Admin: 10/21/17 09:27 Dose: 650 mg Heparin Sodium (Porcine) (Heparin -) 5,000 unit SQ BID [facility] Last Admin: 10/21/17 09:26 Dose: 5,000 unit CEFTRIAXONE IN IS-OSM DEXTROSE (Ceftriaxone 2 Gm-D5w Bag) 2 gm in 50 mls @ 200 mls/hr IVPB BID [facility] Last Admin: 10/21/17 09:27 Dose: 200 mls/hr Vancomycin HCl 1,500 mg/ (Dextrose) 500 mls @ 250 mls/hr IVPB Q12H [facility] Last Admin: 10/20/17 22:27 Dose: 250 mls/hr Oxycodone HCl (Roxicodone -) 10 mg PO Q6H PRN PRN Reason: PAIN LEVEL 6-10 Ranitidine HCl (Zantac -) 150 mg PO BID [facility] Last Admin: 10/21/17 09:27 Dose: 150 mg Sodium Chloride ([place]al [place] -) 2 spray NS TID PRN PRN Reason: NASAL CONGESTION - Objective Vital Signs: Vital Signs Temperature 98.5 F 10/21/17 06:15 Pulse Rate 72 10/21/17 06:15 Respiratory Rate 20 10/21/17 06:15 Blood Pressure 104/59 10/21/17 06:15 O2 Sat by Pulse Oximetry (%) 98 10/20/17 21:00 HENT: Yes: Other (CSF leak left nostril) Neck: Yes: Supple Cardiovascular: Yes: S1, S2 Respiratory: Yes: WNL, Regular, CTA Bilaterally Gastrointestinal: Yes: Soft Labs: CBC, BMP 10/20/17 06:30 10/20/17 06:30 INR, PTT INR 1.13 (0.82-1.09) 10/14/17 14:42 Problem List - Problems (1) Acute sinusitis Code(s): J01.90 - ACUTE SINUSITIS, UNSPECIFIED Qualifiers: Sinusitis location: sphenoidal Recurrence: non-recurrent Qualified Code(s ): J01.30 - Acute sphenoidal sinusitis, unspecified (2) Acute bacterial meningitis Code(s): G00.9 - BACTERIAL MENINGITIS, UNSPECIFIED (3) Invasive ductal carcinoma of breast, female Code(s): C50.919 - MALIGNANT NEOPLASM OF UNSP SITE OF UNSPECIFIED FEMALE BREAST Assessment/Plan Laboratory Tests 10/20/17 10/20/17 06:30 06:30 WBC 11.0 H Hgb 14.8 Hct 44.7 Plt Count 267 BUN 20 H Creatinine 0.9 Pneumococcal meningitis improving but significant CSF leak Plan ENT to follow up and Neurosurgery officialy called regarding further managnement Stop vancomycin Continue Ceftriaxone Dodie RICE
[2017-10-21 10:49] LABS: HEMATOCRIT 47.2 % (32.4-45.2); HEMOGLOBIN 15.7 GM/dL (10.7-15.3); MCH 31.4 pg (25.7-33.7); MCHC 33.2 g/dl (32.0-36.0); MEAN CELL VOLUME 94.6 fl (80-96); PLATELET COUNT 272 K/MM3 (134-434); RBC 4.99 M/mm3 (3.60-5.2); RDW 15.2 % (11.6-15.6); WHITE BLOOD COUNT 11.5 K/mm3 (4.0-10.0)
[2017-10-21 11:03] LABS: INR 0.99 (0.82-1.09); PROTHROMBIN TIME (PATIENT) 11.2 SEC (9.98-11.88)
[2017-10-21 11:15] LABS: ALBUMIN 3.1 g/dl (3.4-5.0); ALK PHOS 43 U/L (45-117); ANION GAP 11 (8-16); BILIRUBIN,TOTAL 0.5 mg/dL (0.2-1.0); BLOOD UREA NITROGEN 15 mg/dL (7-18); CALCIUM 8.5 mg/dL (8.5-10.1); CHLORIDE 104 mmol/L (98-107); CO2 26 mmol/L (21-32); CREATININE 0.9 mg/dL (0.55-1.02); GLUCOSE,RANDOM 124 mg/dL (74-106); POTASSIUM 3.5 mmol/L (3.5-5.1); SGOT/AST 8 U/L (15-37); SGPT/ALT 49 U/L (12-78); SODIUM 141 mmol/L (136-145); TOT PROT 6.5 g/dl (6.4-8.2)
--- NOTE | 2017-10-21 12:02 | PN ---
Progress Note (short form) - Note Progress Note: NEUROSURGERY CONSULT DICTATED Consulted by Dr. Stoll earlier Seen by neurology and had LP previously Chart reviewed Pt examined at bedside Pt with stage III L breast invasive ductal carcinoma s/p chemo & radiation, and HTN was admitted with H/A, photphobia, phonophobia, and 4 episodes of vomiting one week ago. C/o fatigue and lightheadedness, but denies visual changes, stiff neck, F/C, sz, weakness, sensory changes, or LOC. Prior radiation (08/15), and chemotherapy (06/14). Had increasing L nasal discharge over the past few days ( Sat/ through weekend) reportedly. H/A worse with sitting up and getting up. MRI's done on 10-16 and 10-19. PE: Tmax 99.2, now 98.5, VSS HEENT- clear fluid draining through L nostril when neck flexed, glucose < 250; Neck- supple, no nuchal rigidity; Cor- RRR; Lungs- CTA; Abd- benign; Ext- no sign of DVT CN- intact II-XII; Motor- 5/5 without drift; Sensation- intact LT/vibration; DTR - 1+ WBC previously 21.8 now 11.5 LP CSF: 10,200 WBC and 550 RBC; glucose 5, protein 775; CSF gram stain and culture negative; CSF Strep pneumo Ag + Head CT (10/14/2017)- opacified L sphenoid and L mastoid, no acute bleed or fx CTA (10/14/2017)- motion artifact; no large aneurysm or AVM Brain MRI (10/16/2017)- opacified L mastoid and L sphenoid sinus; intracranial subarachnoid and intraventricular air Brain MRI with jose carlos (10/16/2017)- mild arachnoid enhancement; no gross abscess; persistent pneumocephalus; fluid in L sphenoid and L mastoid sinuses Strep pneumoniae meningitis with probable CSF rhinorrhea Nasal drainage for B-2 transferrin Reconsult ENT if persistent L nose fluid collection for possible endoscopic evaluation and concurrent lumbar drain Sinus CT to evaluate L sphenoid sinus anatomy May need endoscopic sinus patching/tissue glue with lumbar CSF drain D/w Dr Bassett, ID
--- NOTE | 2017-10-21 12:45 | PN ---
Progress Note, Physician Chief Complaint: Left nasal discharge History of Present Illness: Chart reviewed. Pt feeling better, less headaches but developed left sided clear rhinorrhea the last few day. She denies any taste to it or nasal congestion. She also notes no ear pain or pressure, had been muffled on the left side for quite a while. Recent MRI with left sphenoid opacification/fluid. - Current Medication List Current Medications: Active Medications Acetaminophen (Tylenol -) 650 mg PO Q6H PRN PRN Reason: PAIN LEVEL 1-5 Last Admin: 10/21/17 09:27 Dose: 650 mg Heparin Sodium (Porcine) (Heparin -) 5,000 unit SQ BID [facility] Last Admin: 10/21/17 09:26 Dose: 5,000 unit CEFTRIAXONE IN IS-OSM DEXTROSE (Ceftriaxone 2 Gm-D5w Bag) 2 gm in 50 mls @ 200 mls/hr IVPB BID [facility] Last Admin: 10/21/17 09:27 Dose: 200 mls/hr Oxycodone HCl (Roxicodone -) 10 mg PO Q6H PRN PRN Reason: PAIN LEVEL 6-10 Last Admin: 10/21/17 10:17 Dose: 10 mg Ranitidine HCl (Zantac -) 150 mg PO BID [facility] Last Admin: 10/21/17 09:27 Dose: 150 mg Sodium Chloride ([place] Nasal [place] -) 2 spray NS TID PRN PRN Reason: NASAL CONGESTION - Objective Vital Signs: Vital Signs Temperature 98.5 F 10/21/17 06:15 Pulse Rate 72 10/21/17 06:15 Respiratory Rate 20 10/21/17 06:15 Blood Pressure 104/59 10/21/17 06:15 O2 Sat by Pulse Oximetry (%) 98 10/20/17 21:00 Constitutional: Yes: Well Nourished, No Distress Eyes: Yes: WNL HENT: Yes: Rhinnorhea, Other (dull left TM, decreased mobitility. No mastoid tenderness.) Neck: Yes: WNL Labs: CBC, BMP 10/21/17 10:10 10/21/17 10:10 INR, PTT INR 0.99 (0.82-1.09) 10/21/17 10:10 Problem List - Problems (1) Bacterial meningitis Assessment/Plan: Improving headache, now with left clear rhinorrhea. Need to confirm if CSF with collection for B-2 Transferrin, await results. Continue IV ABX, plan as per Neuro and Neurosurgery. Code(s): G00.9 - BACTERIAL MENINGITIS, UNSPECIFIED (2) Acute sinusitis Assessment/Plan: Persistent left sphenoid opacification on MRI with left sided drainage- await confirmation of CSF. Can further image with CT scan of sinuses to evaluate for defect in roof of sphenoid/.tegemen if other confirmatory imaging is not able to be performed. Code(s): J01.90 - ACUTE SINUSITIS, UNSPECIFIED Qualifiers: Sinusitis location: sphenoidal Recurrence: non-recurrent Qualified Code(s ): J01.30 - Acute sphenoidal sinusitis, unspecified (3) Chronic otitis media Assessment/Plan: Left ear fullness for a few months- no evidence of acute mastoiditis. Recommend audiogram upon discharge. Code(s): H66.90 - OTITIS MEDIA, UNSPECIFIED, UNSPECIFIED EAR Qualifiers: Otitis media type: mucoid Laterality: left Qualified Code(s): H65.32 - Chronic mucoid otitis media, left ear
--- NOTE | 2017-10-21 19:40 | PN ---
Progress Note, Physician History of Present Illness: No new complaints - Current Medication List Current Medications: Active Medications Acetaminophen (Tylenol -) 650 mg PO Q6H PRN PRN Reason: PAIN LEVEL 1-5 Last Admin: 10/21/17 09:27 Dose: 650 mg Heparin Sodium (Porcine) (Heparin -) 5,000 unit SQ BID [facility] Last Admin: 10/21/17 09:26 Dose: 5,000 unit CEFTRIAXONE IN IS-OSM DEXTROSE (Ceftriaxone 2 Gm-D5w Bag) 2 gm in 50 mls @ 200 mls/hr IVPB BID [facility] Last Admin: 10/21/17 09:27 Dose: 200 mls/hr Oxycodone HCl (Roxicodone -) 10 mg PO Q6H PRN PRN Reason: PAIN LEVEL 6-10 Last Admin: 10/21/17 10:17 Dose: 10 mg Ranitidine HCl (Zantac -) 150 mg PO BID [facility] Last Admin: 10/21/17 09:27 Dose: 150 mg Sodium Chloride ([place] Nasal [place] -) 2 spray NS TID PRN PRN Reason: NASAL CONGESTION - Objective Vital Signs: Vital Signs Temperature 98.4 F 10/21/17 16:57 Pulse Rate 76 10/21/17 16:57 Respiratory Rate 20 10/21/17 16:57 Blood Pressure 129/67 10/21/17 16:57 O2 Sat by Pulse Oximetry (%) 98 10/21/17 09:00 HENT: Yes: WNL Neck: Yes: WNL, Supple Cardiovascular: Yes: WNL, Regular Rate and Rhythm Respiratory: Yes: WNL, Regular, CTA Bilaterally Gastrointestinal: Yes: WNL, Normal Bowel Sounds, Soft Labs: CBC, BMP 10/21/17 10:10 10/21/17 10:10 INR, PTT INR 0.99 (0.82-1.09) 10/21/17 10:10 Problem List - Problems (1) Acute bacterial meningitis Assessment/Plan: S/P lumbar tap Cont IV ceftriaxone If nasal drip continues in next 6 weeks will need sinusis sugery CT scan sinusis/MRI brain showed again showed air pockets and enhancement of leptomeninges Code(s): G00.9 - BACTERIAL MENINGITIS, UNSPECIFIED (2) Invasive ductal carcinoma of breast, female Code(s): C50.919 - MALIGNANT NEOPLASM OF UNSP SITE OF UNSPECIFIED FEMALE BREAST
--- NOTE | 2017-10-21 21:04 | CONS ---
DATE OF CONSULTATION: 10/21/2017 REFERRING PHYSICIAN: Brandon Stoll MD RAP ARTIST: Alberto Bentley MD, Neurosurgery CHIEF COMPLAINT: Headache and meningitis. HISTORY OF PRESENT ILLNESS: The patient is a 62-year-old, right-handed female with history of stage III right breast CA status post radiation and chemotherapy, who came in complaining of severe headache about 1 week earlier. She also had some fever at the time by report, but she was anesthetic of the exam. She underwent a lumbar puncture and was diagnosed with Streptococcus pneumoniae meningitis and has been treated with IV antibiotic since. Her neurological status has improved since. Presently, she is on ceftriaxone IV. She was previously on vancomycin as well. Presently, she denies diplopia and has no neck pain. She still has bilateral frontal headache, left greater than right. She has no hearing difficulties. PAST MEDICAL HISTORY: Significant for hypertension, stage III breast CA status post chemotherapy and radiation. CURRENT MEDICATIONS: Include Tylenol, subcutaneous heparin, ceftriaxone, Zantac , and oxycodone. ALLERGIES: There is no known drug allergy. FAMILY HISTORY: Noncontributory. SOCIAL HISTORY: She does not smoke or drink. She works in the [employer]. She lives at home with her . REVIEW OF SYSTEMS: Otherwise negative for other major constitutional, head and neck, cardiovascular, pulmonary, gastrointestinal, genitourinary, endocrinological, neurological, and psychological problems except for the above. PHYSICAL EXAMINATION: Vital Signs: T-max is 99.2, temperature now is 98.5. Blood pressure is 104/59 with pulse rate of 72. O2 saturation is 98% on room air. HEENT: Examination shows her to be normocephalic, atraumatic, anicteric. She has clear fluid coming from her left nostril upon flexing her neck when sitting up. The fluid was positive for glucose up to 250. The clear fluid was also being sent for beta-2 transferrin. Coronary: Examination demonstrated a regular rhythm. Lungs: Clear bilaterally. Abdomen: Benign but obese. Extremities: Exam shows no signs of DVT. Neurologic: She is awake and alert and oriented x4. Cranial nerve examination intact 2-12. Motor examination shows 5/5 strength without drift. Sensory examination is intact to light touch. Deep tendon reflexes are 1+ throughout. There is no pathological long tract sign. Gait is not tested for safety reasons. LABORATORY: Examination shows white blood cell count trending down to 11,500. At one point, it was over 20,000. It is trending slightly back up from the recent low of 8.6, however. Serum sodium is 141, potassium is 3.5. BUN is 15 and creatinine 0.9. LFTs are normal. C-reactive protein was 2.9. Urinalysis shows less than 1 WBC and 23 RBCs. There is 2+ blood and trace ketone. CSF shows glucose of 5 and total protein of 775. There was 10,200 WBC and 550 RBC. INR is 0.99. PTT is 30.9. CSF Gram stain shows many polymorphonuclear WBCs but no bacteria. CSF culture was negative. Blood cultures negative. CT scan of the head initially demonstrated opacification of the left sphenoid and left mastoid sinus. CTA of the head showed significant motion artifact. There was no large aneurysm or AVM. MRI of the brain without contrast done on October 16 demonstrated opacification of the left sphenoid and left mastoid sinuses. There is also intraventricular and subarachnoid air. There is no mass effect or midline shift. MRI of the brain with contrast done on October 19 demonstrated similar findings but a pneumocephalus. There is also evidence of arachnoid enhancement which is mild and diffuse throughout. There is no gross brain abscess. IMPRESSION: 1. Rule out dehiscence of the sella turcica with fluid in the left sphenoid sinus. 2. Left sphenoid sinus and left mastoid sinus fluid collection. 3. Hypertension. 4. History of stage III breast cancer. RECOMMENDATIONS: The patient presents with at least 5 days' history of increasing left-sided nasal fluid drainage. It has been clear, and this is possible spinal fluid leak from the anterior skull base near the sella turcica. The glucose stick shows glucose to be between 100 and 250. We are sending the fluid for beta-2 transferrin. Additionally, she has been treated for Streptococcus pneumoniae meningitis, and the antibiotics should continue until the infection is eradicated. If this is confirmed to be CSF, an endoscopic sinus patching including concurrent lumbar drain is recommended. If that does not stop the leak, a ventriculoperitoneal shunt could be contemplated. The above options were discussed with the patient and her at bedside today. She has clinically improved form her recent Streptococcus pneumoniae meningitis which is a good sign at this time. Without addressing the potential skull base defect, however, she is likely to get recurrent bacterial meningitis, however. Sinus CT is ordered to evaluate sphenoid sinus bony anatomy and any breach. MRI had demonstrated the L ICA to be medial, which could indicate dehiscence of lateral sphenoid wall into carotid canal. All questions were answered at her bedside, and the above was discussed with Dr. Bassett, the infectious disease specialist. Pros and cons of treatment approaches were discussed. ALBERTO BENTLEY M.D. ALDAIR/[id number] MTDD
--- NOTE | 2017-10-22 08:18 | PN ---
Progress Note (short form) - Note Progress Note: NEUROSURGERY L nasal discharge over the past few days, slowing down this am. H/A worse with sitting up and getting up. No N/V. ENT input noted PE: Tmax 99.1, VSS HEENT- clear fluid draining through L nostril when neck flexed, glucose < 250; Neck- supple, no nuchal rigidity; Cor- RRR; Lungs- CTA; Abd- benign; Ext- no sign of DVT CN- intact II-XII; Motor- 5/5 without drift; Sensation- intact LT/vibration; DTR - 1+ LP CSF: 10,200 WBC and 550 RBC; glucose 5, protein 775; CSF gram stain and culture negative; CSF Strep pneumo Ag + Head CT (10/14/2017)- opacified L sphenoid and L mastoid, no acute bleed or fx CTA (10/14/2017)- motion artifact; no large aneurysm or AVM Brain MRI (10/16/2017)- opacified L mastoid and L sphenoid sinus; intracranial subarachnoid and intraventricular air Brain MRI with jose carlos (10/16/2017)- mild arachnoid enhancement; no gross abscess; persistent pneumocephalus; fluid in L sphenoid and L mastoid sinuses CT sinuses: L lateral sphenoid bone erosion with defect extending and into L carotid canal Strep pneumoniae meningitis with CSF rhinorrhea Nasal drainage sent for B-2 transferrin to confirm CSF Consider endoscopic sinus patching/tissue glue with concurrent lumbar CSF drain (If that does not work could need to consider GOLF COURSE ARCHITECT shunt) given probable CSF leak ; care need to be taken to not injure vascular structure including L ICA/ cavernous sinus
--- NOTE | 2017-10-22 09:42 | PN ---
Progress Note (short form) - Note Progress Note: Feels ok. Still with left nostril drainage but less. No CP or SOB. No nausea or vomiting. Intake & Output 10/19/17 10/20/17 10/21/17 10/22/17 23:59 23:59 23:59 23:59 Intake Total 2290 1550 1350 50 Balance 2290 1550 1350 50 Last Vital Signs Temp Pulse Resp BP Pulse Ox 99.1 F 79 18 100/42 97 10/22/17 05:45 10/22/17 05:45 10/22/17 05:45 10/22/17 05:45 10/21/17 21:00 Active Medications Acetaminophen (Tylenol -) 650 mg PO Q6H PRN PRN Reason: PAIN LEVEL 1-5 Last Admin: 10/21/17 09:27 Dose: 650 mg Heparin Sodium (Porcine) (Heparin -) 5,000 unit SQ BID [facility] Last Admin: 10/21/17 21:30 Dose: 5,000 unit CEFTRIAXONE IN IS-OSM DEXTROSE (Ceftriaxone 2 Gm-D5w Bag) 2 gm in 50 mls @ 200 mls/hr IVPB BID [facility] Last Admin: 10/21/17 22:10 Dose: 200 mls/hr Oxycodone HCl (Roxicodone -) 10 mg PO Q6H PRN PRN Reason: PAIN LEVEL 6-10 Last Admin: 10/21/17 10:17 Dose: 10 mg Ranitidine HCl (Zantac -) 150 mg PO BID [facility] Last Admin: 10/21/17 21:29 Dose: 150 mg Sodium Chloride ([place] -) 2 spray NS TID PRN PRN Reason: NASAL CONGESTION GENERAL: Awake, alert, and oriented HEAD: Normal with no signs of trauma. EYES: Pupils equal, round and reactive to light, extraocular movements intact, EARS, NOSE, THROAT: Ears normal, nares patent, oropharynx clear without exudates. NECK: Normal range of motion, supple without lymphadenopathy, no stiffness LUNGS: Breath sounds equal, clear to auscultation bilaterally. No wheezes, and no crackles. HEART: s1s2 normal ABDOMEN: Soft, nontender, not distended, normoactive bowel sounds, no guarding, no rebound, no masses. UPPER EXTREMITIES: 2+ pulses, warm, well-perfused. LOWER EXTREMITIES: 2+ pulses, warm, well-perfused. NEUROLOGICAL: Non-focal SKIN: Warm, dry, no petechiae Laboratory Results - last 24 hr 10/14/17 10/21/17 10/21/17 16:10 10:10 10:10 WBC 11.5 H RBC 4.99 Hgb 15.7 H Hct 47.2 H MCV 94.6 MCH 31.4 MCHC 33.2 RDW 15.2 Plt Count 272 MPV 8.0 Total Counted 100 Neutrophils % No Result Required. Neutrophils % (Manual) 84.0 H Lymphocytes % No Result Required. Lymphocytes % (Manual) 10.0 D Monocytes % (Manual) 3 L Eosinophils % (Manual) 3.0 D PT with INR 11.20 INR 0.99 Sodium Potassium Chloride Carbon Dioxide Anion Gap BUN Creatinine Creat Clearance w eGFR Random Glucose Calcium Total Bilirubin AST ALT Alkaline Phosphatase Total Protein Albumin Specimen Type Fluid Culture Vancomycin Pre-Dose H.influenzae Type B Ag Negative N. meningitidis Antigen Negative Group B Strep Antigen Negative S. pneumoniae Antigen Positive H Organism ID Not indicated. 10/21/17 10/21/17 10:10 10:20 WBC RBC Hgb Hct MCV MCH MCHC RDW Plt Count MPV Total Counted Neutrophils % Neutrophils % (Manual) Lymphocytes % Lymphocytes % (Manual) Monocytes % (Manual) Eosinophils % (Manual) PT with INR INR Sodium 141 Potassium 3.5 Chloride 104 Carbon Dioxide 26 Anion Gap 11 BUN 15 Creatinine 0.9 Creat Clearance w eGFR > 60 Random Glucose 124 H Calcium 8.5 Total Bilirubin 0.5 AST 8 L ALT 49 Alkaline Phosphatase 43 L Total Protein 6.5 Albumin 3.1 L Specimen Type Fluid Culture Vancomycin Pre-Dose 20.723 H* H.influenzae Type B Ag N. meningitidis Antigen Group B Strep Antigen S. pneumoniae Antigen Organism ID ASSESSMENT/PLAN: Pneumococcal meningitis HTN Breast CA Mastoiditis / Sinusitis Suspected CSF leak Plan ABX per ID Confirmation studies to confirm CSF pending VTE prophylaxis O2 as needed Incentive Spirometry Dr Osorio
[2017-10-22] MEDS: ACETAMINOPHEN 325 MG TABLET (FP) PO PRN (09:44)
[2017-10-22] MEDS: RANITIDINE HCL 150 MG TABLET (FP) PO SCH ×2 (09:45→22:12)
[2017-10-22] MEDS: HEPARIN NA (PORCINE) 5,000 UNITS/ML 1ML VIAL SQ SCH ×2 (09:48→22:12)
[2017-10-22] MEDS: CEFTRIAXONE 2 GM-D5W BAG 2 GM/50 ML BAG IVPB SCH ×2 (10:55→12:01)
--- NOTE | 2017-10-22 13:40 | PN ---
Progress Note, Physician Chief Complaint: ID Neurosurgical consult seen and appreciated Headaches better still with rhinorrhea today - Current Medication List Current Medications: Active Medications Acetaminophen (Tylenol -) 650 mg PO Q6H PRN PRN Reason: PAIN LEVEL 1-5 Last Admin: 10/22/17 09:44 Dose: 650 mg Heparin Sodium (Porcine) (Heparin -) 5,000 unit SQ BID [facility] Last Admin: 10/22/17 09:48 Dose: Not Given CEFTRIAXONE IN IS-OSM DEXTROSE (Ceftriaxone 2 Gm-D5w Bag) 2 gm in 50 mls @ 200 mls/hr IVPB BID [facility] Last Admin: 10/22/17 12:01 Dose: 200 mls/hr Oxycodone HCl (Roxicodone -) 10 mg PO Q6H PRN PRN Reason: PAIN LEVEL 6-10 Last Admin: 10/21/17 10:17 Dose: 10 mg Ranitidine HCl (Zantac -) 150 mg PO BID [facility] Last Admin: 10/22/17 09:45 Dose: 150 mg Sodium Chloride ([place] Nasal [place] -) 2 spray NS TID PRN PRN Reason: NASAL CONGESTION - Objective Vital Signs: Vital Signs Temperature 98.4 F 10/22/17 10:00 Pulse Rate 91 H 10/22/17 10:00 Respiratory Rate 18 10/22/17 10:00 Blood Pressure 159/89 10/22/17 10:00 O2 Sat by Pulse Oximetry (%) 97 10/21/17 21:00 Constitutional: Yes: Well Nourished, No Distress Neck: Yes: WNL, Supple Cardiovascular: Yes: S1, S2 Respiratory: Yes: WNL, Regular, CTA Bilaterally Gastrointestinal: Yes: WNL, Normal Bowel Sounds, Soft. No: Tenderness Labs: CBC, BMP 10/21/17 10:10 10/21/17 10:10 INR, PTT INR 0.99 (0.82-1.09) 10/21/17 10:10 Problem List - Problems (1) Acute sinusitis Code(s): J01.90 - ACUTE SINUSITIS, UNSPECIFIED Qualifiers: Sinusitis location: sphenoidal Recurrence: non-recurrent Qualified Code(s ): J01.30 - Acute sphenoidal sinusitis, unspecified (2) Acute bacterial meningitis Code(s): G00.9 - BACTERIAL MENINGITIS, UNSPECIFIED (3) Invasive ductal carcinoma of breast, female Code(s): C50.919 - MALIGNANT NEOPLASM OF UNSP SITE OF UNSPECIFIED FEMALE BREAST Assessment/Plan Laboratory Tests 10/18/17 10/21/17 08:10 10:10 WBC 11.5 H Hgb 15.7 H Hct 47.2 H Plt Count 272 IgG 977 IgM 51 Assessment Pneumococcal meningitis with CSF leak Plan Continue Ceftriaxone Surgical repair pending Dodie RICE
[2017-10-22] MEDS: CEFTRIAXONE 2 GM in DEXTROSE 5%-WATER - 100 ML IVPB SCH (22:12)
--- NOTE | 2017-10-23 01:05 | PN ---
Progress Note, Physician - Current Medication List Current Medications: Active Medications Acetaminophen (Tylenol -) 650 mg PO Q6H PRN PRN Reason: PAIN LEVEL 1-5 Last Admin: 10/22/17 09:44 Dose: 650 mg Heparin Sodium (Porcine) (Heparin -) 5,000 unit SQ BID [facility] Last Admin: 10/22/17 22:12 Dose: 5,000 unit Ceftriaxone Sodium 2 gm/ (Dextrose) 100 mls @ 200 mls/hr IVPB BID [facility] Last Admin: 10/22/17 22:12 Dose: 200 mls/hr Oxycodone HCl (Roxicodone -) 10 mg PO Q6H PRN PRN Reason: PAIN LEVEL 6-10 Last Admin: 10/21/17 10:17 Dose: 10 mg Ranitidine HCl (Zantac -) 150 mg PO BID [facility] Last Admin: 10/22/17 22:12 Dose: 150 mg Sodium Chloride ([place] Nasal [place] -) 2 spray NS TID PRN PRN Reason: NASAL CONGESTION - Objective Vital Signs: Vital Signs Temperature 100.2 F H 10/22/17 16:30 Pulse Rate 85 10/22/17 16:30 Respiratory Rate 18 10/22/17 16:30 Blood Pressure 118/52 10/22/17 16:30 O2 Sat by Pulse Oximetry (%) 97 10/22/17 09:00 Labs: CBC, BMP 10/21/17 10:10 10/21/17 10:10 INR, PTT INR 0.99 (0.82-1.09) 10/21/17 10:10 Problem List - Problems (1) Acute bacterial meningitis Code(s): G00.9 - BACTERIAL MENINGITIS, UNSPECIFIED (2) Invasive ductal carcinoma of breast, female Code(s): C50.919 - MALIGNANT NEOPLASM OF UNSP SITE OF UNSPECIFIED FEMALE BREAST
[2017-10-23] MEDS: ACETAMINOPHEN 325 MG TABLET (FP) PO PRN ×2 (01:07→10:18)
--- NOTE | 2017-10-23 08:03 | PN ---
Progress Note (short form) - Note Progress Note: NEUROSURGERY L nasal discharge slowing down per patient. H/A worse with sitting up and getting up. No N/V. PE: Tmax 100.2, VSS HEENT- clear fluid draining through L nostril when neck flexed sitting; Neck- supple, no nuchal rigidity; Cor- RRR; Lungs- CTA; Abd- benign; Ext- no sign of DVT CN- intact II-XII; Motor- 5/5 without drift; Sensation- intact LT/vibration; DTR - 1+ Head CT (10/14/2017)- opacified L sphenoid and L mastoid, no acute bleed or fx CTA (10/14/2017)- motion artifact; no large aneurysm or AVM Brain MRI (10/16/2017)- opacified L mastoid and L sphenoid sinus; intracranial subarachnoid and intraventricular air Brain MRI with jose carlos (10/16/2017)- mild arachnoid enhancement; no gross abscess; persistent pneumocephalus; fluid in L sphenoid and L mastoid sinuses CT sinuses: L lateral sphenoid bone erosion with defect extending and into L carotid canal Strep pneumoniae meningitis with CSF rhinorrhea Nasal drainage sent for B-2 transferrin to confirm CSF Consider endoscopic and if not possible open transphenoidal sinus patching/ tissue glue with concurrent lumbar CSF drain (If that does not work could need to consider HEALTH EDUCATION SPECIALIST shunt) given probable CSF leak; care need to be taken to not injure vascular structure including L ICA/cavernous sinus given proximity CSF confirmation pending Pt opting for surgical intervention Risks and benefits discussed Sisters on the phone and discussed pros and cons as well Would need ENT to establish approach to sphenoid sinus ID f/u
--- NOTE | 2017-10-23 08:25 | PN ---
Progress Note, Physician Chief Complaint: ID Alert NAD Ceftriaxone day 9 therapy - Current Medication List Current Medications: Active Medications Acetaminophen (Tylenol -) 650 mg PO Q6H PRN PRN Reason: PAIN LEVEL 1-5 Last Admin: 10/23/17 01:07 Dose: 650 mg Heparin Sodium (Porcine) (Heparin -) 5,000 unit SQ BID [facility] Last Admin: 10/22/17 22:12 Dose: 5,000 unit Ceftriaxone Sodium 2 gm/ (Dextrose) 100 mls @ 200 mls/hr IVPB BID [facility] Last Admin: 10/22/17 22:12 Dose: 200 mls/hr Oxycodone HCl (Roxicodone -) 10 mg PO Q6H PRN PRN Reason: PAIN LEVEL 6-10 Last Admin: 10/21/17 10:17 Dose: 10 mg Ranitidine HCl (Zantac -) 150 mg PO BID [facility] Last Admin: 10/22/17 22:12 Dose: 150 mg Sodium Chloride ([place] Nasal [place] -) 2 spray NS TID PRN PRN Reason: NASAL CONGESTION - Objective Vital Signs: Vital Signs Temperature 99 F 10/23/17 07:17 Pulse Rate 76 10/23/17 07:17 Respiratory Rate 20 10/23/17 07:17 Blood Pressure 119/73 10/23/17 07:17 O2 Sat by Pulse Oximetry (%) 97 10/22/17 21:00 Constitutional: Yes: Well Nourished Neck: Yes: WNL, Supple Cardiovascular: Yes: Regular Rate and Rhythm, S1, S2. No: Murmur Respiratory: Yes: WNL, Regular, CTA Bilaterally Gastrointestinal: Yes: WNL, Normal Bowel Sounds, Soft. No: Tenderness, Tenderness, Epigastrium Labs: CBC, BMP 10/21/17 10:10 10/21/17 10:10 INR, PTT INR 0.99 (0.82-1.09) 10/21/17 10:10 Problem List - Problems (1) Acute sinusitis Code(s): J01.90 - ACUTE SINUSITIS, UNSPECIFIED Qualifiers: Sinusitis location: sphenoidal Recurrence: non-recurrent Qualified Code(s ): J01.30 - Acute sphenoidal sinusitis, unspecified (2) Acute bacterial meningitis Code(s): G00.9 - BACTERIAL MENINGITIS, UNSPECIFIED (3) Invasive ductal carcinoma of breast, female Code(s): C50.919 - MALIGNANT NEOPLASM OF UNSP SITE OF UNSPECIFIED FEMALE BREAST Assessment/Plan Microbiology 10/14/17 18:49 Urine For Antigen Detection Legionella Antigen - Final 10/14/17 18:49 Urine For Antigen Detection Streptococcus pneumoniae Antigen (M - Final 10/14/17 16:10 Cerebral Spinal Fluid - Lumbar Puncture Streptococcus pneumoniae Antigen (M - Final 10/14/17 16:10 Cerebral Spinal Fluid - Lumbar Puncture Gram Stain - Final 10/14/17 16:10 Cerebral Spinal Fluid - Lumbar Puncture CSF Culture - Final NO GROWTH AFTER 48 HOURS INCUBATION 10/14/17 15:40 Nasopharyngeal Swab Influenza Types A,B Antigen (JAMIA) - Final 10/14/17 15:40 Nasopharyngeal Swab - Final 10/14/17 15:40 Blood - Peripheral Venous Blood Culture - Final NO GROWTH AFTER 5 DAYS INCUBATION 10/14/17 15:40 Blood - Peripheral Venous Blood Culture - Final NO GROWTH AFTER 5 DAYS INCUBATION Laboratory Tests 10/21/17 10/21/17 10:10 10:10 WBC 11.5 H Hgb 15.7 H Hct 47.2 H Plt Count 272 BUN 15 Creatinine 0.9 Creat Clearance w eGFR > 60 Assessment Defect of sinus wall with meningitis day 9 therapy Plan Continue current therapy antibiotics Surgery planning per Dr Dueñas and JENNIFER Stoll MD
[2017-10-23] MEDS: RANITIDINE HCL 150 MG TABLET (FP) PO SCH ×2 (10:18→21:35)
[2017-10-23] MEDS: CEFTRIAXONE 2 GM in DEXTROSE 5%-WATER - 100 ML IVPB SCH ×2 (10:18→21:35)
[2017-10-23] MEDS: HEPARIN NA (PORCINE) 5,000 UNITS/ML 1ML VIAL SQ SCH ×2 (10:26→21:36)
[2017-10-23] MEDS ORDERED: PT OWN MED DRAWER 7, Y5N ONE (21:05)
--- NOTE | 2017-10-23 22:57 | PN ---
Progress Note, Physician History of Present Illness: Headaches are better - Current Medication List Current Medications: Active Medications Acetaminophen (Tylenol -) 650 mg PO Q6H PRN PRN Reason: PAIN LEVEL 1-5 Last Admin: 10/23/17 10:18 Dose: 650 mg Heparin Sodium (Porcine) (Heparin -) 5,000 unit SQ BID [facility] Last Admin: 10/23/17 21:36 Dose: 5,000 unit Ceftriaxone Sodium 2 gm/ (Dextrose) 100 mls @ 200 mls/hr IVPB BID [facility] Last Admin: 10/23/17 21:35 Dose: 200 mls/hr Oxycodone HCl (Roxicodone -) 10 mg PO Q6H PRN PRN Reason: PAIN LEVEL 6-10 Last Admin: 10/21/17 10:17 Dose: 10 mg Ranitidine HCl (Zantac -) 150 mg PO BID [facility] Last Admin: 10/23/17 21:35 Dose: 150 mg Sodium Chloride ([place] Nasal [place] -) 2 spray NS TID PRN PRN Reason: NASAL CONGESTION - Objective Vital Signs: Vital Signs Temperature 98.4 F 10/23/17 16:30 Pulse Rate 79 10/23/17 16:30 Respiratory Rate 20 10/23/17 16:30 Blood Pressure 146/66 10/23/17 16:30 O2 Sat by Pulse Oximetry (%) 97 10/23/17 09:00 Constitutional: Yes: Well Nourished Neck: Yes: WNL, Supple Cardiovascular: Yes: WNL, Regular Rate and Rhythm Respiratory: Yes: WNL, Regular, CTA Bilaterally Gastrointestinal: Yes: WNL, Normal Bowel Sounds, Soft Neurological: Yes: WNL, Alert, Oriented Labs: CBC, BMP 10/21/17 10:10 10/21/17 10:10 INR, PTT INR 0.99 (0.82-1.09) 10/21/17 10:10 Problem List - Problems (1) Acute bacterial meningitis Assessment/Plan: S/P lumbar tap Cont IV ceftriaxone Spoke w/ pt who has agreed to have surgery(tentative date 10/28/17) to repair sinusis CT scan sinusis/MRI brain showed again showed air pockets and enhancement of leptomeninges Code(s): G00.9 - BACTERIAL MENINGITIS, UNSPECIFIED (2) Invasive ductal carcinoma of breast, female Code(s): C50.919 - MALIGNANT NEOPLASM OF UNSP SITE OF UNSPECIFIED FEMALE BREAST (3) Acute sinusitis Code(s): J01.90 - ACUTE SINUSITIS, UNSPECIFIED Qualifiers: Sinusitis location: sphenoidal Recurrence: non-recurrent Qualified Code(s ): J01.30 - Acute sphenoidal sinusitis, unspecified
[2017-10-24] MEDS: ACETAMINOPHEN 325 MG TABLET (FP) PO PRN ×2 (02:22→21:21)
--- NOTE | 2017-10-24 08:34 | PN ---
Progress Note (short form) - Note Progress Note: NEUROSURGERY L nasal discharge slowing down per patient. H/A worse with sitting up and getting up. No N/V. Tolerating breakfast fine PE: Tmax 98.6, VSS HEENT- clear fluid draining through L nostril when neck flexed in sitting position; Neck- supple, no nuchal rigidity; Cor- RRR; Lungs- CTA; Abd- benign; Ext- no sign of DVT CN- intact II-XII; Motor- 5/5 without drift; Sensation- intact LT/vibration; DTR - 1+ Brain MRI (10/16/2017)- opacified L mastoid and L sphenoid sinus; intracranial subarachnoid and intraventricular air Brain MRI with jose carlos (10/19/2017)- mild arachnoid enhancement; no gross abscess; persistent pneumocephalus; fluid in L sphenoid and L mastoid sinuses CT sinuses: L lateral sphenoid bone erosion with defect extending and into L carotid canal Strep pneumoniae meningitis with CSF rhinorrhea Nasal drainage sent for B-2 transferrin to confirm CSF Consider endoscopic and if not possible open transphenoidal sinus patching/ tissue glue with concurrent lumbar CSF drain (If that does not work could need to consider EDGE DRUMMER shunt) given probable CSF leak; care need to be taken to not injure vascular structure including L ICA/cavernous sinus given proximity CSF confirmation pending (not available till late Saturday) Pt opting for surgical intervention on Saturday Risks and benefits discussed - risk- bleeding, infection, stroke, seizure, coma , , persistent CSF leak, pneumonia, DVT/PE Dr Rousseau from ENT to establish approach to sphenoid sinus ID f/u- on ceftriaxone
[2017-10-24] MEDS: RANITIDINE HCL 150 MG TABLET (FP) PO SCH ×2 (10:47→21:04)
--- NOTE | 2017-10-24 10:54 | PN ---
Progress Note (short form) - Note Progress Note: ID Day 10 Ceftriaxone of planned 14 day treatment for meningitis Selected Entries 10/24/17 06:29 Temperature 98.6 F Pulse Rate 81 Respiratory 20 Rate Blood Pressure 119/64 CSL as noted previously Microbiology 10/14/17 16:10 Cerebral Spinal Fluid - Lumbar Puncture Streptococcus pneumoniae Antigen (M - Final 10/14/17 16:10 Cerebral Spinal Fluid - Lumbar Puncture Gram Stain - Final 10/14/17 16:10 Cerebral Spinal Fluid - Lumbar Puncture CSF Culture - Final NO GROWTH AFTER 48 HOURS INCUBATION 10/14/17 15:40 Nasopharyngeal Swab Influenza Types A,B Antigen (JAMIA) - Final 10/14/17 15:40 Nasopharyngeal Swab - Final Assessment CSF leak and meningitis Plan Continue antibiotics as ordered beyond surgery Dodie RICE Problem List - Problems (1) Acute sinusitis Code(s): J01.90 - ACUTE SINUSITIS, UNSPECIFIED Qualifiers: Sinusitis location: sphenoidal Recurrence: non-recurrent Qualified Code(s ): J01.30 - Acute sphenoidal sinusitis, unspecified (2) Acute bacterial meningitis Code(s): G00.9 - BACTERIAL MENINGITIS, UNSPECIFIED (3) Invasive ductal carcinoma of breast, female Code(s): C50.919 - MALIGNANT NEOPLASM OF UNSP SITE OF UNSPECIFIED FEMALE BREAST
--- NOTE | 2017-10-24 10:59 | PN ---
Progress Note (short form) - Note Progress Note: Still with left nostril drainage, but less according to the patient. No CP or SOB. No nausea or vomiting. MCDONOUGH with change in head position. Intake & Output 10/21/17 10/22/17 10/23/17 10/24/17 23:59 23:59 23:59 23:59 Intake Total 1350 1450 900 Balance 1350 1450 900 Last Vital Signs Temp Pulse Resp BP Pulse Ox 98.6 F 81 20 119/64 97 10/24/17 06:29 10/24/17 06:29 10/24/17 06:29 10/24/17 06:29 10/23/17 21:00 Active Medications Acetaminophen (Tylenol -) 650 mg PO Q6H PRN PRN Reason: PAIN LEVEL 1-5 Last Admin: 10/24/17 02:22 Dose: 650 mg Ceftriaxone Sodium 2 gm/ (Dextrose) 100 mls @ 200 mls/hr IVPB BID [facility] Last Admin: 10/23/17 21:35 Dose: 200 mls/hr Ranitidine HCl (Zantac -) 150 mg PO BID [facility] Last Admin: 10/24/17 10:47 Dose: 150 mg Sodium Chloride ([place] Nasal [place] -) 2 spray NS TID PRN PRN Reason: NASAL CONGESTION GENERAL: Awake, alert, and oriented HEAD: Normal with no signs of trauma. EYES: Pupils equal, round and reactive to light, extraocular movements intact, EARS, NOSE, THROAT: Ears normal, nares patent, oropharynx clear without exudates. NECK: Normal range of motion, supple without lymphadenopathy, no stiffness LUNGS: Breath sounds equal, clear to auscultation bilaterally. No wheezes, and no crackles. HEART: s1s2 normal ABDOMEN: Soft, nontender, not distended, normoactive bowel sounds, no guarding, no rebound, no masses. UPPER EXTREMITIES: 2+ pulses, warm, well-perfused. LOWER EXTREMITIES: 2+ pulses, warm, well-perfused. NEUROLOGICAL: Non-focal SKIN: Warm, dry, no petechiae Laboratory Results - last 24 hr 10/21/17 14:50 CSF [id number] 2.5 ASSESSMENT/PLAN: Pneumococcal meningitis HTN Breast CA Mastoiditis / Sinusitis Suspected CSF leak Plan ABX per ID Confirmation studies to confirm CSF pending VTE prophylaxis O2 as needed Incentive Spirometry Noted will likely have surgical intervention Saturday Dr Osorio
[2017-10-24] MEDS: CEFTRIAXONE 2 GM in DEXTROSE 5%-WATER - 100 ML IVPB SCH ×2 (11:13→21:05)
--- NOTE | 2017-10-24 17:46 | PN ---
Progress Note (short form) - Note Progress Note: ENT hx reviewed, pt examined CSF rhinorrhea left, associated bony erosion left sphenoid CT scan +opacification of left sphenoid sinus, pneumocephalus, DNS left discussed at length with pt and her Impression: CSF rhinorrhea left sphenoid source Recommend: Repair of CSF leak left sphenoid scheduled for Saturday10-28-[address] Dueñas ENT surgical approach to sphenoid sinus fascia deonna patch planned. Kenny Rousseau MD FACS
--- NOTE | 2017-10-24 22:05 | PN ---
Progress Note, Physician History of Present Illness: No new complaints Decrease drainage from lt nostril - Current Medication List Current Medications: Active Medications Acetaminophen (Tylenol -) 650 mg PO Q6H PRN PRN Reason: PAIN LEVEL 1-5 Last Admin: 10/24/17 21:21 Dose: 650 mg Ceftriaxone Sodium 2 gm/ (Dextrose) 100 mls @ 200 mls/hr IVPB BID [facility] Last Admin: 10/24/17 21:05 Dose: 200 mls/hr Ranitidine HCl (Zantac -) 150 mg PO BID [facility] Last Admin: 10/24/17 21:04 Dose: 150 mg Sodium Chloride ([place] Nasal [place] -) 2 spray NS TID PRN PRN Reason: NASAL CONGESTION - Objective Vital Signs: Vital Signs Temperature 99 F 10/24/17 17:20 Pulse Rate 81 10/24/17 17:20 Respiratory Rate 20 10/24/17 17:20 Blood Pressure 129/63 10/24/17 17:20 O2 Sat by Pulse Oximetry (%) 97 10/24/17 09:00 Constitutional: Yes: Well Nourished Neck: Yes: WNL, Supple Cardiovascular: Yes: WNL, Regular Rate and Rhythm Respiratory: Yes: WNL, Regular, CTA Bilaterally Gastrointestinal: Yes: WNL, Normal Bowel Sounds, Soft Labs: CBC, BMP 10/21/17 10:10 10/21/17 10:10 INR, PTT INR 0.99 (0.82-1.09) 10/21/17 10:10 Problem List - Problems (1) Acute bacterial meningitis Assessment/Plan: S/P lumbar tap Cont IV ceftriaxone Spoke w/ pt who has agreed to have surgery(tentative date 10/28/17) to repair sinusis CT scan sinusis/MRI brain showed again showed air pockets and enhancement of leptomeninges Code(s): G00.9 - BACTERIAL MENINGITIS, UNSPECIFIED (2) Acute sinusitis Code(s): J01.90 - ACUTE SINUSITIS, UNSPECIFIED Qualifiers: Sinusitis location: sphenoidal Recurrence: non-recurrent Qualified Code(s ): J01.30 - Acute sphenoidal sinusitis, unspecified (3) Invasive ductal carcinoma of breast, female Code(s): C50.919 - MALIGNANT NEOPLASM OF UNSP SITE OF UNSPECIFIED FEMALE BREAST
--- NOTE | 2017-10-25 08:17 | PN ---
Progress Note (short form) - Note Progress Note: NEUROSURGERY L nasal discharge slowing down. Some H/A. No N/V. Tolerating breakfast fine PE: AF, VSS HEENT- clear fluid draining through L nostril with neck flexed in sitting position; Neck- supple, no nuchal rigidity; Cor- RRR; Lungs- CTA; Abd- benign; Ext- no sign of DVT CN- intact II-XII; Motor- 5/5 without drift; Sensation- intact LT/vibration; DTR - 1+ CT sinuses: L lateral sphenoid bone erosion with defect extending and into L carotid canal Strep pneumoniae meningitis with CSF rhinorrhea Nasal drainage sent 10-21 for B-2 transferrin to confirm CSF Consider sinus patching/tissue glue after initial lumbar CSF drain placement then fascia deonna/fat graft(If that does not work pt could need to consider REAL ESTATE ACCOUNT EXECUTIVE shunt) given probable CSF leak CSF confirmation pending Pt opting for surgical intervention on Saturday, planned for 1-1:30 om Risks and benefits discussed - risk- bleeding, infection, stroke, seizure, coma , , persistent CSF leak, pneumonia, DVT/PE Dr Rousseau from ENT to establish approach to sphenoid sinus, who had discussed the above with pt and as well ID f/u- on ceftriaxone
[2017-10-25 08:26] LABS: BASO % 0.1 % (0-2.0); HEMATOCRIT 40.9 % (32.4-45.2); HEMOGLOBIN 13.6 GM/dL (10.7-15.3); MCH 31.3 pg (25.7-33.7); MCHC 33.3 g/dl (32.0-36.0); MEAN CELL VOLUME 93.8 fl (80-96); MEAN PLT VOLUME 7.6 fl (7.5-11.1); MONO % 9.2 % (3.8-10.2); NEUT % 81.7 % (42.8-82.8); PLATELET COUNT 262 K/MM3 (134-434); RBC 4.36 M/mm3 (3.60-5.2); RDW 14.9 % (11.6-15.6); WHITE BLOOD COUNT 6.5 K/mm3 (4.0-10.0)
[2017-10-25 08:44] LABS: CHLORIDE 103 mmol/L (98-107); POTASSIUM 4.5 mmol/L (3.5-5.1); SODIUM 138 mmol/L (136-145)
[2017-10-25 08:52] LABS: ALK PHOS 42 U/L (45-117); ANION GAP 7 (8-16); BILIRUBIN,TOTAL 0.4 mg/dL (0.2-1.0); BLOOD UREA NITROGEN 12 mg/dL (7-18); CO2 28 mmol/L (21-32); CREATININE 0.6 mg/dL (0.55-1.02); GLUCOSE,RANDOM 94 mg/dL (74-106); SGOT/AST 7 U/L (15-37); SGPT/ALT 27 U/L (12-78); TOT PROT 6.7 g/dl (6.4-8.2)
[2017-10-25] MEDS: RANITIDINE HCL 150 MG TABLET (FP) PO SCH ×2 (10:27→21:19)
[2017-10-25] MEDS: CEFTRIAXONE 2 GM in DEXTROSE 5%-WATER - 100 ML IVPB SCH ×2 (10:27→21:20)
--- NOTE | 2017-10-25 13:00 | PN ---
Progress Note (short form) - Note Progress Note: day #11 antibiotics feels well less headache minimal drainage from her nose- reports it has lessened significantly oob in chair no diarrhea Vital Signs Period Temp Pulse Resp BP Sys/Alonso Pulse Ox Last 24 Hr 98.6 F-99 F 72-81 18-20 122-135/62-76 96 cor-rrr lungs clear abd soft,nt ext no edema CBC, BMP 10/25/18 07:30 10/25/18 06:30 a/p meningitis- pneumococcal with otitis/sinusitis continue antibiotics -vanco/rocephin-day #11 management of csf leak per neurosurgery and ent
--- NOTE | 2017-10-25 18:10 | PN ---
Progress Note (short form) - Note Progress Note: ENT awake, alert, no complaints, sitting, pt reports minimal clear drainage from her nose NAD no active drainage Data: beta 2 transferrin pending Impression CSF rhinorrhea from left sphenoid sinus bony defect Recommend: observe over weekend plan repair of CSF rhinorrhea SaturdayOctober 28 ~1-1:30 PM Indications alternative nature risks and benefits of surgery discussed (10-24-) potential complications including but not limited to anesthesia, bleeding, infection, persistence, numbness, reduced smell sense, septal perforation discussed Pt and her understand and wish to proceed. Kenny Rousseau MD
--- NOTE | 2017-10-26 00:55 | PN ---
Progress Note, Physician - Current Medication List Current Medications: Active Medications Acetaminophen (Tylenol -) 650 mg PO Q6H PRN PRN Reason: PAIN LEVEL 1-5 Last Admin: 10/24/17 21:21 Dose: 650 mg Ceftriaxone Sodium 2 gm/ (Dextrose) 100 mls @ 200 mls/hr IVPB BID NEGRITO Last Admin: 10/25/17 21:20 Dose: 200 mls/hr Ranitidine HCl (Zantac -) 150 mg PO BID NEGRITO Last Admin: 10/25/17 21:19 Dose: 150 mg Sodium Chloride ([place] Nasal [place] -) 2 spray NS TID PRN PRN Reason: NASAL CONGESTION - Objective Vital Signs: Vital Signs Temperature 98.2 F 10/25/17 17:20 Pulse Rate 86 10/25/17 17:20 Respiratory Rate 20 10/25/17 22:00 Blood Pressure 123/76 10/25/17 17:20 O2 Sat by Pulse Oximetry (%) 96 10/24/17 21:00 Labs: CBC, BMP 10/25/17 07:30 10/25/17 06:30 INR, PTT INR 0.99 (0.82-1.09) 10/21/17 10:10 Problem List - Problems (1) Acute bacterial meningitis Code(s): G00.9 - BACTERIAL MENINGITIS, UNSPECIFIED (2) Acute sinusitis Code(s): J01.90 - ACUTE SINUSITIS, UNSPECIFIED Qualifiers: Sinusitis location: sphenoidal Recurrence: non-recurrent Qualified Code(s ): J01.30 - Acute sphenoidal sinusitis, unspecified (3) Invasive ductal carcinoma of breast, female Code(s): C50.919 - MALIGNANT NEOPLASM OF UNSP SITE OF UNSPECIFIED FEMALE BREAST
--- NOTE | 2017-10-26 08:13 | PN ---
Progress Note, Physician Chief Complaint: ID Day 12 antibiotic for meningitis Ceftriaxone CSF continues to leak - Current Medication List Current Medications: Active Medications Acetaminophen (Tylenol -) 650 mg PO Q6H PRN PRN Reason: PAIN LEVEL 1-5 Last Admin: 10/24/17 21:21 Dose: 650 mg Ceftriaxone Sodium 2 gm/ (Dextrose) 100 mls @ 200 mls/hr IVPB BID NEGRITO Last Admin: 10/25/17 21:20 Dose: 200 mls/hr Ranitidine HCl (Zantac -) 150 mg PO BID NEGRITO Last Admin: 10/25/17 21:19 Dose: 150 mg Sodium Chloride ([place] Nasal [place] -) 2 spray NS TID PRN PRN Reason: NASAL CONGESTION - Objective Vital Signs: Vital Signs Temperature 99 F 10/26/17 07:44 Pulse Rate 79 10/26/17 07:44 Respiratory Rate 20 10/26/17 07:44 Blood Pressure 102/56 10/26/17 07:44 O2 Sat by Pulse Oximetry (%) 96 10/24/17 21:00 Constitutional: Yes: Well Nourished, No Distress Neck: Yes: WNL, Supple Cardiovascular: Yes: Tachycardia, S1 Respiratory: Yes: WNL, Regular, CTA Bilaterally Edema: Yes Labs: CBC, BMP 10/25/17 07:30 10/25/17 06:30 INR, PTT INR 0.99 (0.82-1.09) 10/21/17 10:10 Problem List - Problems (1) Acute sinusitis Code(s): J01.90 - ACUTE SINUSITIS, UNSPECIFIED Qualifiers: Sinusitis location: sphenoidal Recurrence: non-recurrent Qualified Code(s ): J01.30 - Acute sphenoidal sinusitis, unspecified (2) Acute bacterial meningitis Code(s): G00.9 - BACTERIAL MENINGITIS, UNSPECIFIED (3) Invasive ductal carcinoma of breast, female Code(s): C50.919 - MALIGNANT NEOPLASM OF UNSP SITE OF UNSPECIFIED FEMALE BREAST Assessment/Plan Laboratory Tests 10/14/17 10/25/17 10/25/17 16:10 06:30 07:30 WBC 6.5 D Plt Count 262 BUN 12 Creatinine 0.6 ALT 27 Alkaline Phosphatase 42 L H.influenzae Type B Ag Negative N. meningitidis Antigen Negative Group B Strep Antigen Negative S. pneumoniae Antigen Positive H Assessment CSF leak with secondary meningtitis pneumococcus Plan Surgery saturday and continue antibiotic
--- NOTE | 2017-10-26 09:26 | PN ---
Progress Note (short form) - Note Progress Note: NEUROSURGERY L nasal discharge slowing down. Mild H/A. No N/V. Tolerating breakfast Sitting up in chair PE: Tmax 99, AF, VSS HEENT- NC/AT; Neck- supple, no nuchal rigidity; Cor- RRR; Lungs- CTA; Abd- benign; Ext- no sign of DVT CN- intact II-XII; Motor- 5/5 without drift; Sensation- intact LT/vibration; DTR - 1+ CT sinuses: L lateral sphenoid bone erosion with defect extending and into L carotid canal Strep pneumoniae meningitis with CSF rhinorrhea Nasal drainage sent 10-21 for B-2 transferrin to confirm CSF Sinus patching/tissue glue after initial lumbar CSF drain placement then fascia deonna/fat graft(If that does not work pt could need to consider ARCHITECT INTERNSHIP shunt) given probable CSF leak CSF confirmation - B2 microglobulin 2.5 (above reference range) Pt opting for surgical intervention on Saturday, planned for 1-1:30 om Risks and benefits discussed - risk- bleeding, infection, stroke, seizure, coma , , persistent CSF leak, pneumonia, DVT/PE post-op care discussed Dr Rousseau from ENT to establish approach to sphenoid sinus, who had discussed the above with pt and as well ID f/u- on ceftriaxone
[2017-10-26] MEDS ORDERED: PT OWN MED DRAWER 7, Y5N ONE ×2 (10:12→22:15)
[2017-10-26] MEDS: RANITIDINE HCL 150 MG TABLET (FP) PO SCH ×2 (10:44→21:47)
[2017-10-26] MEDS: CEFTRIAXONE 2 GM in DEXTROSE 5%-WATER - 100 ML IVPB SCH ×2 (10:44→22:30)
--- NOTE | 2017-10-26 20:04 | PN ---
Progress Note, Physician - Current Medication List Current Medications: Active Medications Acetaminophen (Tylenol -) 650 mg PO Q6H PRN PRN Reason: PAIN LEVEL 1-5 Last Admin: 10/24/17 21:21 Dose: 650 mg Ceftriaxone Sodium 2 gm/ (Dextrose) 100 mls @ 200 mls/hr IVPB BID NEGRITO Last Admin: 10/26/17 10:44 Dose: 200 mls/hr Ranitidine HCl (Zantac -) 150 mg PO BID NEGRITO Last Admin: 10/26/17 10:44 Dose: 150 mg Sodium Chloride ([place] Nasal [place] -) 2 spray NS TID PRN PRN Reason: NASAL CONGESTION - Objective Vital Signs: Vital Signs Temperature 98.3 F 10/26/17 17:06 Pulse Rate 84 10/26/17 17:06 Respiratory Rate 20 10/26/17 17:06 Blood Pressure 134/98 10/26/17 17:06 O2 Sat by Pulse Oximetry (%) 96 10/24/17 21:00 Labs: CBC, BMP 10/25/17 07:30 10/25/17 06:30 INR, PTT INR 0.99 (0.82-1.09) 10/21/17 10:10 Problem List - Problems (1) Acute bacterial meningitis Code(s): G00.9 - BACTERIAL MENINGITIS, UNSPECIFIED (2) Acute sinusitis Code(s): J01.90 - ACUTE SINUSITIS, UNSPECIFIED Qualifiers: Sinusitis location: sphenoidal Recurrence: non-recurrent Qualified Code(s ): J01.30 - Acute sphenoidal sinusitis, unspecified (3) Invasive ductal carcinoma of breast, female Code(s): C50.919 - MALIGNANT NEOPLASM OF UNSP SITE OF UNSPECIFIED FEMALE BREAST
[2017-10-27] MEDS ORDERED: PT OWN MED DRAWER 7, Y5N ONE ×2 (00:50→23:19)
--- NOTE | 2017-10-27 09:27 | PN ---
Progress Note (short form) - Note Progress Note: NEUROSURGERY L nasal discharge slowing down. Mild H/A. No N/V. 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
[2017-10-27] MEDS: CEFTRIAXONE 2 GM in DEXTROSE 5%-WATER - 100 ML IVPB SCH ×2 (11:01→22:06)
[2017-10-27] MEDS: RANITIDINE HCL 150 MG TABLET (FP) PO SCH ×2 (11:01→22:06)
--- NOTE | 2017-10-27 23:48 | PN ---
Progress Note, Physician History of Present Illness: No new complaints - Current Medication List Current Medications: Active Medications Acetaminophen (Tylenol -) 650 mg PO Q6H PRN PRN Reason: PAIN LEVEL 1-5 Last Admin: 10/24/17 21:21 Dose: 650 mg Ceftriaxone Sodium 2 gm/ (Dextrose) 100 mls @ 200 mls/hr IVPB BID NEGRITO Last Admin: 10/27/17 22:06 Dose: 200 mls/hr Potassium Chloride/Dextrose/Sod Cl (D5-1/2ns+20 Meq Kcl -) 20 meq in 1,000 mls @ 100 mls/hr IV ASDIR NEGRITO Ranitidine HCl (Zantac -) 150 mg PO BID NEGRITO Last Admin: 10/27/17 22:06 Dose: 150 mg Sodium Chloride ([place] Nasal [place] -) 2 spray NS TID PRN PRN Reason: NASAL CONGESTION - Objective Vital Signs: Vital Signs Temperature 98.4 F 10/27/17 15:49 Pulse Rate 82 10/27/17 15:49 Respiratory Rate 18 10/27/17 15:49 Blood Pressure 109/61 10/27/17 15:49 O2 Sat by Pulse Oximetry (%) 96 10/24/17 21:00 HENT: Yes: WNL Neck: Yes: WNL, Supple Cardiovascular: Yes: WNL, Regular Rate and Rhythm Respiratory: Yes: WNL, Regular, CTA Bilaterally Gastrointestinal: Yes: WNL, Normal Bowel Sounds, Soft Labs: CBC, BMP 10/25/17 07:30 10/25/17 06:30 INR, PTT INR 0.99 (0.82-1.09) 10/21/17 10:10 Problem List - Problems (1) Acute bacterial meningitis Assessment/Plan: S/P lumbar tap Cont IV ceftriaxone Spoke w/ pt who has agreed to have surgery(tentative date 10/28/17) to repair sinusis CT scan sinusis/MRI brain showed again showed air pockets and enhancement of leptomeninges Fluid from LT nostril confirmed to be CSF origin No medical contraindication for surgery Code(s): G00.9 - BACTERIAL MENINGITIS, UNSPECIFIED (2) Acute sinusitis Code(s): J01.90 - ACUTE SINUSITIS, UNSPECIFIED Qualifiers: Sinusitis location: sphenoidal Recurrence: non-recurrent Qualified Code(s ): J01.30 - Acute sphenoidal sinusitis, unspecified (3) Invasive ductal carcinoma of breast, female Code(s): C50.919 - MALIGNANT NEOPLASM OF UNSP SITE OF UNSPECIFIED FEMALE BREAST
[2017-10-28] MEDS ORDERED: PT OWN MED DRAWER 7, Y5N ONE (01:37)
[2017-10-28] MEDS: D5-1/2NS+20 MEQ KCL - 20 MEQ/1,000 ML INFUS.BAG IV SCH ×2 (06:05→19:50)
--- NOTE | 2017-10-28 10:18 | PN ---
Progress Note, Physician Chief Complaint: ID Discussed with Dr Dueñas today re planned procedure - Current Medication List Current Medications: Active Medications Acetaminophen (Tylenol -) 650 mg PO Q6H PRN PRN Reason: PAIN LEVEL 1-5 Last Admin: 10/24/17 21:21 Dose: 650 mg Ceftriaxone Sodium 2 gm/ (Dextrose) 100 mls @ 200 mls/hr IVPB BID [facility] [place] Last Admin: 10/27/17 22:06 Dose: 200 mls/hr Potassium Chloride/Dextrose/Sod Cl (D5-1/2ns+20 Meq Kcl -) 20 meq in 1,000 mls @ 100 mls/hr IV ASDIR NEGRITO Last Admin: 10/28/17 06:05 Dose: 100 mls/hr Ranitidine HCl (Zantac -) 150 mg PO BID [facility] Last Admin: 10/27/17 22:06 Dose: 150 mg Sodium Chloride ([place] Nasal [place] -) 2 spray NS TID PRN PRN Reason: NASAL CONGESTION - Objective Vital Signs: Vital Signs Temperature 98.5 F 10/28/17 06:12 Pulse Rate 78 10/28/17 06:12 Respiratory Rate 20 10/28/17 06:12 Blood Pressure 124/73 10/28/17 06:12 O2 Sat by Pulse Oximetry (%) 96 10/24/17 21:00 Constitutional: Yes: No Distress Neck: Yes: Supple Cardiovascular: Yes: S1, S2 Respiratory: Yes: WNL, Regular, CTA Bilaterally Labs: CBC, BMP 10/25/17 07:30 10/25/17 06:30 INR, PTT INR 0.99 (0.82-1.09) 10/21/17 10:10 Problem List - Problems (1) Acute sinusitis Code(s): J01.90 - ACUTE SINUSITIS, UNSPECIFIED Qualifiers: Sinusitis location: sphenoidal Recurrence: non-recurrent Qualified Code(s ): J01.30 - Acute sphenoidal sinusitis, unspecified (2) Acute bacterial meningitis Code(s): G00.9 - BACTERIAL MENINGITIS, UNSPECIFIED (3) Invasive ductal carcinoma of breast, female Code(s): C50.919 - MALIGNANT NEOPLASM OF UNSP SITE OF UNSPECIFIED FEMALE BREAST Assessment/Plan Laboratory Tests 10/17/17 10/18/17 10/25/17 05:45 08:10 06:30 WBC Hgb Hct ESR 21 BUN 12 Creatinine 0.6 Total Bilirubin 0.4 AST 7 L ALT 27 Alkaline Phosphatase 42 L C-Reactive Protein 2.9 H 10/25/17 07:30 WBC 6.5 D Hgb 13.6 D Hct 40.9 ESR BUN Creatinine Total Bilirubin AST ALT Alkaline Phosphatase C-Reactive Protein Assessment Pneumococcal meningitis secondary CSF leak Plan Prophylactic antibiotics will continue through surgical repair Now day 14 Can lower to 2 grs daily now Dodie RICE
[2017-10-28] MEDS ORDERED: CEFTRIAXONE 2 GM-D5W BAG 2 GM/50 ML BAG IVPB SCH (11:00)
[2017-10-28] MEDS: RANITIDINE HCL 150 MG TABLET (FP) PO SCH (11:26)
[2017-10-28] MEDS: CEFTRIAXONE 2 GM in DEXTROSE 5%-WATER - 100 ML IVPB SCH (11:26)
[2017-10-28] MEDS ORDERED: ePHEDrine SULFATE 50 MG/1 ML AMPULE ONE (13:13)
[2017-10-28] MEDS ORDERED: MIDAZOLAM HCL 2 MG/2 ML SINGLE DOSE VIAL ONE (13:14)
[2017-10-28] MEDS ORDERED: ROCURONIUM BROMIDE 50 MG/5 ML VIAL ONE ×2 (13:14→15:04)
[2017-10-28] MEDS ORDERED: fentaNYL CITRATE 250 MCG/5 ML VIAL ONE (13:14)
[2017-10-28] MEDS ORDERED: SUCCINYLCHOLINE CHLORIDE 200 MG/10 ML VIAL ONE (13:14)
[2017-10-28] MEDS ORDERED: LIDOCAINE 1%/EPI 1:100000 (20 ML MULTI DOSE VIAL) ONE (13:27)
[2017-10-28] MEDS ORDERED: BACITRACIN 15 GM TUBE TOPICAL OINTMENT ONE (13:28)
[2017-10-28] MEDS ORDERED: THROMBIN (BOVINE) 5,000 UNIT VIAL TP ONE (13:28)
[2017-10-28] MEDS ORDERED: BUPIVACAINE HCL/PF 0.5% (5MG/ML) 10 ML VIAL ONE (13:28)
[2017-10-28] MEDS ORDERED: DEXAMETHASONE SOD PHOSPHATE/PF 10 MG/ML SDV ONE (13:59)
[2017-10-28] MEDS ORDERED: ceFAZolin SODIUM 1 GM VIAL IVPB ONE (14:36)
[2017-10-28] MEDS ORDERED: COCAINE HCL 4% TOPICAL SOLUTION 4 ML BOTTLE TP ONE ×2 (14:51→17:45)
[2017-10-28] MEDS ORDERED: LIDOCAINE 1%/EPI 1:100000 (20 ML MULTI DOSE VIAL) IJ ONE (15:21)
--- NOTE | 2017-10-28 16:52 | PN ---
Physical Exam: SUBJECTIVE: OBJECTIVE: Medical coverage for Dr. Galeano Patient to have surgery today for sinus repair Chart reviewed, labs and vitals reviewed Unable to see patient as she was in the OR Attempted to see patient on 8th floor and in ICU Patient is s/p: placement of lumbar CSF drain, harvest of L fascia deonna and fat graft, transsphenoidal patching/packing of L sphenoid sinus, microdissection Vital Signs Period Temp Pulse Resp BP Sys/Alonso Pulse Ox Last 24 Hr 98.3 F-98.5 F 78-80 18-20 116-124/65-73 98 Active Medications Generic Name Dose Route Start Last Admin Trade Name Freq PRN Reason Stop Dose Admin Acetaminophen 650 mg 10/16/17 22:59 10/24/17 21:21 Tylenol - PO 650 mg Q6H PRN Administration PAIN LEVEL 1-5 Potassium Chloride/Dextrose/Sod Cl 20 meq in 1,000 mls @ 100 mls/hr 10/28/17 06:00 10/28/17 06:05 D5-1/2ns+20 Meq Kcl - IV 100 mls/hr ASDIR NEGRITO Administration CEFTRIAXONE IN IS-OSM DEXTROSE 2 gm in 50 mls @ 100 mls/hr 10/28/17 11:00 09/15 11:26 Ceftriaxone 2 Gm-D5w Bag IVPB 100 mls/hr DAILY NEGRITO Administration Ranitidine HCl 150 mg 10/17/17 10:00 10/28/17 11:26 Zantac - PO Not Given BID NEGRITO Sodium Chloride 2 spray 10/16/17 22:59 [place] Nasal [place] - NS TID PRN NASAL CONGESTION ASSESSMENT/PLAN:
[2017-10-28] MEDS ORDERED: ACETAMINOPHEN WITH CODEINE 300MG/30MG TABLET PO PRN (17:02)
[2017-10-28] MEDS ORDERED: ONDANSETRON 4 MG/2 ML VIAL IVPUSH PRN ×2 (17:02→17:50)
--- NOTE | 2017-10-28 17:11 | OP ---
Operative Note - Note: Operative Date: 10/28/17 Pre-Operative Diagnosis: Sphenoid sinusits, skull base erosion with bacterial meningitis, CSF fistula Operation: Place of lumbar CSF drain (sales assistant entertainment and media Dr Bates); harvest of L fascia deonna and fat graft (sales assistant entertainment and media Dr Bates); endoscopic transsphenoidal decompression and patching/packing of L sphenoid sinus and CSF leak repairs (co- surgery with Dr Rousseau); microdissection with operating microscope; spinal fluoroscopy Findings: CSF fistula; sinus wall dehiscence Implants: fascia deonna and fat Surgeon: Alberto Dueñas (co-surg Candi Rousseau) Clothing Patternmaker: Gilbert Bates (for drain and grafts) Anesthesiologist/IT SALES CONSULTANT: Kamran Lowe Anesthesia: General Specimens Removed: CSF, sinus mucosa Estimated Blood Loss (mls): 50 Drains & Tubes with Location: lumbar CSF drain L2-3 interspace
[2017-10-28] MEDS ORDERED: NEOSTIGMINE METHYLSULFATE 0.5 MG/ML - 10 ML MDV ONE (17:17)
[2017-10-28] MEDS ORDERED: GLYCOPYRROLATE 0.2 MG/1 ML VIAL ONE (17:17)
--- NOTE | 2017-10-28 17:29 | OP ---
Operative Note - Note: Operative Date: 10/28/17 ([id number]) Pre-Operative Diagnosis: cerebrospinal fluid leak, left sphenoid sinus. deviated septum to left Operation: endoscopic transseptal, transsphenoidal approach with neurosurgical microscopic skull base craniotomy and repair of cerebrospinal fluid leak, image guidance Findings: nasal septum deviated to left anteriorly sphenoid sinus with cerebrospinal fluid leak left side Implants: none Post-Operative Diagnosis: Same as Pre-op Surgeon: Kenny Rousseau (Alberto Dueñas MD Co-surgeon) Anesthesiologist/PRESSER FIRST: Kamran Lowe Anesthesia: General Specimens Removed: nasal septal, sphenoid tissue Estimated Blood Loss (mls): 5 Blood Volume Replaced (mls): 0 Operative Report Dictated: Yes
[2017-10-28] MEDS ORDERED: LACTATED RINGERS SOLUTION 1,000 ML IV SCH (18:00)
[2017-10-28] MEDS: ACETAMINOPHEN 1000 MG/100 ML VIAL (NON FORMULARY) IVPB PRN (20:49)
--- NOTE | 2017-10-28 21:24 | HOSP ---
Subjective - Review of Symptoms Events since last encounter: Hospitalist Encounter Was asked to see the patient who was in surgery all day s/p Sinus Repair POD #0 Subjective: Arrived to bedside, patient is asleep but arousable, patient reports headache, and states she was just medicated Patient also reports having itching to her abdominal fold region HEENT: Yes: Head Aches Other Systems: Integumentary: Itching to her abdominal fold Physical Examination Vital Signs: Vital Signs Temperature 97.0 F L 10/28/17 20:00 Pulse Rate 69 10/28/17 21:00 Respiratory Rate 20 10/28/17 21:00 Blood Pressure 132/82 10/28/17 21:00 O2 Sat by Pulse Oximetry (%) 99 10/28/17 21:00 Constitutional: Yes: Well Nourished, No Distress, Calm, Obese Eyes: Yes: WNL, Conjunctiva Clear, EOM Intact, Tearing HENT: Yes: WNL, Atraumatic, Normocephalic Neck: Yes: WNL, Supple, Trachea Midline Cardiovascular: Yes: Regular Rate and Rhythm, S1, S2 Respiratory: Yes: WNL, Regular, CTA Bilaterally, Other Gastrointestinal: Yes: Abdomen, Obese, Hypoactive Bowel Sounds Renal/: Yes: [place] Present (yeloow urine in drainge bag) Breast(s): Yes: Left, Right Musculoskeletal: Yes: WNL Extremities: Yes: WNL Edema: No Peripheral Pulses WNL: Yes Integumentary: Yes: Erythema (abdominal fold), Rash (abdominal fold with erythema) Neurological: Yes: WNL, Alert, Oriented, Cran Nerves II-XII Intact ...Motor Strength: WNL Psychiatric: Yes: WNL, Alert, Oriented Labs: CBC, BMP 10/25/17 07:30 10/25/17 06:30 Laboratory Results - last 24 hr 10/28/17 17:45 CSF Total Protein 42 Intake & Output 10/25/17 10/26/17 10/27/17 10/28/17 23:59 23:59 23:59 23:59 Intake Total 200 1000 1100 1700 Output Total 1850 Balance 200 1000 1100 -150 Current Medications Generic Name Dose Route Start Last Admin Trade Name Freq PRN Reason Stop Dose Admin Acetaminophen 650 mg 10/16/17 22:59 10/24/17 21:21 Tylenol - PO 650 mg Q6H PRN Administration PAIN LEVEL 1-5 Acetaminophen 1,000 mg 10/28/17 20:39 10/28/17 20:49 Ofirmev Injection - IVPB 1,000 mg Q6H PRN Administration PAIN Acetaminophen/Codeine Phosphate 1 tab 10/28/17 17:02 Tylenol # 3 - PO Q4H PRN PAIN LEVEL 6-10 Docusate Sodium 100 mg 10/28/17 22:00 Colace - PO TID NEGRITO Fentanyl 50 mcg 10/28/17 17:50 Sublimaze Injection - IVPUSH 10/28/17 23:59 [id number] PRN PAIN-PACU ORDER X 4 DOSES ONLY Potassium Chloride/Dextrose/Sod Cl 20 meq in 1,000 mls @ 100 mls/hr 10/28/17 06:00 10/28/17 19:50 D5-1/2ns+20 Meq Kcl - IV 0 mls ASDIR NEGRITO Administration CEFTRIAXONE IN IS-OSM DEXTROSE 2 gm in 50 mls @ 100 mls/hr 10/28/17 11:00 09/15 11:26 Ceftriaxone 2 Gm-D5w Bag IVPB 100 mls/hr DAILY NEGRITO Administration Lactated Ringer's 1,000 mls @ 125 mls/hr 10/28/17 18:00 Lactated Ringers Solution IV ASDIR NEGRITO Nystatin 1 applic 10/28/17 21:45 Nystop Powder - TP DAILY [facility] Ondansetron HCl 4 mg 10/28/17 17:02 Zofran Injection IVPUSH Q6H PRN NAUSEA Ondansetron HCl 4 mg 10/28/17 17:50 Zofran Injection IVPUSH Q6H PRN NAUSEA AND/OR VOMITING Pantoprazole Sodium 40 mg 10/29/17 10:00 Protonix Iv IVPUSH DAILY [facility] Sodium Chloride 2 spray 10/29/17 10:00 [place] Nasal [place] - NS BID [facility] Hospitalist Encounter Assessment: Patient is s/p: placement of lumbar CSF drain, harvest of L fascia deonna and fat graft, transsphenoidal patching/packing of L sphenoid sinus, microdissection Plan Continue current regimen Will add Nystatin Powder to Abdominal fold- rash Critical Care Total Critical Care Time (in minutes): 31 Critical Care Statement: The care of this patient involved high complexity decision making to prevent further life threatening deterioration of the patient 's condition and/or to evaluate & treat vital organ system(s) failure or risk of failure.
[2017-10-28] MEDS: DOCUSATE SODIUM 100 MG CAPSULE (FP) PO SCH (22:00)
--- NOTE | 2017-10-28 22:13 | CONSULT ---
Consult Consult Specialty:: Pulmonary Critical Care Reason for Consultation:: Post op monitoring - History of Present Illness Chief Complaint: Headache History of Present Illness: 62 yo female with h/o breast Ca, HTN who was initially admitted on 10/14 with bacterial meningitis. Her course was c/b pneumocephalus 2/2 mastoiditis as well as CSF leak/rhinorrhea from L sphenoid sinus. She has been followed by ENT and neurosurgery, has been on ceftriaxone since admission. Today she went to OR where she underwent placement of lumbar CSF drain as well as harvest of L fascia deonna and fat graft and transsphenoidal patching/packing of L sphenoid sinus. Active Medications Acetaminophen (Tylenol -) 650 mg PO Q6H PRN PRN Reason: PAIN LEVEL 1-5 Last Admin: 10/24/17 21:21 Dose: 650 mg Acetaminophen (Ofirmev Injection -) 1,000 mg IVPB Q6H PRN PRN Reason: PAIN Last Admin: 10/28/17 20:49 Dose: 1,000 mg Acetaminophen/Codeine Phosphate (Tylenol # 3 -) 1 tab PO Q4H PRN PRN Reason: PAIN LEVEL 6-10 Docusate Sodium (Colace -) 100 mg PO TID NEGRITO Fentanyl (Sublimaze Injection -) 50 mcg IVPUSH [id number] PRN PRN Reason: PAIN-PACU ORDER X 4 DOSES ONLY Stop: 10/28/17 23:59 Potassium Chloride/Dextrose/Sod Cl (D5-1/2ns+20 Meq Kcl -) 20 meq in 1,000 mls @ 100 mls/hr IV ASDIR NEGRITO Last Admin: 10/28/17 19:50 Dose: 0 mls CEFTRIAXONE IN IS-OSM DEXTROSE (Ceftriaxone 2 Gm-D5w Bag) 2 gm in 50 mls @ 100 mls/hr IVPB DAILY NEGRITO Last Admin: 10/28/17 11:26 Dose: 100 mls/hr Lactated Ringer's (Lactated Ringers Solution) 1,000 mls @ 125 mls/hr IV ASDIR NEGRITO Nystatin (Nystop Powder -) 1 applic TP DAILY NEGRITO Ondansetron HCl (Zofran Injection) 4 mg IVPUSH Q6H PRN PRN Reason: NAUSEA Ondansetron HCl (Zofran Injection) 4 mg IVPUSH Q6H PRN PRN Reason: NAUSEA AND/OR VOMITING Pantoprazole Sodium (Protonix Iv) 40 mg IVPUSH DAILY NEGRITO Sodium Chloride ([place] Nasal [place] -) 2 spray NS BID NEGRITO - Past Medical History Cardio/Vascular: Yes: HTN ...: No - Past Surgical History Past Surgical History: Yes: Breast Biopsy (image guided core needle biopsy) - Alcohol/Substance Use Hx Alcohol Use: No - Smoking History Smoking history: Former smoker Have you smoked in the past 12 months: No Aproximately how many cigarettes per day: 0 - Social History Usual Living Arrangement: With Spouse 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 Home Medications - Allergies Allergies/Adverse Reactions: Allergies Allergy/AdvReac Type Severity Reaction Status Date / Time No Known Allergies Allergy Verified 10/14/17 07:57 - Home Medications Home Medications: Ambulatory Orders RX: Aspirin [ASA -] 81 mg PO DAILY 05/25/12 Multivitamins [Tab-A-Vit -] 1 tab PO DAILY 07/16/16 Valsartan/Hydrochlorothiazide [Valsartan-Hctz 80-12.5 mg Tab] 1 each PO DAILY Physical Exam Vital Signs: Vital Signs Temperature 97.0 F L 10/28/17 20:00 Pulse Rate 69 10/28/17 21:00 Respiratory Rate 20 10/28/17 21:00 Blood Pressure 132/82 10/28/17 21:00 O2 Sat by Pulse Oximetry (%) 99 10/28/17 21:00 Constitutional: Yes: No Distress Cardiovascular: Yes: Regular Rate and Rhythm Respiratory: Yes: CTA Bilaterally Gastrointestinal: Yes: Soft, Abdomen, Obese Edema: No Neurological: Yes: WNL Labs: CBC, BMP 10/25/17 07:30 10/25/17 06:30 Problem List - Problems (1) Acute bacterial meningitis Code(s): G00.9 - BACTERIAL MENINGITIS, UNSPECIFIED (2) Acute sinusitis Code(s): J01.90 - ACUTE SINUSITIS, UNSPECIFIED Qualifiers: Sinusitis location: sphenoidal Recurrence: non-recurrent Qualified Code(s ): J01.30 - Acute sphenoidal sinusitis, unspecified (3) Mastoiditis Code(s): H70.90 - UNSPECIFIED MASTOIDITIS, UNSPECIFIED EAR Qualifiers: Laterality: left Qualified Code(s): H70.92 - Unspecified mastoiditis, left ear Assessment/Plan 62 yo female with h/o breast Ca, HTN who was initially admitted on 10/14 with bacterial meningitis. Her course was c/b pneumocephalus 2/2 mastoiditis as well as CSF leak/rhinorrhea from L sphenoid sinus; now s/p placement of lumbar CSF drain as well as harvest of L fascia deonna and fat graft and transsphenoidal patching/packing of L sphenoid sinus. -ENT and neurosurgery following -CSF drain, drain 10cc Q1hr as per surgery -ID following -cont ceftriaxone (day 15 today) -NPO -cont maintenance fluids -antiemetics prn -supplemental O2 -venodynes -cont nexium REGINE Cunningham Critical Care time: 35 min
[2017-10-29] MEDS: ACETAMINOPHEN 1000 MG/100 ML VIAL (NON FORMULARY) IVPB PRN ×2 (05:48→17:29)
[2017-10-29 07:43] LABS: BASO % 0.5 % (0-2.0); EOS % 0.1 % (0-4.5); HEMATOCRIT 40.7 % (32.4-45.2); HEMOGLOBIN 13.4 GM/dL (10.7-15.3); LYMPH % 4.8 % (8-40); MCH 30.9 pg (25.7-33.7); MCHC 32.9 g/dl (32.0-36.0); MEAN CELL VOLUME 94.1 fl (80-96); MEAN PLT VOLUME 7.2 fl (7.5-11.1); MONO % 8.3 % (3.8-10.2); NEUT % 86.3 % (42.8-82.8); PLATELET COUNT 267 K/MM3 (134-434); RBC 4.33 M/mm3 (3.60-5.2); RDW 14.2 % (11.6-15.6); WHITE BLOOD COUNT 6.7 K/mm3 (4.0-10.0)
[2017-10-29 08:02] LABS: ALBUMIN 2.9 g/dl (3.4-5.0); ANION GAP 5 (8-16); BILIRUBIN,TOTAL 0.4 mg/dL (0.2-1.0); BLOOD UREA NITROGEN 11 mg/dL (7-18); CALCIUM 8.9 mg/dL (8.5-10.1); CHLORIDE 104 mmol/L (98-107); CO2 28 mmol/L (21-32); CREATININE 0.7 mg/dL (0.55-1.02); GLUCOSE,RANDOM 128 mg/dL (74-106); MAGNESIUM 1.9 mg/dL (1.8-2.4); POTASSIUM 4.6 mmol/L (3.5-5.1); SGOT/AST 10 U/L (15-37); SGPT/ALT 22 U/L (12-78); SODIUM 137 mmol/L (136-145); TOT PROT 6.5 g/dl (6.4-8.2)
[2017-10-29 08:03] LABS: ALK PHOS 48 U/L (45-117)
--- NOTE | 2017-10-29 08:08 | PN ---
Progress Note (short form) - Note Progress Note: NEUROSURGERY POD #1 No H/A. No N/V. Tolerating breakfast Sitting up in chair PE: Tmax 98.6, AF, VSS Lumbar drain output- 10 cc /hr HEENT- NC/AT; Neck- supple, no nuchal rigidity; Cor- RRR; Lungs- CTA; Abd- benign; Ext- no sign of DVT CN- intact II-XII; Motor- 5/5 without drift; Sensation- intact LT/vibration WBC trending down to 6.7; Hgb 13.4 CT sinuses: L lateral sphenoid bone erosion with defect extending and into L carotid canal Strep pneumoniae meningitis with CSF rhinorrhea S/p sphenoid sinus patching/tissue glue after initial lumbar CSF drain placement then fascia deonna/fat graft post-op care discussed HOB flat; side to side OK Cont lumbar drain for at least 72 hours total, will reassess after nasal packing out SCD's D/w RN and ICU team On ceftriaxone
--- NOTE | 2017-10-29 08:43 | PN ---
Physical Exam: SUBJECTIVE: Patient seen and examined in the ICU. Patient resting, supine: in no acute distress. on tent mask OBJECTIVE: Patient is s/p placement of lumbar CSF drain, harvest of L fascia deonna and fat graft, transsphenoidal patching/packing of L sphenoid sinus, microdissection Vital Signs Period Temp Pulse Resp BP Sys/Alonso Pulse Ox Last 24 Hr 97.0 F-98.6 F 64-82 13-20 103-157/56-86 98-100 GENERAL: The patient is awake, alert, and fully oriented, in no acute distress. HEAD: Normal with no signs of trauma. EYES: PERRL, extraocular movements intact, sclera anicteric, conjunctiva clear. No ptosis. ENT: Ears normal, nares patent, oropharynx clear without exudates, moist mucous membranes. NECK: Trachea midline, full range of motion, supple. LUNGS: anterior lungs diminished/clear to auscultation, no accessory muscle use HEART: Regular rate and rhythm ABDOMEN: Soft, nontender, nondistended, normoactive bowel sounds, no guarding, no rebound, no hepatosplenomegaly, no masses. EXTREMITIES: no edema. NEUROLOGICAL: Normal speech, gait not observed. PSYCH: Normal mood, normal affect. SKIN: Warm, dry, normal turgor, no rashes or lesions noted Laboratory Results - last 24 hr 10/28/17 10/28/17 10/29/17 17:45 17:45 07:00 WBC RBC Hgb Hct MCV MCH MCHC RDW Plt Count MPV Neutrophils % Lymphocytes % Monocytes % Eosinophils % Basophils % Sodium 137 Potassium 4.6 Chloride 104 Carbon Dioxide 28 Anion Gap 5 L BUN 11 Creatinine 0.7 Creat Clearance w eGFR > 60 Random Glucose 128 H Calcium 8.9 Magnesium 1.9 Total Bilirubin 0.4 AST 10 L ALT 22 Alkaline Phosphatase 48 Total Protein 6.5 Albumin 2.9 L CSF Glucose 50 CSF Total Protein 42 10/29/17 10/29/17 07:00 07:00 WBC 6.7 RBC 4.33 Hgb 13.4 Hct 40.7 MCV 94.1 MCH 30.9 MCHC 32.9 RDW 14.2 Plt Count 267 MPV 7.2 L Neutrophils % 86.3 H Lymphocytes % 4.8 L Monocytes % 8.3 Eosinophils % 0.1 D Basophils % 0.5 D Sodium Potassium Chloride Carbon Dioxide Anion Gap BUN Creatinine Creat Clearance w eGFR Random Glucose Calcium Magnesium Cancelled Total Bilirubin AST ALT Alkaline Phosphatase Total Protein Albumin CSF Glucose CSF Total Protein Active Medications Generic Name Dose Route Start Last Admin Trade Name Freq PRN Reason Stop Dose Admin Acetaminophen 650 mg 10/16/17 22:59 10/24/17 21:21 Tylenol - PO 650 mg Q6H PRN Administration PAIN LEVEL 1-5 Acetaminophen 1,000 mg 10/28/17 20:39 10/29/17 05:48 Ofirmev Injection - IVPB 1,000 mg Q6H PRN Administration PAIN Acetaminophen/Codeine Phosphate 1 tab 10/28/17 17:02 Tylenol # 3 - PO Q4H PRN PAIN LEVEL 6-10 Docusate Sodium 100 mg 10/28/17 22:00 10/28/17 22:00 Colace - PO Not Given TID NEGRITO Potassium Chloride/Dextrose/Sod Cl 20 meq in 1,000 mls @ 100 mls/hr 10/28/17 06:00 10/28/17 19:50 D5-1/2ns+20 Meq Kcl - IV 0 mls ASDIR NEGRITO Administration CEFTRIAXONE IN IS-OSM DEXTROSE 2 gm in 50 mls @ 100 mls/hr 10/28/17 11:00 09/15 11:26 Ceftriaxone 2 Gm-D5w Bag IVPB 100 mls/hr DAILY NEGRITO Administration Nystatin 1 applic 10/28/17 21:45 10/29/17 00:00 Nystop Powder - TP 1 applic DAILY NEGRITO Administration Ondansetron HCl 4 mg 10/28/17 17:02 Zofran Injection IVPUSH Q6H PRN NAUSEA Ondansetron HCl 4 mg 10/28/17 17:50 Zofran Injection IVPUSH Q6H PRN NAUSEA AND/OR VOMITING Pantoprazole Sodium 40 mg 10/29/17 10:00 Protonix Iv IVPUSH DAILY NEGRITO Sodium Chloride 2 spray 10/29/17 10:00 [place] Nasal [place] - NS BID NEGRITO ASSESSMENT/PLAN: Patient is a 62 year old female with a significant past medical history of stage III breast invasive ductal carcinoma (s/p radiation therapy) and hypertension. Patient presented to the ED on 10/14/2017 with a worsening frontal headache associated with photophobia, phonophobia, and 4 episodes of non biliary, non bloody emesis. Patient was initially admitted for pneumococcal meningitis but hospital course complicated by pneumocephalus secondary to mastoiditis and CSF leak from left sinus. Neuro: CSF leak from left sinus - POD #1 Patient is s/p placement of lumbar CSF drain, harvest of left fascia deonna fat graft, transsphenoidal patching of left sphenoid sinus and microdissection Lumbar drainage of CSF to 10cc/hr Neuro checks Monitor to headaches Intake and output of drain Neurosurgery following Pneumococcal meningitis On Ceftriaxone per ID Card: Hypertension, chronic Monitor BP F.E.N. Fluids: D5 1/2 + 20meq Electrolytes: Monitor labs daily Nutrition: full liquids once cleared by neurosurgery Prophy: SCDs bilaterally Protonix IV push daily Disposition: full code. Visit type - Emergency Visit Emergency Visit: Yes ED Registration Date: 10/14/17 Care time: The patient presented to the Emergency Department on the above date and was hospitalized for further evaluation of their emergent condition. - New Patient This patient is new to me today: No - Critical Care Critical Care patient: Yes Total Critical Care Time (in minutes): 25 - Discharge Referral Referred to [facility] Med P.C.: No
--- NOTE | 2017-10-29 09:21 | PN ---
Progress Note (short form) - Note Progress Note: Anesthesia postop note 62y/o F s/p GA for Transsinus repair of csf fistula, lumbar drain placement POD#1, vss, aaox3, no complaints. No anesthesia complications.
[2017-10-29] MEDS ORDERED: PT OWN MED DRAWER 7, Y5N ONE (09:22)
[2017-10-29] MEDS: NYSTATIN POWDER 100,000 UNITS/GM - 15 GM TOPICAL POWDER TP SCH ×2 (09:30)
[2017-10-29] MEDS: PANTOPRAZOLE SODIUM 40 MG VIAL IVPUSH SCH (09:30)
--- NOTE | 2017-10-29 09:45 | PN ---
Progress Note (short form) - Note Progress Note: POD #1 s/p surgery to repair csf leak last night laying flat in bed alert Vital Signs Period Temp Pulse Resp BP Sys/Alonso Pulse Ox Last 24 Hr 97.0 F-98.6 F 64-82 13-20 103-157/56-86 99-100 cor-rrr lung clear abd soft,nt ext no edema lumbar drain carlson CBC, BMP 18 07:00 10/29/18 07:00 Microbiology 18 17:45 Cerebral Spinal Fluid - Lumbar Puncture Gram Stain - Final 10/28/18 17:45 Cerebral Spinal Fluid - Lumbar Puncture Gram Stain - Final 10/28/18 17:45 Cerebral Spinal Fluid - Lumbar Puncture AFB Smear Concentration - Preliminary 10/28/18 17:45 Cerebral Spinal Fluid - Lumbar Puncture Mycobacterial Culture - Preliminary a/p pod #1 s/p repair of csf leak pneumococcal meningitis/sphenoid sinusitis continue ceftriaxone as ordered d/w Dr Dueñas
[2017-10-29] MEDS: CEFTRIAXONE 2 GM in DEXTROSE 5%-WATER - 100 ML IVPB SCH (10:17)
--- NOTE | 2017-10-29 12:39 | OP ---
DATE OF OPERATION: 10/28/2017 PREOPERATIVE DIAGNOSES: 1. Streptococcus pneumoniae meningitis. 2. Left sphenoid sinusitis with skull base erosion. 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 4. Obesity. POSTOPERATIVE DIAGNOSES: 1. Streptococcus pneumoniae meningitis. 2. Left sphenoid sinusitis with skull base erosion. 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 4. Obesity. ATTENDING SURGEON: Alberto Dueñas MD CO-SURGEON: Kenny Rousseau MD (for endoscopic sinus decompression, intraoperative navigation, and skull base CSF repair). SOLE LEVELER MACHINE: Gilbert Bates MD (for placement of lumbar drain and harvest of left fascia deonna and fat graft harvest). ANESTHESIA: General endotracheal. ANESTHESIOLOGIST: Kamran Lowe MD PROCEDURES: 1. Endoscopic sinus decompression, sphenoid sinus (01701-16). 2. Basal craniotomy for cerebrospinal fluid repair (61295-50). 3. Intraoperative stereotactic navigation (01115-46). 4. Microsurgical dissection with the operative microscope and microsurgical technique (46320). 5. Lumbar drain placement for therapeutic cerebrospinal fluid drainage (82548) . 6. Intra-operative fluoroscopy for localization and drain placement (34022-50) 6. Left fascia deonna and fat graft harvest through a separate incision (33318-29 ). FINDINGS: 1. Dehiscence of cranial skull base, sphenoid sinus, lateral wall. 2. Left sphenoid sinus mucosa inflammation - edema with fluid collection. INDICATIONS: The patient is a 62-year-old female who was admitted to the hospital a week plus earlier with bacterial meningitis. She was treated for Streptococcus pneumoniae meningitis. She has elevated CSF protein and white blood cell count. She underwent IV antibiotic course treatment and she defervesced with improved mental status. She started to develop CSF leak about 4-5 days afterwards through her left nostril. This was tested for beta-2 microglobulin, which was positive, which was 2.5 and it was also glucose stick positive. Because of her persistent CSF leak, and CT scan evidence of base of skull defect, she was consented for endoscopic sinus exploration/decompression, lumbar drain placement, CSF repair, and fascia deonna/ fat graft harvest. The risks of the procedure included, but are not limited to bleeding, infection, persistent CSF leak, meningitis, neurological injury, stroke, coma, and other risks of general anesthesia. The patient understands indications for the procedure, procedure in detail, risks and benefits and alternative treatment of her condition and wished to proceed. No guarantees given for favorable outcome. Dr. Kenny Rousseau is the co-Surgeon for the endoscopic sinus procedure, base of skull CSF repair and intraoperative navigation, while Dr. Bates will assist on the lumbar drain placement and the left side fascia deonna graft harvest and fat graft harvest. PROCEDURE IN DETAIL: The patient was taken to the operating room and properly identified. OR timeout procedure was followed. At this point, after general anesthesia was induced and appropriate monitoring lines were placed and Engel catheter was inserted, the patient was turned to the prone position on a Berhane frame. All pressure points were checked and padded. Lumbar spine was placed in slightly flexed position. Posterior lumbar region was cleaned with alcohol and prepped with Betadine. A trocar was inserted at L2-3 interspinous space and advanced towards the midline. This was done with fluoroscopic guidance. The needle was advanced through the ligamentum flavum and into the dura at which point CSF was identified. CSF was then sent for glucose, protein cells, Gram stain and culture. The needle bevel was turned cephalad. The 80 cm intrathecal catheter was inserted. The guidewire was first placed into the catheter. The catheter was then threaded to about 18 cm from the skin surface at which point the Tuohy needle was removed. CSF flow continued and the hub was placed onto the catheter and sewn down with 3-0 Prolene suture. The area was covered with 2x2 in gauze and secured with Tegaderm. The catheter tip was then near the T11 vertebral body level seen on AP fluoroscopic imaging. The catheter was then hooked down to a drainage bag/chamber and 10 mL of CSF was drained initially. It was to be drained about 10 mL per hour during the procedure as well. At this point, the patient was turned back to the supine position taking care not to disrupt the drainage system that was just placed. The procedure was then turned over to Dr. Kenny Rousseau at this point for endoscopic sinus procedure and navigation. As the endoscopic sinus procedure was being performed by the co-surgeon, the left fascia deonna graft was opened through approximately a 3-inch lateral thigh incision. The fascia deonna was identified with exposure being fairly deep. A 2 x 2 cm fascia deonna graft was harvested, as well as a couple cubic centimeters of fat graft. These grafts were placed in saline. After hemostasis was obtained, the thigh incision was closed with 3-0 Vicryl suture in the subcutaneous layer and 4-0 Vicryl running subcuticular suture. Steri-Strips and sterile dressing were applied. After the endoscopic sinus transseptal approach was performed by Dr. Kenny Rousseau and the sphenoid sinus mucosa was opened, the mucosa had been partially removed by Dr. Rousseau. Further removal of the sinus mucosa was carried out with a combination of bipolar cautery and pituitary rongeur. Skull defect was noted laterally where removal of sinus mucosa was less aggressive because of the ICA eroding through the lateral sphenoid sinus wall. Hemostasis was obtained. Operating microscope was brought in for illumination and magnification after it was sterilely draped. The bony dehiscence was noted and was identified. With the established transnasal transseptal approach, the nasal speculum was placed by the ENT co-Surgeon earlier. The microscope was used for microsurgical dissection and illumination. Further removal of sinus mucosa was carried out. No obvious pituitary fossa floor (sella) dehiscence was noted. Hemostasis was obtained with bipolar cautery. At this point, the fascia deonna graft was placed through the left sphenoid sinus opening. It was then packed with previously harvested fat graft as well from the left thigh. There was no bleeding from the carotid artery, even though there was slight venous oozing from sinus mucosa and the exposed sphenoid sinus bone earlier. After the sinus was packed for CSF repair, the navigation system was used to ascertain exposure once again. The area was dried with a cottonoid and suction, and a thin layer of DuraSeal was placed over the surgical at the floor of sphenoid sinus. A piece of cottonoid was then placed over the repair, and the procedure was once again turned back to Dr. Kenny Rousseau. The nasal packing and closure was dictated by Dr. Rousseau, as was the endoscopic sinus portion of the procedure under a separate heading. The patient received one dose of 2 g Ancef prior to incision. She also received 10 mg dexamethasone. The OR timeout procedure was followed. Needle and lap counts were correct. The CSF drainage was continuous throughout the procedure and was draining about 10 mL per hour. The patient awoke in the operating room, was extubated. She was moving bilateral upper and lower extremities well. She also has intact cranial nerve examination. The intraoperative findings and patient condition were discussed with the patient's family in the surgical waiting area. Yosef OLIVO/[id number] cc: Dr. Kenny DUMONT
--- NOTE | 2017-10-29 13:37 | PN ---
Teaching Attending Note Name of Resident: Stella Tapia ATTENDING PHYSICIAN STATEMENT I saw and evaluated the patient. I reviewed the resident's note and discussed the case with the resident. I agree with the resident's findings and plan as documented. SUBJECTIVE: Patient seem and examined in the ICU. Awake and alert. POD#1: placement of a lumbar CSF drain, harvest of Left fascia deonna and fat graft, transsphenoidal patching/packing of Left sphenoid sinus, microdissection due to a CSF leak. Mild MCDONOUGH. No N/V. No CP or SOB. Intake & Output 10/26/17 10/27/17 10/28/17 10/29/17 23:59 23:59 23:59 23:59 Intake Total 1000 1100 2200 800 Output Total 2350 1350 Balance 1000 1100 -150 -550 Last Vital Signs Temp Pulse Resp BP Pulse Ox 97.4 F L 64 18 114/60 99 10/29/17 06:00 10/29/17 10:00 10/29/17 10:00 10/29/17 10:00 10/29/17 07:15 Active Medications Acetaminophen (Tylenol -) 650 mg PO Q6H PRN PRN Reason: PAIN LEVEL 1-5 Last Admin: 10/24/17 21:21 Dose: 650 mg Acetaminophen (Ofirmev Injection -) 1,000 mg IVPB Q6H PRN PRN Reason: PAIN Last Admin: 10/29/17 05:48 Dose: 1,000 mg Acetaminophen/Codeine Phosphate (Tylenol # 3 -) 1 tab PO Q4H PRN PRN Reason: PAIN LEVEL 6-10 Docusate Sodium (Colace -) 100 mg PO TID [facility] Last Admin: 10/28/17 22:00 Dose: Not Given Potassium Chloride/Dextrose/Sod Cl (D5-1/2ns+20 Meq Kcl -) 20 meq in 1,000 mls @ 100 mls/hr IV ASDIR [facility] Last Admin: 10/28/17 19:50 Dose: 0 mls Ceftriaxone Sodium 2 gm/ (Dextrose) 100 mls @ 100 mls/hr IVPB DAILY [facility] Last Admin: 10/29/17 10:17 Dose: 100 mls/hr Nystatin (Nystop Powder -) 1 applic TP DAILY [facility] Last Admin: 10/29/17 09:30 Dose: 1 applic Ondansetron HCl (Zofran Injection) 4 mg IVPUSH Q6H PRN PRN Reason: NAUSEA Ondansetron HCl (Zofran Injection) 4 mg IVPUSH Q6H PRN PRN Reason: NAUSEA AND/OR VOMITING Pantoprazole Sodium (Protonix Iv) 40 mg IVPUSH DAILY [facility] Last Admin: 10/29/17 09:30 Dose: 40 mg Sodium Chloride ([place] Nasal [place] -) 2 spray NS BID [facility] GENERAL: Awake, alert, bandage HEAD: Normal with no signs of trauma. EYES: Pupils equal, round and reactive to light, extraocular movements intact, EARS, NOSE, THROAT: Ears normal, nares patent, oropharynx clear without exudates. NECK: Normal range of motion, supple without lymphadenopathy, no stiffness LUNGS: Breath sounds equal, clear to auscultation bilaterally. No wheezes, and no crackles. HEART: S1S2 ABDOMEN: Soft, nontender, not distended, normoactive bowel sounds, no guarding, no rebound, no masses. UPPER EXTREMITIES: 2+ pulses, warm, well-perfused. LOWER EXTREMITIES: 2+ pulses, warm, well-perfused. NEUROLOGICAL: Non-focal SKIN: Warm, dry, no petechiae Laboratory Results - last 24 hr 10/28/17 10/28/17 10/29/17 17:45 17:45 07:00 WBC RBC Hgb Hct MCV MCH MCHC RDW Plt Count MPV Neutrophils % Lymphocytes % Monocytes % Eosinophils % Basophils % Sodium 137 Potassium 4.6 Chloride 104 Carbon Dioxide 28 Anion Gap 5 L BUN 11 Creatinine 0.7 Creat Clearance w eGFR > 60 Random Glucose 128 H Calcium 8.9 Magnesium 1.9 Total Bilirubin 0.4 AST 10 L ALT 22 Alkaline Phosphatase 48 Total Protein 6.5 Albumin 2.9 L CSF Glucose 50 CSF Total Protein 42 10/29/17 10/29/17 07:00 07:00 WBC 6.7 RBC 4.33 Hgb 13.4 Hct 40.7 MCV 94.1 MCH 30.9 MCHC 32.9 RDW 14.2 Plt Count 267 MPV 7.2 L Neutrophils % 86.3 H Lymphocytes % 4.8 L Monocytes % 8.3 Eosinophils % 0.1 D Basophils % 0.5 D Sodium Potassium Chloride Carbon Dioxide Anion Gap BUN Creatinine Creat Clearance w eGFR Random Glucose Calcium Magnesium Cancelled Total Bilirubin AST ALT Alkaline Phosphatase Total Protein Albumin CSF Glucose CSF Total Protein ASSESSMENT/PLAN: POD#1: placement of a lumbar CSF drain, harvest of Left fascia deonna and fat graft, transsphenoidal patching/packing of Left sphenoid sinus, microdissection due to a CSF leak. Pneumococcal meningitis HTN Breast CA Mastoiditis / Sinusitis ABX per ID VTE prophylaxis O2 as needed Incentive Spirometry Positioning per Neurosurgery Dr Osorio Critical care time spent in reviewing chart, evaluating patient and formulating plan - 36 minutes.
[2017-10-29] MEDS: DOCUSATE SODIUM 100 MG CAPSULE (FP) PO SCH ×2 (13:45→21:09)
[2017-10-29] MEDS: SODIUM CHLORIDE NASAL SPRAY 44 ML BOTTLE NS SCH ×3 (13:51→21:09)
--- NOTE | 2017-10-29 14:58 | PN ---
Physical Exam: SUBJECTIVE: Patient seen and examinedin the ICU. AAOx3. Pt denies headache, chest pain, sob, abdominal pain, nausea, vomiting, fever, chills. Pt reports (+ ) flatus. OBJECTIVE: Vital Signs Period Temp Pulse Resp BP Sys/Alonso Pulse Ox Last 24 Hr 97.0 F-98.6 F 64-82 13-20 103-157/56-86 99-100 GENERAL: The patient is awake, alert, and fully oriented, in no acute distress. EYES: Extraocular movements intact, sclera anicteric, conjunctiva clear. No ptosis. NECK: Trachea midline, normal range of motion, supple, no stiffness. LUNGS: CTAB. HEART: Regular rate and rhythm, S1, S2 without murmur, rub or gallop. ABDOMEN: Soft, nontender, nondistended, normoactive bowel sounds, no guarding. EXTREMITIES: Warm, well-perfused, no edema. PSYCH: Normal mood, normal affect. SKIN: Warm, dry, normal turgor, no rashes or lesions noted Laboratory Results - last 24 hr 10/28/17 10/28/17 10/29/17 17:45 17:45 07:00 WBC RBC Hgb Hct MCV MCH MCHC RDW Plt Count MPV Neutrophils % Lymphocytes % Monocytes % Eosinophils % Basophils % Sodium 137 Potassium 4.6 Chloride 104 Carbon Dioxide 28 Anion Gap 5 L BUN 11 Creatinine 0.7 Creat Clearance w eGFR > 60 Random Glucose 128 H Calcium 8.9 Magnesium 1.9 Total Bilirubin 0.4 AST 10 L ALT 22 Alkaline Phosphatase 48 Total Protein 6.5 Albumin 2.9 L CSF Glucose 50 CSF Total Protein 42 10/29/17 10/29/17 07:00 07:00 WBC 6.7 RBC 4.33 Hgb 13.4 Hct 40.7 MCV 94.1 MCH 30.9 MCHC 32.9 RDW 14.2 Plt Count 267 MPV 7.2 L Neutrophils % 86.3 H Lymphocytes % 4.8 L Monocytes % 8.3 Eosinophils % 0.1 D Basophils % 0.5 D Sodium Potassium Chloride Carbon Dioxide Anion Gap BUN Creatinine Creat Clearance w eGFR Random Glucose Calcium Magnesium Cancelled Total Bilirubin AST ALT Alkaline Phosphatase Total Protein Albumin CSF Glucose CSF Total Protein Active Medications Generic Name Dose Route Start Last Admin Trade Name Freq PRN Reason Stop Dose Admin Acetaminophen 650 mg 10/16/17 22:59 10/24/17 21:21 Tylenol - PO 650 mg Q6H PRN Administration PAIN LEVEL 1-5 Acetaminophen 1,000 mg 10/28/17 20:39 10/29/17 05:48 Ofirmev Injection - IVPB 1,000 mg Q6H PRN Administration PAIN Acetaminophen/Codeine Phosphate 1 tab 10/28/17 17:02 Tylenol # 3 - PO Q4H PRN PAIN LEVEL 6-10 Docusate Sodium 100 mg 10/28/17 22:00 10/29/17 13:45 Colace - PO Not Given TID NEGRITO Potassium Chloride/Dextrose/Sod Cl 20 meq in 1,000 mls @ 100 mls/hr 10/28/17 06:00 10/28/17 19:50 D5-1/2ns+20 Meq Kcl - IV 0 mls ASDIR NEGRITO Administration Ceftriaxone Sodium 2 gm/ 100 mls @ 100 mls/hr 10/29/17 09:34 10/29/17 10:17 Dextrose IVPB 100 mls/hr DAILY NEGRITO Administration Nystatin 1 applic 10/28/17 21:45 10/29/17 09:30 Nystop Powder - TP 1 applic DAILY NEGRITO Administration Ondansetron HCl 4 mg 10/28/17 17:02 Zofran Injection IVPUSH Q6H PRN NAUSEA Ondansetron HCl 4 mg 10/28/17 17:50 Zofran Injection IVPUSH Q6H PRN NAUSEA AND/OR VOMITING Pantoprazole Sodium 40 mg 10/29/17 10:00 10/29/17 09:30 Protonix Iv IVPUSH 40 mg DAILY NEGRITO Administration Sodium Chloride 2 spray 10/29/17 10:00 10/29/17 14:02 [place] Nasal [place] - NS 2 sprays BID NEGRITO Administration ASSESSMENT/PLAN: 62F with PMH of htn, breast ca, initially admitted for pneumococcal meningitis, course complicated by pneumocephalus 2/2 mastoiditis and CSF leak from Left sphenoid sinus. # CSF leak - s/p placement of Lumbar CSF drain, harvest of Left fascia deonna and fat graft, transsphenoidal patching/packing of Left sphenoid sinus, and microdissection by Dr. Dueñas (Neurosurgery) and Dr. Rousseau (ENT) on 10/28/17 - POD #1 - Lumbar drain to put out 10 ml/hr of CSF, continue Lumbar drain for at least 72 hrs total - post-op care per Dr. Dueñas: keep HOB flat, movement of neck [id number] is OK - incentive spirometry - O2 prn - pain control with Ofirmev prn, Acetaminophen/Codeine prn, Tylenol prn - Zofran prn for nausea # Pneumococcal meningitis - blood culture (-) x 5 days from 10/14/17 - Day 15 of IV Ceftriaxone - ID on board # Acute sinusitis / mastoiditis - continue Nasal spray # htn - hold home meds for now as pt is normotensive # FEN - Fluids: D5-1/2 NS @ 100 ml/hr - Electrolytes: wnl, continue to monitor - Nutrition: full liquids # Prophylaxis - DVT ppx with katie SCDs - GI ppx with Protonix Visit type - Emergency Visit Emergency Visit: Yes ED Registration Date: 10/14/17 Care time: The patient presented to the Emergency Department on the above date and was hospitalized for further evaluation of their emergent condition. - New Patient This patient is new to me today: No - Critical Care Critical Care patient: Yes Total Critical Care Time (in minutes): 40 Critical Care Statement: The care of this patient involved high complexity decision making to prevent further life threatening deterioration of the patient 's condition and/or to evaluate & treat vital organ system(s) failure or risk of failure.
--- NOTE | 2017-10-29 18:11 | PN ---
Progress Note (short form) - Note Progress Note: ENT POD 1 s/p transseptal transsphenoidal endoscopic and microscopic repair of left sphenoid CSF leak with fascia deonna, fat and tissue glue some pain, controlled with analgesia, nose stuffy pt awake, alert, appears comfortable. supine in bed nose: no bleeding, septum intact, no hematoma. Impression: stable s/p surgery pt has absorbable nasal packing in each nasal cavity ([place]) Recommend:continue postop care nasal saline spray bid positioning as per Dr. Spenser Rousseau MD FACS
[2017-10-29] MEDS: D5-1/2NS+20 MEQ KCL - 20 MEQ/1,000 ML INFUS.BAG IV SCH (18:31)
--- NOTE | 2017-10-29 23:32 | OP ---
DATE OF OPERATION: 10/28/2017 PREOPERATIVE DIAGNOSIS: Cerebral spinal fluid leak, left sphenoid sinus with base of skull defect of left lateral sphenoid sinus with deviation of septum to the left, history of pneumococcal meningitis. POSTOPERATIVE DIAGNOSIS: Cerebral spinal fluid leak, left sphenoid sinus with base of skull defect of left lateral sphenoid sinus with deviation of septum to the left, history of pneumococcal meningitis. PROCEDURE: Endoscopic transeptal transsphenoidal approach to sphenoid sinus with neurosurgical microscopic skull base craniotomy and repair of cerebral spinal fluid leak, image guidance. CO-SURGEONS: Kenny Rousseau MD and Alberto Dueñas MD ANESTHESIOLOGIST: Kamran Lowe MD ANESTHESIA: General via endotracheal tube. INDICATIONS: This 62-year-old female had pneumococcal meningitis. CT scan demonstrated an opacified left sphenoid sinus and bony erosion of the left lateral sphenoid sinus near the carotid canal. She had active CSF rhinorrhea from the left nose. This failed to improve and she is now brought to surgery for repair of her cerebral spinal fluid leak. FINDINGS: CSF rhinorrhea from left sphenoid sinus, deviated septum to the left. PROCEDURE: Patient was brought to the operating room and underwent general anesthesia induction by the anesthesiologist. She was then positioned prone on the operating room table and Dr. Alberto Dueñas placed a lumbar drain using fluoroscopic guidance. After this was performed and secured, the patient was then transferred to the second operating room table in the supine position. The face was prepped and draped in the usual fashion. The nose was packed with cocaine 4% and lidocaine 1% with epinephrine 1:100,000 was infiltrated in the nasal septum. A total 8 mL was used. Concurrently, the left thigh was prepped and draped for harvesting fascia deonna and subcutaneous fat for the repair. This was performed by Dr. Gilbert Bates and Dr. Alberto Dueñas under separate dictation. The patient's CT scan data was uploaded to the [employer]. The patient was registered in the usual fashion and image guidance was used during the case to identify areas of surgical dissection and landmarks on the surgical field. A right nasal septal incision was created. A right mucoperichondrial flap was elevated. The bony cartilaginous junction was identified and . Bilateral mucoperiosteal flaps were elevated. There was deviated bony septum inferiorly to the left, which was removed with the osteotome. A perpendicular plate of the ethmoid was then carefully removed with a rongeur. Dissection was angled towards the face of the sphenoid sinus. As the dissection progressed, progressively longer self-retaining nasal specula were used to maintain the surgical field. The 0-degree telescope was then used for endoscopic visualization on high-definition monitor. Additional dissection and resection of the perpendicular plate of the ethmoid led to the face of the sphenoid sinus. This identity and position were confirmed using image navigation. Once the patient's sphenoid sinus was identified, the elevator was used to dissect the septal mucosa off of the anterior face. Bilateral bony ostia were then identified. These were then enlarged medially with the angled forceps. The face of the sphenoid sinus was then opened using a large forceps. The sphenoid sinus mucosa was then identified as well as the sphenoid sinus septum. A portion of the anterior sphenoid septum was removed. Sphenoid sinus mucosa on the left sphenoid sinus was then carefully elevated from the sphenoid septum as well as a bit of the roof and the floor of the sphenoid sinus. At this point, surgical visualization and treatment was turned over to Dr. Alberto Dueñas who utilized the neurosurgical microscope. He identified and repaired the cerebral spinal fluid leak of the lateral left sphenoid sinus using fascia deonna, abdominal fat, and tissue glue. After conclusion of the neurosurgical aspect and resolution of the CSF leak, attention was turned towards closing the septum. Hemostasis was excellent. Some bone from the perpendicular plate of the ethmoid, previously removed, was then replaced. The flaps were then reapproximated. The right septal incision was then closed with an interrupted 4-0 chromic. A [id number] quilting suture of 4-0 chromic was then used in the anterior septum. Nasopore dressing was placed along the nasal septum bilaterally. Patient tolerated the procedure well. She was then awakened from general anesthesia in stable condition. ESTIMATED BLOOD LOSS: From the nasal portion of the procedure was approximately 5 mL. FLUIDS: She received crystalloid during the procedure. SPECIMENS: Included nasal, septal, and sphenoid sinus tissue, which was sent to pathology for routine studies. COMPLICATIONS: There were no complications. KENNY ROUSSEAU M.D. [id number]
[2017-10-30] MEDS ORDERED: PT OWN MED DRAWER 7, Y5N ONE ×2 (00:13→09:18)
[2017-10-30] MEDS: ACETAMINOPHEN 1000 MG/100 ML VIAL (NON FORMULARY) IVPB PRN (00:53)
[2017-10-30] MEDS: D5-1/2NS+20 MEQ KCL - 20 MEQ/1,000 ML INFUS.BAG IV SCH ×2 (06:00→15:39)
[2017-10-30 06:19] LABS: BASO % 1.1 % (0-2.0); EOS % 1.9 % (0-4.5); HEMATOCRIT 38.8 % (32.4-45.2); HEMOGLOBIN 13.3 GM/dL (10.7-15.3); LYMPH % 9.5 % (8-40); MCH 32.1 pg (25.7-33.7); MCHC 34.2 g/dl (32.0-36.0); MEAN CELL VOLUME 93.8 fl (80-96); MEAN PLT VOLUME 7.5 fl (7.5-11.1); NEUT % 74.5 % (42.8-82.8); PLATELET COUNT 238 K/MM3 (134-434); RBC 4.14 M/mm3 (3.60-5.2); RDW 14.1 % (11.6-15.6); WHITE BLOOD COUNT 3.7 K/mm3 (4.0-10.0)
[2017-10-30] MEDS: DOCUSATE SODIUM 100 MG CAPSULE (FP) PO SCH ×3 (06:44→23:03)
--- NOTE | 2017-10-30 06:54 | PN ---
Progress Note, Physician Chief Complaint: ID Day 2 sinus repair for CSF leak Ceftriaxone - Current Medication List Current Medications: Active Medications Acetaminophen (Tylenol -) 650 mg PO Q6H PRN PRN Reason: PAIN LEVEL 1-5 Last Admin: 10/24/17 21:21 Dose: 650 mg Acetaminophen/Codeine Phosphate (Tylenol # 3 -) 1 tab PO Q4H PRN PRN Reason: PAIN LEVEL 6-10 Docusate Sodium (Colace -) 100 mg PO TID [facility] Last Admin: 10/30/17 06:44 Dose: Not Given Potassium Chloride/Dextrose/Sod Cl (D5-1/2ns+20 Meq Kcl -) 20 meq in 1,000 mls @ 100 mls/hr IV ASDIR [facility] Last Admin: 10/30/17 06:00 Dose: 100 mls/hr Ceftriaxone Sodium 2 gm/ (Dextrose) 100 mls @ 100 mls/hr IVPB DAILY [facility] Last Admin: 10/29/17 10:17 Dose: 100 mls/hr Nystatin (Nystop Powder -) 1 applic TP DAILY [facility] Last Admin: 10/29/17 09:30 Dose: 1 applic Ondansetron HCl (Zofran Injection) 4 mg IVPUSH Q6H PRN PRN Reason: NAUSEA Pantoprazole Sodium (Protonix Iv) 40 mg IVPUSH DAILY [facility] Last Admin: 10/29/17 09:30 Dose: 40 mg Sodium Chloride ([place] Nasal [place] -) 2 spray NS BID [facility] Last Admin: 10/29/17 21:09 Dose: 2 sprays - Objective Vital Signs: Vital Signs Temperature 98.2 F 10/30/17 06:00 Pulse Rate 54 L 10/30/17 06:00 Respiratory Rate 18 10/30/17 06:00 Blood Pressure 107/54 10/30/17 06:00 O2 Sat by Pulse Oximetry (%) 99 10/29/17 21:00 Constitutional: Yes: Well Nourished, No Distress Neck: Yes: WNL, Supple Cardiovascular: Yes: Regular Rate and Rhythm, S1, S2 Respiratory: Yes: WNL, Regular, CTA Bilaterally Gastrointestinal: Yes: WNL, Normal Bowel Sounds, Soft. No: Tenderness Edema: No Labs: CBC, BMP 10/30/17 06:05 INR, PTT INR 0.99 (0.82-1.09) 10/21/17 10:10 Problem List - Problems (1) Acute sinusitis Code(s): J01.90 - ACUTE SINUSITIS, UNSPECIFIED Qualifiers: Sinusitis location: sphenoidal Recurrence: non-recurrent Qualified Code(s ): J01.30 - Acute sphenoidal sinusitis, unspecified (2) Acute bacterial meningitis Code(s): G00.9 - BACTERIAL MENINGITIS, UNSPECIFIED (3) Invasive ductal carcinoma of breast, female Code(s): C50.919 - MALIGNANT NEOPLASM OF UNSP SITE OF UNSPECIFIED FEMALE BREAST Assessment/Plan Microbiology 10/28/17 17:45 Cerebral Spinal Fluid - Lumbar Puncture Gram Stain - Final 10/28/17 17:45 Cerebral Spinal Fluid - Lumbar Puncture JENIFER Preparation - Preliminary 10/28/17 17:45 Cerebral Spinal Fluid - Lumbar Puncture Fungal Culture - Preliminary Laboratory Tests 10/29/17 10/30/17 10/30/17 07:00 06:05 06:05 WBC 3.7 L D Hgb 13.3 Plt Count 238 Neutrophils % 74.5 Lymphocytes % 9.5 D Monocytes % 13.0 H Eosinophils % 1.9 D BUN 11 Pending Creatinine 0.7 Pending Assessment Pneumococcal meningitis CSF leak S/P surgical repair leak day 2 post op Leukopenia ? beta lactam Plan Continue prophylactic antibiotic Compression stockings Moniter CBC daily Dodie RICE
[2017-10-30 07:00] LABS: ANION GAP 9 (8-16); BLOOD UREA NITROGEN 11 mg/dL (7-18); CHLORIDE 102 mmol/L (98-107); CO2 28 mmol/L (21-32); CREATININE 0.7 mg/dL (0.55-1.02); GLUCOSE,RANDOM 138 mg/dL (74-106); MAGNESIUM 1.8 mg/dL (1.8-2.4); PHOSPHOROUS 3.6 mg/dL (2.5-4.9); POTASSIUM 4.8 mmol/L (3.5-5.1); SODIUM 139 mmol/L (136-145)
--- NOTE | 2017-10-30 07:52 | PN ---
Physical Exam: SUBJECTIVE: Patient seen and examined in the ICU. AAOx3. Pt able to breath room air through her nose, pt endorses that nasal packing is dissolving. Pt tolerating full liquid diet. Pt denies headache, dizziness, lightheadedness, nausea, vomiting, chest pain, sob, abdominal pain, fever, chills. OBJECTIVE: Vital Signs Period Temp Pulse Resp BP Sys/Alonso Pulse Ox Last 24 Hr 97.5 F-98.5 F 39-80 13-18 75-140/38-69 99 GENERAL: The patient is awake, alert, and fully oriented, in no acute distress. NECK: Supple, no stiffness. Lumbar CSF drain with 300ml total clear yellow drainage. LUNGS: diminished breath sounds to Right lung. Left lung CTA. No crackles appreciated. No accessory muscle use. HEART: Regular rate and rhythm, S1, S2 without murmur, rub or gallop. ABDOMEN: Soft, nontender, nondistended, normoactive bowel sounds, no guarding. EXTREMITIES: Warm, well-perfused, no edema. Left thigh graft site dressing CDI. PSYCH: Normal mood, normal affect. SKIN: Warm, dry, normal turgor, no rashes or lesions noted Laboratory Results - last 24 hr 10/27/17 10/29/17 10/29/17 10:07 07:00 07:00 WBC 6.7 RBC 4.33 Hgb 13.4 Hct 40.7 MCV 94.1 MCH 30.9 MCHC 32.9 RDW 14.2 Plt Count 267 MPV 7.2 L Neutrophils % 86.3 H Lymphocytes % 4.8 L Monocytes % 8.3 Eosinophils % 0.1 D Basophils % 0.5 D Sodium 137 Potassium 4.6 Chloride 104 Carbon Dioxide 28 Anion Gap 5 L BUN 11 Creatinine 0.7 Creat Clearance w eGFR > 60 Random Glucose 128 H Calcium 8.9 Phosphorus Magnesium 1.9 Total Bilirubin 0.4 AST 10 L ALT 22 Alkaline Phosphatase 48 Total Protein 6.5 Albumin 2.9 L Crossmatch See Detail 10/29/17 10/30/17 10/30/17 07:00 06:05 06:05 WBC 3.7 L D RBC 4.14 Hgb 13.3 Hct 38.8 MCV 93.8 MCH 32.1 MCHC 34.2 RDW 14.1 Plt Count 238 MPV 7.5 Neutrophils % 74.5 Lymphocytes % 9.5 D Monocytes % 13.0 H Eosinophils % 1.9 D Basophils % 1.1 Sodium 139 Potassium 4.8 Chloride 102 Carbon Dioxide 28 Anion Gap 9 BUN 11 Creatinine 0.7 Creat Clearance w eGFR Random Glucose 138 H Calcium 9.0 Phosphorus 3.6 Magnesium Cancelled 1.8 Total Bilirubin AST ALT Alkaline Phosphatase Total Protein Albumin Crossmatch Active Medications Generic Name Dose Route Start Last Admin Trade Name Freq PRN Reason Stop Dose Admin Acetaminophen 650 mg 10/16/17 22:59 10/24/17 21:21 Tylenol - PO 650 mg Q6H PRN Administration PAIN LEVEL 1-5 Acetaminophen/Codeine Phosphate 1 tab 10/28/17 17:02 Tylenol # 3 - PO Q4H PRN PAIN LEVEL 6-10 Docusate Sodium 100 mg 10/28/17 22:00 10/30/17 06:44 Colace - PO Not Given TID NEGRITO Potassium Chloride/Dextrose/Sod Cl 20 meq in 1,000 mls @ 100 mls/hr 10/28/17 06:00 10/30/17 06:00 D5-1/2ns+20 Meq Kcl - IV 100 mls/hr ASDIR NEGRITO Administration Ceftriaxone Sodium 2 gm/ 100 mls @ 100 mls/hr 10/29/17 09:34 10/29/17 10:17 Dextrose IVPB 100 mls/hr DAILY NEGRITO Administration Nystatin 1 applic 10/28/17 21:45 10/29/17 09:30 Nystop Powder - TP 1 applic DAILY NEGRITO Administration Ondansetron HCl 4 mg 10/28/17 17:02 Zofran Injection IVPUSH Q6H PRN NAUSEA Pantoprazole Sodium 40 mg 10/29/17 10:00 10/29/17 09:30 Protonix Iv IVPUSH 40 mg DAILY NEGRITO Administration Sodium Chloride 2 spray 10/29/17 10:00 10/29/17 21:09 [place] Nasal [place] - NS 2 sprays BID NEGRITO Administration ASSESSMENT/PLAN: 62F with PMH of htn, breast ca, initially admitted for pneumococcal meningitis, course complicated by pneumocephalus 2/2 mastoiditis and CSF leak from Left sphenoid sinus. # CSF leak - s/p placement of Lumbar CSF drain, harvest of Left fascia deonna and fat graft, transsphenoidal patching/packing of Left sphenoid sinus, and microdissection by Dr. Dueñas (Neurosurgery) and Dr. Rousseau (ENT) on 10/28/17 - POD #2 - Lumbar drain to put out 10 ml/hr of CSF, continue Lumbar drain for at least 72 hrs total - post-op care per Dr. Dueñas: keep HOB flat, movement of neck [id number] is OK - absorbable nasal packing in each nasal cavity ([place]) - incentive spirometry - O2 prn - pain control with Acetaminophen/Codeine prn and Tylenol prn - Zofran prn for nausea - ID (Dr. Stoll) recs appreciated: continue prophylactic IV Ceftriaxone ( Day 16) # Pneumococcal meningitis - resolved # Acute sinusitis / mastoiditis - ENT (Dr. Rousseau) recs appreciated: continue Nasal spray # htn - hold home meds for now as pt is normotensive # FEN - Fluids: D5-1/2 NS @ 100 ml/hr - Electrolytes: wnl, continue to monitor - Nutrition: full liquids # Prophylaxis - DVT ppx with katie SCDs - GI ppx with Protonix Visit type - Emergency Visit Emergency Visit: Yes ED Registration Date: 10/14/17 Care time: The patient presented to the Emergency Department on the above date and was hospitalized for further evaluation of their emergent condition. - New Patient This patient is new to me today: No - Critical Care Critical Care patient: Yes Total Critical Care Time (in minutes): 38 Critical Care Statement: The care of this patient involved high complexity decision making to prevent further life threatening deterioration of the patient 's condition and/or to evaluate & treat vital organ system(s) failure or risk of failure.
--- NOTE | 2017-10-30 07:59 | PN ---
Progress Note (short form) - Note Progress Note: NEUROSURGERY POD #2 Minimal H/A. No N/V. L thigh incisional pain No nasal drainage since immediate post-op when a small amt of bloody drainage was present Anxious to get up PE: Tmax 98.5, VSS Lumbar drain output- 10 cc /hr, CSF clear appearing HEENT- NC/AT; Neck- supple, no nuchal rigidity; Cor- RRR; Lungs- CTA; Abd- benign; Ext- no sign of DVT CN- intact II-XII; Motor- 5/5 without drift; Sensation- intact LT/vibration WBC 3.7, Hgb 13.3 CSF glucose 50, protein 42, normal OR CSF gram stain negative, final culture pending Strep pneumoniae meningitis with CSF rhinorrhea S/p sphenoid sinus patching/tissue glue after initial lumbar CSF drain placement and fascia deonna/fat graft HOB flat; side to side OK Cont lumbar drain for at least 72 hours total, will reassess after nasal packing out (will coordinate with Dr Rousseau) SCD's D/w RN and ICU team D/w ID yesterday On ceftriaxone
[2017-10-30] MEDS: NYSTATIN POWDER 100,000 UNITS/GM - 15 GM TOPICAL POWDER TP SCH (09:21)
[2017-10-30] MEDS: PANTOPRAZOLE SODIUM 40 MG VIAL IVPUSH SCH (09:21)
[2017-10-30] MEDS: CEFTRIAXONE 2 GM in DEXTROSE 5%-WATER - 100 ML IVPB SCH (09:21)
[2017-10-30] MEDS: SODIUM CHLORIDE NASAL SPRAY 44 ML BOTTLE NS SCH ×2 (09:21→23:04)
[2017-10-30] MEDS: ACETAMINOPHEN 325 MG TABLET (FP) PO PRN ×2 (11:30→17:39)
--- NOTE | 2017-10-30 11:49 | PN ---
Teaching Attending Note Name of Resident: Stella Tapia ATTENDING PHYSICIAN STATEMENT I saw and evaluated the patient. I reviewed the resident's note and discussed the case with the resident. I agree with the resident's findings and plan as documented. SUBJECTIVE: Pt seen and examined in the ICU. No current complaints. No headache, nausea or vomiting. No fevers or chills. OBJECTIVE: Last Vital Signs Temp Pulse Resp BP Pulse Ox 98.0 F 62 18 144/71 96 10/30/17 09:00 10/30/17 10:00 10/30/17 10:00 10/30/17 10:00 10/30/17 09:00 Intake & Output 10/27/17 10/28/17 10/29/17 10/30/17 23:59 23:59 23:59 23:59 Intake Total 1100 2200 3600 1140 Output Total 2350 2370 1670 Balance 1100 -150 1230 -530 Gen: NAD at rest Heart: RRR Lung: decreased breath sounds at the bases Abd: soft, nontender Ext: no edema CBC, BMP 10/30/17 06:05 10/30/17 06:05 Active Medications Acetaminophen (Tylenol -) 650 mg PO Q6H PRN PRN Reason: PAIN LEVEL 1-5 Last Admin: 10/30/17 11:30 Dose: 650 mg Acetaminophen/Codeine Phosphate (Tylenol # 3 -) 1 tab PO Q4H PRN PRN Reason: PAIN LEVEL 6-10 Docusate Sodium (Colace -) 100 mg PO TID [facility] Last Admin: 10/30/17 06:44 Dose: Not Given Potassium Chloride/Dextrose/Sod Cl (D5-1/2ns+20 Meq Kcl -) 20 meq in 1,000 mls @ 100 mls/hr IV ASDIR [facility] Last Admin: 10/30/17 06:00 Dose: 100 mls/hr Ceftriaxone Sodium 2 gm/ (Dextrose) 100 mls @ 100 mls/hr IVPB DAILY [facility] Last Admin: 10/30/17 09:21 Dose: 100 mls/hr Nystatin (Nystop Powder -) 1 applic TP DAILY [facility] Last Admin: 10/30/17 09:21 Dose: 1 applic Ondansetron HCl (Zofran Injection) 4 mg IVPUSH Q6H PRN PRN Reason: NAUSEA Pantoprazole Sodium (Protonix Iv) 40 mg IVPUSH DAILY [facility] Last Admin: 10/30/17 09:21 Dose: 40 mg Sodium Chloride ([place] Nasal [place] -) 2 spray NS BID [facility] Last Admin: 10/30/17 09:21 Dose: 2 sprays ASSESSMENT AND PLAN: Pneumococcal Meningitis CSF Leak from Left Sphenoid Sinus s/p repair HTN h/o Breast Ca Leukopenia - continue antibiotics - monitor WBC count - PO as tolerated - monitor lumbar drain - bowel regimen - supine positioning - mechanical DVT prophylaxis - continue ICU monitoring critical care time spent in reviewing chart, evaluating patient and formulating plan 35 min
--- NOTE | 2017-10-30 15:08 | PATH ---
Surgical Pathology Report Patient Name: LEE GUERRA [facility]. Rec. #: [id number] /Age/Gender: 1955 (Age: 62) / F Account: [id number] Location: [facility]ELD[facility] MANA[facility] Taken: 10/28/2017 Received: 10/29/2017 Reported: 10/30/2017 Physicians: Yosef Bernard M.D. Dubis Elina Beleno-Hamilton, F.N.PRosie Specimen(s) Received NASAL SEPTUM AND SPHENOID TISSUE Clinical History Sphenoid sinusitis, CSF fistula Final Diagnosis NASAL SEPTUM AND SPHENOID TISSUE, PARTIAL EXCISION: BONE AND CARTILAGE WITH NO PATHOLOGIC CHANGES. Electronically Signed Stiven Mckeon M.D. Gross Description Received in formalin labeled "nasal septum and sphenoid tissue," is a 2.1 x 1.3 x 0.2 cm aggregate of galvin, irregular portions of bone and cartilage. The specimen is entirely submitted in one cassette, following decalcification. /10/29/2017 saudi10/29/2017
--- NOTE | 2017-10-30 23:30 | PN ---
Progress Note, Physician - Current Medication List Current Medications: Active Medications Acetaminophen (Tylenol -) 650 mg PO Q6H PRN PRN Reason: PAIN LEVEL 1-5 Last Admin: 10/30/17 17:39 Dose: 650 mg Acetaminophen/Codeine Phosphate (Tylenol # 3 -) 1 tab PO Q4H PRN PRN Reason: PAIN LEVEL 6-10 Docusate Sodium (Colace -) 100 mg PO TID [facility] Last Admin: 10/30/17 23:03 Dose: Not Given Potassium Chloride/Dextrose/Sod Cl (D5-1/2ns+20 Meq Kcl -) 20 meq in 1,000 mls @ 100 mls/hr IV ASDIR [facility] Last Admin: 10/30/17 15:39 Dose: 100 mls/hr Ceftriaxone Sodium 2 gm/ (Dextrose) 100 mls @ 100 mls/hr IVPB DAILY [facility] Last Admin: 10/30/17 09:21 Dose: 100 mls/hr Nystatin (Nystop Powder -) 1 applic TP DAILY [facility] Last Admin: 10/30/17 09:21 Dose: 1 applic Ondansetron HCl (Zofran Injection) 4 mg IVPUSH Q6H PRN PRN Reason: NAUSEA Pantoprazole Sodium (Protonix Iv) 40 mg IVPUSH DAILY [facility] Last Admin: 10/30/17 09:21 Dose: 40 mg Sodium Chloride ([place] Nasal [place] -) 2 spray NS BID [facility] Last Admin: 10/30/17 23:04 Dose: 2 sprays - Objective Vital Signs: Vital Signs Temperature 98.5 F 10/30/17 18:00 Pulse Rate 68 10/30/17 18:00 Respiratory Rate 18 10/30/17 21:00 Blood Pressure 134/64 10/30/17 18:00 O2 Sat by Pulse Oximetry (%) 96 10/30/17 21:00 Labs: CBC, BMP 10/30/17 06:05 10/30/17 06:05 INR, PTT INR 0.99 (0.82-1.09) 10/21/17 10:10 Problem List - Problems (1) Acute bacterial meningitis Code(s): G00.9 - BACTERIAL MENINGITIS, UNSPECIFIED (2) Acute sinusitis Code(s): J01.90 - ACUTE SINUSITIS, UNSPECIFIED Qualifiers: Sinusitis location: sphenoidal Recurrence: non-recurrent Qualified Code(s ): J01.30 - Acute sphenoidal sinusitis, unspecified (3) Invasive ductal carcinoma of breast, female Code(s): C50.919 - MALIGNANT NEOPLASM OF UNSP SITE OF UNSPECIFIED FEMALE BREAST
[2017-10-31] MEDS: DOCUSATE SODIUM 100 MG CAPSULE (FP) PO SCH ×2 (06:40→14:33)
[2017-10-31] MEDS: D5-1/2NS+20 MEQ KCL - 20 MEQ/1,000 ML INFUS.BAG IV SCH (06:40)
[2017-10-31 08:03] LABS: EOS % 2.5 % (0-4.5); HEMATOCRIT 42.4 % (32.4-45.2); HEMOGLOBIN 14.1 GM/dL (10.7-15.3); LYMPH % 9.8 % (8-40); MCH 31.2 pg (25.7-33.7); MCHC 33.4 g/dl (32.0-36.0); MEAN CELL VOLUME 93.4 fl (80-96); MEAN PLT VOLUME 7.1 fl (7.5-11.1); MONO % 9.2 % (3.8-10.2); NEUT % 77.5 % (42.8-82.8); PLATELET COUNT 244 K/MM3 (134-434); RBC 4.54 M/mm3 (3.60-5.2); RDW 14.2 % (11.6-15.6); WHITE BLOOD COUNT 4.3 K/mm3 (4.0-10.0)
[2017-10-31 08:38] LABS: ANION GAP 10 (8-16); BLOOD UREA NITROGEN 8 mg/dL (7-18); CALCIUM 9.6 mg/dL (8.5-10.1); CHLORIDE 102 mmol/L (98-107); CO2 26 mmol/L (21-32); CREATININE 0.7 mg/dL (0.55-1.02); GLUCOSE,RANDOM 99 mg/dL (74-106); POTASSIUM 4.4 mmol/L (3.5-5.1); SODIUM 138 mmol/L (136-145)
[2017-10-31] MEDS ORDERED: SENNOSIDES 8.6MG TABLET (FP) PO PRN (08:50)
--- NOTE | 2017-10-31 09:07 | PN ---
Physical Exam: SUBJECTIVE: Patient seen and examined No acute events overnight. Pt denies headache, lightheadedness, rhinorrhea, chest pain, SOB, abdominal pain, n/v, and dysuria. She states that she has passed flatus, is tolerating a regular diet well, but has not had a BM since her surgery. OBJECTIVE: Vital Signs Period Temp Pulse Resp BP Sys/Alonso Pulse Ox Last 24 Hr 97.6 F-98.8 F 60-79 18-20 117-144/57-74 96-96 GENERAL: middle aged female, lying in bad flat, in NAD HEENT: nasal packing in place, dried blood around nares, no active rhinorrhea, EOMI, PEARRLA LUNGS: anterior lung sounds clear HEART: Regular rate and rhythm, S1, S2 without murmur, rub or gallop. ABDOMEN: Soft, nontender, nondistended, normoactive bowel sounds. carlson catheter in place draining yellow urine Back: lumbar drain in place EXTREMITIES: 2+ pulses, warm, well-perfused, no edema. NEUROLOGICAL: Cranial nerves II through XII grossly intact. Normal speech Laboratory Results - last 24 hr 10/31/17 07:40 WBC 4.3 RBC 4.54 Hgb 14.1 Hct 42.4 MCV 93.4 MCH 31.2 MCHC 33.4 RDW 14.2 Plt Count 244 MPV 7.1 L Neutrophils % 77.5 Lymphocytes % 9.8 Monocytes % 9.2 Eosinophils % 2.5 Basophils % 1.0 Active Medications Generic Name Dose Route Start Last Admin Trade Name Freq PRN Reason Stop Dose Admin Acetaminophen 650 mg 10/16/17 22:59 10/30/17 17:39 Tylenol - PO 650 mg Q6H PRN Administration PAIN LEVEL 1-5 Acetaminophen/Codeine Phosphate 1 tab 10/28/17 17:02 Tylenol # 3 - PO Q4H PRN PAIN LEVEL 6-10 Docusate Sodium 100 mg 10/28/17 22:00 10/31/17 06:40 Colace - PO Not Given TID NEGRITO Potassium Chloride/Dextrose/Sod Cl 20 meq in 1,000 mls @ 100 mls/hr 10/28/17 06:00 10/31/17 06:40 D5-1/2ns+20 Meq Kcl - IV 100 mls/hr ASDIR NEGRITO Administration Ceftriaxone Sodium 2 gm/ 100 mls @ 100 mls/hr 10/29/17 09:34 10/30/17 09:21 Dextrose IVPB 100 mls/hr DAILY NEGRITO Administration Nystatin 1 applic 10/28/17 21:45 10/30/17 09:21 Nystop Powder - TP 1 applic DAILY NEGRITO Administration Ondansetron HCl 4 mg 10/28/17 17:02 Zofran Injection IVPUSH Q6H PRN NAUSEA Pantoprazole Sodium 40 mg 10/29/17 10:00 10/30/17 09:21 Protonix Iv IVPUSH 40 mg DAILY NEGRITO Administration Polyethylene Glycol 17 gm 10/31/17 10:00 Miralax (For Daily Use) - PO DAILY NEGRITO Senna 2 tab 10/31/17 08:50 Senna - PO HS PRN CONSTIPATION Sodium Chloride 2 spray 10/29/17 10:00 10/30/17 23:04 [place] Nasal [place] - NS 2 sprays BID NEGRITO Administration ASSESSMENT/PLAN: 62F w/ hx of HTN and breast cancer, initially admitted for pneumococcal meningitis, course complicated by pneumocephalus 2/2 mastoiditis and CSF leak from left sphenoid sinus. Neuro # CSF leak - s/p placement of Lumbar CSF drain, harvest of Left fascia deonna and fat graft, transsphenoidal patching/packing of Left sphenoid sinus, and microdissection by Dr. Dueñas (Neurosurgery) and Dr. Rousseau (ENT) on 10/28/17 - POD #3 - lumbar drain to put out 10 ml/hr of CSF, continue Lumbar drain for at least 72 hrs total. Drain put out 205ml on 10/30, 70ml since midnight - post-op care per Dr. Dueñas: keep HOB flat, movement of neck [id number] is OK - absorbable nasal packing in each nasal cavity ([place]) - incentive spirometry - supplemental O2 prn - pain control with Acetaminophen/Codeine prn and Tylenol prn - Zofran prn for nausea - ID (Dr. Stoll) recs appreciated: continue prophylactic IV Ceftriaxone ( Day 17) ID # Pneumococcal meningitis - resolved - pt afebrile, no leukocytosis # Acute sinusitis / mastoiditis - ENT (Dr. Rousseau) recs appreciated: continue Nasal spray CV # HTN - hold home meds for now as pt is normotensive FEN/ppx - Fluids: D5-1/2 NS @ 100 ml/hr - Electrolytes: wnl, continue to monitor - Nutrition: soft diet - DVT ppx with kaite SCDs - GI ppx with Protonix Case discussed with attending, Dr. Osorio. -Too Krause MD PGY1 ICU Team Visit type - Emergency Visit Emergency Visit: Yes ED Registration Date: 10/14/17 Care time: The patient presented to the Emergency Department on the above date and was hospitalized for further evaluation of their emergent condition. - New Patient This patient is new to me today: Yes Date on this admission: 10/31/17 - Critical Care Critical Care patient: Yes Total Critical Care Time (in minutes): 37 Critical Care Statement: The care of this patient involved high complexity decision making to prevent further life threatening deterioration of the patient 's condition and/or to evaluate & treat vital organ system(s) failure or risk of failure.
[2017-10-31] MEDS ORDERED: PT OWN MED DRAWER 7, Y5N ONE (09:20)
[2017-10-31] MEDS: CEFTRIAXONE 2 GM in DEXTROSE 5%-WATER - 100 ML IVPB SCH (09:35)
[2017-10-31] MEDS: NYSTATIN POWDER 100,000 UNITS/GM - 15 GM TOPICAL POWDER TP SCH (09:36)
[2017-10-31] MEDS: SODIUM CHLORIDE NASAL SPRAY 44 ML BOTTLE NS SCH (09:36)
[2017-10-31] MEDS: PANTOPRAZOLE SODIUM 40 MG VIAL IVPUSH SCH (09:36)
[2017-10-31] MEDS: POLYETHYLENE GLYCOL 3350 119 GM BTL PO SCH (10:00)
--- NOTE | 2017-10-31 10:32 | PN ---
Progress Note (short form) - Note Progress Note: NEUROSURGERY POD #3 Minimal H/A. No N/V. L thigh incisional pain better No nasal drainage Anxious to get up Tolerating po PE: Tmax 98.5, VSS Lumbar drain output- up to 10 cc /hr, CSF clear appearing; 205 cc on 4-4 and 70 cc thus far on 4-5 HEENT- NC/AT; Neck- supple, no nuchal rigidity; Cor- RRR; Lungs- CTA; Abd- benign; Ext- no sign of DVT CN- intact II-XII; Motor- 5/5 without drift; Sensation- intact LT/vibration CSF glucose 50, protein 42, normal OR CSF gram stain negative, final culture pending Strep pneumoniae meningitis with CSF rhinorrhea S/p sphenoid sinus patching/tissue glue after initial lumbar CSF drain placement and fascia deonna/fat graft HOB flat; side to side OK Nasal packing is self-absorbable, confirmed with Dr Soham SEAY's D/w RN and ICU team Cont CSF drainage at 10 cc/hr till tomorrow and will likely clamp drain tomorrow in the afternoon On ceftriaxone
--- NOTE | 2017-10-31 12:00 | PN ---
Progress Note, Physician Chief Complaint: ID Stable post op day 3 Ceftriaxone NO fevers - Current Medication List Current Medications: Active Medications Acetaminophen (Tylenol -) 650 mg PO Q6H PRN PRN Reason: PAIN LEVEL 1-5 Last Admin: 10/30/17 17:39 Dose: 650 mg Acetaminophen/Codeine Phosphate (Tylenol # 3 -) 1 tab PO Q4H PRN PRN Reason: PAIN LEVEL 6-10 Docusate Sodium (Colace -) 100 mg PO TID [facility] Last Admin: 10/31/17 06:40 Dose: Not Given Potassium Chloride/Dextrose/Sod Cl (D5-1/2ns+20 Meq Kcl -) 20 meq in 1,000 mls @ 100 mls/hr IV ASDIR [facility] Last Admin: 10/31/17 06:40 Dose: 100 mls/hr Ceftriaxone Sodium 2 gm/ (Dextrose) 100 mls @ 100 mls/hr IVPB DAILY [facility] Last Admin: 10/31/17 09:35 Dose: 100 mls/hr Nystatin (Nystop Powder -) 1 applic TP DAILY [facility] Last Admin: 10/31/17 09:36 Dose: 1 applic Ondansetron HCl (Zofran Injection) 4 mg IVPUSH Q6H PRN PRN Reason: NAUSEA Pantoprazole Sodium (Protonix Iv) 40 mg IVPUSH DAILY [facility] Last Admin: 10/31/17 09:36 Dose: 40 mg Polyethylene Glycol (Miralax (For Daily Use) -) 17 gm PO DAILY [facility] Last Admin: 10/31/17 10:00 Dose: Not Given Senna (Senna -) 2 tab PO HS PRN PRN Reason: CONSTIPATION Sodium Chloride ([place] Nasal [place] -) 2 spray NS BID [facility] Last Admin: 10/31/17 09:36 Dose: 1 sprays - Objective Vital Signs: Vital Signs Temperature 98 F 10/31/17 08:00 Pulse Rate 70 10/31/17 09:00 Respiratory Rate 20 10/31/17 09:00 Blood Pressure 133/72 10/31/17 09:00 O2 Sat by Pulse Oximetry (%) 96 10/31/17 09:00 Constitutional: Yes: Well Nourished, No Distress Eyes: Yes: WNL, Conjunctiva Clear HENT: Yes: WNL, Atraumatic Neck: Yes: WNL, Supple Cardiovascular: Yes: S1, S2 Respiratory: Yes: WNL, Regular, CTA Bilaterally Gastrointestinal: Yes: WNL, Normal Bowel Sounds, Soft. No: Tenderness Labs: CBC, BMP 10/31/17 07:40 10/31/17 07:40 INR, PTT INR 0.99 (0.82-1.09) 10/21/17 10:10 Problem List - Problems (1) Acute sinusitis Code(s): J01.90 - ACUTE SINUSITIS, UNSPECIFIED Qualifiers: Sinusitis location: sphenoidal Recurrence: non-recurrent Qualified Code(s ): J01.30 - Acute sphenoidal sinusitis, unspecified (2) Acute bacterial meningitis Code(s): G00.9 - BACTERIAL MENINGITIS, UNSPECIFIED (3) Invasive ductal carcinoma of breast, female Code(s): C50.919 - MALIGNANT NEOPLASM OF UNSP SITE OF UNSPECIFIED FEMALE BREAST Assessment/Plan Microbiology 10/28/17 17:45 Cerebral Spinal Fluid - Lumbar Puncture Gram Stain - Final 10/28/17 17:45 Cerebral Spinal Fluid - Lumbar Puncture Gram Stain - Final 10/28/17 17:45 Cerebral Spinal Fluid - Lumbar Puncture AFB Smear Concentration - Final 10/28/17 17:45 Cerebral Spinal Fluid - Lumbar Puncture Mycobacterial Culture - Preliminary 10/28/17 17:45 Cerebral Spinal Fluid - Lumbar Puncture JENIFER Preparation - Preliminary 10/28/17 17:45 Cerebral Spinal Fluid - Lumbar Puncture Fungal Culture - Preliminary 10/28/17 17:45 Cerebral Spinal Fluid - Lumbar Puncture CSF Culture - Preliminary Laboratory Tests 10/31/17 10/31/17 07:40 07:40 WBC 4.3 Hgb 14.1 Plt Count 244 BUN 8 Creatinine 0.7 Assessment Pneumococcal meningitis CSF leak day 3 repair sinus defect Plan Need to consider erosion of the sinus in terms of duration of therapy For now same antibiotic Dodie RICE
--- NOTE | 2017-10-31 12:17 | PN ---
Teaching Attending Note Name of Resident: Too Krause ATTENDING PHYSICIAN STATEMENT I saw and evaluated the patient. I reviewed the resident's note and discussed the case with the resident. I agree with the resident's findings and plan as documented. SUBJECTIVE: Patient seem and examined in the ICU. Awake and alert. POD#3: placement of a lumbar CSF drain, harvest of Left fascia deonna and fat graft, transsphenoidal patching/packing of Left sphenoid sinus, microdissection due to a CSF leak. No MCDONOUGH. No N/V. No CP or SOB. Intake & Output 10/28/17 10/29/17 10/30/17 10/31/17 23:59 23:59 23:59 23:59 Intake Total 2200 3600 2340 1200 Output Total 2350 2370 4805 870 Balance -150 1230 -2465 330 Last Vital Signs Temp Pulse Resp BP Pulse Ox 98.5 F 75 18 119/72 96 10/31/17 12:00 10/31/17 12:00 10/31/17 12:00 10/31/17 12:00 10/31/17 09:00 Active Medications Acetaminophen (Tylenol -) 650 mg PO Q6H PRN PRN Reason: PAIN LEVEL 1-5 Last Admin: 10/30/17 17:39 Dose: 650 mg Acetaminophen/Codeine Phosphate (Tylenol # 3 -) 1 tab PO Q4H PRN PRN Reason: PAIN LEVEL 6-10 Docusate Sodium (Colace -) 100 mg PO TID [facility] Last Admin: 10/31/17 06:40 Dose: Not Given Potassium Chloride/Dextrose/Sod Cl (D5-1/2ns+20 Meq Kcl -) 20 meq in 1,000 mls @ 100 mls/hr IV ASDIR [facility] Last Admin: 10/31/17 06:40 Dose: 100 mls/hr Ceftriaxone Sodium 2 gm/ (Dextrose) 100 mls @ 100 mls/hr IVPB DAILY [facility] Last Admin: 10/31/17 09:35 Dose: 100 mls/hr Nystatin (Nystop Powder -) 1 applic TP DAILY [facility] Last Admin: 10/31/17 09:36 Dose: 1 applic Ondansetron HCl (Zofran Injection) 4 mg IVPUSH Q6H PRN PRN Reason: NAUSEA Pantoprazole Sodium (Protonix Iv) 40 mg IVPUSH DAILY [facility] Last Admin: 10/31/17 09:36 Dose: 40 mg Polyethylene Glycol (Miralax (For Daily Use) -) 17 gm PO DAILY [facility] Last Admin: 10/31/17 10:00 Dose: Not Given Senna (Senna -) 2 tab PO HS PRN PRN Reason: CONSTIPATION Sodium Chloride ([place] Nasal [place] -) 2 spray NS BID [facility] Last Admin: 10/31/17 09:36 Dose: 1 sprays GENERAL: Awake, alert, NAD HEAD: Normal with no signs of trauma. EYES: Pupils equal, round and reactive to light, extraocular movements intact, EARS, NOSE, THROAT: Ears normal, nares patent, oropharynx clear without exudates. NECK: Normal range of motion, supple without lymphadenopathy, no stiffness LUNGS: Breath sounds equal, clear to auscultation bilaterally. No wheezes, and no crackles. HEART: S1S2 ABDOMEN: Soft, nontender, not distended, normoactive bowel sounds, no guarding, no rebound, no masses. UPPER EXTREMITIES: 2+ pulses, warm, well-perfused. LOWER EXTREMITIES: 2+ pulses, warm, well-perfused. NEUROLOGICAL: Non-focal SKIN: Warm, dry, no petechiae Laboratory Results - last 24 hr 10/31/17 10/31/17 07:40 07:40 WBC 4.3 RBC 4.54 Hgb 14.1 Hct 42.4 MCV 93.4 MCH 31.2 MCHC 33.4 RDW 14.2 Plt Count 244 MPV 7.1 L Neutrophils % 77.5 Lymphocytes % 9.8 Monocytes % 9.2 Eosinophils % 2.5 Basophils % 1.0 Sodium 138 Potassium 4.4 Chloride 102 Carbon Dioxide 26 Anion Gap 10 BUN 8 Creatinine 0.7 Random Glucose 99 Calcium 9.6 ASSESSMENT/PLAN: POD#1: placement of a lumbar CSF drain, harvest of Left fascia deonna and fat graft, transsphenoidal patching/packing of Left sphenoid sinus, microdissection due to a CSF leak. Pneumococcal meningitis HTN Breast CA Mastoiditis / Sinusitis ABX per ID VTE prophylaxis O2 as needed Incentive Spirometry Positioning per Neurosurgery Dr Osorio Critical care time spent in reviewing chart, evaluating patient and formulating plan - 36 minutes.
[2017-10-31] MEDS ORDERED: DEXTROSE 5%-NORMAL SALINE 1,000 ML IV SCH (13:30)
[2017-10-31] MEDS: SODIUM CHLORIDE 1,000 ML IV SCH (13:40)
[2017-10-31 21:33] LABS: HEMATOCRIT 42.3 % (32.4-45.2); HEMOGLOBIN 14.2 GM/dL (10.7-15.3); MCH 31.3 pg (25.7-33.7); MCHC 33.5 g/dl (32.0-36.0); MEAN CELL VOLUME 93.6 fl (80-96); MEAN PLT VOLUME 7.9 fl (7.5-11.1); RBC 4.52 M/mm3 (3.60-5.2); RDW 14.4 % (11.6-15.6); WHITE BLOOD COUNT 4.4 K/mm3 (4.0-10.0)
[2017-10-31 21:59] LABS: PLATELET COUNT 227 K/MM3 (134-434)
--- NOTE | 2017-10-31 23:50 | PN ---
Progress Note, Physician - Current Medication List Current Medications: Active Medications Acetaminophen (Tylenol -) 650 mg PO Q6H PRN PRN Reason: PAIN LEVEL 1-5 Last Admin: 10/30/17 17:39 Dose: 650 mg Acetaminophen/Codeine Phosphate (Tylenol # 3 -) 1 tab PO Q4H PRN PRN Reason: PAIN LEVEL 6-10 Docusate Sodium (Colace -) 100 mg PO TID [facility] Last Admin: 10/31/17 14:33 Dose: Not Given Ceftriaxone Sodium 2 gm/ (Dextrose) 100 mls @ 100 mls/hr IVPB DAILY [facility] Last Admin: 10/31/17 09:35 Dose: 100 mls/hr Sodium Chloride (Normal Saline -) 1,000 mls @ 42 mls/hr IV ASDIR [facility] Last Admin: 10/31/17 13:40 Dose: 42 mls/hr Nystatin (Nystop Powder -) 1 applic TP DAILY [facility] Last Admin: 10/31/17 09:36 Dose: 1 applic Ondansetron HCl (Zofran Injection) 4 mg IVPUSH Q6H PRN PRN Reason: NAUSEA Pantoprazole Sodium (Protonix Iv) 40 mg IVPUSH DAILY [facility] Last Admin: 10/31/17 09:36 Dose: 40 mg Polyethylene Glycol (Miralax (For Daily Use) -) 17 gm PO DAILY [facility] Last Admin: 10/31/17 10:00 Dose: Not Given Senna (Senna -) 2 tab PO HS PRN PRN Reason: CONSTIPATION Sodium Chloride ([place] Nasal [place] -) 2 spray NS BID [facility] Last Admin: 10/31/17 09:36 Dose: 1 sprays - Objective Vital Signs: Vital Signs Temperature 98.8 F 10/31/17 22:00 Pulse Rate 83 10/31/17 22:00 Respiratory Rate 20 10/31/17 22:00 Blood Pressure 158/84 10/31/17 22:00 O2 Sat by Pulse Oximetry (%) 96 10/31/17 21:00 Labs: CBC, BMP 10/31/17 20:50 10/31/17 07:40 INR, PTT INR 0.99 (0.82-1.09) 10/21/17 10:10 Problem List - Problems (1) Acute bacterial meningitis Code(s): G00.9 - BACTERIAL MENINGITIS, UNSPECIFIED (2) Acute sinusitis Code(s): J01.90 - ACUTE SINUSITIS, UNSPECIFIED Qualifiers: Sinusitis location: sphenoidal Recurrence: non-recurrent Qualified Code(s ): J01.30 - Acute sphenoidal sinusitis, unspecified (3) Invasive ductal carcinoma of breast, female Code(s): C50.919 - MALIGNANT NEOPLASM OF UNSP SITE OF UNSPECIFIED FEMALE BREAST
[2017-11-01] MEDS: ACETAMINOPHEN 325 MG TABLET (FP) PO PRN (00:09)
[2017-11-01] MEDS: DOCUSATE SODIUM 100 MG CAPSULE (FP) PO SCH ×4 (03:48→21:12)
[2017-11-01] MEDS: SODIUM CHLORIDE NASAL SPRAY 44 ML BOTTLE NS SCH ×3 (03:48→21:12)
--- NOTE | 2017-11-01 07:17 | PN ---
Progress Note, Physician Chief Complaint: ID Remains stable day 4 post op sinus defect repair Afebrile Offers no complaints - Current Medication List Current Medications: Active Medications Acetaminophen (Tylenol -) 650 mg PO Q6H PRN PRN Reason: PAIN LEVEL 1-5 Last Admin: 11/01/17 00:09 Dose: 650 mg Acetaminophen/Codeine Phosphate (Tylenol # 3 -) 1 tab PO Q4H PRN PRN Reason: PAIN LEVEL 6-10 Docusate Sodium (Colace -) 100 mg PO TID [facility] Last Admin: 11/01/17 06:48 Dose: Not Given Ceftriaxone Sodium 2 gm/ (Dextrose) 100 mls @ 100 mls/hr IVPB DAILY [facility] Last Admin: 10/31/17 09:35 Dose: 100 mls/hr Sodium Chloride (Normal Saline -) 1,000 mls @ 42 mls/hr IV ASDIR [facility] Last Admin: 10/31/17 13:40 Dose: 42 mls/hr Nystatin (Nystop Powder -) 1 applic TP DAILY [facility] Last Admin: 10/31/17 09:36 Dose: 1 applic Ondansetron HCl (Zofran Injection) 4 mg IVPUSH Q6H PRN PRN Reason: NAUSEA Pantoprazole Sodium (Protonix Iv) 40 mg IVPUSH DAILY [facility] Last Admin: 10/31/17 09:36 Dose: 40 mg Polyethylene Glycol (Miralax (For Daily Use) -) 17 gm PO DAILY [facility] Last Admin: 10/31/17 10:00 Dose: Not Given Senna (Senna -) 2 tab PO HS PRN PRN Reason: CONSTIPATION Sodium Chloride ([place] Nasal [place] -) 2 spray NS BID [facility] Last Admin: 11/01/17 03:48 Dose: 2 sprays - Objective Vital Signs: Vital Signs Temperature 98.4 F 11/01/17 02:00 Pulse Rate 73 11/01/17 06:00 Respiratory Rate 18 11/01/17 06:00 Blood Pressure 168/80 11/01/17 06:00 O2 Sat by Pulse Oximetry (%) 96 10/31/17 21:00 Constitutional: Yes: Well Nourished, No Distress HENT: Yes: WNL, Atraumatic Neck: Yes: Supple Cardiovascular: Yes: Regular Rate and Rhythm, S1, S2. No: Murmur Respiratory: Yes: WNL, Regular, CTA Bilaterally Gastrointestinal: Yes: WNL, Normal Bowel Sounds, Soft. No: Tenderness, Tenderness, Rebound Edema: No Labs: CBC, BMP 10/31/17 20:50 10/31/17 07:40 INR, PTT INR 0.99 (0.82-1.09) 10/21/17 10:10 Problem List - Problems (1) Acute sinusitis Code(s): J01.90 - ACUTE SINUSITIS, UNSPECIFIED Qualifiers: Sinusitis location: sphenoidal Recurrence: non-recurrent Qualified Code(s ): J01.30 - Acute sphenoidal sinusitis, unspecified (2) Acute bacterial meningitis Code(s): G00.9 - BACTERIAL MENINGITIS, UNSPECIFIED (3) Invasive ductal carcinoma of breast, female Code(s): C50.919 - MALIGNANT NEOPLASM OF UNSP SITE OF UNSPECIFIED FEMALE BREAST Assessment/Plan Microbiology 10/28/17 17:45 Cerebral Spinal Fluid - Lumbar Puncture Gram Stain - Final 10/28/17 17:45 Cerebral Spinal Fluid - Lumbar Puncture CSF Culture - Final 10/28/17 17:45 Cerebral Spinal Fluid - Lumbar Puncture Gram Stain - Final 10/28/17 17:45 Cerebral Spinal Fluid - Lumbar Puncture AFB Smear Concentration - Final 10/28/17 17:45 Cerebral Spinal Fluid - Lumbar Puncture Mycobacterial Culture - Preliminary 10/28/17 17:45 Cerebral Spinal Fluid - Lumbar Puncture JENIFER Preparation - Preliminary 10/28/17 17:45 Cerebral Spinal Fluid - Lumbar Puncture Fungal Culture - Preliminary Laboratory Tests 10/17/17 10/18/17 10/31/17 05:45 08:10 07:40 WBC Hgb Plt Count ESR 21 BUN 8 Creatinine 0.7 C-Reactive Protein 2.9 H 2.5 H 10/31/17 20:50 WBC 4.4 Hgb 14.2 Plt Count 227 ESR BUN Creatinine C-Reactive Protein Assessment Post pneumococcal meningitis with CSF leak day 4 post repair doing well Plan Continue Ceftriaxone for today Will consider stopping antibiotic tomorrow Will discuss with ENT and Dr Spenser Stoll MD
--- NOTE | 2017-11-01 08:18 | PN ---
Progress Note (short form) - Note Progress Note: NEUROSURGERY POD #4 Minimal H/A. No N/V. L thigh incisional pain better No nasal drainage PE: Tmax 99.7, VSS Lumbar drain output- 10 cc/hr last 24 hours and this am, CSF clear/yellow tinged HEENT- NC/AT; Neck- supple, no nuchal rigidity; Cor- RRR; Lungs- CTA; Abd- benign; Ext- no sign of DVT CN- intact II-XII; Motor- 5/5 without drift; Sensation- intact LT/vibration OR CSF gram stain negative, culture negative Strep pneumoniae meningitis with CSF rhinorrhea S/p sphenoid sinus patching/tissue glue after initial lumbar CSF drain placement and fascia deonna/fat graft HOB flat; side to side Nasal packing is self-absorbable, confirmed with Dr Rousseau previously SCD's D/w RN and ICU team Cont CSF drainage at 10 cc/hr till tomorrow and will clamp drain later today at 1800 On ceftriaxone, preferably will continue until lumbar drain is d/c'd
[2017-11-01 09:20] LABS: BASO % 1.5 % (0-2.0); EOS % 4.5 % (0-4.5); HEMATOCRIT 42.5 % (32.4-45.2); HEMOGLOBIN 14.3 GM/dL (10.7-15.3); LYMPH % 13.3 % (8-40); MCH 31.4 pg (25.7-33.7); MCHC 33.6 g/dl (32.0-36.0); MEAN CELL VOLUME 93.4 fl (80-96); MEAN PLT VOLUME 7.2 fl (7.5-11.1); MONO % 12.3 % (3.8-10.2); NEUT % 68.4 % (42.8-82.8); PLATELET COUNT 233 K/MM3 (134-434); RBC 4.56 M/mm3 (3.60-5.2); RDW 14.1 % (11.6-15.6); WHITE BLOOD COUNT 3.1 K/mm3 (4.0-10.0)
[2017-11-01 09:36] LABS: ANION GAP 13 (8-16); BLOOD UREA NITROGEN 12 mg/dL (7-18); CALCIUM 9.4 mg/dL (8.5-10.1); CHLORIDE 101 mmol/L (98-107); CO2 26 mmol/L (21-32); CREATININE 0.7 mg/dL (0.55-1.02); GLUCOSE,RANDOM 86 mg/dL (74-106); MAGNESIUM 2.1 mg/dL (1.8-2.4); POTASSIUM 4.4 mmol/L (3.5-5.1); SODIUM 140 mmol/L (136-145)
[2017-11-01] MEDS: CEFTRIAXONE 2 GM in DEXTROSE 5%-WATER - 100 ML IVPB SCH (10:15)
[2017-11-01] MEDS: PANTOPRAZOLE SODIUM 40 MG VIAL IVPUSH SCH (10:16)
[2017-11-01] MEDS: POLYETHYLENE GLYCOL 3350 119 GM BTL PO SCH (11:33)
--- NOTE | 2017-11-01 12:14 | PN ---
Teaching Attending Note Name of Resident: Stella Tapia ATTENDING PHYSICIAN STATEMENT I saw and evaluated the patient. I reviewed the resident's note and discussed the case with the resident. I agree with the resident's findings and plan as documented. SUBJECTIVE: Patient seem and examined in the ICU. Awake and alert. POD#34 placement of a lumbar CSF drain, harvest of Left fascia deonna and fat graft, transsphenoidal patching/packing of Left sphenoid sinus, microdissection due to a CSF leak. (+) Mild MCDONOUGH. No N/V. No CP or SOB. Intake & Output 10/29/17 10/30/17 10/31/17 11/01/17 23:59 23:59 23:59 23:59 Intake Total 3600 2340 2100 1295 Output Total 2370 4825 2040 100 Balance 1230 -2485 60 1195 Weight 252 lb 14.4 oz Last Vital Signs Temp Pulse Resp BP Pulse Ox 98.5 F 62 18 146/71 100 11/01/17 10:17 11/01/17 10:17 11/01/17 10:17 11/01/17 10:17 11/01/17 09:00 Active Medications Acetaminophen (Tylenol -) 650 mg PO Q6H PRN PRN Reason: PAIN LEVEL 1-5 Last Admin: 11/01/17 00:09 Dose: 650 mg Acetaminophen/Codeine Phosphate (Tylenol # 3 -) 1 tab PO Q4H PRN PRN Reason: PAIN LEVEL 6-10 Last Admin: 11/01/17 09:39 Dose: 1 tab Docusate Sodium (Colace -) 100 mg PO TID [facility] Last Admin: 11/01/17 06:48 Dose: Not Given Ceftriaxone Sodium 2 gm/ (Dextrose) 100 mls @ 100 mls/hr IVPB DAILY [facility] Last Admin: 11/01/17 10:15 Dose: 100 mls/hr Sodium Chloride (Normal Saline -) 1,000 mls @ 42 mls/hr IV ASDIR [facility] Last Admin: 10/31/17 13:40 Dose: 42 mls/hr Nystatin (Nystop Powder -) 1 applic TP DAILY [facility] Last Admin: 10/31/17 09:36 Dose: 1 applic Ondansetron HCl (Zofran Injection) 4 mg IVPUSH Q6H PRN PRN Reason: NAUSEA Pantoprazole Sodium (Protonix Iv) 40 mg IVPUSH DAILY [facility] Last Admin: 11/01/17 10:16 Dose: 40 mg Polyethylene Glycol (Miralax (For Daily Use) -) 17 gm PO DAILY [facility] Last Admin: 11/01/17 11:33 Dose: Not Given Senna (Senna -) 2 tab PO HS PRN PRN Reason: CONSTIPATION Sodium Chloride ([place] Nasal [place] -) 2 spray NS BID [facility] Last Admin: 11/01/17 10:35 Dose: 2 sprays GENERAL: Awake, alert, NAD HEAD: Normal with no signs of trauma. EYES: Pupils equal, round and reactive to light, extraocular movements intact, EARS, NOSE, THROAT: Ears normal, nares patent, oropharynx clear without exudates. NECK: Normal range of motion, supple without lymphadenopathy, no stiffness LUNGS: Breath sounds equal, clear to auscultation bilaterally. No wheezes, and no crackles. HEART: S1S2 ABDOMEN: Soft, nontender, not distended, normoactive bowel sounds, no guarding, no rebound, no masses. UPPER EXTREMITIES: 2+ pulses, warm, well-perfused. LOWER EXTREMITIES: 2+ pulses, warm, well-perfused. NEUROLOGICAL: Non-focal SKIN: Warm, dry, no petechiae Laboratory Results - last 24 hr 10/31/17 10/31/17 10/31/17 07:10 07:40 07:40 WBC 4.3 RBC 4.54 Hgb 14.1 Hct 42.4 MCV 93.4 MCH 31.2 MCHC 33.4 RDW 14.2 Plt Count 244 MPV 7.1 L Neutrophils % 77.5 Lymphocytes % 9.8 Monocytes % 9.2 Eosinophils % 2.5 Basophils % 1.0 Manual Slide Review Platelet Comment ESR Sodium 138 Potassium 4.4 Chloride 102 Carbon Dioxide 26 Anion Gap 10 BUN 8 Creatinine 0.7 Random Glucose 99 Calcium 9.6 Phosphorus Magnesium C-Reactive Protein Cancelled 2.5 H 10/31/17 11/01/17 11/01/17 20:50 08:00 08:10 WBC 4.4 3.1 L RBC 4.52 4.56 Hgb 14.2 14.3 Hct 42.3 42.5 MCV 93.6 93.4 MCH 31.3 31.4 MCHC 33.5 33.6 RDW 14.4 14.1 Plt Count 227 233 MPV 7.9 D 7.2 L Neutrophils % 68.4 Lymphocytes % 13.3 D Monocytes % 12.3 H Eosinophils % 4.5 Basophils % 1.5 Manual Slide Review Plts adq Platelet Comment No clumping noted ESR 53 H Sodium Potassium Chloride Carbon Dioxide Anion Gap BUN Creatinine Random Glucose Calcium Phosphorus Magnesium C-Reactive Protein 11/01/17 08:44 WBC RBC Hgb Hct MCV MCH MCHC RDW Plt Count MPV Neutrophils % Lymphocytes % Monocytes % Eosinophils % Basophils % Manual Slide Review Platelet Comment ESR Sodium 140 Potassium 4.4 Chloride 101 Carbon Dioxide 26 Anion Gap 13 BUN 12 Creatinine 0.7 Random Glucose 86 Calcium 9.4 Phosphorus 4.0 Magnesium 2.1 C-Reactive Protein ASSESSMENT/PLAN: POD#1: placement of a lumbar CSF drain, harvest of Left fascia deonna and fat graft, transsphenoidal patching/packing of Left sphenoid sinus, microdissection due to a CSF leak. Pneumococcal meningitis HTN Breast CA Mastoiditis / Sinusitis ABX per ID VTE prophylaxis O2 as needed Incentive Spirometry Positioning per Neurosurgery CSF drainage and clamp per Neurosurgery Dr Osorio Critical care time spent in reviewing chart, evaluating patient and formulating plan - 36 minutes.
[2017-11-01] MEDS: NYSTATIN POWDER 100,000 UNITS/GM - 15 GM TOPICAL POWDER TP SCH (14:26)
--- NOTE | 2017-11-01 15:01 | PN ---
Physical Exam: SUBJECTIVE: Patient seen and examined in the ICU. AAOx3. Pt tolerating soft diet. Pt denies headache, dizziness, lightheadedness, nausea, vomiting, chest pain, sob, abdominal pain, fever, chills. OBJECTIVE: Vital Signs Period Temp Pulse Resp BP Sys/Alonso Pulse Ox Last 24 Hr 98.4 F-99.7 F 62-89 16-20 124-168/60-106 96-100 GENERAL: The patient is awake, alert, and fully oriented, in no acute distress. NECK: Supple, no stiffness. Lumbar CSF drain with 300ml total clear yellow drainage. LUNGS: CTAB. HEART: Regular rate and rhythm, S1, S2 without murmur, rub or gallop. ABDOMEN: Soft, nontender, nondistended, normoactive bowel sounds, no guarding. EXTREMITIES: Warm, well-perfused, no edema. Laboratory Results - last 24 hr 10/31/17 10/31/17 10/31/17 07:10 07:40 20:50 WBC 4.4 RBC 4.52 Hgb 14.2 Hct 42.3 MCV 93.6 MCH 31.3 MCHC 33.5 RDW 14.4 Plt Count 227 MPV 7.9 D Neutrophils % Lymphocytes % Monocytes % Eosinophils % Basophils % Manual Slide Review Plts adq Platelet Comment No clumping noted ESR Sodium Potassium Chloride Carbon Dioxide Anion Gap BUN Creatinine Random Glucose Calcium Phosphorus Magnesium C-Reactive Protein Cancelled 2.5 H 11/01/17 11/01/17 11/01/17 08:00 08:10 08:44 WBC 3.1 L RBC 4.56 Hgb 14.3 Hct 42.5 MCV 93.4 MCH 31.4 MCHC 33.6 RDW 14.1 Plt Count 233 MPV 7.2 L Neutrophils % 68.4 Lymphocytes % 13.3 D Monocytes % 12.3 H Eosinophils % 4.5 Basophils % 1.5 Manual Slide Review Platelet Comment ESR 53 H Sodium 140 Potassium 4.4 Chloride 101 Carbon Dioxide 26 Anion Gap 13 BUN 12 Creatinine 0.7 Random Glucose 86 Calcium 9.4 Phosphorus 4.0 Magnesium 2.1 C-Reactive Protein Active Medications Generic Name Dose Route Start Last Admin Trade Name Freq PRN Reason Stop Dose Admin Acetaminophen 650 mg 10/16/17 22:59 11/01/17 00:09 Tylenol - PO 650 mg Q6H PRN Administration PAIN LEVEL 1-5 Acetaminophen/Codeine Phosphate 1 tab 10/28/17 17:02 11/01/17 09:39 Tylenol # 3 - PO 1 tab Q4H PRN Administration PAIN LEVEL 6-10 Docusate Sodium 100 mg 10/28/17 22:00 11/01/17 14:26 Colace - PO 100 mg TID NEGRITO Administration Ceftriaxone Sodium 2 gm/ 100 mls @ 100 mls/hr 10/29/17 09:34 11/01/17 10:15 Dextrose IVPB 100 mls/hr DAILY NEGRITO Administration Sodium Chloride 1,000 mls @ 42 mls/hr 10/31/17 13:30 10/31/17 13:40 Normal Saline - IV 42 mls/hr ASDIR NEGRITO Administration Nystatin 1 applic 10/28/17 21:45 11/01/17 14:26 Nystop Powder - TP 1 applic DAILY NEGRITO Administration Ondansetron HCl 4 mg 10/28/17 17:02 Zofran Injection IVPUSH Q6H PRN NAUSEA Pantoprazole Sodium 40 mg 10/29/17 10:00 11/01/17 10:16 Protonix Iv IVPUSH 40 mg DAILY NEGRITO Administration Polyethylene Glycol 17 gm 10/31/17 10:00 11/01/17 11:33 Miralax (For Daily Use) - PO Not Given DAILY NEGRITO Senna 2 tab 10/31/17 08:50 Senna - PO HS PRN CONSTIPATION Sodium Chloride 2 spray 10/29/17 10:00 11/01/17 10:35 [place] Nasal [place] - NS 2 sprays BID NEGRITO Administration ASSESSMENT/PLAN: 62F with PMH of htn, breast ca, initially admitted for pneumococcal meningitis, course complicated by pneumocephalus 2/2 mastoiditis and CSF leak from Left sphenoid sinus. # CSF leak - s/p placement of Lumbar CSF drain, harvest of Left fascia deonna and fat graft, transsphenoidal patching/packing of Left sphenoid sinus, and microdissection by Dr. Dueñas (Neurosurgery) and Dr. Rousseau (ENT) on 10/28/17 - POD #4 - Lumbar drain to put out 10 ml/hr of CSF - post-op care per Dr. Dueñas: keep HOB flat, movement of neck [id number] is OK. Lumbar drain to be clamped tonight, and pulled tomorrow. - incentive spirometry - O2 prn - pain control with Acetaminophen/Codeine prn and Tylenol prn - Zofran prn for nausea - ID (Dr. Stoll) recs appreciated: continue prophylactic IV Ceftriaxone # Pneumococcal meningitis - resolved # Acute sinusitis / mastoiditis - ENT (Dr. Rousseau) recs appreciated: continue Nasal spray # htn - hold home meds for now as pt is normotensive # FEN - Fluids: NS @ 42 ml/hr - Electrolytes: wnl, continue to monitor - Nutrition: soft diet # Prophylaxis - DVT ppx with katie SCDs - GI ppx with Protonix Visit type - Emergency Visit Emergency Visit: Yes ED Registration Date: 10/14/17 Care time: The patient presented to the Emergency Department on the above date and was hospitalized for further evaluation of their emergent condition. - New Patient This patient is new to me today: No - Critical Care Critical Care patient: Yes Total Critical Care Time (in minutes): 39 Critical Care Statement: The care of this patient involved high complexity decision making to prevent further life threatening deterioration of the patient 's condition and/or to evaluate & treat vital organ system(s) failure or risk of failure.
[2017-11-01] MEDS: SODIUM CHLORIDE 1,000 ML IV SCH (21:13)
--- NOTE | 2017-11-01 23:50 | PN ---
Progress Note, Physician - Current Medication List Current Medications: Active Medications Acetaminophen (Tylenol -) 650 mg PO Q6H PRN PRN Reason: PAIN LEVEL 1-5 Last Admin: 11/01/17 00:09 Dose: 650 mg Acetaminophen/Codeine Phosphate (Tylenol # 3 -) 1 tab PO Q4H PRN PRN Reason: PAIN LEVEL 6-10 Last Admin: 11/01/17 09:39 Dose: 1 tab Docusate Sodium (Colace -) 100 mg PO TID [facility] Last Admin: 11/01/17 21:12 Dose: Not Given Ceftriaxone Sodium 2 gm/ (Dextrose) 100 mls @ 100 mls/hr IVPB DAILY [facility] Last Admin: 11/01/17 10:15 Dose: 100 mls/hr Sodium Chloride (Normal Saline -) 1,000 mls @ 42 mls/hr IV ASDIR [facility] Last Admin: 11/01/17 21:13 Dose: 42 mls/hr Nystatin (Nystop Powder -) 1 applic TP DAILY [facility] Last Admin: 11/01/17 14:26 Dose: 1 applic Ondansetron HCl (Zofran Injection) 4 mg IVPUSH Q6H PRN PRN Reason: NAUSEA Pantoprazole Sodium (Protonix Iv) 40 mg IVPUSH DAILY [facility] Last Admin: 11/01/17 10:16 Dose: 40 mg Polyethylene Glycol (Miralax (For Daily Use) -) 17 gm PO DAILY [facility] Last Admin: 11/01/17 11:33 Dose: Not Given Senna (Senna -) 2 tab PO HS PRN PRN Reason: CONSTIPATION Sodium Chloride ([place] Nasal [place] -) 2 spray NS BID [facility] Last Admin: 11/01/17 21:12 Dose: 2 sprays - Objective Vital Signs: Vital Signs Temperature 98.4 F 11/01/17 20:00 Pulse Rate 79 11/01/17 22:00 Respiratory Rate 18 11/01/17 22:00 Blood Pressure 115/57 11/01/17 22:00 O2 Sat by Pulse Oximetry (%) 100 11/01/17 21:00 Labs: CBC, BMP 11/01/17 08:00 11/01/17 08:44 INR, PTT INR 0.99 (0.82-1.09) 10/21/17 10:10 Problem List - Problems (1) Acute bacterial meningitis Code(s): G00.9 - BACTERIAL MENINGITIS, UNSPECIFIED (2) Acute sinusitis Code(s): J01.90 - ACUTE SINUSITIS, UNSPECIFIED Qualifiers: Sinusitis location: sphenoidal Recurrence: non-recurrent Qualified Code(s ): J01.30 - Acute sphenoidal sinusitis, unspecified (3) Invasive ductal carcinoma of breast, female Code(s): C50.919 - MALIGNANT NEOPLASM OF UNSP SITE OF UNSPECIFIED FEMALE BREAST
[2017-11-02 06:01] LABS: BASO % 1.4 % (0-2.0); HEMATOCRIT 39.2 % (32.4-45.2); HEMOGLOBIN 13.8 GM/dL (10.7-15.3); LYMPH % 9.6 % (8-40); MCH 32.5 pg (25.7-33.7); MCHC 35.1 g/dl (32.0-36.0); MEAN CELL VOLUME 92.6 fl (80-96); MEAN PLT VOLUME 7.7 fl (7.5-11.1); MONO % 12.8 % (3.8-10.2); NEUT % 71.2 % (42.8-82.8); PLATELET COUNT 235 K/MM3 (134-434); RBC 4.23 M/mm3 (3.60-5.2); RDW 14.1 % (11.6-15.6)
[2017-11-02] MEDS: ACETAMINOPHEN 325 MG TABLET (FP) PO PRN ×2 (06:01→19:52)
[2017-11-02] MEDS: DOCUSATE SODIUM 100 MG CAPSULE (FP) PO SCH ×3 (06:03→14:48)
--- NOTE | 2017-11-02 06:56 | PN ---
Progress Note, Physician Chief Complaint: ID Offers no complaints Temp curve flat for the most part ( Tmax 99.7) Ceftriaxone continues - Current Medication List Current Medications: Active Medications Acetaminophen (Tylenol -) 650 mg PO Q6H PRN PRN Reason: PAIN LEVEL 1-5 Last Admin: 11/02/17 06:01 Dose: 650 mg Acetaminophen/Codeine Phosphate (Tylenol # 3 -) 1 tab PO Q4H PRN PRN Reason: PAIN LEVEL 6-10 Last Admin: 11/01/17 09:39 Dose: 1 tab Docusate Sodium (Colace -) 100 mg PO TID [facility] Last Admin: 11/02/17 06:03 Dose: 100 mg Ceftriaxone Sodium 2 gm/ (Dextrose) 100 mls @ 100 mls/hr IVPB DAILY [facility] Last Admin: 11/01/17 10:15 Dose: 100 mls/hr Sodium Chloride (Normal Saline -) 1,000 mls @ 42 mls/hr IV ASDIR [facility] Last Admin: 11/01/17 21:13 Dose: 42 mls/hr Nystatin (Nystop Powder -) 1 applic TP DAILY [facility] Last Admin: 11/01/17 14:26 Dose: 1 applic Ondansetron HCl (Zofran Injection) 4 mg IVPUSH Q6H PRN PRN Reason: NAUSEA Pantoprazole Sodium (Protonix Iv) 40 mg IVPUSH DAILY [facility] Last Admin: 11/01/17 10:16 Dose: 40 mg Polyethylene Glycol (Miralax (For Daily Use) -) 17 gm PO DAILY [facility] Last Admin: 11/01/17 11:33 Dose: Not Given Senna (Senna -) 2 tab PO HS PRN PRN Reason: CONSTIPATION Sodium Chloride ([place] Nasal [place] -) 2 spray NS BID [facility] Last Admin: 11/01/17 21:12 Dose: 2 sprays - Objective Vital Signs: Vital Signs Temperature 98.6 F 11/01/17 23:00 Pulse Rate 80 11/02/17 06:00 Respiratory Rate 18 11/02/17 06:00 Blood Pressure 119/60 11/02/17 06:00 O2 Sat by Pulse Oximetry (%) 100 11/01/17 21:00 Constitutional: Yes: No Distress Cardiovascular: Yes: S1, S2 Respiratory: Yes: WNL, Regular, CTA Bilaterally, Diminished Gastrointestinal: Yes: Soft. No: Tenderness Labs: CBC, BMP 11/02/17 05:45 11/01/17 08:44 INR, PTT INR 0.99 (0.82-1.09) 10/21/17 10:10 Problem List - Problems (1) Acute sinusitis Code(s): J01.90 - ACUTE SINUSITIS, UNSPECIFIED Qualifiers: Sinusitis location: sphenoidal Recurrence: non-recurrent Qualified Code(s ): J01.30 - Acute sphenoidal sinusitis, unspecified (2) Acute bacterial meningitis Code(s): G00.9 - BACTERIAL MENINGITIS, UNSPECIFIED (3) Invasive ductal carcinoma of breast, female Code(s): C50.919 - MALIGNANT NEOPLASM OF UNSP SITE OF UNSPECIFIED FEMALE BREAST Assessment/Plan Laboratory Tests 11/01/17 11/02/17 08:44 05:45 WBC 3.0 L Hgb 13.8 Plt Count 235 BUN 12 Creatinine 0.7 Assessment Day 5 post op sinus repair surgery Pneumococcal meningitis History of breast cancer CSF leak post repari drain 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
[2017-11-02] MEDS ORDERED: PT OWN MED DRAWER 7, Y5N ONE (09:27)
[2017-11-02] MEDS: CEFTRIAXONE 2 GM in DEXTROSE 5%-WATER - 100 ML IVPB SCH (09:31)
[2017-11-02] MEDS: PANTOPRAZOLE SODIUM 40 MG VIAL IVPUSH SCH (09:31)
[2017-11-02] MEDS: SODIUM CHLORIDE NASAL SPRAY 44 ML BOTTLE NS SCH ×2 (09:32→21:45)
[2017-11-02] MEDS: NYSTATIN POWDER 100,000 UNITS/GM - 15 GM TOPICAL POWDER TP SCH (09:32)
[2017-11-02] MEDS ORDERED: ACETAMINOPHEN 325 MG TABLET (FP) PO ONE (10:02)
--- NOTE | 2017-11-02 10:21 | PN ---
Progress Note (short form) - Note Progress Note: NEUROSURGERY POD #5 Some H/A, No N/V. No nasal drainage Decreased CSF drainage overnight to 10 cc/2 hrs PE: AF, VSS HEENT- NC/AT; Neck- supple, no nuchal rigidity; Cor- RRR; Lungs- CTA; Abd- benign; Ext- no sign of DVT CN- intact II-XII; Motor- 5/5 without drift; Sensation- intact LT OR CSF gram stain negative, culture negative WBC 3.0; Hgb 13.8 Strep pneumoniae meningitis with CSF rhinorrhea S/p sphenoid sinus patching/tissue glue after initial lumbar CSF drain placement and fascia deonna/fat graft HOB fat till 1 pm, HOB may be elevated to 30 degrees if no significant H/A then SCD's D/w RN and ICU team D/C lumbar drain On ceftriaxone, preferably will continue until lumbar drain is d/c'd today
[2017-11-02] MEDS: SODIUM CHLORIDE 1,000 ML IV SCH (14:00)
[2017-11-02] MEDS: POLYETHYLENE GLYCOL 3350 119 GM BTL PO SCH (14:49)
[2017-11-03] MEDS: DOCUSATE SODIUM 100 MG CAPSULE (FP) PO SCH ×4 (00:46→21:01)
[2017-11-03] MEDS: ACETAMINOPHEN 325 MG TABLET (FP) PO PRN ×3 (01:35→17:32)
--- NOTE | 2017-11-03 07:18 | PN ---
Progress Note, Physician Chief Complaint: ID Post op sinus repair day 6 Doing well - Current Medication List Current Medications: Active Medications Acetaminophen (Tylenol -) 650 mg PO Q6H PRN PRN Reason: PAIN LEVEL 1-5 Last Admin: 11/03/17 01:35 Dose: 650 mg Acetaminophen/Codeine Phosphate (Tylenol # 3 -) 1 tab PO Q4H PRN PRN Reason: PAIN LEVEL 6-10 Last Admin: 11/01/17 09:39 Dose: 1 tab Docusate Sodium (Colace -) 100 mg PO TID [facility] Last Admin: 11/03/17 05:58 Dose: Not Given Ceftriaxone Sodium 2 gm/ (Dextrose) 100 mls @ 100 mls/hr IVPB DAILY [facility] Last Admin: 11/02/17 09:31 Dose: 100 mls/hr Nystatin (Nystop Powder -) 1 applic TP DAILY [facility] Last Admin: 11/02/17 09:32 Dose: 1 applic Ondansetron HCl (Zofran Injection) 4 mg IVPUSH Q6H PRN PRN Reason: NAUSEA Pantoprazole Sodium (Protonix Iv) 40 mg IVPUSH DAILY [facility] Last Admin: 11/02/17 09:31 Dose: 40 mg Polyethylene Glycol (Miralax (For Daily Use) -) 17 gm PO DAILY [facility] Last Admin: 11/02/17 14:49 Dose: Not Given Senna (Senna -) 2 tab PO HS PRN PRN Reason: CONSTIPATION Sodium Chloride ([place] Nasal [place] -) 2 spray NS BID [facility] Last Admin: 11/02/17 21:45 Dose: 2 sprays - Objective Vital Signs: Vital Signs Temperature 98.5 F 11/03/17 05:00 Pulse Rate 68 11/03/17 06:00 Respiratory Rate 20 11/03/17 06:00 Blood Pressure 118/67 11/03/17 06:00 O2 Sat by Pulse Oximetry (%) 95 11/02/17 22:00 Constitutional: Yes: Well Nourished, No Distress Neck: Yes: WNL, Supple Cardiovascular: Yes: S1, S2 Respiratory: Yes: WNL, Regular, CTA Bilaterally Gastrointestinal: Yes: Soft. No: Tenderness, Tenderness, Rebound Labs: CBC, BMP 11/02/17 05:45 11/01/17 08:44 INR, PTT INR 0.99 (0.82-1.09) 10/21/17 10:10 Problem List - Problems (1) Acute sinusitis Code(s): J01.90 - ACUTE SINUSITIS, UNSPECIFIED Qualifiers: Sinusitis location: sphenoidal Recurrence: non-recurrent Qualified Code(s ): J01.30 - Acute sphenoidal sinusitis, unspecified (2) Acute bacterial meningitis Code(s): G00.9 - BACTERIAL MENINGITIS, UNSPECIFIED (3) Invasive ductal carcinoma of breast, female Code(s): C50.919 - MALIGNANT NEOPLASM OF UNSP SITE OF UNSPECIFIED FEMALE BREAST Assessment/Plan Laboratory Tests 11/01/17 11/02/17 08:44 05:45 WBC 3.0 L Hgb 13.8 Plt Count 235 BUN 12 Creatinine 0.7 Assessment S/P meningitis pneumococcus CSF leak from defect sinus wall Now post surgical repair doing well Plan Will stop antibiotic ( Ceftriaxone) today Dodie RICE
--- NOTE | 2017-11-03 09:34 | PN ---
Progress Note (short form) - Note Progress Note: NEUROSURGERY POD #6 L sided H/a overnight (different from previously), No N/V. No nasal drainage Did not sleep well Lumbar CSF drain D/C'd yesterday AM PE: Tmax 98.6, AF, VSS HEENT- NC/AT; Neck- supple, no nuchal rigidity; Cor- RRR; Lungs- CTA; Abd- benign; Ext- no sign of DVT CN- intact II-XII; Motor- 5/5 without drift; Sensation- intact LT OR CSF gram stain negative, culture negative Strep pneumoniae meningitis with CSF rhinorrhea S/p sphenoid sinus patching/tissue glue after initial lumbar CSF drain placement and fascia deonna/fat graft SCD's D/w RN and ICU team Off ceftriaxone Does not want to take tylenol #1 Try ultram for pain Head CT to assess pneumocephalus
[2017-11-03] MEDS ORDERED: traMADol HCL 50 MG TABLET PO PRN (09:52)
[2017-11-03] MEDS: PANTOPRAZOLE SODIUM 40 MG VIAL IVPUSH SCH (09:57)
[2017-11-03] MEDS: SODIUM CHLORIDE NASAL SPRAY 44 ML BOTTLE NS SCH ×2 (10:01→21:01)
[2017-11-03] MEDS: NYSTATIN POWDER 100,000 UNITS/GM - 15 GM TOPICAL POWDER TP SCH (10:01)
[2017-11-03] MEDS: POLYETHYLENE GLYCOL 3350 119 GM BTL PO SCH (10:01)
--- NOTE | 2017-11-03 11:33 | PN ---
Progress Note (short form) - Note Progress Note: Pulm/CCM SUBJECTIVE: Patient seem and examined in the ICU. Awake and alert. -24Hr -drain removed -head ache--plan for CT head this am per Dr Dueñas Current Medications Acetaminophen (Tylenol -) 650 mg PO Q6H PRN PRN Reason: PAIN LEVEL 1-5 Last Admin: 11/03/17 08:35 Dose: 650 mg Acetaminophen/Codeine Phosphate (Tylenol # 3 -) 1 tab PO Q4H PRN PRN Reason: PAIN LEVEL 6-10 Last Admin: 11/01/17 09:39 Dose: 1 tab Docusate Sodium (Colace -) 100 mg PO TID [facility] Last Admin: 11/03/17 05:58 Dose: Not Given Loratadine (Claritin -) 10 mg PO DAILY [facility] Nystatin (Nystop Powder -) 1 applic TP DAILY [facility] Last Admin: 11/03/17 10:01 Dose: 1 applic Ondansetron HCl (Zofran Injection) 4 mg IVPUSH Q6H PRN PRN Reason: NAUSEA Pantoprazole Sodium (Protonix Iv) 40 mg IVPUSH DAILY [facility] Last Admin: 11/03/17 09:57 Dose: 40 mg Polyethylene Glycol (Miralax (For Daily Use) -) 17 gm PO DAILY [facility] Last Admin: 11/03/17 10:01 Dose: Not Given Senna (Senna -) 2 tab PO HS PRN PRN Reason: CONSTIPATION Sodium Chloride ([place] Nasal [place] -) 2 spray NS BID [facility] Last Admin: 11/03/17 10:01 Dose: 2 sprays Tramadol HCl (Ultram -) 50 mg PO Q6H PRN PRN Reason: PAIN LEVEL 4 - 6 GENERAL: Awake, alert, NAD pleasant HEAD: Normal with no signs of trauma. EYES: Pupils equal, round and reactive to light, extraocular movements intact, EARS, NOSE, THROAT: Ears normal, nares patent, oropharynx clear without exudates. NECK: Normal range of motion, supple without lymphadenopathy, no stiffness LUNGS: Breath sounds equal, clear to auscultation bilaterally. No wheezes, and no crackles. HEART: S1S2 ABDOMEN: Soft, nontender, ND +BS UPPER EXTREMITIES: 2+ pulses, warm, well-perfused. LOWER EXTREMITIES: 2+ pulses, warm, well-perfused. NEUROLOGICAL: Non-focal SKIN: Warm, dry, intact Drain removed CBCD WBC 3.0 K/mm3 (4.0-10.0) L 11/02/17 05:45 RBC 4.23 M/mm3 (3.60-5.2) 11/02/17 05:45 Hgb 13.8 GM/dL (10.7-15.3) 11/02/17 05:45 Hct 39.2 % (32.4-45.2) 11/02/17 05:45 MCV 92.6 fl (80-96) 11/02/17 05:45 MCHC 35.1 g/dl (32.0-36.0) 11/02/17 05:45 RDW 14.1 % (11.6-15.6) 11/02/17 05:45 Plt Count 235 K/MM3 (134-434) 11/02/17 05:45 MPV 7.7 fl (7.5-11.1) 11/02/17 05:45 CMP Sodium 140 mmol/L (136-145) 11/01/17 08:44 Potassium 4.4 mmol/L (3.5-5.1) 11/01/17 08:44 Chloride 101 mmol/L (98-107) 11/01/17 08:44 Carbon Dioxide 26 mmol/L (21-32) 11/01/17 08:44 Anion Gap 13 (8-16) 11/01/17 08:44 BUN 12 mg/dL (7-18) 11/01/17 08:44 Creatinine 0.7 mg/dL (0.55-1.02) 11/01/17 08:44 Creat Clearance w eGFR > 60 (>60) 10/29/17 07:00 Calcium 9.4 mg/dL (8.5-10.1) 11/01/17 08:44 Total Bilirubin 0.4 mg/dL (0.2-1.0) 10/29/17 07:00 AST 10 U/L (15-37) L 10/29/17 07:00 ALT 22 U/L (12-78) 10/29/17 07:00 Alkaline Phosphatase 48 U/L (45-117) 10/29/17 07:00 Total Protein 6.5 g/dl (6.4-8.2) 10/29/17 07:00 Albumin 2.9 g/dl (3.4-5.0) L 10/29/17 07:00 ASSESSMENT/PLAN: Pneumococcal meningitis s/p placement of a lumbar CSF drain, harvest of Left fascia deonna and fat graft, transsphenoidal patching/packing of Left sphenoid sinus, microdissection due to a CSF leak. HTN Breast CA Mastoiditis / Sinusitis Plan ABX per ID CThead today given asymetrical head ache, Dr Dueñas closely following, f/u read VTE prophylaxis O2 as needed Incentive Spirometry Positioning per Neurosurgery CSF drainage management. removed activity level as per Neuro [place] ACNP [id number] to floor if ok'd with Dr Dueñas.
[2017-11-03] MEDS: LORATADINE 10 MG TABLET PO SCH (14:37)
[2017-11-03] MEDS ORDERED: DEXAMETHASONE SOD PHOSPHATE 4 MG/1 ML VIAL IVPUSH ONE (18:45)
--- NOTE | 2017-11-03 22:15 | PN ---
Progress Note, Physician - Current Medication List Current Medications: Active Medications Acetaminophen (Tylenol -) 650 mg PO Q6H PRN PRN Reason: PAIN LEVEL 1-5 Last Admin: 11/03/17 17:32 Dose: 650 mg Acetaminophen/Codeine Phosphate (Tylenol # 3 -) 1 tab PO Q4H PRN PRN Reason: PAIN LEVEL 6-10 Last Admin: 11/01/17 09:39 Dose: 1 tab Docusate Sodium (Colace -) 100 mg PO TID [facility] Last Admin: 11/03/17 21:01 Dose: Not Given Loratadine (Claritin -) 10 mg PO DAILY [facility] Last Admin: 11/03/17 14:37 Dose: 10 mg Nystatin (Nystop Powder -) 1 applic TP DAILY [facility] Last Admin: 11/03/17 10:01 Dose: 1 applic Ondansetron HCl (Zofran Injection) 4 mg IVPUSH Q6H PRN PRN Reason: NAUSEA Pantoprazole Sodium (Protonix Iv) 40 mg IVPUSH DAILY [facility] Last Admin: 11/03/17 09:57 Dose: 40 mg Polyethylene Glycol (Miralax (For Daily Use) -) 17 gm PO DAILY [facility] Last Admin: 11/03/17 10:01 Dose: Not Given Senna (Senna -) 2 tab PO HS PRN PRN Reason: CONSTIPATION Sodium Chloride ([place] Nasal [place] -) 2 spray NS BID [facility] Last Admin: 11/03/17 21:01 Dose: 2 sprays Tramadol HCl (Ultram -) 50 mg PO Q6H PRN PRN Reason: PAIN LEVEL 4 - 6 - Objective Vital Signs: Vital Signs Temperature 98.7 F 11/03/17 16:00 Pulse Rate 98 H 11/03/17 20:00 Respiratory Rate 17 11/03/17 20:00 Blood Pressure 127/75 11/03/17 20:00 O2 Sat by Pulse Oximetry (%) 95 11/03/17 20:25 Labs: CBC, BMP 11/02/17 05:45 11/01/17 08:44 INR, PTT INR 0.99 (0.82-1.09) 10/21/17 10:10 Problem List - Problems (1) Acute bacterial meningitis Code(s): G00.9 - BACTERIAL MENINGITIS, UNSPECIFIED (2) Acute sinusitis Code(s): J01.90 - ACUTE SINUSITIS, UNSPECIFIED Qualifiers: Sinusitis location: sphenoidal Recurrence: non-recurrent Qualified Code(s ): J01.30 - Acute sphenoidal sinusitis, unspecified (3) Invasive ductal carcinoma of breast, female Code(s): C50.919 - MALIGNANT NEOPLASM OF UNSP SITE OF UNSPECIFIED FEMALE BREAST
[2017-11-04] MEDS: DOCUSATE SODIUM 100 MG CAPSULE (FP) PO SCH ×3 (07:04→21:16)
--- NOTE | 2017-11-04 07:23 | PN ---
Progress Note, Physician Chief Complaint: ID Off antibiotics Headache better today No fever - Current Medication List Current Medications: Active Medications Acetaminophen (Tylenol -) 650 mg PO Q6H PRN PRN Reason: PAIN LEVEL 1-5 Last Admin: 11/03/17 17:32 Dose: 650 mg Acetaminophen/Codeine Phosphate (Tylenol # 3 -) 1 tab PO Q4H PRN PRN Reason: PAIN LEVEL 6-10 Last Admin: 11/01/17 09:39 Dose: 1 tab Docusate Sodium (Colace -) 100 mg PO TID [facility] Last Admin: 11/04/17 07:04 Dose: Not Given Loratadine (Claritin -) 10 mg PO DAILY [facility] Last Admin: 11/03/17 14:37 Dose: 10 mg Nystatin (Nystop Powder -) 1 applic TP DAILY [facility] Last Admin: 11/03/17 10:01 Dose: 1 applic Ondansetron HCl (Zofran Injection) 4 mg IVPUSH Q6H PRN PRN Reason: NAUSEA Pantoprazole Sodium (Protonix Iv) 40 mg IVPUSH DAILY [facility] Last Admin: 11/03/17 09:57 Dose: 40 mg Polyethylene Glycol (Miralax (For Daily Use) -) 17 gm PO DAILY [facility] Last Admin: 11/03/17 10:01 Dose: Not Given Senna (Senna -) 2 tab PO HS PRN PRN Reason: CONSTIPATION Sodium Chloride ([place] Nasal [place] -) 2 spray NS BID [facility] Last Admin: 11/03/17 21:01 Dose: 2 sprays Tramadol HCl (Ultram -) 50 mg PO Q6H PRN PRN Reason: PAIN LEVEL 4 - 6 - Objective Vital Signs: Vital Signs Temperature 98 F 11/04/17 06:00 Pulse Rate 78 11/04/17 07:00 Respiratory Rate 15 11/04/17 07:00 Blood Pressure 130/73 11/04/17 07:00 O2 Sat by Pulse Oximetry (%) 95 11/03/17 20:25 Constitutional: Yes: Well Nourished, No Distress HENT: Yes: WNL, Atraumatic Cardiovascular: Yes: Regular Rate and Rhythm, S1, S2 Respiratory: Yes: WNL, Regular, CTA Bilaterally Gastrointestinal: Yes: WNL, Normal Bowel Sounds, Soft. No: Tenderness Edema: No Labs: CBC, BMP 11/02/17 05:45 11/01/17 08:44 INR, PTT INR 0.99 (0.82-1.09) 10/21/17 10:10 Problem List - Problems (1) Acute sinusitis Code(s): J01.90 - ACUTE SINUSITIS, UNSPECIFIED Qualifiers: Sinusitis location: sphenoidal Recurrence: non-recurrent Qualified Code(s ): J01.30 - Acute sphenoidal sinusitis, unspecified (2) Acute bacterial meningitis Code(s): G00.9 - BACTERIAL MENINGITIS, UNSPECIFIED (3) Invasive ductal carcinoma of breast, female Code(s): C50.919 - MALIGNANT NEOPLASM OF UNSP SITE OF UNSPECIFIED FEMALE BREAST Assessment/Plan Laboratory Tests 10/14/17 10/31/17 16:10 07:40 C-Reactive Protein 2.5 H S. pneumoniae Antigen Positive H Assessment Case discussed with surgery. Concern here has been whether or not there is any bone erosion that would dictate need for longer antibiotic treatment. On one hand her CRP is low. However may be in the patient best interest to continue antibiotic treatment for a while so will resume Ceftriaxone. Dodie RICE
[2017-11-04 08:05] LABS: HEMATOCRIT 43.4 % (32.4-45.2); HEMOGLOBIN 14.7 GM/dL (10.7-15.3); MCH 31.5 pg (25.7-33.7); MCHC 33.8 g/dl (32.0-36.0); MEAN CELL VOLUME 93.1 fl (80-96); MEAN PLT VOLUME 7.9 fl (7.5-11.1); PLATELET COUNT 286 K/MM3 (134-434); RBC 4.66 M/mm3 (3.60-5.2); RDW 14.1 % (11.6-15.6); WHITE BLOOD COUNT 3.1 K/mm3 (4.0-10.0)
[2017-11-04 08:08] LABS: ALBUMIN 3.3 g/dl (3.4-5.0); ANION GAP 10 (8-16); BILIRUBIN,TOTAL 0.4 mg/dL (0.2-1.0); BLOOD UREA NITROGEN 14 mg/dL (7-18); CALCIUM 9.8 mg/dL (8.5-10.1); CHLORIDE 102 mmol/L (98-107); CO2 28 mmol/L (21-32); CREATININE 0.7 mg/dL (0.55-1.02); GLUCOSE,RANDOM 97 mg/dL (74-106); POTASSIUM 4.7 mmol/L (3.5-5.1); SGOT/AST 14 U/L (15-37); SGPT/ALT 35 U/L (12-78); SODIUM 140 mmol/L (136-145); TOT PROT 7.3 g/dl (6.4-8.2)
[2017-11-04 08:09] LABS: ALK PHOS 63 U/L (45-117)
--- NOTE | 2017-11-04 09:00 | PN ---
Progress Note (short form) - Note Progress Note: NEUROSURGERY POD #7 L sided H/a yesterday, none today, No N/V. Had a good night sleep No nasal drainage, slight mucous this am x1 PE: AF, VSS HEENT- NC/AT; Neck- supple, no nuchal rigidity; Cor- RRR; Lungs- CTA; Abd- benign; Ext- no sign of DVT CN- intact II-XII; Motor- 5/5 without drift; Sensation- intact LT CRP 2.5; WBC 3.1, K 3.1 OR CSF gram stain negative, culture negative Head CT- postop changes in sphenoid; pneumocephalus resolved; no change L mastoid fluid Strep pneumoniae meningitis with CSF rhinorrhea S/p sphenoid sinus patching/tissue glue after initial lumbar CSF drain placement and fascia deonna/fat graft SCD's Restarted on ceftriaxone today given unusual circumstances D/w ID ultram for pain Transfer to floor care Add probiotic given iv abx
[2017-11-04] MEDS ORDERED: PT OWN MED DRAWER 7, Y5N ONE (09:57)
--- NOTE | 2017-11-04 09:57 | PN ---
Physical Exam: SUBJECTIVE: Patient seen and examined No acute events overnight. Pt has no acute complaints. She denies headache, lightheadedness, rhinorrhea, chest pain, SOB, abdominal pain, n/v/d/c, and dysuria. She is tolerating a regular diet. She was able to walk to her chair, but became lightheaded and needed to sit back down. OBJECTIVE: Vital Signs Period Temp Pulse Resp BP Sys/Alonso Pulse Ox Last 24 Hr 98 F-98.8 F 68-128 14-22 92-149/56-87 95-96 GENERAL: middle aged female, sitting in bed, in NAD HEENT: NC, AT LUNGS: CTAB, no rhonchi or rales HEART: Regular rate and rhythm, S1, S2 without murmur, rub or gallop. ABDOMEN: Soft, nontender, nondistended, normoactive bowel sounds, no guarding, no rebound, no hepatosplenomegaly, no masses. EXTREMITIES: 2+ pulses, warm, well-perfused, no edema. NEUROLOGICAL: Cranial nerves II through XII grossly intact. Normal speech, gait not observed. Laboratory Results - last 24 hr 11/04/17 11/04/17 07:15 07:15 WBC 3.1 L RBC 4.66 Hgb 14.7 Hct 43.4 MCV 93.1 MCH 31.5 MCHC 33.8 RDW 14.1 Plt Count 286 D MPV 7.9 Sodium 140 Potassium 4.7 Chloride 102 Carbon Dioxide 28 Anion Gap 10 BUN 14 Creatinine 0.7 Creat Clearance w eGFR > 60 Random Glucose 97 Calcium 9.8 Total Bilirubin 0.4 AST 14 L ALT 35 Alkaline Phosphatase 63 Total Protein 7.3 Albumin 3.3 L Active Medications Generic Name Dose Route Start Last Admin Trade Name Freq PRN Reason Stop Dose Admin Acetaminophen 650 mg 10/16/17 22:59 11/03/17 17:32 Tylenol - PO 650 mg Q6H PRN Administration PAIN LEVEL 1-5 Acetaminophen/Codeine Phosphate 1 tab 10/28/17 17:02 11/01/17 09:39 Tylenol # 3 - PO 1 tab Q4H PRN Administration PAIN LEVEL 6-10 Docusate Sodium 100 mg 10/28/17 22:00 11/04/17 07:04 Colace - PO Not Given TID NEGRITO Ceftriaxone Sodium 2 gm/ 100 mls @ 200 mls/hr 11/04/17 10:00 Dextrose IVPB DAILY NEGRITO Lactobacillus Acidophilus 1 cap 11/04/17 10:00 Bacid - PO DAILY NEGRITO Loratadine 10 mg 11/03/17 10:00 11/03/17 14:37 Claritin - PO 10 mg DAILY NEGRITO Administration Nystatin 1 applic 10/28/17 21:45 11/03/17 10:01 Nystop Powder - TP 1 applic DAILY NEGRITO Administration Ondansetron HCl 4 mg 10/28/17 17:02 Zofran Injection IVPUSH Q6H PRN NAUSEA Pantoprazole Sodium 40 mg 10/29/17 10:00 11/03/17 09:57 Protonix Iv IVPUSH 40 mg DAILY NEGRITO Administration Polyethylene Glycol 17 gm 10/31/17 10:00 11/03/17 10:01 Miralax (For Daily Use) - PO Not Given DAILY NEGRITO Senna 2 tab 10/31/17 08:50 Senna - PO HS PRN CONSTIPATION Sodium Chloride 2 spray 10/29/17 10:00 11/03/17 21:01 [place] Nasal [place] - NS 2 sprays BID NEGRITO Administration Tramadol HCl 50 mg 11/03/17 09:52 Ultram - PO Q6H PRN PAIN LEVEL 4 - 6 ASSESSMENT/PLAN: 62F w/ hx of HTN and breast cancer, initially admitted for pneumococcal meningitis, course complicated by pneumocephalus 2/2 mastoiditis and CSF leak from left sphenoid sinus. Neuro # CSF leak - s/p placement of Lumbar CSF drain, harvest of Left fascia deonna and fat graft, transsphenoidal patching/packing of Left sphenoid sinus, and microdissection by Dr. Dueñas (Neurosurgery) and Dr. Rousseau (ENT) on 10/28/17, s/p lumbar drain removal - POD #7 - post-op care per Dr. Dueñas. probiotic added - absorbable nasal packing in each nasal cavity ([place]) - incentive spirometry - supplemental O2 prn - pain control with Acetaminophen/Codeine prn and Tylenol prn. ultram added PRN - Zofran prn for nausea - ID (Dr. Stoll) recs appreciated: continue prophylactic IV Ceftriaxone - PT eval ordered ID # Pneumococcal meningitis - resolved - pt afebrile, no leukocytosis # Acute sinusitis / mastoiditis - ENT (Dr. Soham) recs appreciated: continue Nasal spray CV # HTN - hold home meds for now as pt is normotensive FEN/ppx - Fluids: po fluids - Electrolytes: wnl, continue to monitor - Nutrition: soft diet - DVT ppx with katie SCDs - GI ppx with Protonix Dispo -stable for discharge to floors per neurosurgery Case discussed with attending, Dr. Chacon. -Too Krause MD PGY1 ICU Team Visit type - Emergency Visit Emergency Visit: Yes ED Registration Date: 10/14/17 Care time: The patient presented to the Emergency Department on the above date and was hospitalized for further evaluation of their emergent condition. - New Patient This patient is new to me today: No - Critical Care Critical Care patient: Yes Total Critical Care Time (in minutes): 37 Critical Care Statement: The care of this patient involved high complexity decision making to prevent further life threatening deterioration of the patient 's condition and/or to evaluate & treat vital organ system(s) failure or risk of failure.
[2017-11-04] MEDS: LORATADINE 10 MG TABLET PO SCH (09:59)
[2017-11-04] MEDS: POLYETHYLENE GLYCOL 3350 119 GM BTL PO SCH (09:59)
[2017-11-04] MEDS: LACTOBACILLUS ACIDOPHILUS 1 TABLET PO SCH (09:59)
[2017-11-04] MEDS: NYSTATIN POWDER 100,000 UNITS/GM - 15 GM TOPICAL POWDER TP SCH (10:00)
[2017-11-04] MEDS ORDERED: CEFTRIAXONE 2 GM in DEXTROSE 5%-WATER 100 ML IVPB SCH (10:00)
[2017-11-04] MEDS: SODIUM CHLORIDE NASAL SPRAY 44 ML BOTTLE NS SCH ×2 (10:00→21:20)
[2017-11-04] MEDS: PANTOPRAZOLE SODIUM 40 MG VIAL IVPUSH SCH (10:01)
[2017-11-04] MEDS: ACETAMINOPHEN 325 MG TABLET (FP) PO PRN (10:14)
--- NOTE | 2017-11-04 14:12 | PN ---
Teaching Attending Note Name of Resident: Too Krause ATTENDING PHYSICIAN STATEMENT I saw and evaluated the patient. I reviewed the resident's note and discussed the case with the resident. I agree with the resident's findings and plan as documented. SUBJECTIVE: Pt seen and examined in the ICU. Mild headache this AM, no nausea or vomiting. Tolerating PO. No fevers or chills. OBJECTIVE: Last Vital Signs Temp Pulse Resp BP Pulse Ox 97.8 F 86 16 119/67 96 11/04/17 10:00 11/04/17 12:00 11/04/17 12:00 11/04/17 12:00 11/04/17 09:00 Intake & Output 11/01/17 11/02/17 11/03/17 11/04/17 23:59 23:59 23:59 23:59 Intake Total 3357 50 300 1100 Output Total 2300 30 50 Balance 1057 20 300 1050 Weight 114.1 kg 112.945 kg Gen: NAD at rest Heart: RRR Lung: decreased breath sounds at the bases Abd: soft, nontender Ext: no edema CBC, BMP 11/04/17 07:15 11/04/17 07:15 Active Medications Acetaminophen (Tylenol -) 650 mg PO Q6H PRN PRN Reason: PAIN LEVEL 1-5 Last Admin: 11/04/17 10:14 Dose: 650 mg Acetaminophen/Codeine Phosphate (Tylenol # 3 -) 1 tab PO Q4H PRN PRN Reason: PAIN LEVEL 6-10 Last Admin: 11/01/17 09:39 Dose: 1 tab Docusate Sodium (Colace -) 100 mg PO TID [facility] Last Admin: 11/04/17 13:05 Dose: Not Given Ceftriaxone Sodium 2 gm/ (Dextrose) 100 mls @ 200 mls/hr IVPB DAILY [facility] Last Admin: 11/04/17 10:01 Dose: 200 mls/hr Lactobacillus Acidophilus (Bacid -) 1 cap PO DAILY [facility] Last Admin: 11/04/17 09:59 Dose: 1 cap Loratadine (Claritin -) 10 mg PO DAILY [facility] Last Admin: 11/04/17 09:59 Dose: 10 mg Nystatin (Nystop Powder -) 1 applic TP DAILY [facility] Last Admin: 11/04/17 10:00 Dose: 1 applic Ondansetron HCl (Zofran Injection) 4 mg IVPUSH Q6H PRN PRN Reason: NAUSEA Pantoprazole Sodium (Protonix Iv) 40 mg IVPUSH DAILY [facility] Last Admin: 11/04/17 10:01 Dose: 40 mg Polyethylene Glycol (Miralax (For Daily Use) -) 17 gm PO DAILY [facility] Last Admin: 11/04/17 09:59 Dose: Not Given Senna (Senna -) 2 tab PO HS PRN PRN Reason: CONSTIPATION Sodium Chloride ([place] Nasal [place] -) 2 spray NS BID [facility] Last Admin: 11/04/17 10:00 Dose: 2 sprays Tramadol HCl (Ultram -) 50 mg PO Q6H PRN PRN Reason: PAIN LEVEL 4 - 6 ASSESSMENT AND PLAN: Pneumococcal Meningitis CSF Leak from Left Sphenoid Sinus s/p repair HTN h/o Breast Ca Leukopenia - continue antibiotics - monitor WBC count - PO as tolerated - pain control - bowel regimen - mechanical DVT prophylaxis - can monitor on floor
[2017-11-04] MEDS ORDERED: ACETAMINOPHEN WITH CODEINE 300MG/30MG TABLET PO PRN (19:15)
[2017-11-04] MEDS ORDERED: traMADol HCL 50 MG TABLET PO PRN (19:15)
[2017-11-04] MEDS ORDERED: SENNOSIDES 8.6MG TABLET (FP) PO PRN (19:15)
[2017-11-04] MEDS ORDERED: ONDANSETRON 4 MG/2 ML VIAL IVPUSH PRN (19:15)
[2017-11-04] MEDS ORDERED: ACETAMINOPHEN 325 MG TABLET (FP) PO PRN (19:15)
--- NOTE | 2017-11-04 23:52 | PN ---
Progress Note, Physician - Current Medication List Current Medications: Active Medications Acetaminophen (Tylenol -) 650 mg PO Q6H PRN PRN Reason: PAIN LEVEL 1-5 Acetaminophen/Codeine Phosphate (Tylenol # 3 -) 1 tab PO Q4H PRN PRN Reason: PAIN LEVEL 6-10 Docusate Sodium (Colace -) 100 mg PO TID [facility] Last Admin: 11/04/17 21:16 Dose: Not Given Ceftriaxone Sodium 2 gm/ (Dextrose) 100 mls @ 200 mls/hr IVPB DAILY [facility] Lactobacillus Acidophilus (Bacid -) 1 cap PO DAILY [facility] Last Admin: 11/04/17 09:59 Dose: 1 cap Loratadine (Claritin -) 10 mg PO DAILY [facility] Nystatin (Nystop Powder -) 1 applic TP DAILY [facility] Ondansetron HCl (Zofran Injection) 4 mg IVPUSH Q6H PRN PRN Reason: NAUSEA Pantoprazole Sodium (Protonix Iv) 40 mg IVPUSH DAILY [facility] Polyethylene Glycol (Miralax (For Daily Use) -) 17 gm PO DAILY [facility] Senna (Senna -) 2 tab PO HS PRN PRN Reason: CONSTIPATION Sodium Chloride ([place] Nasal [place] -) 2 spray NS BID [facility] Last Admin: 11/04/17 21:20 Dose: 2 spray Tramadol HCl (Ultram -) 50 mg PO Q6H PRN PRN Reason: PAIN LEVEL 4 - 6 Last Admin: 11/04/17 20:09 Dose: 50 mg - Objective Vital Signs: Vital Signs Temperature 98.4 F 11/04/17 23:17 Pulse Rate 95 H 11/04/17 23:17 Respiratory Rate 19 11/04/17 23:17 Blood Pressure 116/76 11/04/17 23:17 O2 Sat by Pulse Oximetry (%) 96 11/04/17 20:44 Labs: CBC, BMP 11/04/17 07:15 11/04/17 07:15 INR, PTT INR 0.99 (0.82-1.09) 10/21/17 10:10 Problem List - Problems (1) Acute bacterial meningitis Code(s): G00.9 - BACTERIAL MENINGITIS, UNSPECIFIED (2) Acute sinusitis Code(s): J01.90 - ACUTE SINUSITIS, UNSPECIFIED Qualifiers: Sinusitis location: sphenoidal Recurrence: non-recurrent Qualified Code(s ): J01.30 - Acute sphenoidal sinusitis, unspecified (3) Invasive ductal carcinoma of breast, female Code(s): C50.919 - MALIGNANT NEOPLASM OF UNSP SITE OF UNSPECIFIED FEMALE BREAST
[2017-11-05] MEDS: DOCUSATE SODIUM 100 MG CAPSULE (FP) PO SCH ×3 (06:29→21:38)
--- NOTE | 2017-11-05 08:03 | PN ---
Progress Note (short form) - Note Progress Note: NEUROSURGERY POD #8 No H/A today, No N/V. Able to walk around No nasal clear fluid drainage, slight mucous yesterday am had sneezing last night with increased H/A afterwards last night x1 PE: Tmax 98.2, AF, VSS Sitting up at bedside; in good spirit HEENT- NC/AT; Neck- supple, no nuchal rigidity; Cor- RRR; Lungs- CTA; Abd- benign; Ext- no sign of DVT CN- intact II-XII; Motor- 5/5 without drift; Sensation- intact LT Head CT- postop changes in sphenoid; pneumocephalus resolved; no change L mastoid fluid Strep pneumoniae meningitis with CSF rhinorrhea S/p sphenoid sinus patching/tissue glue after initial lumbar CSF drain placement and fascia deonna/fat graft SCD's Restarted on ceftriaxone per ID given basal skull erosion/bacterial meningitis Added probiotic given iv abx D/w ID yesterday ultram for pain Transfer to floor care - 8W
[2017-11-05] MEDS: LACTOBACILLUS ACIDOPHILUS 1 TABLET PO SCH (09:32)
[2017-11-05] MEDS: SODIUM CHLORIDE NASAL SPRAY 44 ML BOTTLE NS SCH ×2 (09:34→21:39)
[2017-11-05] MEDS ORDERED: POLYETHYLENE GLYCOL 3350 119 GM BTL PO SCH (10:00)
[2017-11-05] MEDS ORDERED: CEFTRIAXONE 2 GM in DEXTROSE 5%-WATER 100 ML IVPB SCH (10:00)
[2017-11-05] MEDS ORDERED: NYSTATIN POWDER 100,000 UNITS/GM - 15 GM TOPICAL POWDER TP SCH (10:00)
[2017-11-05] MEDS ORDERED: LORATADINE 10 MG TABLET PO SCH (10:00)
[2017-11-05] MEDS ORDERED: PANTOPRAZOLE SODIUM 40 MG VIAL IVPUSH SCH (10:00)
[2017-11-05 10:35] LABS: BASO % 1.3 % (0-2.0); HEMATOCRIT 46.1 % (32.4-45.2); HEMOGLOBIN 15.3 GM/dL (10.7-15.3); MCH 31.2 pg (25.7-33.7); MCHC 33.3 g/dl (32.0-36.0); MEAN CELL VOLUME 93.6 fl (80-96); MEAN PLT VOLUME 7.7 fl (7.5-11.1); MONO % 10.5 % (3.8-10.2); NEUT % 71.2 % (42.8-82.8); PLATELET COUNT 282 K/MM3 (134-434); RBC 4.92 M/mm3 (3.60-5.2); RDW 14.3 % (11.6-15.6); WHITE BLOOD COUNT 3.2 K/mm3 (4.0-10.0)
[2017-11-05 10:56] LABS: CHLORIDE 101 mmol/L (98-107); POTASSIUM 3.9 mmol/L (3.5-5.1); SODIUM 140 mmol/L (136-145)
[2017-11-05 11:06] LABS: ANION GAP 13 (8-16); BLOOD UREA NITROGEN 18 mg/dL (7-18); CALCIUM 9.9 mg/dL (8.5-10.1); CO2 26 mmol/L (21-32); CREATININE 0.8 mg/dL (0.55-1.02); GLUCOSE,RANDOM 94 mg/dL (74-106); MAGNESIUM 2.1 mg/dL (1.8-2.4); PHOSPHOROUS 3.8 mg/dL (2.5-4.9)
[2017-11-05] MEDS ORDERED: PANTOPRAZOLE 40 MG TABLET (FP) PO SCH (11:15)
--- NOTE | 2017-11-05 12:34 | PN ---
Progress Note (short form) - Note Progress Note: post op day #7 feels well Vital Signs Period Temp Pulse Resp BP Sys/Alonso Pulse Ox Last 24 Hr 97.6 F-98.9 F 76-113 11-21 107-133/59-84 96-96 cor-rrr llungs clear abd soft,nt ext no edema CBC, BMP //18 10:03 04/18 10:03 a/p pod #7 s/p repair of csf leak pneumococcal meningitis/sphenoid sinusitis continue ceftriaxone as ordered
--- NOTE | 2017-11-05 13:17 | PN ---
Teaching Attending Note Name of Resident: Too Krause ATTENDING PHYSICIAN STATEMENT I saw and evaluated the patient. I reviewed the resident's note and discussed the case with the resident. I agree with the resident's findings and plan as documented. SUBJECTIVE: Pt seen and examined in the ICU. Headache when sneezing. No fevers or chills. No chest pain or shortness of breath. OBJECTIVE: Last Vital Signs Temp Pulse Resp BP Pulse Ox 97.6 F 92 H 16 132/67 96 11/05/17 10:00 11/05/17 12:00 11/05/17 12:00 11/05/17 12:00 11/05/17 08:00 Intake & Output 11/02/17 11/03/17 11/04/17 11/05/17 23:59 23:59 23:59 23:59 Intake Total 50 300 1500 200 Output Total 30 50 Balance 20 300 1450 200 Weight 114.1 kg 112.945 kg 112.689 kg Gen: NAD at rest Heart: RRR Lung: decreased breath sounds at the bases Abd: soft, nontender Ext: no edema CBC, BMP 11/05/17 10:03 11/05/17 10:03 Active Medications Acetaminophen (Tylenol -) 650 mg PO Q6H PRN PRN Reason: PAIN LEVEL 1-5 Acetaminophen/Codeine Phosphate (Tylenol # 3 -) 1 tab PO Q4H PRN PRN Reason: PAIN LEVEL 6-10 Docusate Sodium (Colace -) 100 mg PO TID [facility] Last Admin: 11/05/17 06:29 Dose: Not Given Ceftriaxone Sodium 2 gm/ (Dextrose) 100 mls @ 200 mls/hr IVPB DAILY [facility] Last Admin: 11/05/17 09:34 Dose: 200 mls/hr Lactobacillus Acidophilus (Bacid -) 1 cap PO DAILY [facility] Last Admin: 11/05/17 09:32 Dose: 1 cap Loratadine (Claritin -) 10 mg PO DAILY [facility] Last Admin: 11/05/17 09:32 Dose: 10 mg Nystatin (Nystop Powder -) 1 applic TP DAILY [facility] Last Admin: 11/05/17 09:33 Dose: 1 applic Ondansetron HCl (Zofran Injection) 4 mg IVPUSH Q6H PRN PRN Reason: NAUSEA Pantoprazole Sodium (Protonix -) 40 mg PO DAILY [facility] Polyethylene Glycol (Miralax (For Daily Use) -) 17 gm PO DAILY [facility] Last Admin: 11/05/17 09:33 Dose: Not Given Senna (Senna -) 2 tab PO HS PRN PRN Reason: CONSTIPATION Sodium Chloride ([place] Nasal [place] -) 2 spray NS BID [facility] Last Admin: 11/05/17 09:34 Dose: 2 spray Tramadol HCl (Ultram -) 50 mg PO Q6H PRN PRN Reason: PAIN LEVEL 4 - 6 Last Admin: 11/04/17 20:09 Dose: 50 mg ASSESSMENT AND PLAN: Pneumococcal Meningitis CSF Leak from Left Sphenoid Sinus s/p repair HTN h/o Breast Ca Leukopenia - continue antibiotics per ID - will need PICC/halfway antibiotics - monitor WBC count - PO as tolerated - pain control - bowel regimen - mechanical DVT prophylaxis - can monitor on floor - d/c planning
--- NOTE | 2017-11-05 14:03 | PN ---
Physical Exam: SUBJECTIVE: Patient seen and examined No acute events overnight. Pt has no acute complaints. She denies headache, lightheadedness, rhinorrhea, chest pain, SOB, abdominal pain, n/v/d/c, and dysuria. She is tolerating a regular diet. She was able to walk down the hallway yesterday without problems. OBJECTIVE: Vital Signs Period Temp Pulse Resp BP Sys/Alonso Pulse Ox Last 24 Hr 97.4 F-98.9 F 76-113 11-20 107-133/65-84 96-96 GENERAL: middle aged female, sitting in bed, in NAD HEENT: no rhinorrhea LUNGS: CTAB, no rhonchi or rales HEART: Regular rate and rhythm, S1, S2 without murmur, rub or gallop. ABDOMEN: soft, NT, ND EXTREMITIES: 2+ pulses, warm, well-perfused, no edema. NEUROLOGICAL: Cranial nerves II through XII grossly intact. Normal speech, gait not observed. Laboratory Results - last 24 hr 11/05/17 11/05/17 10:03 10:03 WBC 3.2 L RBC 4.92 Hgb 15.3 Hct 46.1 H MCV 93.6 MCH 31.2 MCHC 33.3 RDW 14.3 Plt Count 282 MPV 7.7 Neutrophils % 71.2 Lymphocytes % 14.0 D Monocytes % 10.5 H Eosinophils % 3.0 Basophils % 1.3 Sodium 140 Potassium 3.9 Chloride 101 Carbon Dioxide 26 Anion Gap 13 BUN 18 Creatinine 0.8 Random Glucose 94 Calcium 9.9 Phosphorus 3.8 Magnesium 2.1 Active Medications Generic Name Dose Route Start Last Admin Trade Name Freq PRN Reason Stop Dose Admin Acetaminophen 650 mg 11/04/17 19:15 Tylenol - PO Q6H PRN PAIN LEVEL 1-5 Acetaminophen/Codeine Phosphate 1 tab 11/04/17 19:15 Tylenol # 3 - PO Q4H PRN PAIN LEVEL 6-10 Docusate Sodium 100 mg 11/04/17 22:00 11/05/17 06:29 Colace - PO Not Given TID NEGRITO Ceftriaxone Sodium 2 gm/ 100 mls @ 200 mls/hr 11/05/17 10:00 11/05/17 09:34 Dextrose IVPB 200 mls/hr DAILY [facility]GR[facility]O Administration Lactobacillus Acidophilus 1 cap 11/04/17 10:00 11/05/17 09:32 Bacid - PO 1 cap DAILY NEGR[facility]O Administration Loratadine 10 mg 11/05/17 10:00 11/05/17 09:32 Claritin - PO 10 mg DAILY NEGRITO Administration Nystatin 1 applic 11/05/17 10:00 11/05/17 09:33 Nystop Powder - TP 1 applic DAILY [facility]O Administration Ondansetron HCl 4 mg 11/04/17 19:15 Zofran Injection IVPUSH Q6H PRN NAUSEA Pantoprazole Sodium 40 mg 11/05/17 11:15 Protonix - PO DAILY [facility] Polyethylene Glycol 17 gm 11/05/17 10:00 11/05/17 09:33 Miralax (For Daily Use) - PO Not Given DAILY NEGRITO Senna 2 tab 11/04/17 19:15 Senna - PO HS PRN CONSTIPATION Sodium Chloride 2 spray 11/04/17 22:00 11/05/17 09:34 [place] Nasal [place] - NS 2 spray BID NEGRITO Administration Tramadol HCl 50 mg 11/04/17 19:15 11/04/17 20:09 Ultram - PO 50 mg Q6H PRN Administration PAIN LEVEL 4 - 6 ASSESSMENT/PLAN: 62F w/ hx of HTN and breast cancer, initially admitted for pneumococcal meningitis, course complicated by pneumocephalus 2/2 mastoiditis and CSF leak from left sphenoid sinus, now POD#8. Neuro # CSF leak - s/p placement of Lumbar CSF drain, harvest of Left fascia deonna and fat graft, transsphenoidal patching/packing of Left sphenoid sinus, and microdissection by Dr. Dueñas (Neurosurgery) and Dr. Rousseau (ENT) on 10/28/17, s/p lumbar drain removal - POD #8 - post-op care per Dr. Dueñas. - continue probiotic - absorbable nasal packing in each nasal cavity ([place]) - incentive spirometry - supplemental O2 prn - pain control with Acetaminophen/Codeine prn, Tylenol prn, and ultram PRN - Zofran prn for nausea - ID (Dr. Stoll) recs appreciated: continue prophylactic IV Ceftriaxone for 4 weeks. Pt will need to go home with PICC unless abx are able to be administered via portacath which is already present. Dr. Galeano notified. - PT eval ID # Pneumococcal meningitis - resolved - pt afebrile, no leukocytosis # Acute sinusitis / mastoiditis - ENT (Dr. Rousseau) recs appreciated: continue Nasal spray CV # HTN - hold home meds for now as pt is normotensive FEN/ppx - Fluids: po fluids - Electrolytes: wnl, continue to monitor - Nutrition: soft diet - DVT ppx with katie SCDs - GI ppx with Protonix Dispo -stable for discharge to floors per neurosurgery Case discussed with attending, Dr. Chacon. -Too Krause MD PGY1 ICU Team Visit type - Emergency Visit Emergency Visit: Yes ED Registration Date: 10/14/17 Care time: The patient presented to the Emergency Department on the above date and was hospitalized for further evaluation of their emergent condition. - New Patient This patient is new to me today: No - Critical Care Critical Care patient: Yes Total Critical Care Time (in minutes): 36 Critical Care Statement: The care of this patient involved high complexity decision making to prevent further life threatening deterioration of the patient 's condition and/or to evaluate & treat vital organ system(s) failure or risk of failure.
[2017-11-05] MEDS ORDERED: ONDANSETRON 4 MG/2 ML VIAL IVPUSH PRN (16:01)
[2017-11-05] MEDS ORDERED: traMADol HCL 50 MG TABLET PO PRN (16:01)
[2017-11-05] MEDS ORDERED: ACETAMINOPHEN 325 MG TABLET (FP) PO PRN (16:01)
[2017-11-05] MEDS ORDERED: ACETAMINOPHEN WITH CODEINE 300MG/30MG TABLET PO PRN (16:01)
[2017-11-05] MEDS ORDERED: SENNOSIDES 8.6MG TABLET (FP) PO PRN (16:01)
--- NOTE | 2017-11-05 23:13 | PN ---
Progress Note, Physician History of Present Illness: No new complaints - Current Medication List Current Medications: Active Medications Acetaminophen (Tylenol -) 650 mg PO Q6H PRN PRN Reason: PAIN LEVEL 1 - 3 Acetaminophen/Codeine Phosphate (Tylenol # 3 -) 1 tab PO Q4H PRN PRN Reason: PAIN LEVEL 7 - 10 Docusate Sodium (Colace -) 100 mg PO TID [facility] Last Admin: 11/05/17 21:38 Dose: Not Given Ceftriaxone Sodium 2 gm/ (Dextrose) 100 mls @ 200 mls/hr IVPB DAILY [facility] Lactobacillus Acidophilus (Bacid -) 1 cap PO DAILY [facility] Loratadine (Claritin -) 10 mg PO DAILY [facility] Nystatin (Nystop Powder -) 1 applic TP DAILY [facility] Ondansetron HCl (Zofran Injection) 4 mg IVPUSH Q6H PRN PRN Reason: NAUSEA Pantoprazole Sodium (Protonix -) 40 mg PO DAILY [facility] Polyethylene Glycol (Miralax (For Daily Use) -) 17 gm PO DAILY [facility] Senna (Senna -) 2 tab PO HS PRN PRN Reason: CONSTIPATION Sodium Chloride ([place] Nasal [place] -) 2 spray NS BID [facility] Last Admin: 11/05/17 21:39 Dose: 2 sprays Tramadol HCl (Ultram -) 50 mg PO Q6H PRN PRN Reason: PAIN LEVEL 4 - 6 - Objective Vital Signs: Vital Signs Temperature 98.5 F 11/05/17 18:00 Pulse Rate 105 H 11/05/17 18:00 Respiratory Rate 18 11/05/17 18:00 Blood Pressure 104/69 11/05/17 18:00 O2 Sat by Pulse Oximetry (%) 96 11/05/17 09:00 Constitutional: Yes: Well Nourished Neck: Yes: WNL, Supple Cardiovascular: Yes: WNL, Regular Rate and Rhythm Respiratory: Yes: WNL, Regular, CTA Bilaterally Gastrointestinal: Yes: WNL, Normal Bowel Sounds, Soft Labs: CBC, BMP 11/05/17 10:03 11/05/17 10:03 INR, PTT INR 0.99 (0.82-1.09) 10/21/17 10:10 Problem List - Problems (1) Acute bacterial meningitis Assessment/Plan: Cont IV ceftriaxone for total of 4 weeks Spoke to pt and her at length and she has agreed for STR placement in order to receive 4 weeks of ICV ceftriaxone PIC line placement for am Code(s): G00.9 - BACTERIAL MENINGITIS, UNSPECIFIED (2) Acute sinusitis Code(s): J01.90 - ACUTE SINUSITIS, UNSPECIFIED Qualifiers: Sinusitis location: sphenoidal Recurrence: non-recurrent Qualified Code(s ): J01.30 - Acute sphenoidal sinusitis, unspecified (3) Invasive ductal carcinoma of breast, female Code(s): C50.919 - MALIGNANT NEOPLASM OF UNSP SITE OF UNSPECIFIED FEMALE BREAST
[2017-11-05] MEDS ORDERED: PICC LINE 8 ML FLUSH PROTOCOL IVPUSH PRN (23:41)
[2017-11-06] MEDS: DOCUSATE SODIUM 100 MG CAPSULE (FP) PO SCH ×3 (06:14→21:54)
--- NOTE | 2017-11-06 08:00 | PN ---
Progress Note (short form) - Note Progress Note: NEUROSURGERY POD #9 On 8 W No H/A today, No N/V. Able to walk around with less dizziness No nasal clear fluid drainage, slight mucous yesterday am had sneezing last night with increased H/A afterwards last night x1 PE: Tmax 98.7, AF, VSS Sitting up at bedside; in good spirit HEENT- NC/AT; Neck- supple, no nuchal rigidity; Cor- RRR; Lungs- CTA; Abd- benign; Ext- no sign of DVT CN- intact II-XII; Motor- 5/5 without drift; Sensation- intact LT WBC 3.2 Strep pneumoniae meningitis with CSF rhinorrhea, CSF rhinorrhea resolved since surgery S/p sphenoid sinus patching/tissue glue after initial lumbar CSF drain placement and fascia deonna/fat graft Restarted on ceftriaxone per ID given basal skull erosion/bacterial meningitis On probiotic given iv abx Avoid straining ultram for pain
[2017-11-06] MEDS ORDERED: PT OWN MED DRAWER 7, Y5N ONE (10:35)
[2017-11-06] MEDS: LACTOBACILLUS ACIDOPHILUS 1 TABLET PO SCH (10:43)
[2017-11-06] MEDS: LORATADINE 10 MG TABLET PO SCH (10:43)
[2017-11-06] MEDS: PANTOPRAZOLE 40 MG TABLET (FP) PO SCH (10:43)
[2017-11-06] MEDS: SODIUM CHLORIDE NASAL SPRAY 44 ML BOTTLE NS SCH ×2 (10:44→21:53)
[2017-11-06] MEDS: POLYETHYLENE GLYCOL 3350 119 GM BTL PO SCH (10:44)
[2017-11-06] MEDS: NYSTATIN POWDER 100,000 UNITS/GM - 15 GM TOPICAL POWDER TP SCH (10:45)
[2017-11-06] MEDS: CEFTRIAXONE 2 GM in DEXTROSE 5%-WATER 100 ML IVPB SCH (11:40)
--- NOTE | 2017-11-06 14:31 | PN ---
Physical Exam: SUBJECTIVE: Patient seen and examined. She feels well, denies MCDONOUGH, photophobia, phonophobia OBJECTIVE: Vital Signs Period Temp Pulse Resp BP Sys/Alonso Pulse Ox Last 24 Hr 97.7 F-98.7 F 86-106 18-20 99-120/58-70 97 PE Neuro: alert, awake, cn 2-12intact Pulm: CTAB CV: s1 s1 rrr no mrg Abd: s nt nd + bs Ext: no le edema Skin: L neck, chest wall darker pigmentation from radiation Active Medications Generic Name Dose Route Start Last Admin Trade Name Freq PRN Reason Stop Dose Admin Acetaminophen 650 mg 11/05/17 16:01 Tylenol - PO Q6H PRN PAIN LEVEL 1 - 3 Acetaminophen/Codeine Phosphate 1 tab 11/05/17 16:01 Tylenol # 3 - PO Q4H PRN PAIN LEVEL 7 - 10 Docusate Sodium 100 mg 11/05/17 22:00 11/06/17 14:24 Colace - PO Not Given TID NEGRITO IV Flush 8 ml 11/05/17 23:41 Picc Line Flush IVPUSH PRN PRN Protocol Ceftriaxone Sodium 2 gm/ 100 mls @ 200 mls/hr 11/06/17 10:00 11/06/17 11:40 Dextrose IVPB 200 mls/hr DAILY NEGRITO Administration Lactobacillus Acidophilus 1 cap 11/06/17 10:00 11/06/17 10:43 Bacid - PO 1 cap DAILY NEGRITO Administration Loratadine 10 mg 11/06/17 10:00 11/06/17 10:43 Claritin - PO 10 mg DAILY NEGRITO Administration Nystatin 1 applic 11/06/17 10:00 11/06/17 10:45 Nystop Powder - TP 1 applic DAILY NEGRITO Administration Ondansetron HCl 4 mg 11/05/17 16:01 Zofran Injection IVPUSH Q6H PRN NAUSEA Pantoprazole Sodium 40 mg 11/06/17 10:00 11/06/17 10:43 Protonix - PO 40 mg DAILY NEGRITO Administration Polyethylene Glycol 17 gm 11/06/17 10:00 11/06/17 10:44 Miralax (For Daily Use) - PO Not Given DAILY NEGRITO Senna 2 tab 11/05/17 16:01 Senna - PO HS PRN CONSTIPATION Sodium Chloride 2 spray 11/05/17 22:00 11/06/17 10:44 [place] Nasal [place] - NS 2 sprays BID NEGRITO Administration Tramadol HCl 50 mg 11/05/17 16:01 Ultram - PO Q6H PRN PAIN LEVEL 4 - 6 Microbiology 10/28/17 17:45 Cerebral Spinal Fluid - Lumbar Puncture Gram Stain - Final 10/28/17 17:45 Cerebral Spinal Fluid - Lumbar Puncture CSF Culture - Final 10/28/17 17:45 Cerebral Spinal Fluid - Lumbar Puncture AFB Smear Concentration - Final 10/28/17 17:45 Cerebral Spinal Fluid - Lumbar Puncture Mycobacterial Culture - Preliminary 10/28/17 17:45 Cerebral Spinal Fluid - Lumbar Puncture JENIFER Preparation - Preliminary 10/28/17 17:45 Cerebral Spinal Fluid - Lumbar Puncture Fungal Culture - Preliminary 10/28/17 17:45 Cerebral Spinal Fluid - Lumbar Puncture Gram Stain - Final 10/14/17 15:40 Blood - Peripheral Venous Blood Culture - Final NO GROWTH AFTER 5 DAYS INCUBATION 10/14/17 15:40 Blood - Peripheral Venous Blood Culture - Final NO GROWTH AFTER 5 DAYS INCUBATION 10/14/17 16:10 Cerebral Spinal Fluid - Lumbar Puncture Gram Stain - Final 10/14/17 16:10 Cerebral Spinal Fluid - Lumbar Puncture CSF Culture - Final NO GROWTH AFTER 48 HOURS INCUBATION 10/14/17 18:49 Urine For Antigen Detection Legionella Antigen - Final 10/14/17 18:49 Urine For Antigen Detection Streptococcus pneumoniae Antigen (M - Final 10/14/17 16:10 Cerebral Spinal Fluid - Lumbar Puncture Streptococcus pneumoniae Antigen (M - Final 10/14/17 15:40 Nasopharyngeal Swab Influenza Types A,B Antigen (JAMIA) - Final 10/14/17 15:40 Nasopharyngeal Swab - Final Assessment: 62 year old female with PMHx stage III breast invasive ductal carcinoma (S/P chemo/ radiation therapy) and HTN presented with MCDONOUGH Plan 1. Acute bacterial meningitis - D/t streptococcus pna - Cont IV ceftriaxone for total of 4 weeks - SNF vs home infusion for duration of abx - PICC line on day of discharge 2. HTN - Controlled off home meds - Valsartan 80mg/hctz 12.5mg if BP elevated 3. Acute sinusitis with mastoiditis - Likely source of meningitis 4. Invasive ductal carcinoma of breast, female - Finished chemotherapy December 2016 and XRT May 2107) Visit type - Emergency Visit Emergency Visit: Yes ED Registration Date: 10/14/17 Care time: The patient presented to the Emergency Department on the above date and was hospitalized for further evaluation of their emergent condition. - New Patient This patient is new to me today: Yes Date on this admission: 11/06/17 - Critical Care Critical Care patient: No
[2017-11-07] MEDS: DOCUSATE SODIUM 100 MG CAPSULE (FP) PO SCH ×2 (06:22→16:23)
[2017-11-07] MEDS ORDERED: PT OWN MED DRAWER 7, Y5N ONE (10:31)
[2017-11-07] MEDS: LACTOBACILLUS ACIDOPHILUS 1 TABLET PO SCH (10:32)
[2017-11-07] MEDS: LORATADINE 10 MG TABLET PO SCH (10:32)
[2017-11-07] MEDS: CEFTRIAXONE 2 GM in DEXTROSE 5%-WATER 100 ML IVPB SCH (10:32)
[2017-11-07] MEDS: PANTOPRAZOLE 40 MG TABLET (FP) PO SCH (10:32)
[2017-11-07] MEDS: NYSTATIN POWDER 100,000 UNITS/GM - 15 GM TOPICAL POWDER TP SCH (10:33)
[2017-11-07] MEDS: SODIUM CHLORIDE NASAL SPRAY 44 ML BOTTLE NS SCH (10:34)
[2017-11-07] MEDS: POLYETHYLENE GLYCOL 3350 119 GM BTL PO SCH (10:34)
--- NOTE | 2017-11-07 11:29 | PN ---
Progress Note (short form) - Note Progress Note: Feels overall better. No CP or SOB. For possible D/C today with PICC/outpatient ABX. Intake & Output 11/04/17 11/05/17 11/06/17 11/07/17 23:59 23:59 23:59 23:59 Intake Total 1500 660 550 100 Output Total 50 Balance 1450 660 550 100 Weight 249 lb 248 lb 7 oz Last Vital Signs Temp Pulse Resp BP Pulse Ox 98.2 F 83 20 122/74 99 11/07/17 07:22 11/07/17 07:22 11/07/17 07:22 11/07/17 07:22 11/06/17 21:00 Active Medications Acetaminophen (Tylenol -) 650 mg PO Q6H PRN PRN Reason: PAIN LEVEL 1 - 3 Last Admin: 11/07/17 01:50 Dose: 650 mg Acetaminophen/Codeine Phosphate (Tylenol # 3 -) 1 tab PO Q4H PRN PRN Reason: PAIN LEVEL 7 - 10 Docusate Sodium (Colace -) 100 mg PO TID [facility] Last Admin: 11/07/17 06:22 Dose: Not Given IV Flush (Picc Line Flush) 8 ml IVPUSH PRN PRN PRN Reason: Protocol Ceftriaxone Sodium 2 gm/ (Dextrose) 100 mls @ 200 mls/hr IVPB DAILY [facility] Last Admin: 11/07/17 10:32 Dose: 200 mls/hr Lactobacillus Acidophilus (Bacid -) 1 cap PO DAILY [facility] Last Admin: 11/07/17 10:32 Dose: 1 cap Loratadine (Claritin -) 10 mg PO DAILY [facility] Last Admin: 11/07/17 10:32 Dose: 10 mg Nystatin (Nystop Powder -) 1 applic TP DAILY [facility] Last Admin: 11/07/17 10:33 Dose: 1 applic Ondansetron HCl (Zofran Injection) 4 mg IVPUSH Q6H PRN PRN Reason: NAUSEA Pantoprazole Sodium (Protonix -) 40 mg PO DAILY [facility] Last Admin: 11/07/17 10:32 Dose: 40 mg Polyethylene Glycol (Miralax (For Daily Use) -) 17 gm PO DAILY [facility] Last Admin: 11/07/17 10:34 Dose: Not Given Senna (Senna -) 2 tab PO HS PRN PRN Reason: CONSTIPATION Sodium Chloride ([place] Nasal [place] -) 2 spray NS BID NEGRITO Last Admin: 11/07/17 10:34 Dose: 2 sprays Tramadol HCl (Ultram -) 50 mg PO Q6H PRN PRN Reason: PAIN LEVEL 4 - 6 GENERAL: Awake, alert, and oriented HEAD: Normal with no signs of trauma. EYES: Pupils equal, round and reactive to light, extraocular movements intact, EARS, NOSE, THROAT: Ears normal, nares patent, oropharynx clear without exudates. NECK: Normal range of motion, supple without lymphadenopathy, no stiffness LUNGS: Breath sounds equal, clear to auscultation bilaterally. No wheezes, and no crackles. HEART: s1s2 normal ABDOMEN: Soft, nontender, not distended, normoactive bowel sounds, no guarding, no rebound, no masses. UPPER EXTREMITIES: 2+ pulses, warm, well-perfused. LOWER EXTREMITIES: 2+ pulses, warm, well-perfused. NEUROLOGICAL: Non-focal SKIN: Warm, dry, no petechiae ASSESSMENT/PLAN: Pneumococcal meningitis HTN Breast CA Mastoiditis / Sinusitis Suspected CSF leak Plan ABX per ID Incentive Spirometry D/C planning Dr Osorio
[2017-11-07] MEDS ORDERED: PICC LINE 8 ML FLUSH PROTOCOL IVPUSH PRN (11:49)
--- NOTE | 2017-11-07 12:53 | PN ---
Progress Note (short form) - Note Progress Note: ID Clinically doing well Ceftriaxone continues Selected Entries 11/07/17 07:22 Temperature 98.2 F Pulse Rate 83 Respiratory 20 Rate Blood Pressure 122/74 Laboratory Tests 11/05/17 11/05/17 10:03 10:03 WBC 3.2 L Hgb 15.3 Hct 46.1 H Plt Count 282 BUN 18 Creatinine 0.8 Assessment At this point we are really treating the possibility of osteomyelitis and only a possibility Plan Ceftriaxone will continue from today 3 full weeks weekly CBC and CMP Dodie RICE Problem List - Problems (1) Acute sinusitis Code(s): J01.90 - ACUTE SINUSITIS, UNSPECIFIED Qualifiers: Sinusitis location: sphenoidal Recurrence: non-recurrent Qualified Code(s ): J01.30 - Acute sphenoidal sinusitis, unspecified (2) Acute bacterial meningitis Code(s): G00.9 - BACTERIAL MENINGITIS, UNSPECIFIED (3) Invasive ductal carcinoma of breast, female Code(s): C50.919 - MALIGNANT NEOPLASM OF UNSP SITE OF UNSPECIFIED FEMALE BREAST
[2017-11-07 14:58] VITALS: BP 110/70; PULSE 88; TEMP 98.4
--- NOTE | 2017-11-07 15:42 | PN ---
Progress Note (short form) - Note Progress Note: NEUROSURGERY POD #10 On 8 W No H/A today, No N/V. No nasal clear fluid drainage PE: AF, VSS Sitting up at bedside; in good spirit HEENT- NC/AT; Neck- supple, no nuchal rigidity; Cor- RRR; Lungs- CTA; Abd- benign; Ext- no sign of DVT CN- intact II-XII; Motor- 5/5 without drift; Sensation- intact LT Strep pneumoniae meningitis with CSF rhinorrhea, CSF rhinorrhea resolved since surgery S/p sphenoid sinus patching/tissue glue after initial lumbar CSF drain placement and fascia deonna/fat graft Restarted on ceftriaxone per ID given basal skull erosion/bacterial meningitis On probiotic given iv abx Avoid straining Wound care and activity level advised
--- NOTE | 2017-11-10 20:50 | DS ---
Physical Examination Vital Signs: Vital Signs Temperature 98.4 F 11/07/17 10:00 Pulse Rate 88 11/07/17 10:00 Respiratory Rate 18 11/07/17 10:00 Blood Pressure 110/70 11/07/17 10:00 O2 Sat by Pulse Oximetry (%) 99 11/07/17 09:00 Labs: CBC, BMP 11/05/17 10:03 11/05/17 10:03 Discharge Summary Reason For Visit: MASTOIDITIS Condition: Good - Instructions Diet, Activity, Other Instructions: Please return to the emergency department with any new or worsening symptoms or concerns. Pt needs 3 weeks from today of IV cetriaxone with weekly CBC and CMET PT WILL COME TO HOSPITAL EVERY DAY FOR IV ANTIBIOTICS UNTIL 11/28 TO SAT[facility]DAY [facility] ON 2ND FLOOR SATURDAY AND SATURDAY ON 7NTH FLOOR.REGISTRATION EVERY DAY IN ADMITTING 1ST FLOOR Referrals: Alberto Dueñas MD [Staff Physician] - Jacky Rubi MD [Primary Care Provider] - Disposition: HOME - Home Medications Comprehensive Discharge Medication List: Ambulatory Orders Aspirin [ASA -] 81 mg PO DAILY 05/25/12 Multivitamins [Multivit ([facility] Formulary)] 1 tab PO DAILY 07/16/16 Valsartan/Hydrochlorothiazide [Valsartan-Hctz 80-12.5 mg Tab] 1 each PO DAILY Acetaminophen W/ Codeine #3 [Tylenol # 3 -] 1 tab PO Q4H PRN tablet MDD 4 11/07 Ceftriaxone [Rocephin -] 2 gm IVPB DAILY vial 11/07/17 Docusate Sodium [Colace -] 100 mg PO TID capsule 11/07/17 Lactobacillus Acidophilus [Bacid -] 1 cap PO DAILY cap 11/07/17 Loratadine [Claritin -] 10 mg PO DAILY tablet 11/07/17 Nystatin Powder [Nystop Powder -] 1 applic TP DAILY applic 11/07/17 Pantoprazole Sodium [Protonix -] 40 mg PO DAILY tablet.ec 11/07/17 Picc Line Flush [Picc Line Flush -] 8 ml IVPUSH PRN PRN ml 11/07/17 Picc Line Flush [Picc Line Flush -] 8 ml IVPUSH PRN PRN ml 11/07/17 Polyethylene Glycol 3350 [Miralax 119 gm Btl -] 17 gm PO DAILY bottle 11/07/17 Sennosides [Senna -] 2 tab PO HS PRN tablet 11/07/17 Sodium Chloride Nasal [place] [[place] Nasal [place] -] 2 spray NS BID spray
== END 2017-11-07 17:07 | disposition home or self-care (01) | DRG 24 ==
LOC: JER 07:35 → JERBED 14:40 → JICU 10-15 12:33 → J8W 10-17 10:16 → JICU 10-28 19:15 → J8W 11-05 20:24
PROVIDERS: ADMIT Internal Medicine; ATTEND Internal Medicine
PROC: 009U3ZX Drainage of Spinal Canal, Percutaneous Approach, Diagnostic (ICD-10-PCS; principal; 2017-10-14)
PROC: 02HV33Z Insertion of Infusion Device into Superior Vena Cava, Percutaneous Approach (ICD-10-PCS; 2017-10-14)
PROC: 09JY8ZZ Inspection of Sinus, Via Natural or Artificial Opening Endoscopic (ICD-10-PCS; 2017-10-16)
PROC: 09BX8ZZ Excision of Left Sphenoid Sinus, Via Natural or Artificial Opening Endoscopic (ICD-10-PCS; 2017-10-28)
PROC: 009 Central Nervous System and Cranial Nerves, Drainage (ICD-10-PCS; 2017-10-28)
PROC: 0JRP07Z Replacement of Left Lower Leg Subcutaneous Tissue and Fascia with Autologous Tissue Substitute, Open Approach (ICD-10-PCS; 2017-10-28)
PROC: 00U Central Nervous System and Cranial Nerves, Supplement (ICD-10-PCS; 2017-10-28 12:30)
DX: G00.1 Pneumococcal meningitis (principal); G96.0 Cerebrospinal fluid leak; Z68.41 Body mass index [BMI] 40.0-44.9, adult; I10 Essential (primary) hypertension; J01.30 Acute sphenoidal sinusitis, unspecified; I45.10 Unspecified right bundle-branch block; H70.892 Other mastoiditis and related conditions, left ear; G43.009 Migraine without aura, not intractable, without status migrainosus; H53.149 Visual discomfort, unspecified; C50.919 Malignant neoplasm of unspecified site of unspecified female breast; R50.9 Fever, unspecified; H66.92 Otitis media, unspecified, left ear; J34.2 Deviated nasal septum; R00.0 Tachycardia, unspecified; G93.89 Other specified disorders of brain; H65.32 Chronic mucoid otitis media, left ear; E66.01 Morbid (severe) obesity due to excess calories; J34.89 Other specified disorders of nose and nasal sinuses; D72.819 Decreased white blood cell count, unspecified; Z87.891 Personal history of nicotine dependence; Z85.3 Personal history of malignant neoplasm of breast
CPT/HCPCS: 36415; 36569; 70450-TC; 70486-TC; 70496-TC; 70551-TC; 70552-TC; 71045-TC-FY; 76000-TC-FY; 77001-TC-FY; 80048; 80053; 81003; 81015; 82232; 82550; 82784; 82945; 82962; 83735; 84100; 84157; 84484; 85025; 85027; 85610; 85651; 85730; 86140; 86850; 86900; 86901; 86922; 87040; 87070; 87102; 87116; 87205; 87206; 87210; 87389; 87529; 87802; 87804; 87899; 88302-TC; 88311-TC; 89050; 93005; 93010; 94760; 97116-GP; 97161-GP; 99285-25; C1751; G0480; J0131; J1100; J1644; J7030

== ENCOUNTER 2017-11-08 10:01 | Day surgery (SDC) | payer BC ==
[2017-11-08 10:51] VITALS: TEMP 98.5
[2017-11-08] MEDS ORDERED: CEFTRIAXONE 2 GM in DEXTROSE 5%-WATER 100 ML IVPB ONE (11:00)
[2017-11-08 11:52] VITALS: BP 116/82; PULSE 98
== END 2017-11-08 11:00 | disposition home or self-care (01) ==
LOC: JINFUSION 10:01
PROVIDERS: ATTEND Internal Medicine
DX: H70.90 Unspecified mastoiditis, unspecified ear (principal)
CPT/HCPCS: 96365

== ENCOUNTER 2017-11-09 10:04 | Day surgery (SDC) | payer BC ==
[2017-11-09] MEDS ORDERED: DEXTROSE 5%-WATER 100 ML IVPB ONE (11:10)
[2017-11-09] MEDS ORDERED: CEFTRIAXONE 2 GM in DEXTROSE 5%-WATER 100 ML IVPB ONE (11:15)
[2017-11-09 15:57] VITALS: TEMP 97.9
[2017-11-09 15:59] VITALS: BP 110/67; PULSE 71
== END 2017-11-09 10:45 | disposition home or self-care (01) ==
LOC: JINFUSION 10:04 → J7W 10:06 → JINFUSION 10:45
PROVIDERS: ATTEND Internal Medicine
DX: H70.90 Unspecified mastoiditis, unspecified ear (principal)
CPT/HCPCS: 96365

== ENCOUNTER 2017-11-10 09:47 | Day surgery (SDC) | payer BC ==
[2017-11-10 10:22] VITALS: TEMP 97.9
[2017-11-10] MEDS ORDERED: DEXTROSE 5%-WATER 100 ML IVPB ONE (10:29)
[2017-11-10] MEDS ORDERED: CEFTRIAXONE 2 GM in DEXTROSE 5%-WATER 100 ML IVPB SCH (10:30)
[2017-11-10 11:22] VITALS: BP 112/64; PULSE 72
== END 2017-11-10 11:22 | disposition home or self-care (01) ==
LOC: JINFUSION 09:47 → J7W 09:47 → JINFUSION 11:22
PROVIDERS: ATTEND Internal Medicine
DX: H70.90 Unspecified mastoiditis, unspecified ear (principal)
CPT/HCPCS: 96365

== ENCOUNTER 2017-11-12 09:53 | Day surgery (SDC) | payer BC ==
[~2017-11-12 09:53] MED LIST changes: +CEFTRIAXONE 2 GM in DEXTROSE 5%-WATER 100 ML IVPB ONE; -ceFAZolin SODIUM 1 GM VIAL IVPB ONE
[2017-11-12 11:57] VITALS: TEMP 98.3
[2017-11-12 11:58] VITALS: BP 110/69; PULSE 89
== END 2017-11-12 11:58 | disposition home or self-care (01) ==
LOC: JINFUSION 09:53
PROVIDERS: ATTEND Internal Medicine
DX: H70.90 Unspecified mastoiditis, unspecified ear (principal)
CPT/HCPCS: 96365

== ENCOUNTER 2017-11-14 09:48 | Day surgery (SDC) | payer BC ==
[2017-11-14 11:22] VITALS: BP 120/78; PULSE 100
== END 2017-11-14 11:22 | disposition home or self-care (01) ==
LOC: JINFUSION 09:48
PROVIDERS: ATTEND Internal Medicine
DX: H70.90 Unspecified mastoiditis, unspecified ear (principal)
CPT/HCPCS: 96365

== ENCOUNTER 2017-11-16 09:48 | Day surgery (SDC) | payer BC ==
[2017-11-16] MEDS ORDERED: CEFTRIAXONE 2 GM in DEXTROSE 5%-WATER 100 ML IVPB ONE (11:00)
[2017-11-16] MEDS ORDERED: DEXTROSE 5%-WATER 100 ML IVPB ONE (11:08)
[2017-11-16 12:43] VITALS: BP 100/64; PULSE 99; TEMP 98.4
== END 2017-11-16 12:00 | disposition home or self-care (01) ==
LOC: JINFUSION 09:48 → J7W 09:49 → JINFUSION 12:00
PROVIDERS: ATTEND Internal Medicine
DX: H70.90 Unspecified mastoiditis, unspecified ear (principal)
CPT/HCPCS: 96365

== ENCOUNTER 2017-11-17 09:52 | Day surgery (SDC) | payer BC ==
[2017-11-17] MEDS ORDERED: CEFTRIAXONE 2 GM in DEXTROSE 5%-WATER 100 ML IVPB ONE (10:15)
[2017-11-17] MEDS ORDERED: DEXTROSE 5%-WATER 100 ML IVPB ONE (10:20)
[2017-11-17 10:35] VITALS: BP 104/70; PULSE 90; TEMP 97.8
== END 2017-11-17 11:10 | disposition home or self-care (01) ==
LOC: JINFUSION 09:52 → J7W 09:52 → JINFUSION 11:10
PROVIDERS: ATTEND Internal Medicine
DX: H70.90 Unspecified mastoiditis, unspecified ear (principal)
CPT/HCPCS: 96365

== ENCOUNTER 2017-11-18 09:41 | Day surgery (SDC) | payer BC ==
[2017-11-18] MEDS ORDERED: CEFTRIAXONE 2 GM in DEXTROSE 5%-WATER 100 ML IVPB ONE (10:00)
[2017-11-18 10:37] VITALS: BP 103/71; PULSE 90; TEMP 98
== END 2017-11-18 11:09 | disposition home or self-care (01) ==
LOC: JINFUSION 09:41
PROVIDERS: ATTEND Internal Medicine
DX: H70.90 Unspecified mastoiditis, unspecified ear (principal)
CPT/HCPCS: 96365

== ENCOUNTER 2017-11-19 09:38 | Day surgery (SDC) | payer BC ==
[~2017-11-19 09:38] MED LIST changes: +CEFTRIAXONE 2 GM in DEXTROSE 5%-WATER - 100 ML IVPB ONE; -CEFTRIAXONE 2 GM in DEXTROSE 5%-WATER 100 ML IVPB ONE
[2017-11-19 10:04] VITALS: BP 112/69; PULSE 90; TEMP 98.5
== END 2017-11-19 10:52 | disposition home or self-care (01) ==
LOC: JASU-ENDO 09:38 → JINFUSION 09:38 → JASU-ENDO 10:52
PROVIDERS: ATTEND Internal Medicine
DX: H70.90 Unspecified mastoiditis, unspecified ear (principal)
CPT/HCPCS: 96365

== ENCOUNTER 2017-11-20 09:56 | Day surgery (SDC) | payer BC ==
[2017-11-20] MEDS ORDERED: CEFTRIAXONE 2 GM in DEXTROSE 5%-WATER 100 ML IVPB ONE (10:00)
[2017-11-20 12:05] VITALS: BP 124/79; PULSE 85; TEMP 98.6
== END 2017-11-20 11:15 | disposition home or self-care (01) ==
LOC: JASU-ENDO 09:56 → JINFUSION 09:56 → JASU-ENDO 11:15
PROVIDERS: ATTEND Internal Medicine
DX: H70.90 Unspecified mastoiditis, unspecified ear (principal)
CPT/HCPCS: 96365

== ENCOUNTER 2017-11-21 09:37 | Day surgery (SDC) | payer BC ==
[2017-11-21 10:05] LABS: HEMATOCRIT 41.8 % (32.4-45.2); MCH 30.7 pg (25.7-33.7); MCHC 33.4 g/dl (32.0-36.0); MEAN PLT VOLUME 7.6 fl (7.5-11.1); PLATELET COUNT 319 K/MM3 (134-434); RBC 4.55 M/mm3 (3.60-5.2); RDW 14.1 % (11.6-15.6); WHITE BLOOD COUNT 3.5 K/mm3 (4.0-10.0)
[2017-11-21 10:16] VITALS: TEMP 98.1
[2017-11-21 10:39] LABS: ALBUMIN 3.8 g/dl (3.4-5.0); ANION GAP 7 (8-16); BLOOD UREA NITROGEN 12 mg/dL (7-18); CALCIUM 9.5 mg/dL (8.5-10.1); CHLORIDE 105 mmol/L (98-107); CO2 30 mmol/L (21-32); CREATININE 0.8 mg/dL (0.55-1.02); GLUCOSE,RANDOM 90 mg/dL (74-106); POTASSIUM 4.2 mmol/L (3.5-5.1); SGOT/AST 14 U/L (15-37); SGPT/ALT 28 U/L (12-78); SODIUM 142 mmol/L (136-145)
[2017-11-21 10:41] LABS: ALK PHOS 57 U/L (45-117); BILIRUBIN,TOTAL 0.3 mg/dL (0.2-1.0); TOT PROT 7.1 g/dl (6.4-8.2)
[2017-11-21 11:39] VITALS: BP 125/84; PULSE 88
== END 2017-11-21 11:00 | disposition home or self-care (01) ==
LOC: JINFUSION 09:37
PROVIDERS: ATTEND Internal Medicine
DX: H70.90 Unspecified mastoiditis, unspecified ear (principal)
CPT/HCPCS: 36415; 80053; 85027; 96365

== ENCOUNTER 2017-11-22 09:58 | Day surgery (SDC) | payer BC ==
[2017-11-22 11:43] VITALS: BP 122/73; PULSE 90; TEMP 98.5
== END 2017-11-22 11:25 | disposition home or self-care (01) ==
LOC: JINFUSION 09:58
PROVIDERS: ATTEND Internal Medicine
DX: H70.90 Unspecified mastoiditis, unspecified ear (principal)
CPT/HCPCS: 96365

== ENCOUNTER 2017-11-23 09:16 | Day surgery (SDC) | payer BC ==
[2017-11-23] MEDS ORDERED: SODIUM CHLORIDE 100 ML IVPB ONE (10:14)
[2017-11-23] MEDS ORDERED: CEFTRIAXONE 2 GM in SODIUM CHLORIDE 100 ML IVPB ONE (10:15)
[2017-11-23] MEDS ORDERED: CEFTRIAXONE 2 GM in DEXTROSE 5%-WATER 100 ML IVPB ONE (10:16)
[2017-11-23 11:09] VITALS: BP 136/83; PULSE 83; TEMP 98.2
== END 2017-11-23 11:56 | disposition home or self-care (01) ==
LOC: JINFUSION 09:16 → J7W 09:17 → JINFUSION 11:56
PROVIDERS: ATTEND Internal Medicine
DX: H70.90 Unspecified mastoiditis, unspecified ear (principal)
CPT/HCPCS: 96365

== ENCOUNTER 2017-11-24 10:03 | Day surgery (SDC) | payer BC | END 2017-11-24 12:19 | disposition home or self-care (01) | LOC: J7W 10:03 | DX: H70.90 Unspecified mastoiditis, unspecified ear (principal) | CPT/HCPCS: 96365 ==

== ENCOUNTER 2017-11-25 09:52 | Day surgery (SDC) | payer BC ==
[2017-11-25] MEDS ORDERED: CEFTRIAXONE 2 GM in DEXTROSE 5%-WATER - 100 ML IVPB ONE (10:15)
[2017-11-25 12:14] VITALS: BP 110/70; PULSE 100; TEMP 97.7
== END 2017-11-25 10:45 | disposition home or self-care (01) ==
LOC: JASU-ENDO 09:52
PROVIDERS: ATTEND Internal Medicine
DX: H70.90 Unspecified mastoiditis, unspecified ear (principal)
CPT/HCPCS: 96365

== ENCOUNTER 2017-11-26 09:37 | Day surgery (SDC) | payer BC ==
[2017-11-26] MEDS ORDERED: CEFTRIAXONE 2 GM in DEXTROSE 5%-WATER 100 ML IVPB ONE (10:00)
[2017-11-26 13:49] VITALS: BP 109/78; PULSE 92; TEMP 98.4
== END 2017-11-26 11:00 | disposition home or self-care (01) ==
LOC: JASU-ENDO 09:37
PROVIDERS: ATTEND Internal Medicine
DX: H70.90 Unspecified mastoiditis, unspecified ear (principal)
CPT/HCPCS: 96365

== ENCOUNTER 2017-11-27 09:46 | Day surgery (SDC) | payer BC ==
[~2017-11-27 09:46] MED LIST changes: -CEFTRIAXONE 2 GM in DEXTROSE 5%-WATER - 100 ML IVPB ONE; +CEFTRIAXONE 2 GM in DEXTROSE 5%-WATER 100 ML IVPB ONE
[2017-11-27 10:14] VITALS: TEMP 97.9
[2017-11-27 10:42] VITALS: BP 114/82; PULSE 100
== END 2017-11-27 10:42 | disposition home or self-care (01) ==
LOC: JINFUSION 09:46
PROVIDERS: ATTEND Internal Medicine
DX: H70.90 Unspecified mastoiditis, unspecified ear (principal)
CPT/HCPCS: 96365

== ENCOUNTER 2017-11-28 09:12 | Day surgery (SDC) | payer BC ==
[~2017-11-28 09:12] MED LIST changes: +CEFTRIAXONE 2 GM in DEXTROSE 5%-WATER - 100 ML IVPB ONE; -CEFTRIAXONE 2 GM in DEXTROSE 5%-WATER 100 ML IVPB ONE
[2017-11-28 09:29] LABS: HEMOGLOBIN 14.2 GM/dL (10.7-15.3); MCH 30.4 pg (25.7-33.7); MCHC 33.1 g/dl (32.0-36.0); MEAN CELL VOLUME 91.9 fl (80-96); MEAN PLT VOLUME 7.6 fl (7.5-11.1); PLATELET COUNT 246 K/MM3 (134-434); RBC 4.67 M/mm3 (3.60-5.2); RDW 14.8 % (11.6-15.6); WHITE BLOOD COUNT 3.1 K/mm3 (4.0-10.0)
[2017-11-28 09:58] LABS: ALBUMIN 3.9 g/dl (3.4-5.0); ALK PHOS 55 U/L (45-117); ANION GAP 5 (8-16); BILIRUBIN,TOTAL 0.3 mg/dL (0.2-1.0); BLOOD UREA NITROGEN 13 mg/dL (7-18); CALCIUM 9.5 mg/dL (8.5-10.1); CHLORIDE 107 mmol/L (98-107); CO2 27 mmol/L (21-32); CREATININE 0.6 mg/dL (0.55-1.02); GLUCOSE,RANDOM 94 mg/dL (74-106); SGOT/AST 16 U/L (15-37); SGPT/ALT 24 U/L (12-78); SODIUM 139 mmol/L (136-145); TOT PROT 7.2 g/dl (6.4-8.2)
[2017-11-28 09:59] VITALS: PULSE 102; TEMP 98
[2017-11-28 10:39] VITALS: BP 132/70
== END 2017-11-28 10:20 | disposition home or self-care (01) ==
LOC: JINFUSION 09:12
PROVIDERS: ATTEND Internal Medicine
DX: H70.90 Unspecified mastoiditis, unspecified ear (principal)
CPT/HCPCS: 36415; 80053; 85027; 96365

== ENCOUNTER 2018-05-16 11:12 | Emergency (ER) | payer BC ==
[2018-05-16 11:22] VITALS: BMI 44.1
--- NOTE | 2018-05-16 12:00 | PDOC ---
Attending Attestation - HPI HPI: 05/16/18 12:44 The patient is a 62 year old female with no significant PMH of stage 3 breast ca (in remission), strep CHF meningitis s/p shlenoid sinus patching and hypertension who presents to the emergency department with a headache since last night. The patient reports that she was seen in ENT yesterday for throat pain by which she was given antibiotics and sent home. The patient reports an onset of a left sided headache, described as pressure-like that began in her left eye and radiates to the back of her head. she state sthat her headache is worsened by haed movement . The patient reports some associated photophobia and dizziness . She states that she has had headaches in the past but not this severe. The patient denies any other symptoms. She denies any neck stiffness, numbness, weakness or tingling sensation. She denies any fever, chlls, nausea, vomiting, diarrhea, constipation or urinary symptoms. The patient denies any chest pain, shortness of breath. The patient denies any other complaints. Documentation prepared by Denita Baez, acting as medical practice manager for Alexandr Holly MD. <Denita Baez - Last Filed: 05/16/18 14:03> - Resident Resident Name: Krunal Fried - ED Attending Attestation I have performed the following: I have examined & evaluated the patient, The case was reviewed & discussed with the resident, I agree w/resident's findings & plan, Exceptions are as noted - HPI HPI: 05/16/18 11:59 62y hx of htn, breast ca, pneumococcoal meningitis cb pneumocephalus, presents with sorethroat, cold sympsoms presents with L sided facial pressure after starting abx by ENT. - Physicial Exam PE: 05/16/18 14:07 GENERAL: The patient is awake, alert, and fully oriented, Nontoxic - in no acute distress. HEAD: Normocephalic, atraumatic. EYES: extraocular movements intact, sclera anicteric, conjunctiva clear. ENT: Normal voice, Moist mucous membranes. NECK: Normal range of motion, supple, neg kernigs/bruzinsky LUNGS: Breath sounds equal, clear to auscultation bilaterally. No wheezes, no rhonchi, no rales. HEART: Regular rate and rhythm, normal S1 and S2 without murmur, rub or gallop. ABDOMEN: Soft, nontender, No guarding, no rebound. . No CVA tenderness EXTREMITIES: Normal range of motion, NEUROLOGICAL: No facial assymetry, Normal speech, moving all 4 extremities spontaneously and symmetrically PSYCH: Normal mood, normal affect. SKIN: Warm, Dry, normal turgor, - Medical Decision Making 05/16/18 13:06 symptoms suggestive of sinusitis no signs of meningitis will get labs, ct head will reassess 05/16/18 14:[address] cw sinusitis will have pt continue abx and will dc to fu with ENT <Alexandr Holly - Last Filed: 05/16/18 14:09>
[2018-05-16] MEDS ORDERED: ACETAMINOPHEN 500 MG TABLET (FP) PO ONE (12:06)
[2018-05-16] MEDS ORDERED: METOCLOPRAMIDE HCL INJECTION 10 MG/2 ML VIAL IVPUSH ONE (12:10)
[2018-05-16] MEDS ORDERED: ACETAMINOPHEN 325 MG TABLET (FP) ONE (12:14)
[2018-05-16] MEDS ORDERED: METOCLOPRAMIDE HCL INJECTION 10 MG/2 ML VIAL ONE (12:14)
[2018-05-16 12:53] LABS: BASO % 0.6 % (0-2.0); EOS % 2.2 % (0-4.5); HEMATOCRIT 44.8 % (32.4-45.2); HEMOGLOBIN 14.7 GM/dL (10.7-15.3); LYMPH % 10.4 % (8-40); MCH 30.2 pg (25.7-33.7); MCHC 32.8 g/dl (32.0-36.0); MEAN CELL VOLUME 92.1 fl (80-96); MEAN PLT VOLUME 8.2 fl (7.5-11.1); MONO % 8.6 % (3.8-10.2); NEUT % 78.2 % (42.8-82.8); PLATELET COUNT 321 K/MM3 (134-434); RBC 4.87 M/mm3 (3.60-5.2); RDW 15.1 % (11.6-15.6); WHITE BLOOD COUNT 6.1 K/mm3 (4.0-10.0)
[2018-05-16 13:23] LABS: ALBUMIN 4.4 g/dl (3.4-5.0); ALK PHOS 60 U/L (45-117); ANION GAP 8 MMOL/L (8-16); BILIRUBIN,TOTAL 0.4 mg/dL (0.2-1); BLOOD UREA NITROGEN 13 mg/dL (7-18); CALCIUM 9.6 mg/dL (8.5-10.1); CHLORIDE 101 mmol/L (98-107); CO2 30 mmol/L (21-32); CREATININE 0.8 mg/dL (0.55-1.3); GLUCOSE,RANDOM 91 mg/dL (74-106); POTASSIUM 4.1 mmol/L (3.5-5.1); SGOT/AST 15 U/L (15-37); SGPT/ALT 29 U/L (13-61); SODIUM 140 mmol/L (136-145)
--- NOTE | 2018-05-16 14:01 | PDOC ---
History of Present Illness - General Chief Complaint: Headache Stated Complaint: HEADACHE Time Seen by Provider: 05/16/18 11:30 Past History - Past Medical History Allergies/Adverse Reactions: Allergies Allergy/AdvReac Type Severity Reaction Status Date / Time No Known Allergies Allergy Verified 05/16/18 11:17 Home Medications: Ambulatory Orders Aspirin [ASA -] 81 mg PO DAILY 05/25/12 Multivitamins [Multivit ([facility] Formulary)] 1 tab PO DAILY 07/16/16 Valsartan/Hydrochlorothiazide [Valsartan-Hctz 80-12.5 mg Tab] 1 each PO DAILY Loratadine [Claritin -] 10 mg PO DAILY tablet 11/07/17 Famotidine [Pepcid -] 20 mg PO DAILY 05/16/18 Anemia: No Asthma: No Cancer: Yes (left breast) Cardiac Disorders: No CVA: No COPD: No Dementia: No Diabetes: No GI Disorders: No Disorders: No HTN: Yes Hypercholesterolemia: No Liver Disease: No Seizures: No Thyroid Disease: No - Surgical History Cholecystectomy: Yes Neurologic Surgery: Yes (was leaking spinal fluid) - Immunization History Immunization Up to Date: Yes - Suicide/Smoking/Psychosocial Hx Smoking Status: No Smoking History: Never smoked Have you smoked in the past 12 months: No Number of Cigarettes Smoked Daily: 0 Information on smoking cessation initiated: No Hx Alcohol Use: No Drug/Substance Use Hx: No Substance Use Type: None Hx Substance Use Treatment: No *Physical Exam - Vital Signs Last Vital Signs Temp Pulse Resp BP Pulse Ox 98.6 F 98 H 18 128/81 98 05/16/18 11:17 05/16/18 11:17 05/16/18 11:17 05/16/18 11:17 05/16/18 11:17 ED Treatment Course - LABORATORY CBC & Chemistry Diagram: 05/16/18 12:20 05/16/18 12:42 - ADDITIONAL ORDERS Additional order review: Laboratory Results 05/16/18 12:42 Sodium 140 Potassium 4.1 Chloride 101 Carbon Dioxide 30 Anion Gap 8 BUN 13 Creatinine 0.8 Creat Clearance w eGFR > 60 Random Glucose 91 Calcium 9.6 Total Bilirubin 0.4 AST 15 ALT 29 Alkaline Phosphatase 60 Total Protein 8.0 Albumin 4.4 05/16/18 12:20 RBC 4.87 MCV 92.1 MCHC 32.8 RDW 15.1 MPV 8.2 Neutrophils % 78.2 Lymphocytes % 10.4 D Monocytes % 8.6 Eosinophils % 2.2 Basophils % 0.6 - RADIOLOGY Radiology Studies Ordered: Category Date Time Status HEAD CT WITHOUT CONTRAST [CT] Stat CT Scan 05/16/18 12:05 Completed - Medications Given in the ED: ED Medications Discontinued Medications Generic Name Dose Route Start Last Admin Trade Name Pool PRN Reason Stop Dose Admin Acetaminophen 1,000 mg 05/16/18 12:06 05/16/18 12:15 Tylenol - PO 05/16/18 12:07 1,000 mg ONCE ONE Administration Metoclopramide HCl 10 mg 05/16/18 12:10 05/16/18 12:15 Reglan Injection - IVPUSH 05/16/18 12:11 10 mg ONCE ONE Administration Medical Decision Making - Medical Decision Making 05/16/18 14:[address] ordered to r/o pneumocephalus. Given 1 g PO tylenol Case discussed w/Dr. Green (ENT) who wants pt to have head CT. Pt has acute sphenoid sinusitis. If head CT negative otherwise then can d/c home and can give decadron IV here before sending out. 05/16/18 14:28 Pt feels better after tylenol. Head CT impression: No acute intracranial pathology is identified. There is no evidence of pneumocephalus. The calvarium is intact. No gross defect is seen in the left posterior lateral wall of the sphenoid sinus on this examination. Please refer to prior CT scan of the paranasal sinuses report dated 10/21/2017 Acute left sphenoid sinusitis and minimal mucosal thickening in the ethmoid air cells, mainly on the left side, posteriorly. Decadron 10mg IV given. Pt to be discharged home. To f/u with ENT and PCP within the next week. To come back to the ER if she has worsening of her current symptoms or has onset of new concerning symptoms. To complete her abx as prescribed by ENT. *DC/Admit/Observation/Transfer Diagnosis at time of Disposition: Sinusitis - Discharge Dispostion Disposition: HOME Condition at time of disposition: Fair Decision to Admit order: No - Referrals - Patient Instructions Printed Discharge Instructions: DI for Sinusitis Additional Instructions: Please follow up with your primary care doctor and ENT doctor within the next week. Complete your antibiotics as they were prescribed. Come back to the ER if you develop worsening of your current symptoms or onset of new concerning symptoms. - Post Discharge Activity
[2018-05-16] MEDS ORDERED: DEXAMETHASONE SOD PHOSPHATE 20 MG/5 ML VIAL IVPB ONE (14:27)
[2018-05-16] MEDS ORDERED: DEXAMETHASONE SOD PHOSPHATE 10 MG/1 ML VIAL ONE (15:21)
[2018-05-16 15:25] VITALS: BP 128/75; PULSE 78; TEMP 98.2
== END 2018-05-16 15:30 | disposition home or self-care (01) ==
LOC: JER 11:12
PROC: 3E0333Z Introduction of Anti-inflammatory into Peripheral Vein, Percutaneous Approach (ICD-10-PCS; principal; 2018-05-16)
PROC: 3E033GC Introduction of Other Therapeutic Substance into Peripheral Vein, Percutaneous Approach (ICD-10-PCS; 2018-05-16)
DX: J01.30 Acute sphenoidal sinusitis, unspecified (principal); C50.912 Malignant neoplasm of unspecified site of left female breast
CPT/HCPCS: 36415; 70450-TC; 80053; 85025; 99283-25

== ENCOUNTER → 2019-01-26 | Day surgery (SDC) | payer BC ==
--- NOTE | 2019-01-27 16:09 | PATH ---
Surgical Pathology Report Patient Name: LEE GUERRA [facility] Rec. #: [id number] /Age/Gender: 1955 (Age: 63) / F Account: [id number] Location: [facility]OLOGY [facility] Taken: 01/26/2019 Received: 01/26/2019 Reported: 01/27/2019 Physicians: Lyric Callaway M.D. Specimen(s) Received LEFT BREAST 1:00 Clinical History Nonpalpable lesion Mammographic findings, ultrasound findings: Suspicious Suspicious mass, 0.74 cm Final Diagnosis BREAST, LEFT, 1:00, ULTRASOUND GUIDED CORE BIOPSY: INVASIVE DUCTAL CARCINOMA, MODERATELY DIFFERENTIATED, MEASURING AT LEAST 8 MM IN THIS MATERIAL. Results of Estrogen Receptor (ER) and Progesterone Receptor (MO) studies performed on block "1" at [facility] are as follows: ER (clone [id number] mouse monoclonal antibody by [employer]): 100% nuclear staining with strong intensity (Positive). MO (clone16 mouse monoclonal antibody by [employer]): ~65-70% nuclear staining with moderate to strong intensity (Positive). Comment: Immunohistochemical stains performed and interpreted at [facility] show E-Cadherin is positive, supportive of ductal phenotype. Myoepithelial markers (p63 and SMM-HC) are negative in areas of invasive carcinoma. Prior materials are noted. Findings discussed with Dr. Callaway. Results of Her2 (IHC) & Ki-67 studies pending and will be reported separately. Positive and negative controls (internal if applicable) show appropriate results. Formalin fixation and cold ischemic times are within current ASCO/CAP recommendations for ER, MO and Her2 testing. Electronically Signed Bertha Kiser M.D. Addendum Reported: 01/28/2019 Addendum Diagnosis Results of Her2 (IHC) & Ki-67 studies performed on block "1" at [place], [place] ([id number]) are as follows: Her2 IHC (EP3 from [employer], formerly known as [id number], using [employer] Polymer Refine detection kit): 0 (Negative). Ki-67: ~10% (Low proliferative index). Positive and negative controls (internal if applicable) show appropriate results. Bertha Kiser M.D. Gross Description Received in formalin labeled "left 1:00," are 5 galvin-yellow, cylindrical portions of fibroadipose tissue ranging from 0.5-1.4 cm in length and averaging 0.1 cm in diameter. The specimens are submitted in toto in one cassette. Time to formalin fixation: Less than one minute Total formalin fixation time: Approximately 8 hours. 01/26/201901/26/2019
== END | disposition home or self-care (01) ==
LOC: JRADUS-SUR 09:00
PROVIDERS: ATTEND Family Medicine
PROC: 0HBU3ZX Excision of Left Breast, Percutaneous Approach, Diagnostic (ICD-10-PCS; principal; 2019-01-26)
DX: C50.912 Malignant neoplasm of unspecified site of left female breast (principal)
CPT/HCPCS: 19083; 77065-TC; 88305-TC; 88341-TC; 88342-TC

== ENCOUNTER 2023-06-12 20:48 | Emergency (ER) | payer OTHER, MEDICARE ==
[2023-06-12 21:20] VITALS: TEMP 98.6; BMI 45.7
[2023-06-12 22:09] LABS: BASO % 0.8 % (0-2.0); EOS % 4.3 % (0-4.5); HEMATOCRIT 43.3 % (32.4-45.2); HEMOGLOBIN 13.8 GM/dL (10.7-15.3); LYMPH % 27.8 % (8-40); MCH 29.1 pg (25.7-33.7); MCHC 31.8 g/dl (32.0-36.0); MEAN CELL VOLUME 91.6 fl (80-96); MEAN PLT VOLUME 7.9 fl (7.5-11.1); MONO % 10.1 % (3.8-10.2); PLATELET COUNT 339 10^3/uL (134-434); RBC 4.73 M/mm3 (3.60-5.2); WHITE BLOOD COUNT 6.1 K/mm3 (4.0-10.0)
[2023-06-12 22:18] LABS: POTASSIUM 3.6 mmol/L (3.5-5.1)
[2023-06-12 22:20] LABS: CALCIUM 9.6 mg/dL (8.5-10.1)
[2023-06-12 22:21] LABS: ALBUMIN 4.1 g/dl (3.4-5.0)
[2023-06-12 22:26] LABS: BILIRUBIN,TOTAL 0.6 mg/dL (0.2-1); TOT PROT 7.7 g/dl (6.4-8.2)
[2023-06-12] MEDS ORDERED: SODIUM CHLORIDE 0.9% 500 ML INFUS.BAG IV ONE (22:32)
[2023-06-12] MEDS ORDERED: BACITRACIN ZINC 15 GM TUBE TOPICAL OINTMENT ONE (22:40)
[2023-06-12] MEDS ORDERED: BACITRACIN ZINC 15 GM TUBE TOPICAL OINTMENT TP ONE (22:40)
[2023-06-12] MEDS ORDERED: ACETAMINOPHEN 1000 MG/100 ML BAG IVPB ONE (22:57)
[2023-06-12] MEDS ORDERED: KETOROLAC TROMETHAMINE 30 MG/1 ML VIAL IVPUSH ONE (22:57)
[2023-06-12] MEDS ORDERED: TAMSULOSIN HCL 0.4 MG CAP PO ONE (22:57)
[2023-06-12] MEDS ORDERED: KETOROLAC TROMETHAMINE 30 MG/1 ML VIAL ONE (23:00)
[2023-06-12] MEDS ORDERED: TAMSULOSIN HCL 0.4 MG CAP ONE (23:02)
[2023-06-12] MEDS ORDERED: ACETAMINOPHEN INJECTION 100 ML IVPB ONE (23:02)
[2023-06-13 00:11] LABS: EPI CELLS 5 /uL (0-25.1); HYALINE CASTS 1 /uL (0-3.1); URINE APPEARANCE CLEAR; URINE BACTERIA 32 /uL (0-1359); URINE BILIRUBIN NEGATIVE (NEGATIVE); URINE COLOR YELLOW; URINE GLUCOSE (UA) NEGATIVE (NEGATIVE); URINE KETONE NEGATIVE (NEGATIVE); URINE LEUK ESTERASE 1+ (NEGATIVE); URINE NITRITE NEGATIVE (NEGATIVE); URINE PROTEIN NEGATIVE (NEGATIVE); URINE RBC 53 /uL (0-23.9); URINE WBC 42 /uL (0-25.8)
[2023-06-13 00:35] VITALS: BP 127/65; PULSE 79; RESP 16
== END 2023-06-13 00:36 | disposition home or self-care (01) ==
LOC: JER 20:48
PROC: 3E033NZ Introduction of Analgesics, Hypnotics, Sedatives into Peripheral Vein, Percutaneous Approach (ICD-10-PCS; principal; 2023-06-12)
PROC: 3E0333Z Introduction of Anti-inflammatory into Peripheral Vein, Percutaneous Approach (ICD-10-PCS; 2023-06-12)
DX: R10.9 Unspecified abdominal pain (principal); M79.672 Pain in left foot; N20.0 Calculus of kidney
CPT/HCPCS: 36415; 74176-TC; 80053; 81003; 84703; 85025; 87086; 99284-25